=== PATIENT | male | born 1960 | race Caucasian/White ===

== ENCOUNTER 2017-11-30 11:00 | Emergency (ER) | payer MEDICARE, OTHER ==
[2017-11-30 11:05] VITALS: TEMP 97.8
--- NOTE | 2017-11-30 11:40 | ED ---
General Adult HPI - General Chief complaint: Psychiatric Symptoms Stated complaint: EPS eval Time Seen by Provider: 11/30/17 11:18 Source: patient, RN notes reviewed Mode of arrival: ambulatory Limitations: no limitations - History of Present Illness Initial comments: Patient 56-year-old male presented to the emergency room today with a chief complaint of feeling more down. He does not that he's been crying a lot lately. He states just does not feel right. He states that he's recently going through divorce and had to move out of his house. 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 Patient states she's been taking his medications. States he came here for further evaluation as he just does not feel like this anymore. He states there is no thoughts of hurting himself or others. He denies any other complaints. Patient denies any recent fever, chills, shortness of breath, chest pain, back pain, abdominal pain , nausea or vomiting, headaches or visual changes, or any other complaints. - Related Data Home Medications Medication Instructions Recorded Confirmed [place] Carbonate 300 mg PO QID 09/19/15 11/30/17 OLANZapine [ZyPREXA] 10 mg PO HS 09/19/15 11/30/17 clonazePAM [KlonoPIN] 0.5 mg PO TID 09/19/15 11/30/17 Allergies Allergy/AdvReac Type Severity Reaction Status Date / Time No Known Allergies Allergy Verified 11/30/17 14:12 Review of Systems ROS Statement: Those systems with pertinent positive or pertinent negative responses have been documented in the HPI. ROS Other: All systems not noted in ROS Statement are negative. Past Medical History Additional Past Medical History / Comment(s): gout History of Any Multi-Drug Resistant Organisms: None Reported Past Surgical History: No Surgical Hx Reported Past Psychological History: Anxiety Smoking Status: Current every day smoker Past Alcohol Use History: None Reported Past Drug Use History: None Reported General Exam - General Exam Comments Initial Comments: General: The patient is awake and alert, in no distress, and does not appear acutely ill. Eye: Extra-ocular movements are intact. No nystagmus. There is normal conjunctiva bilaterally. No signs of icterus. Ears, nose, mouth and throat: There are moist mucous membranes and no oral lesions. Neck: The neck is supple, there is no tenderness or JVD. Cardiovascular: There is a regular rate and rhythm. No murmur, rub or gallop is appreciated. Respiratory: Lungs are clear to auscultation, respirations are non-labored, breath sounds are equal. No wheezes, stridor, rales, or rhonchi. Musculoskeletal: Normal ROM, no tenderness. Sensation intact. Neurological: A&O x 3. CN II-XII intact, There are no obvious motor or sensory deficits. Coordination appears grossly intact. Speech is normal. Skin: Skin is warm and dry and no rashes or lesions are noted. Psychiatric: Cooperative, appropriate mood & affect, normal judgment. Limitations: no limitations Course Vital Signs 11/30/17 11:03 Temperature 97.8 F Pulse Rate 100 Respiratory 20 Rate Blood Pressure 141/92 O2 Sat by Pulse 99 Oximetry Medical Decision Making - Medical Decision Making patient has been seen here in the emergency room by mental health. They recommended the patient may be discharged to follow up outpatient. He has no suicidal or homicidal thoughts or plans. there isbeen outpatient follow-up. is advised return to emergency room for any symptoms increase worsen or concerns. - Lab Data Lab Results 11/30/17 11/30/17 Range/Units 12:45 14:19 Urine Opiates Screen Not Detected (NotDetected) Ur Oxycodone Screen Not Detected (NotDetected) Urine Methadone Screen Not Detected (NotDetected) Ur Propoxyphene Screen Not Detected (NotDetected) Ur Barbiturates Screen Not Detected (NotDetected) U Tricyclic Antidepress Not Detected (NotDetected) Ur Phencyclidine Scrn Not Detected (NotDetected) Ur Amphetamines Screen Not Detected (NotDetected) U Methamphetamines Scrn Not Detected (NotDetected) U Benzodiazepines Scrn Not Detected (NotDetected) Dellrose <0.2 mmol/L Urine Cocaine Screen Not Detected (NotDetected) U Marijuana (THC) Screen Not Detected (NotDetected) Disposition Clinical Impression: Depression Disposition: HOME SELF-CARE Condition: Good Instructions: Depression (ED) Additional Instructions: Please follow-up with community mental as discussed here in emergency room. Please return here to emergency room if any symptoms increase or worsen or for any other concerns. Is patient prescribed a controlled substance at d/c from ED?: No Referrals: Davide Perkins, [Primary Care Provider] - 1-2 days Time of Disposition: 15:05
[2017-11-30 13:22] LABS: Amphetamine Screen,Urine Not Detected (NotDetected); Barbiturate Screen,Urine Not Detected (NotDetected); Benzodiazepines Screen,Urine Not Detected (NotDetected); Cocaine Screen,Urine Not Detected (NotDetected); Methadone Screen, Urine Not Detected (NotDetected); Opiate Screen,Urine Not Detected (NotDetected); Oxycodone Screen, Urine Not Detected (NotDetected); Phencyclidine Screen,Urine Not Detected (NotDetected); Tricyclic Antidepressant,Urine Not Detected (NotDetected); Urn Cannabinoid Scrn Not Detected (NotDetected)
[2017-11-30 15:17] VITALS: BP 138/78; PULSE 98; RESP 16
== END 2017-11-30 15:18 | disposition home or self-care (01) ==
LOC: EC 11:00
DX: F32.9 Major depressive disorder, single episode, unspecified (principal); F41.9 Anxiety disorder, unspecified; F17.200 Nicotine dependence, unspecified, uncomplicated
CPT/HCPCS: 36415; 80178; 80306; 82075; 99283

== ENCOUNTER 2020-09-04 19:24 | Emergency (ER) | payer MEDICARE, OTHER ==
[2020-09-04 19:33] VITALS: TEMP 98.2
[2020-09-04] MEDS ORDERED: ORPHENADRINE 30 MG/ML 2 ML VIAL IM STA (20:02)
[2020-09-04] MEDS ORDERED: KETOROLAC 15 MG/ML 1 ML VIAL IM STA (20:03)
--- NOTE | 2020-09-04 20:03 | ED ---
Back Pain HPI - General Chief Complaint: Back Pain/Injury Stated Complaint: [facility]- Low back injury Time Seen by Provider: 09/04/20 19:36 Source: patient Limitations: no limitations - History of Present Illness Initial Comments: Tate is a 59yo M who presents to the ER today via private vehicle for evaluation of low back pain. The patient works at a local grocery store, he reports that he was trying to get to cart unstuck when he jerked and twisted his back. Patient states that he has some pain right now, not severe but is worried that the pain will worsen over the next 24-48 hours. Patient denies any numbness or tingling in the legs. He's had no bowel or bowel incontinence. Denies additional concerns. - Related Data Home Medications Medication Instructions Recorded Confirmed [place] Carbonate 300 mg PO QID 09/19/15 11/30/17 OLANZapine [ZyPREXA] 10 mg PO HS 09/19/15 11/30/17 clonazePAM [KlonoPIN] 0.5 mg PO TID 09/19/15 11/30/17 Previous Rx's Medication Instructions Recorded Baclofen 10 mg PO TID #30 tab 09/04/20 Ibuprofen [Motrin] 600 mg PO Q8HR PRN #30 tab 09/04/20 Allergies Allergy/AdvReac Type Severity Reaction Status Date / Time No Known Allergies Allergy Verified 09/04/20 19:29 Review of Systems ROS Statement: Those systems with pertinent positive or pertinent negative responses have been documented in the HPI. ROS Other: All systems not noted in ROS Statement are negative. Past Medical History Past Medical History: No Reported History Additional Past Medical History / Comment(s): gout History of Any Multi-Drug Resistant Organisms: None Reported Past Surgical History: No Surgical Hx Reported Past Psychological History: Anxiety Smoking Status: Current every day smoker Past Alcohol Use History: None Reported Past Drug Use History: None Reported General Exam - General Exam Comments Initial Comments: Physical Exam GENERAL: Patient is well-developed and well-nourished. Patient is nontoxic and well-hydrated and is in no distress. HENT: Normocephalic, Atraumatic. EYES: PERRL, EOMI PULMONARY: Unlabored respirations. CARDIOVASCULAR: RRR Warm and well perfused extremities ABDOMEN: Non-distended SKIN: No rashes or bruising : Deferred NEUROLOGIC: Alert and oriented Normal speech Normal gait MUSCULOSKELETAL: Moving all extremities with no apparent injury No midline spinal tenderness PSYCHIATRIC: No SI/HI Limitations: no limitations Course Vital Signs 09/04/20 19:30 Temperature 98.2 F Pulse Rate 87 Respiratory 20 Rate Blood Pressure 114/76 O2 Sat by Pulse 94 L Oximetry Medical Decision Making - Medical Decision Making The patient was seen and evaluated, history was obtained from the patient, patient had low back pain that he describes as feeling that he has a muscle spasm after twisting while pulling on a grocery cart. No signs of bony injury. No focal neurologic deficits. Patient will be treated as a muscle spasm discharged home. Disposition Clinical Impression: Strain of lumbar region Disposition: HOME SELF-CARE Condition: Stable Instructions (If sedation given, give patient instructions): Acute Low Back Pain (ED) Prescriptions: Baclofen 10 mg PO TID #30 tab Ibuprofen [Motrin] 600 mg PO Q8HR PRN #30 tab PRN Reason: Pain Is patient prescribed a controlled substance at d/c from ED?: No Referrals: Davide Perkins DO [Primary Care Provider] - 1-2 days
[2020-09-04 21:11] VITALS: BP 134/90; PULSE 86; RESP 18
== END 2020-09-04 21:11 | disposition home or self-care (01) ==
LOC: EC 19:24
DX: S39.012A Strain of muscle, fascia and tendon of lower back, initial encounter (principal); F17.200 Nicotine dependence, unspecified, uncomplicated; X50.0XXA Overexertion from strenuous movement or load, initial encounter; Y92.512 Supermarket, store or market as the place of occurrence of the external cause; Y93.89 Activity, other specified; Y99.0 Civilian activity done for income or pay
CPT/HCPCS: 99283; 96372 ×2; J2360; J1885

== ENCOUNTER 2023-03-26 15:57 | Inpatient (IN) | payer MEDICARE, OTHER ==
[2023-03-26] MEDS ORDERED: MIDAZOLAM 1 MG/ML 5 ML VIAL IV STA (16:10)
[2023-03-26] MEDS ORDERED: ALBUTEROL NEBULIZED 2.5 MG/3 ML INHALATION STA (16:33)
[2023-03-26] MEDS ORDERED: IPRATROPIUM 0.5 MG/2.5 ML NEBU INHALATION STA (16:33)
[2023-03-26] MEDS ORDERED: methylPREDNISolone SOD SUCCI 125 MG/2 ML VIAL IV STA (16:33)
[2023-03-26] MEDS ORDERED: ONDANSETRON 4 MG/2 ML VIAL IVP STA (16:45)
--- NOTE | 2023-03-26 16:50 | ED ---
General Adult HPI - General Chief complaint: Shortness of Breath Stated complaint: BUFFY Time Seen by Provider: 03/26/23 16:00 Source: patient, EMS, RN notes reviewed, old records reviewed Mode of arrival: EMS Limitations: no limitations - History of Present Illness Initial comments: This is a 62-year-old male who has a past medical history significant for COPD and continues to smoke. Patient called because having difficulty breathing and chest tightness. Patient states when his COPD worsens he has increased chest tightness. Patient denies any palpitation. Patient denies any fever chills or cough per patient denies abdominal pain patient denies nausea vomiting or diarrhea. Patient denies any fever but does state he is coughing quite a bit. Patient denies any swelling in the legs or calf tenderness. Patient denies headache patient denies numbness weakness - Related Data Home Medications Medication Instructions Recorded Confirmed OLANZapine [ZyPREXA] 10 mg PO HS 09/19/15 03/26/23 Albuterol Sulfate [Albuterol 1 - 2 puff PO RT-Q4H PRN 03/26/23 03/26/23 Sulfate Hfa] Atorvastatin [Lipitor] 10 mg PO DAILY 03/26/23 03/26/23 FLUoxetine HCL [PROzac] 20 mg PO DAILY 03/26/23 03/26/23 OLANZapine [ZyPREXA] 5 mg PO DAILY 03/26/23 03/26/23 Omeprazole [PriLOSEC] 20 mg PO BID 03/26/23 03/26/23 Tiotropium Br/Olodaterol HCl 2 puff INHALATION RT-DAILY 03/26/23 03/26/23 [Stiolto Respimat Inhal [place]] hydroCHLOROthiazide 12.5 mg PO DAILY 03/26/23 03/26/23 lisinopriL [Zestril] 5 mg PO DAILY 03/26/23 03/26/23 Allergies Allergy/AdvReac Type Severity Reaction Status Date / Time No Known Allergies Allergy Verified 03/26/23 17:12 Review of Systems ROS Statement: Those systems with pertinent positive or pertinent negative responses have been documented in the HPI. ROS Other: All systems not noted in ROS Statement are negative. Past Medical History Past Medical History: No Reported History Additional Past Medical History / Comment(s): gout History of Any Multi-Drug Resistant Organisms: None Reported Past Surgical History: No Surgical Hx Reported Past Psychological History: Anxiety Smoking Status: Current every day smoker Past Alcohol Use History: None Reported Past Drug Use History: None Reported General Exam - General Exam Comments Initial Comments: GENERAL: Patient is well-developed and well-nourished. Patient is nontoxic and well- hydrated and is in moderate distress. ENT: Neck is soft and supple. No significant lymphadenopathy is noted. Oropharynx is clear. Moist mucous membranes. Neck has full range of motion without eliciting any pain. EYES: The sclera were anicteric and conjunctiva were pink and moist. Extraocular movements were intact and pupils were equal round and reactive to light. Eyelids were unremarkable. PULMONARY: Diminished breath sounds diffusely with expiratory wheezing CARDIOVASCULAR: Patient is tachycardic in the 110 bpm ABDOMEN: Soft and nontender with normal bowel sounds. SKIN: Skin is clear with no lesions or rashes and otherwise unremarkable. NEUROLOGIC: Patient is alert and oriented x3. Cranial nerves II through XII are grossly intact. Motor and sensory are also intact. Normal speech, volume and content. Symmetrical smile. MUSCULOSKELETAL: Normal extremities with adequate strength and full range of motion. LYMPHATICS: No significant lymphadenopathy is noted PSYCHIATRIC: Normal psychiatric evaluation. Limitations: no limitations Course Vital Signs 03/26/23 03/26/23 03/26/23 16:00 17:00 17:13 Temperature 98.0 F Pulse Rate 113 H 99 Respiratory 22 22 Rate Blood Pressure 168/90 148/87 O2 Sat by Pulse 99 100 99 Oximetry Fraction of Inspired Oxygen (FIO2) 03/26/23 03/26/23 03/26/23 17:35 17:54 18:30 Temperature Pulse Rate 100 105 H Respiratory 18 18 Rate Blood Pressure O2 Sat by Pulse Oximetry Fraction of 100 Inspired Oxygen (FIO2) 03/26/23 03/26/23 18:31 19:45 Temperature Pulse Rate Respiratory Rate Blood Pressure O2 Sat by Pulse Oximetry Fraction of 100 80 Inspired Oxygen (FIO2) Procedures - Intubation Sedative: Versed Paralytic: Succinylcholine Laryngoscope: Harris Size: 4 ET Tube Size: 8 ET Tube Uncuffed: No Tube Secured Location: teeth Tube Placement Confirmation: visualized tube passing through cords, equal breath sounds bilaterally, no breath sounds over epigastrium, confirmation by capnometry Patient Tolerated Procedure: well Intubation Complications: none Medical Decision Making - Medical Decision Making EKG is interpreted by myself. EKG shows sinus tachycardia at 103 bpm MN interval 120 QRS is 96 QT is 336 DT C is 396. I was called into the room because the patient become unresponsive is pulse ox was 99 % blood pressure was within normal range patient is mildly tachycardic at 110 beats a minute EKG was repeated and it was interpreted by myself EKG showed sinus tachycardia at 112 bpm MN interval 114 QRS 97 QT interval 323 QTC is 389. Patient shows no ST segment elevation or depression. Patient's initial ABG showed acidosis with a pCO2 of 26 pO2 of 50 a bicarb of 8 and sats of 79% after much investigation it was determined that the ABG was a venous draw with dilution of normal saline Repeat ABG with a arterial draw showed a pH is 7.1 to pCO2 of 93 pO2 of greater than 400 bicarb of 30 and O2 sat of 99%. Was pt. sent in by a medical professional or institution (, [facility], [employer]GER [employer], urgent care, hospital, or longterm...) When possible be specific @ -No Did you speak to anyone other than the patient for history (EMS, parent, family, police, friend...)? What history was obtained from this source @ -No Did you review nursing and triage notes (agree or disagree)? Why? @ -I reviewed and agree with nursing and triage notes Were old charts reviewed (outside hosp., previous admission, EMS record, old EKG, old radiological studies, urgent care reports/EKG's, longterm records)? Report findings @ -I reviewed prior to her labwork on this patient Differential Diagnosis (chest pain, altered mental status, abdominal pain women, abdominal pain men, vaginal bleeding, weakness, fever, dyspnea, syncope, headache, dizziness, GI bleed, back pain, seizure, CVA, palpatations, mental health, musculoskeletal)? @ -Differential Dyspnea: Coronary syndrome, arrhythmia, tamponade, asthma, COPD, pulmonary embolism, pneumonia, pneumothorax, pulmonary effusion, anaphylaxis, diabetic ketoacidosis, flailed chest, pulmonary contusion, diaphragmatic rupture, anemia, neuromuscular, this is not meant to be an all-inclusive list. EKG interpreted by me (3pts min.). @ -As above X-rays interpreted by me (1pt min.). @ -Chest x-ray shows no acute abnormality CT interpreted by me (1pt min.). @ -CT of the brain shows no acute abnormality. CT of the chest shows no acute abnormalities. U/S interpreted by me (1pt. min.). @ -None done What testing was considered but not performed or refused? (CT, X-rays, U/S, labs)? Why? @ -None What meds were considered but not given or refused? Why? @ -None Did you discuss the management of the patient with other professionals (professionals i.e. Dr., PA, [employer], lab, RT, psych nurse, social media job titles, online user experience strategist, teacher, bank operations officer, gearcase assembler)? Give summary @ -I spoke with Dr. Herring and he accepted the patient in ICU. I spoke with Dr. Talbot he accepts the patient. Was smoking cessation discussed for >3mins.? @ -Yes Was critical care preformed (if so, how long)? @ -35 minutes Were there social determinants of health that impacted care today? How? (Homelessness, low income, unemployed, alcoholism, drug addiction, transportation, low edu. Level, literacy, decrease access to med. care, penitentiary, rehab)? @ -No Was there de-escalation of care discussed even if they declined (Discuss DNR or withdrawal of care, Hospice)? DNR status @ -No What co-morbidities impacted this encounter? (DM, HTN, Smoking, COPD, CAD, Cancer, CVA, ARF, Chemo, Hep., AIDS, mental health diagnosis, sleep apnea, morbid obesity)? @ -None Was patient admitted / discharged? Hospital course, mention meds given and route, prescriptions, significant lab abnormalities, going to OR and other pertinent info. @ -Patient was on a nonrebreather when the patient arrived he was on it for a period time for it was removed. ABG that was initially done was diluted with saline and was probably venous draw. Repeat showed the patient was hypercapnic but in the process the patient became unresponsive and was intubated. Patient got multiple breathing treatments and steroids as well. Patient also got Rocephin. Patient was started on some propofol because the patient was fighting the vent a little bit. Patient will be admitted to Dr. Talbot I consulted pulmonology Undiagnosed new problem with uncertain prognosis? @ -No Drug Therapy requiring intensive monitoring for toxicity (Heparin, Nitro, Insulin, Cardizem)? @ -No Were any procedures done? @ -No Diagnosis/symptom? @ -Hypercapnic Acute, or Chronic, or Acute on Chronic? @ -Acute Uncomplicated (without systemic symptoms) or Complicated (systemic symptoms)? @ -Complicated Side effects of treatment? @ -No Exacerbation, Progression, or Severe Exacerbation? @ -No Poses a threat to life or bodily function? How? (Chest pain, [place], [place], pneumonia, PE, COPD, DKA, ARF, appy, cholecystitis, CVA, Diverticulitis, Homicidal, Suicidal, threat to staff... and all critical care pts) @ -Yes this can lead hypoxia and end organ dysfunction - Lab Data Result diagrams: 03/26/23 16:40 03/26/23 16:40 Lab Results 03/26/23 03/26/23 03/26/23 Range/Units 16:40 16:40 16:40 WBC 6.9 (3.8-10.6) k/uL RBC 4.55 (4.30-5.90) m/uL Hgb 15.2 (13.0-17.5) gm/dL Hct 45.7 (39.0-53.0) % MCV 100.4 H (80.0-100.0) fL MCH 33.5 (25.0-35.0) pg MCHC 33.4 (31.0-37.0) g/dL RDW 12.6 (11.5-15.5) % Plt Count 217 (150-450) k/uL MPV 7.7 Neutrophils % 86 % Lymphocytes % 5 % Monocytes % 8 % Eosinophils % 0 % Basophils % 1 % Neutrophils # 5.9 (1.3-7.7) k/uL Lymphocytes # 0.3 L (1.0-4.8) k/uL Monocytes # 0.5 (0-1.0) k/uL Eosinophils # 0.0 (0-0.7) k/uL Basophils # 0.0 (0-0.2) k/uL PT 11.0 (10.0-12.5) sec INR 1.0 (<1.2) APTT 25.3 (22.0-30.0) sec D-Dimer (<0.60) mg/L FEU Sample Site ABG pH (7.35-7.45) ABG pCO2 (35-45) mmHg ABG pO2 (83-108) mmHg ABG HCO3 (21-25) mmol/L ABG Total CO2 (19-24) mmol/L ABG O2 Saturation (94-97) % ABG Base Excess mmol/L Efren Test Carbon Monoxide, Quant (<10.0) % FiO2 % Sodium 132 L (137-145) mmol/L Potassium 4.9 (3.5-5.1) mmol/L Chloride 94 L (98-107) mmol/L Carbon Dioxide 33 H (22-30) mmol/L Anion Gap 5 mmol/L BUN 16 (9-20) mg/dL Creatinine 0.62 L (0.66-1.25) mg/dL Est GFR (CKD-EPI)AfAm >90 (>60 ml/min/1.73 sqM) Est GFR (CKD-EPI)NonAf >90 (>60 ml/min/1.73 sqM) Glucose 182 H (74-99) mg/dL POC Glucose (mg/dL) (70-110) mg/dL POC Glu Front Office Administrator ID Plasma Lactic Acid True (0.7-2.0) mmol/L Calcium 8.8 (8.4-10.2) mg/dL Magnesium 2.0 (1.6-2.3) mg/dL Total Bilirubin 0.5 (0.2-1.3) mg/dL AST 29 (17-59) U/L ALT 17 (4-49) U/L Alkaline Phosphatase 125 (38-126) U/L Troponin I (0.000-0.034) ng/mL Total Protein 7.9 (6.3-8.2) g/dL Albumin 4.7 (3.5-5.0) g/dL Influenza Type A (PCR) (Not Detectd) Influenza Type B (PCR) (Not Detectd) RSV (PCR) (Not Detectd) SARS-CoV-2 (PCR) (Not Detectd) 03/26/23 03/26/23 03/26/23 Range/Units 16:40 16:40 16:40 WBC (3.8-10.6) k/uL RBC (4.30-5.90) m/uL Hgb (13.0-17.5) gm/dL Hct (39.0-53.0) % MCV (80.0-100.0) fL MCH (25.0-35.0) pg MCHC (31.0-37.0) g/dL RDW (11.5-15.5) % Plt Count (150-450) k/uL MPV Neutrophils % % Lymphocytes % % Monocytes % % Eosinophils % % Basophils % % Neutrophils # (1.3-7.7) k/uL Lymphocytes # (1.0-4.8) k/uL Monocytes # (0-1.0) k/uL Eosinophils # (0-0.7) k/uL Basophils # (0-0.2) k/uL PT (10.0-12.5) sec INR (<1.2) APTT (22.0-30.0) sec D-Dimer (<0.60) mg/L FEU Sample Site ABG pH (7.35-7.45) ABG pCO2 (35-45) mmHg ABG pO2 (83-108) mmHg ABG HCO3 (21-25) mmol/L ABG Total CO2 (19-24) mmol/L ABG O2 Saturation (94-97) % ABG Base Excess mmol/L Efren Test Carbon Monoxide, Quant (<10.0) % FiO2 % Sodium (137-145) mmol/L Potassium (3.5-5.1) mmol/L Chloride (98-107) mmol/L Carbon Dioxide (22-30) mmol/L Anion Gap mmol/L BUN (9-20) mg/dL Creatinine (0.66-1.25) mg/dL Est GFR (CKD-EPI)AfAm (>60 ml/min/1.73 sqM) Est GFR (CKD-EPI)NonAf (>60 ml/min/1.73 sqM) Glucose (74-99) mg/dL POC Glucose (mg/dL) (70-110) mg/dL POC Glu Front Office Administrator ID Plasma Lactic Acid True 1.6 (0.7-2.0) mmol/L Calcium (8.4-10.2) mg/dL Magnesium (1.6-2.3) mg/dL Total Bilirubin (0.2-1.3) mg/dL AST (17-59) U/L ALT (4-49) U/L Alkaline Phosphatase (38-126) U/L Troponin I <0.012 (0.000-0.034) ng/mL Total Protein (6.3-8.2) g/dL Albumin (3.5-5.0) g/dL Influenza Type A (PCR) Not Detected (Not Detectd) Influenza Type B (PCR) Not Detected (Not Detectd) RSV (PCR) Not Detected (Not Detectd) SARS-CoV-2 (PCR) Not Detected (Not Detectd) 03/26/23 03/26/23 03/26/23 Range/Units 16:40 18:15 18:45 WBC (3.8-10.6) k/uL RBC (4.30-5.90) m/uL Hgb (13.0-17.5) gm/dL Hct (39.0-53.0) % MCV (80.0-100.0) fL MCH (25.0-35.0) pg MCHC (31.0-37.0) g/dL RDW (11.5-15.5) % Plt Count (150-450) k/uL MPV Neutrophils % % Lymphocytes % % Monocytes % % Eosinophils % % Basophils % % Neutrophils # (1.3-7.7) k/uL Lymphocytes # (1.0-4.8) k/uL Monocytes # (0-1.0) k/uL Eosinophils # (0-0.7) k/uL Basophils # (0-0.2) k/uL PT (10.0-12.5) sec INR (<1.2) APTT (22.0-30.0) sec D-Dimer 0.36 (<0.60) mg/L FEU Sample Site r [facility] ABG pH 7.07 L* (7.35-7.45) ABG pCO2 27 L (35-45) mmHg ABG pO2 51 L* (83-108) mmHg ABG HCO3 8 L* (21-25) mmol/L ABG Total CO2 9 L (19-24) mmol/L ABG O2 Saturation 79.2 L (94-97) % ABG Base Excess -22.4 mmol/L Efren Test na Carbon Monoxide, Quant (<10.0) % FiO2 100 % Sodium (137-145) mmol/L Potassium (3.5-5.1) mmol/L Chloride (98-107) mmol/L Carbon Dioxide (22-30) mmol/L Anion Gap mmol/L BUN (9-20) mg/dL Creatinine (0.66-1.25) mg/dL Est GFR (CKD-EPI)AfAm (>60 ml/min/1.73 sqM) Est GFR (CKD-EPI)NonAf (>60 ml/min/1.73 sqM) Glucose (74-99) mg/dL POC Glucose (mg/dL) 192 H (70-110) mg/dL POC Glu Front Office Administrator ID Belval, Ban Plasma Lactic Acid True (0.7-2.0) mmol/L Calcium (8.4-10.2) mg/dL Magnesium (1.6-2.3) mg/dL Total Bilirubin (0.2-1.3) mg/dL AST (17-59) U/L ALT (4-49) U/L Alkaline Phosphatase (38-126) U/L Troponin I (0.000-0.034) ng/mL Total Protein (6.3-8.2) g/dL Albumin (3.5-5.0) g/dL Influenza Type A (PCR) (Not Detectd) Influenza Type B (PCR) (Not Detectd) RSV (PCR) (Not Detectd) SARS-CoV-2 (PCR) (Not Detectd) 03/26/23 03/26/23 Range/Units 19:36 19:39 WBC (3.8-10.6) k/uL RBC (4.30-5.90) m/uL Hgb (13.0-17.5) gm/dL Hct (39.0-53.0) % MCV (80.0-100.0) fL MCH (25.0-35.0) pg MCHC (31.0-37.0) g/dL RDW (11.5-15.5) % Plt Count (150-450) k/uL MPV Neutrophils % % Lymphocytes % % Monocytes % % Eosinophils % % Basophils % % Neutrophils # (1.3-7.7) k/uL Lymphocytes # (1.0-4.8) k/uL Monocytes # (0-1.0) k/uL Eosinophils # (0-0.7) k/uL Basophils # (0-0.2) k/uL PT (10.0-12.5) sec INR (<1.2) APTT (22.0-30.0) sec D-Dimer (<0.60) mg/L FEU Sample Site [facility] ABG pH 7.12 L* (7.35-7.45) ABG pCO2 93 H* (35-45) mmHg ABG pO2 >400 H (83-108) mmHg ABG HCO3 31 H (21-25) mmol/L ABG Total CO2 33 H (19-24) mmol/L ABG O2 Saturation 99.7 H (94-97) % ABG Base Excess 1.2 mmol/L Efren Test Yes Carbon Monoxide, Quant 3.0 (<10.0) % FiO2 100 % Sodium (137-145) mmol/L Potassium (3.5-5.1) mmol/L Chloride (98-107) mmol/L Carbon Dioxide (22-30) mmol/L Anion Gap mmol/L BUN (9-20) mg/dL Creatinine (0.66-1.25) mg/dL Est GFR (CKD-EPI)AfAm (>60 ml/min/1.73 sqM) Est GFR (CKD-EPI)NonAf (>60 ml/min/1.73 sqM) Glucose (74-99) mg/dL POC Glucose (mg/dL) (70-110) mg/dL POC Glu Front Office Administrator ID Plasma Lactic Acid True (0.7-2.0) mmol/L Calcium (8.4-10.2) mg/dL Magnesium (1.6-2.3) mg/dL Total Bilirubin (0.2-1.3) mg/dL AST (17-59) U/L ALT (4-49) U/L Alkaline Phosphatase (38-126) U/L Troponin I (0.000-0.034) ng/mL Total Protein (6.3-8.2) g/dL Albumin (3.5-5.0) g/dL Influenza Type A (PCR) (Not Detectd) Influenza Type B (PCR) (Not Detectd) RSV (PCR) (Not Detectd) SARS-CoV-2 (PCR) (Not Detectd) Critical Care Time Critical Care Time: Yes Total Critical Care Time: 35 Disposition Clinical Impression: Hypercapnic acidosis Disposition: ADMITTED IP TO THIS HOSP Referrals: Davide Perkins DO [Primary Care Provider] - 1-2 days Time of Disposition: 20:25
[2023-03-26 16:55] LABS: Basophils % (A) 1 %; Eosinophils % (A) 0 %; HCT 45.7 % (39.0-53.0); HGB 15.2 gm/dL (13.0-17.5); Lymphocytes # (A) 0.3 k/uL (1.0-4.8); Lymphocytes % (A) 5 %; MCH 33.5 pg (25.0-35.0); MCHC 33.4 g/dL (31.0-37.0); MCV 100.4 fL (80.0-100.0); Mean Platelet Volume 7.7; Monocytes # (A) 0.5 k/uL (0-1.0); Monocytes % (A) 8 %; Neutrophils # (A) 5.9 k/uL (1.3-7.7); Neutrophils % (A) 86 %; Platelet Count 217 k/uL (150-450); RBC 4.55 m/uL (4.30-5.90); RDW 12.6 % (11.5-15.5); WBC 6.9 k/uL (3.8-10.6)
[2023-03-26 17:04] LABS: ALT 17 U/L (4-49); African American GFR (CKD) >90 (>60 ml/min/1.73 sqM); Albumin 4.7 g/dL (3.5-5.0); Alkaline Phosphatase 125 U/L (38-126); Anion Gap 5 mmol/L; Calcium 8.8 mg/dL (8.4-10.2); Carbon Dioxide 33 mmol/L (22-30); Chloride 94 mmol/L (98-107); Non-African American GFR(CKD) >90 (>60 ml/min/1.73 sqM); Potassium 4.9 mmol/L (3.5-5.1); Sodium 132 mmol/L (137-145); Total Protein 7.9 g/dL (6.3-8.2)
[2023-03-26 17:06] LABS: AST 29 U/L (17-59); Blood Urea Nitrogen 16 mg/dL (9-20); Glucose 182 mg/dL (74-99); Total Bilirubin 0.5 mg/dL (0.2-1.3)
[2023-03-26 17:07] LABS: Partial Thromboplastin Time 25.3 sec (22.0-30.0)
--- NOTE | 2023-03-26 17:22 | XR ---
EXAMINATION TYPE: XR chest 2V DATE OF EXAM: 03/26/2023 COMPARISON: None HISTORY: 62 year-old male shortness of breath, difficulty in breathing TECHNIQUE: AP and lateral views FINDINGS: Heart normal size. Aorta and pulmonary vasculature are within normal limits. Hyperinflation. No conso lidation or pleural effusion. IMPRESSION: COPD. No acute process seen.
[2023-03-26 18:16] LABS: Glucose,Whole Blood 192 mg/dL (70-110)
[2023-03-26] MEDS ORDERED: LORazepam 2 MG/ML INJ IV STA ×2 (18:20→20:00)
[2023-03-26] MEDS ORDERED: SUCCINYLCHOLINE CHLORIDE 200 MG/10 ML VIAL IV STA (18:48)
[2023-03-26 18:51] LABS: ABG Base Excess -22.4 mmol/L; ABG Oxygen Saturation 79.2 % (94-97); ABG PCO2 27 mmHg (35-45); ABG TCO2 9 mmol/L (19-24)
[2023-03-26 18:52] LABS: ABG HCO3 8 mmol/L (21-25); ABG PH 7.07 (7.35-7.45); ABG PO2 51 mmHg (83-108)
--- NOTE | 2023-03-26 18:57 | XR ---
EXAMINATION TYPE: XR chest 1V portable DATE OF EXAM: 03/26/2023 COMPARISON: 03/26/2023 HISTORY: Tube placement TECHNIQUE: Single frontal view of the chest is obtained. FINDINGS: ET tube is approximate 4 cm above the michael. There is an NG tube within the stomach. There is hyperinflation lungs and flattening the diaphragms consistent with COPD. The heart and pulmo nary vascular normal. There is no abnormal airspace or interstitial opacity. There is no pleural effu cassi or pneumothorax. IMPRESSION: 1. Marked COPD 2. No acute cardiopulmonary disease. 3. ET tube approximately 4 cm above the michael. 4. NG tube within the stomach.
[2023-03-26 19:37] LABS: ABG Base Excess 1.2 mmol/L; ABG HCO3 31 mmol/L (21-25); ABG Oxygen Saturation 99.7 % (94-97); ABG PO2 >400 mmHg (83-108); ABG TCO2 33 mmol/L (19-24); Allen Test Performed? Yes
[2023-03-26 19:40] LABS: ABG PCO2 93 mmHg (35-45); ABG PH 7.12 (7.35-7.45)
--- NOTE | 2023-03-26 19:51 | CT ---
EXAMINATION TYPE: CT brain wo con DATE OF EXAM: 03/26/2023 COMPARISON: None HISTORY: ams CT DLP: 1329.4 mGycm Automated exposure control for dose reduction was used. FINDINGS: The ventricles, basal cisterns and sulci over the convexities within normal limits and there is no ma ss effect or shift of midline structures. No abnormal density is seen throughout the brain parenchyma. There is no acute intra or extra-axial hemorrhage. Posterior fossa including the brainstem, fourth ventricle and cerebellar pontine angles appear grossl y normal. Visualized paranasal sinuses and mastoid air cells are well aerated. There is a tracheostomy tube. IMPRESSION: No acute bleed or mass effect.
[2023-03-26] MEDS: LORazepam 2 MG/ML INJ IV STA ×2 (19:55→20:05)
--- NOTE | 2023-03-26 19:57 | CT ---
EXAMINATION TYPE: CT chest angio for PE DATE OF EXAM: 03/26/2023 COMPARISON: None HISTORY: dyspnea CT DLP: 256.2 mGycm Automated exposure control for dose reduction was used. CONTRAST: CT Chest for pulmonary embolism performed with with IV Contrast, patient injected with 80ml mL of Iso kenneth 370. FINDINGS: There is hyperinflation lungs and flattening the diaphragms consistent with COPD. The lungs are clear of consolidative/airspace density or abnormal interstitial density. There is no pleural effusion or pneumothorax. The great vessels the chest are normal and there is no mediastinal, hilar or axillary adenopathy. There are no filling defects within the pulmonary arteries or branches to suggest pulmonary embolism. There is an ET tube in NG tube above the michael and an NG tube within the stomach. The osseous structures are intact. IMPRESSION: 1. No evidence of pulmonary embolism. 2. No acute cardiopulmonary disease. 3. COPD 4. ET tube above the michael and NG tube within the stomach.
[2023-03-26] MEDS ORDERED: SODIUM CHLORIDE 0.9% 1,000 ML IV ONE ×2 (20:11→22:39)
[2023-03-26] MEDS ORDERED: NALOXONE 0.4 MG/ML 1 ML VIAL IVP PRN (20:25)
[2023-03-26 21:40] LABS: Glucose,Whole Blood 123 mg/dL (70-110)
[2023-03-26 23:00] LABS: ABG Base Excess 1.5 mmol/L; ABG HCO3 31 mmol/L (21-25); ABG Oxygen Saturation 99.5 % (94-97); ABG PO2 358 mmHg (83-108); ABG TCO2 33 mmol/L (19-24); Allen Test Performed? Yes
[2023-03-26 23:49] LABS: ABG PH 7.14 (7.35-7.45)
[2023-03-26 23:50] LABS: ABG PCO2 90 mmHg (35-45)
[2023-03-26] MEDS ORDERED: SODIUM CHLORIDE 0.9% 500 ML 500 ML IV ONE (23:53)
[2023-03-27] MEDS: IPRATROPIUM-ALBUTEROL 3 ML NEB INHALATION SCH ×6 (00:37→20:08)
[2023-03-27 00:54] LABS: Glucose,Whole Blood 122 mg/dL (70-110)
[2023-03-27] MEDS: methylPREDNISolone SOD SUCCI 125 MG/2 ML VIAL IV SCH ×4 (01:11→17:53)
--- NOTE | 2023-03-27 01:17 | P.CNPUL ---
History of Present Illness Consult date: 03/27/23 Requesting physician: Ramo Myers Reason for consult: COPD Chief complaint: Shortness of breath and respiratory failure History of present illness: I am seeing this patient in consultation today 03/27/2023 in the intensive care unit after he presented with a suspected severe COPD exacerbation requiring intubation in the emergency room. Patient is a 62-year-old white male with past medical history significant for COPD and chronic ongoing tobacco dependence. Patient is currently sedated and intubated on mechanical ventilator, most of this HPI supplemented from ER documentation. We were not able to get a hold of any family at this time, and there are no prior charts to review. Based on a review of his home medications, he may have history COPD, hypertension, and hyperlipidemia. On arrival to the emergency room, the patient was reportedly in some respiratory distress, and was initially placed on a nonrebreather. He was given a couple doses of Ativan 2 mg IVP. Patient then became unresponsive. Postintubation he ABG was consistent with severe hypercapnic respiratory failure. PO2 greater than 400, pCO2 of 93, and pH of 7.12. Postintubation chest x-ray has endotracheal tube approximately 4 cm above the michael. Orogastric tube courses below the diaphragm. No focal infiltrates or evidence of pneumonia. There is marked hyperinflation with flattening of the diaphragm, consistent with COPD. A follow-up chest CTA done while in the emergency room showed no evidence of pulmonary embolism. There is no acute cardiopulmonary process. Patient is currently in the intensive care unit, intubated to the mechanical ventilator. Propofol is infusing at 45 mcg/kg/m. He is synchronous with mechanical ventilator. Current ventilator settings are assist control, respiratory rate of 12, tidal volume 400, FiO2 of 80%, PEEP of 5. A repeat ABG as a PaO2 of 358, pCO2 of 90, pH of 7.14. I increased the patient's respiratory rate 20 and reduce the FiO2 to 50%. The peak airway pressure is 34 and static airway pressure is 24, patient has some evidence of airway resistance. Lung sounds are tight and continues wheezing. No significant airway secretions. Patient has been started on DuoNeb's every 4 hours. I would add budesonide and formoterol. Patient is also hypotensive, he is already received a total of 2 L normal saline bolus. He is only 52 kg. Patient will be started on low-dose norepinephrine for refractory hypotension if needed. CBC on arrival unremarkable. BMP on arrival, sodium 132, potassium 4.9, chloride 94, serum bicarbonate 33, BUN 16, creatinine 0.62, glucose 123. Lactic acid level II.5. Troponin is less than 0.012. Negative for influenza, RSV, COVID-19. He is afebrile. Patient's status is still volatile, and there are no plans to extubate tonight. Patient will be monitored in the intensive care unit. Review of Systems ROS unobtainable: due to endotracheal tube Past Medical History Past Medical History: No Reported History Additional Past Medical History / Comment(s): gout History of Any Multi-Drug Resistant Organisms: None Reported Past Surgical History: No Surgical Hx Reported Past Psychological History: Anxiety Smoking Status: Current every day smoker Past Alcohol Use History: None Reported Past Drug Use History: None Reported Medications and Allergies Home Medications Medication Instructions Recorded Confirmed Type OLANZapine [ZyPREXA] 10 mg PO HS 09/19/15 03/26/23 History Albuterol Sulfate [Albuterol 1 - 2 puff PO RT-Q4H PRN 03/26/23 03/26/23 History Sulfate Hfa] Atorvastatin [Lipitor] 10 mg PO DAILY 03/26/23 03/26/23 History OLANZapine [ZyPREXA] 5 mg PO DAILY 03/26/23 03/26/23 History Omeprazole [PriLOSEC] 20 mg PO BID 03/26/23 03/26/23 History RX: FLUoxetine HCL [PROzac] 20 mg PO DAILY 03/26/23 03/26/23 History RX: hydroCHLOROthiazide 12.5 mg PO DAILY 03/26/23 03/26/23 History Tiotropium Br/Olodaterol HCl 2 puff INHALATION RT-DAILY 03/26/23 03/26/23 History [Stiolto Respimat Inhal [place]] lisinopriL [Zestril] 5 mg PO DAILY 03/26/23 03/26/23 History Allergies Allergy/AdvReac Type Severity Reaction Status Date / Time No Known Allergies Allergy Verified 03/26/23 17:12 Physical Exam Vitals: Vital Signs Temp Pulse Resp BP Pulse Ox FiO2 03/27/23 00:10 50 03/26/23 23:30 102 H 7 L 82/56 86 L 50 03/26/23 23:22 50 03/26/23 23:15 90 20 84/59 99 03/26/23 23:10 50 03/26/23 23:00 92 12 100 03/26/23 22:45 85 12 86/61 100 03/26/23 22:30 89 12 86/64 99 03/26/23 22:18 18 03/26/23 21:45 98.5 F 12 97/63 100 80 03/26/23 21:30 100 12 96/63 100 03/26/23 21:15 94 12 87/55 100 03/26/23 21:00 108 H 12 133/69 100 03/26/23 20:40 99 10 L 98/61 100 03/26/23 20:30 107 H 11 L 92/56 100 03/26/23 20:20 101 H 8 L 113/68 100 03/26/23 20:00 101 H 12 104/73 100 03/26/23 19:50 112 H 12 95/67 100 03/26/23 19:45 80 03/26/23 19:40 108 H 14 120/73 100 03/26/23 19:10 117 H 10 L 137/78 100 03/26/23 19:00 128 H 13 160/90 100 03/26/23 18:30 100 03/26/23 17:54 105 H 18 03/26/23 17:35 100 18 03/26/23 17:13 99 03/26/23 17:00 99 22 148/87 100 03/26/23 16:00 98.0 F 113 H 22 168/90 99 Intake and Output 03/26/23 03/26/23 03/27/23 14:59 22:59 06:59 Intake Total 60.339 Output Total 300 Balance -239.661 Intake: Intake, IV Titration 60.339 Amount propofoL 1,000 mg In 8.84 Empty Bag 1 bag @ 15 MCG/ KG/MIN 4.68 mls/hr IV . [id number] GYPSY Rx#: [id number] propofoL 1,000 mg In 51.499 Empty Bag 1 bag @ 30 MCG/ KG/MIN 8.328 mls/hr IV . Q12H1M GYPSY Rx#:[id number] Output: Urine 300 Other: Voiding Method Indwelling Catheter Weight 52 kg GENERAL EXAM: Sedated, 62-year-old white male, synchronous mechanical ventilator. He is frail. HEAD: Normocephalic and atraumatic EYES: Normal reaction of pupils, equal size. NOSE: Clear with pink turbinates. THROAT: No erythema or exudates. NECK: No masses, no JVD. CHEST: No chest wall deformity. LUNGS: Equal air expansion with diminished sounds throughout. Expiratory wheezes heard throughout. No crackles, rhonchi. Intubated to the mechanical ventilator. CVS: S1 and S2 normal with no audible murmur, regular rhythm. No extra heart sounds ABDOMEN: No hepatosplenomegaly, active bowel sounds, no guarding or rigidity. SPINE: No scoliosis or deformity SKIN: No rashes CENTRAL NERVOUS SYSTEM: He is sedated, and does not follow commands. Withdrawals to pain in all four extremities. EXTREMITIES: There is no peripheral edema, clubbing, or cyanosis. Peripheral pulses are intact. Results - Laboratory Findings CBC and BMP: 03/26/23 16:40 03/26/23 16:40 ABG ABG pH 7.14 (7.35-7.45) L* 03/26/23 22:55 ABG pCO2 90 mmHg (35-45) H* 03/26/23 22:55 ABG pO2 358 mmHg (83-108) H 03/26/23 22:55 ABG O2 Saturation 99.5 % (94-97) H 03/26/23 22:55 PT/INR, D-dimer PT 11.0 sec (10.0-12.5) 03/26/23 16:40 INR 1.0 (<1.2) 03/26/23 16:40 D-Dimer 0.36 mg/L FEU (<0.60) 03/26/23 16:40 Abnormal lab findings: Abnormal Labs 03/26/23 03/26/23 03/26/23 16:40 16:40 18:15 MCV 100.4 H Lymphocytes # 0.3 L ABG pH ABG pCO2 ABG pO2 ABG HCO3 ABG Total CO2 ABG O2 Saturation Sodium 132 L Chloride 94 L Carbon Dioxide 33 H Creatinine 0.62 L Glucose 182 H POC Glucose (mg/dL) 192 H Plasma Lactic Acid True 03/26/23 03/26/23 03/26/23 18:45 19:36 19:39 MCV Lymphocytes # ABG pH 7.07 L* 7.12 L* ABG pCO2 27 L 93 H* ABG pO2 51 L* >400 H ABG HCO3 8 L* 31 H ABG Total CO2 9 L 33 H ABG O2 Saturation 79.2 L 99.7 H Sodium Chloride Carbon Dioxide Creatinine Glucose POC Glucose (mg/dL) Plasma Lactic Acid True 2.5 H* 03/26/23 03/26/23 03/26/23 21:39 22:55 22:58 MCV Lymphocytes # ABG pH 7.14 L* ABG pCO2 90 H* ABG pO2 358 H ABG HCO3 31 H ABG Total CO2 33 H ABG O2 Saturation 99.5 H Sodium Chloride Carbon Dioxide Creatinine Glucose POC Glucose (mg/dL) 123 H Plasma Lactic Acid True 2.1 H* - Diagnostic Findings Chest x-ray: image reviewed CT scan - chest: image reviewed Assessment and Plan Assessment: Acute hypoxemic and hypercapnic respiratory failure, currently intubated on mechanical ventilator, secondary to severe COPD exacerbation. Chest CTA did not show any evidence of pulmonary embolism. No acute cardiopulmonary process such as focal infiltrates or evidence of pneumonia. There is hyperinflation with flattened diaphragms consistent with COPD. Negative for influenza, RSV, COVID- 19. Hypotension, currently being fluid resuscitated, not requiring vasopressors at this time. History of hyperlipidemia History of hypertension Ongoing tobacco dependence Plan: Patient's medications, labs and imaging reviewed. Continue mechanical ventilator with current settings. I did increase the patient's respiratory rate to 20 and reduce the FiO2 to 50%. Continue to wean FIO2 as tolerated. Add ventilator bundle. Propofol for sedation, with daily interruptions of sedation to assess readiness for weaning. Patient's condition is still volatile, and there are no plans to extubate tonight. Patient's been started on a combination of DuoNeb's are on the clock, budesonide inhalation, formoterol inhalation, and IV Solu-Medrol. Blood Pressure is borderline hypotensive, he has received a total of 2 L normal saline bolus. We will start low-dose norepinephrine infusion for blood pressure support if necessary. Antibiotics at this point are essentially empiric, we will check procalcitonin level and blood cultures are pending. Heparin for DVT prophylaxis and Protonix for GI prophylaxis. Consult dietary for enteral nutrition, should the patient require prolonged mechanical ventilation. Patient will be monitored in the intensive care unit. I have personally seen and examined the patient, performed the documentation and the assessment and plan as written. Number of minutes spent on the visit:20 Time with Patient: Greater than 30
--- NOTE | 2023-03-27 01:32 | HP ---
HISTORY AND PHYSICAL HISTORY OF PRESENT ILLNESS: Tate Johnston admitted to the ICU. He had a CTA for elevated D-dimer in the ER shows COPD, airspace density, interstitial densities. No evidence of PE, COPD, possible pneumonia, came to the emergency room with shortness of breath, came in with respiratory distress, intubated. He is coughing quite a bit. Denies any swelling in his legs. Possible COPD versus pneumonia. MEDICATIONS: All reviewed. ALLERGIES: Negative. REVIEW OF SYSTEMS: A 14-point review of systems otherwise negative except hypertension, COPD, coronary artery disease. PHYSICAL EXAMINATION: GENERAL: He is well developed, well nourished, well hydrated, mild distress. HEENT: Anicteric sclerae. Dry mucous membranes. LUNGS: Scattered rhonchi and wheeze, moderate. NEUROLOGIC: Cranial nerves intact. LYMPHATICS: There is no adenopathy. PSYCH: Normal eval. ABDOMEN: Soft, nontender. VITAL SIGNS: Temperature 98, pulse 113 to 198, blood pressure 148 to 168/87 to 90. He was intubated due to respiratory distress. EKG, sinus tachycardia. CO2 was 93. ASSESSMENT: Acute respiratory failure secondary to hypercapnic respiratory failure, respiratory metabolic acidosis, broad-spectrum antibiotics, updrafts, intubation. Septic workup. Prognosis guarded. ICU admit. MMODL / IJN: [id number] /
[2023-03-27] MEDS: SODIUM CHLORIDE 0.9% 1,000 ML IV SCH ×2 (03:34→15:43)
[2023-03-27 03:51] LABS: Basophils % (A) 0 %; Eosinophils % (A) 0 %; HCT 40.4 % (39.0-53.0); HGB 13.5 gm/dL (13.0-17.5); Lymphocytes # (A) 0.3 k/uL (1.0-4.8); Lymphocytes % (A) 6 %; MCH 34.1 pg (25.0-35.0); MCHC 33.5 g/dL (31.0-37.0); MCV 101.8 fL (80.0-100.0); Macrocytosis Slight; Monocytes # (A) 0.2 k/uL (0-1.0); Monocytes % (A) 5 %; Neutrophils # (A) 4.5 k/uL (1.3-7.7); Neutrophils % (A) 88 %; Platelet Count 165 k/uL (150-450); RBC 3.96 m/uL (4.30-5.90); RDW 12.8 % (11.5-15.5); WBC 5.1 k/uL (3.8-10.6)
[2023-03-27 04:01] LABS: African American GFR (CKD) >90 (>60 ml/min/1.73 sqM); Alcohol <10 mg/dL; Anion Gap 2 mmol/L; Blood Urea Nitrogen 15 mg/dL (9-20); Calcium 8.3 mg/dL (8.4-10.2); Carbon Dioxide 28 mmol/L (22-30); Chloride 104 mmol/L (98-107); Glucose 141 mg/dL (74-99); Non-African American GFR(CKD) >90 (>60 ml/min/1.73 sqM); Sodium 134 mmol/L (137-145)
[2023-03-27 04:27] LABS: ABG Base Excess 0.4 mmol/L; ABG HCO3 27 mmol/L (21-25); ABG Oxygen Saturation 99.2 % (94-97); ABG PCO2 58 mmHg (35-45); ABG PH 7.28 (7.35-7.45); ABG PO2 179 mmHg (83-108); ABG TCO2 29 mmol/L (19-24); Allen Test Performed? Yes
[2023-03-27] MEDS: NOREPINEPHRINE 4 MG in SODIUM CHLORIDE 0.9% 250 ML IV SCH ×2 (05:06→09:18)
[2023-03-27 06:32] LABS: Glucose,Whole Blood 143 mg/dL (70-110)
[2023-03-27] MEDS ORDERED: IPRATROPIUM-ALBUTEROL 3 ML NEB INHALATION SCH (08:00)
--- NOTE | 2023-03-27 08:54 | P.CNPUL ---
History of Present Illness Consult date: 03/27/23 Reason for consult: dyspnea History of present illness: Patient is a 62-year-old white male with past medical history significant for COPD and chronic ongoing tobacco dependence. The patient came into the emergency department with significant shortness of breath. Apparently, he was actively bronchospastic and he had diminished breath sounds. In the emergency, the patient was given breathing treatments [id number] and subsequently was p laced in the 100% nonrebreather facemask. Upon follow-up, the patient was found to be completely unresponsive and he was unable to protect his airway and his breathing was very shallow. At that point, he was intubated and placed on a mechanical ventilator. The initial blood gas was done postintubation was lab error and subsequently follow-up blood gases was done that showed significant respiratory acidosis and oxygen nasal already improved. Patient is currently sedated and intubated on mechanical ventilator, most of this HPI supplemented from ER documentation. We were not able to get a hold of any family at this time, and there are no prior charts to review. Based on a review of his home medications, he may have history COPD, hypertension, and hyperlipidemia. Postintubation he ABG was consistent with severe hypercapnic respiratory failure. PO2 greater than 400, pCO2 of 93, and pH of 7.12. Postintubation chest x-ray has endotracheal tube approximately 4 cm above the michael. Orog astric tube courses below the diaphragm. No focal infiltrates or evidence of pneumonia. There is marked hyperinflation with flattening of the diaphragm, consistent with COPD. A follow-up chest CTA done while in the emergency room showed no evidence of pulmonary embolism. There is no acute cardiopulmonary process. Patient is currently in the intensive care unit, intubated to the mechanical ventilator. Propofol is infusing at 45 mcg/kg/m. He is synchronous with mechanical ventilator. Current ventilator settings are assist control, respiratory rate of 12, tidal volume 400, FiO2 of 80%, PEEP of 5. A repeat ABG as a PaO2 of 358, pCO2 of 90, pH of 7.14. I increased the patient's respiratory rate 20 and reduce the FiO2 to 50%. The peak airway pressure is 34 and static airway pressure is 24, patient has some evidence of airway resistance. Lung sounds are tight and continues wheezing. No significant airway secretions. Patient has been started on DuoNeb's every 4 hours. I would add budesonide and formoterol. Patient is also hypotensive, he is already received a total of 2 L normal saline bolus. He is only 52 kg. Patient will be started on low-dose norepinephrine for refractory hypotension if needed. CBC on arrival unremarkable. BMP on arrival, sodium 132, potassium 4.9, chloride 94, serum bicarbonate 33, BUN 16, creatinine 0.62, glucose 123. Lactic acid level II.5. Troponin is less than 0.012. Negative for influenza, RSV, COVID-19. He is afebrile. Patient's status is still volatile, and there are no plans to extubate tonight. They have the chest was also completed in emergency. This was reviewed. No evidence of any pulmonary embolism. There is extensive emphysema bilaterally. No airspace disease. Note that the patient's NG output is bloody. Currently has approximately 300 mL and the canister. In terms of his hemoglobin monitoring, the patient's hemoglobin dropped from 15.2 down to 13.5. IV fluids are in the form of normal saline at rate of 75 mL's an hour. The patient is sedated with propofol running at 50 mcg/kg/m. Most recent blood gas showed improvement and acid-base status. PH is down still at 7.28 also improved compared to yesterday. PCO2 is down to 58 and pO2 is at 179 and this was an FiO2 of 50% and subsequently the FiO2 was dropped onto 40%. No pressors. Review of Systems ROS unobtainable: due to mental status Past Medical History Past Medical History: No Reported History, COPD, Hypertension Additional Past Medical History / Comment(s): gout History of Any Multi-Drug Resistant Organisms: None Reported Past Surgical History: No Surgical Hx Reported Past Psychological History: Anxiety Smoking Status: Current every day smoker Past Alcohol Use History: None Reported Past Drug Use History: None Reported Medications and Allergies Home Medications Medication Instructions Recorded Confirmed Type OLANZapine [ZyPREXA] 10 mg PO HS 09/19/15 03/26/23 History Albuterol Sulfate [Albuterol 1 - 2 puff PO RT-Q4H PRN 03/26/23 03/26/23 History Sulfate Hfa] Atorvastatin [Lipitor] 10 mg PO DAILY 03/26/23 03/26/23 History FLUoxetine HCL [PROzac] 20 mg PO DAILY 03/26/23 03/26/23 History OLANZapine [ZyPREXA] 5 mg PO DAILY 03/26/23 03/26/23 History Omeprazole [PriLOSEC] 20 mg PO BID 03/26/23 03/26/23 History Tiotropium Br/Olodaterol HCl 2 puff INHALATION RT-DAILY 03/26/23 03/26/23 History [Stiolto Respimat Inhal [place]] hydroCHLOROthiazide 12.5 mg PO DAILY 03/26/23 03/26/23 History lisinopriL [Zestril] 5 mg PO DAILY 03/26/23 03/26/23 History Allergies Allergy/AdvReac Type Severity Reaction Status Date / Time No Known Allergies Allergy Verified 03/26/23 17:12 Physical Exam Vitals: Vital Signs Temp Pulse Resp BP Pulse Ox FiO2 03/27/23 07:52 40 03/27/23 07:15 100 12 100 03/27/23 07:00 100 20 100 40 03/27/23 06:45 99 20 100 03/27/23 06:30 96 20 100 03/27/23 06:15 98 20 100 03/27/23 06:00 99 20 100 40 03/27/23 05:45 112 H 20 99 03/27/23 05:30 99 20 100 03/27/23 05:15 98.2 F 101 H 20 100 03/27/23 05:00 103 H 20 98/74 100 40 03/27/23 04:45 103 H 20 98/74 100 40 03/27/23 04:44 104 H 20 98/74 100 03/27/23 04:15 104 H 03/27/23 04:01 100 03/27/23 04:00 40 03/27/23 03:35 50 03/27/23 03:30 86 20 100 03/27/23 03:15 88 20 100 50 03/27/23 03:00 87 20 100 03/27/23 02:45 92 20 100 03/27/23 02:30 91 20 100 03/27/23 02:15 92 20 100 03/27/23 02:00 97 20 100 50 03/27/23 01:45 92 20 100 03/27/23 01:30 91 20 100 03/27/23 01:15 92 20 100 03/27/23 01:00 96 20 86/59 03/27/23 00:55 101 H 03/27/23 00:45 87 20 90/60 98 03/27/23 00:40 100 03/27/23 00:30 98 F 84 20 90/60 100 50 03/27/23 00:15 90 13 90/60 92 L 03/27/23 00:10 50 03/27/23 00:00 80 20 78/54 99 50 03/26/23 23:45 88 20 78/54 100 03/26/23 23:35 93 20 82/56 100 03/26/23 23:30 102 H 7 L 82/56 86 L 50 03/26/23 23:22 50 03/26/23 23:15 90 20 84/59 99 03/26/23 23:10 50 03/26/23 23:00 92 12 100 03/26/23 22:45 85 12 86/61 100 03/26/23 22:30 89 12 86/64 99 03/26/23 22:18 80 03/26/23 21:45 98.5 F 12 97/63 100 80 03/26/23 21:30 100 12 96/63 100 03/26/23 21:15 94 12 87/55 100 03/26/23 21:00 108 H 12 133/69 100 03/26/23 20:40 99 10 L 98/61 100 03/26/23 20:30 107 H 11 L 92/56 100 03/26/23 20:20 101 H 8 L 113/68 100 03/26/23 20:00 101 H 12 104/73 100 03/26/23 19:50 112 H 12 95/67 100 03/26/23 19:45 80 03/26/23 19:40 108 H 14 120/73 100 03/26/23 19:10 117 H 10 L 137/78 100 03/26/23 19:00 128 H 13 160/90 100 03/26/23 18:30 100 03/26/23 17:54 105 H 18 03/26/23 17:35 100 18 03/26/23 17:13 99 03/26/23 17:00 99 22 148/87 100 03/26/23 16:00 98.0 F 113 H 22 168/90 99 Intake and Output 03/26/23 03/27/23 03/27/23 22:59 06:59 14:59 Intake Total 60.339 1969.353 75 Output Total 300 325 35 Balance -424.915 8313.353 40 Intake: IV 1900 75 Sodium Chloride 0.9% 1, 400 75 000 ml @ 75 mls/hr IV . [id number] [facility] Rx#:[id number] Sodium Chloride 0.9% 1, 1000 000 ml @ 999 mls/hr IV . Q1H1M [facility] Rx#:[id number] Sodium Chloride 0.9% 500 500 ml 500 ml @ 999 mls/hr IV .Q31M [facility] Rx#:[id number] Intake, IV Titration 60.339 69.353 Amount propofoL 1,000 mg In 8.84 Empty Bag 1 bag @ 15 MCG/ KG/MIN 4.68 mls/hr IV . [id number] [facility] Rx#:[id number] propofoL 1,000 mg In 51.499 69.353 Empty Bag 1 bag @ 30 MCG/ KG/MIN 8.328 mls/hr IV . Q12H1M [facility] Rx#:[id number] Output: Urine 300 325 35 Other: Voiding Method Indwelling Catheter Indwelling Catheter Weight 52 kg 52.2 kg ABP, PAP, CO, CI - Last 8 Hours Arterial Blood Pressure 103/53 Arterial Blood Pressure 104/56 Arterial Blood Pressure 127/64 Arterial Blood Pressure 84/55 Arterial Blood Pressure 109/59 Arterial Blood Pressure 103/54 Arterial Blood Pressure 136/68 Arterial Blood Pressure 102/56 Arterial Blood Pressure 92/51 Arterial Blood Pressure 103/54 Arterial Blood Pressure 98/52 Arterial Blood Pressure 110/58 Arterial Blood Pressure 112/60 Arterial Blood Pressure 106/56 Arterial Blood Pressure 101/55 Arterial Blood Pressure 94/53 Arterial Blood Pressure 106/58 Arterial Blood Pressure 106/57 Arterial Blood Pressure 140/67 Arterial Blood Pressure 97/56 Arterial Blood Pressure 92/54 Arterial Blood Pressure 94/52 Arterial Blood Pressure 97/54 Arterial Blood Pressure 85/51 GENERAL EXAM: Sedated, 62-year-old white male, synchronous mechanical ventilator. He is frail. Orogastric and orotracheal tube are both in place. The patient has a bloody upper from his NG tube. HEAD: Normocephalic and atraumatic EYES: Normal reaction of pupils, equal size. NOSE: Clear with pink turbinates. THROAT: No erythema or exudates. NECK: No masses, no JVD. CHEST: No chest wall deformity. LUNGS: Equal air expansion with diminished sounds throughout. Expiratory wheezes heard throughout. No crackles, rhonchi. CVS: S1 and S2 normal with no audible murmur, regular rhythm. No extra heart sounds ABDOMEN: No hepatosplenomegaly, active bowel sounds, no guarding or rigidity. SPINE: No scoliosis or deformity SKIN: No rashes CENTRAL NERVOUS SYSTEM: He is sedated, and does not follow commands. Withdrawals to pain in all four extremities. EXTREMITIES: There is no peripheral edema, clubbing, or cyanosis. Peripheral pulses are intact. Results - Laboratory Findings CBC and BMP: 03/27/23 03:00 03/27/23 03:00 ABG ABG pH 7.28 (7.35-7.45) L 03/27/23 04:25 ABG pCO2 58 mmHg (35-45) H 03/27/23 04:25 ABG pO2 179 mmHg (83-108) H 03/27/23 04:25 ABG O2 Saturation 99.2 % (94-97) H 03/27/23 04:25 PT/INR, D-dimer PT 11.0 sec (10.0-12.5) 03/26/23 16:40 INR 1.0 (<1.2) 03/26/23 16:40 D-Dimer 0.36 mg/L FEU (<0.60) 03/26/23 16:40 Abnormal lab findings: Abnormal Labs 03/26/23 03/26/23 03/26/23 16:40 16:40 18:15 RBC MCV 100.4 H Lymphocytes # 0.3 L ABG pH ABG pCO2 ABG pO2 ABG HCO3 ABG Total CO2 ABG O2 Saturation Sodium 132 L Chloride 94 L Carbon Dioxide 33 H Creatinine 0.62 L Glucose 182 H POC Glucose (mg/dL) 192 H Plasma Lactic Acid True Calcium 03/26/23 03/26/23 03/26/23 18:45 19:36 19:39 RBC MCV Lymphocytes # ABG pH 7.07 L* 7.12 L* ABG pCO2 27 L 93 H* ABG pO2 51 L* >400 H ABG HCO3 8 L* 31 H ABG Total CO2 9 L 33 H ABG O2 Saturation 79.2 L 99.7 H Sodium Chloride Carbon Dioxide Creatinine Glucose POC Glucose (mg/dL) Plasma Lactic Acid True 2.5 H* Calcium 03/26/23 03/26/23 03/26/23 21:39 22:55 22:58 RBC MCV Lymphocytes # ABG pH 7.14 L* ABG pCO2 90 H* ABG pO2 358 H ABG HCO3 31 H ABG Total CO2 33 H ABG O2 Saturation 99.5 H Sodium Chloride Carbon Dioxide Creatinine Glucose POC Glucose (mg/dL) 123 H Plasma Lactic Acid True 2.1 H* Calcium 03/27/23 03/27/23 03/27/23 00:52 03:00 03:00 RBC 3.96 L MCV 101.8 H Lymphocytes # 0.3 L ABG pH ABG pCO2 ABG pO2 ABG HCO3 ABG Total CO2 ABG O2 Saturation Sodium 134 L Chloride Carbon Dioxide Creatinine 0.56 L Glucose 141 H POC Glucose (mg/dL) 122 H Plasma Lactic Acid True Calcium 8.3 L 03/27/23 03/27/23 04:25 06:31 RBC MCV Lymphocytes # ABG pH 7.28 L ABG pCO2 58 H ABG pO2 179 H ABG HCO3 27 H ABG Total CO2 29 H ABG O2 Saturation 99.2 H Sodium Chloride Carbon Dioxide Creatinine Glucose POC Glucose (mg/dL) 143 H Plasma Lactic Acid True Calcium - Diagnostic Findings Chest x-ray: image reviewed CT scan - chest: image reviewed Assessment and Plan Plan: Acute hypoxic/hypercapnic respiratory failure due to COPD exacerbation. The patient was in significant respiratory acidosis at time of admission and he was in respiratory failure. Intubated and placed on a mechanical ventilator. This morning, peak airway pressure continues to be elevated. There is some improvement in his acid-base status based on a follow-up blood gases. Chest x- ray is negative for pneumonia. CT angiogram is negative for any acute abnormalities. The viral panel was negative Severe COPD maintain on Stiolto on outpatient basis Chronic smoker Upper GI bleed as the patient's NG tube is putting out bloody operative this point in time. The patient on IV Protonix Hypotension, not requiring any pressors at this point in time. The patient is on normal saline at rate of 75 mL an hour Hypertension Hyperlipidemia Chronic anxiety and possibly depression. Patient is maintain on combination of Zyprexa and Prozac on outpatient basis Plan Continue ventilator support Monitor the blood gases Continue the bronchodilators and the patient is currently on DuoNeb updrafts [id number] and IV Solu-Medrol 60 mg every 6 hours. Antibiotic coverage is emperic ,The patient does not have any clear signs of pneumonia Keep the patient on propofol Keep the patient IV Protonix No anticoagulants at this point in time Consult GI regarding his upper GI bleed Cognition profile is within normal and the patient is not taking any form of anticoagulants or antiplatelet agents at this point in time. Check occult stool for blood Keep the patient nothing by mouth Establish a triple-lumen catheter Increase IV fluids 125cc hour Monitor hemoglobin Condition is critical we'll continue to follow Time with Patient: Greater than 30
[2023-03-27] MEDS ORDERED: HEPARIN SODIUM,PORCINE 5,000 UNIT/ML 1 ML VIAL SQ SCH (09:00)
[2023-03-27] MEDS: FORMOTEROL FUMARATE 20 MCG/2 ML NEBU INHALATION SCH ×2 (09:06→20:09)
[2023-03-27] MEDS: BUDESONIDE 1 MG/2 ML NEBU INHALATION SCH ×2 (09:07→20:08)
[2023-03-27] MEDS: CHLORHEXIDINE GLUCONATE 15 ML CUP MUCOUS MEM SCH ×2 (09:07→21:30)
[2023-03-27] MEDS: AZITHROMYCIN 500 MG in SODIUM CHLORIDE 0.9% 250 ML IVPB SCH (09:07)
[2023-03-27] MEDS: PANTOPRAZOLE 40 MG/10 ML VIAL IVP SCH (09:08)
[2023-03-27] MEDS: LORazepam 2 MG/ML INJ IV PRN ×3 (09:17→23:31)
--- NOTE | 2023-03-27 09:19 | XR ---
EXAMINATION TYPE: XR chest 1V portable DATE OF EXAM: 03/27/2023 Comparison: 03/26/2023 Clinical History: 62-year-old male Tube placement Findings: ET tube satisfactory. NG tube courses below the diaphragm. Heart normal size. Aorta and pulmonary vas culature within normal limits. No consolidation or pleural effusion. Impression: COPD. No acute process seen.
[2023-03-27] MEDS ORDERED: CISATRACURIUM 2 MG/ML 5 ML VIAL IV ONE ×2 (09:21→09:45)
--- NOTE | 2023-03-27 09:33 | P.PCN ---
Date of Procedure: 03/27/23 Preoperative Diagnosis: Acute hypoxic/hypercapnic respiratory failure Postoperative Diagnosis: Same Procedure(s) Performed: Central line and arterial line insertion Anesthesia: local Surgeon: Gonzales Herring Estimated Blood Loss (ml): 0 Pathology: other Condition: critical Disposition: ICU Operative Findings: Indication: Hemodynamic monitoring/Intravenous access. A time-out was completed verifying correct patient, procedure, site, positioning, and implant(s) or special equipment if applicable. The patient was placed in a dependent position appropriate for central line placement based on the vein to be cannulated. The patients neck was prepped and draped in sterile fashion. 1% Lidocaine was used to anesthetize the surrounding skin area. A triple lumen 9F Cordis catheter was introduced into the left internal jugular vein using Seldinger technique. The catheter was threaded smoothly over the guide wire and appropriate blood return was obtained. Each lumen of the catheter was evacuated of air and flushed with sterile saline. The catheter was then sutured in place to the skin and a sterile dressing applied. Perfusion to the extremity distal to the point of catheter insertion was checked and found to be adequate. The patient tolerated the procedure well and there were no complications. Indication: Hemodynamic monitoring. A time-out was completed verifying correct patient, procedure, site, positioning, and implant(s) or special equipment if applicable. Allens test was performed to ensure adequate perfusion. The patients after arm was prepped and draped in sterile fashion. 1% Lidocaine was used to anesthetize the area. An 18G Arrow arterial line was introduced into the left radial artery. The catheter was threaded over the guide wire and the needle was removed with appropriate pulsatile blood return. Blood loss was minimal. The catheter was then sutured in place to the skin and a sterile dressing applied. Perfusion to the extremity distal to the point of catheter insertion was checked and found to be adequate. The patient tolerated the procedure well and there were no complications.
--- NOTE | 2023-03-27 09:59 | XR ---
EXAMINATION TYPE: XR chest 1V portable DATE OF EXAM: 03/27/2023 Comparison: 03/27/2023, earlier today Clinical History: 62-year-old male verify central line placement Findings: Left CVC tip at the mid SVC level. Heart normal size. ET and NG tubes are satisfactory. Hyperinflatio n. No consolidation, pneumothorax, or pleural effusion. Impression: Left CVC tip at the mid SVC level. COPD. No acute process seen.
[2023-03-27 11:08] LABS: Urine Alcohol Negative (Negative)
[2023-03-27 11:09] LABS: Urine Barbiturate Negative (Negative); Urine Cocaine Negative (Negative); Urine Methadone Negative (Negative); Urine Opiates Negative (Negative); Urine Phencyclidine Negative (Negative)
[2023-03-27 11:50] LABS: Glucose,Whole Blood 134 mg/dL (70-110)
[2023-03-27 14:10] LABS: Basophils % (A) 0 %; Eosinophils % (A) 0 %; HCT 40.9 % (39.0-53.0); HGB 13.7 gm/dL (13.0-17.5); Lymphocytes # (A) 0.3 k/uL (1.0-4.8); Lymphocytes % (A) 4 %; MCH 34.1 pg (25.0-35.0); MCHC 33.5 g/dL (31.0-37.0); MCV 101.7 fL (80.0-100.0); Mean Platelet Volume 8.1; Monocytes # (A) 0.4 k/uL (0-1.0); Monocytes % (A) 5 %; Neutrophils # (A) 7.3 k/uL (1.3-7.7); Neutrophils % (A) 90 %; Platelet Count 178 k/uL (150-450); RBC 4.02 m/uL (4.30-5.90); RDW 12.8 % (11.5-15.5); WBC 8.1 k/uL (3.8-10.6)
--- NOTE | 2023-03-27 14:32 | P.CONS ---
History of Present Illness - Reason for Consult Consult date: 03/27/23 Upper GI bleed Requesting physician: Gonzales Herring - Chief Complaint Shortness of breath, hypoxemia - History of Present Illness This a 62-year-old white male who reported to the emergency department yesterday for shortness of breath. History is obtained from chart as patient is currently in the ICU sedated, intubated and on mechanical ventilation. Patient has repor kenny history of COPD and came in for shortness of breath and cough. Apparently patient became hypoxic and unresponsive in the emergency department and was intubated. He subsequently has been admitted to the ICU. He had an NG tube placed which nursing is reporting is atraumatic. They state that he has had dark maroon output since it was placed approximately 400 mL's in canister. They deny any bloody bowel movements or dark bowel movements. Patient's abdomen is soft. According to the emergency department notes. He presented without any abdominal pain, nausea or vomiting. Previous admissions reviewed and there is no documentation of any previous EGD or colonoscopy. Review of Systems ROS unobtainable: due to endotracheal tube Past Medical History Past Medical History: No Reported History, COPD, Hypertension Additional Past Medical History / Comment(s): gout History of Any Multi-Drug Resistant Organisms: None Reported Past Surgical History: No Surgical Hx Reported Past Psychological History: Anxiety Smoking Status: Current every day smoker Past Alcohol Use History: None Reported Past Drug Use History: None Reported Medications and Allergies Home Medications Medication Instructions Recorded Confirmed Type OLANZapine [ZyPREXA] 10 mg PO HS 09/19/15 03/26/23 History Albuterol Sulfate [Albuterol 1 - 2 puff PO RT-Q4H PRN 03/26/23 03/26/23 History Sulfate Hfa] Atorvastatin [Lipitor] 10 mg PO DAILY 03/26/23 03/26/23 History FLUoxetine HCL [PROzac] 20 mg PO DAILY 03/26/23 03/26/23 History OLANZapine [ZyPREXA] 5 mg PO DAILY 03/26/23 03/26/23 History Omeprazole [PriLOSEC] 20 mg PO BID 03/26/23 03/26/23 History Tiotropium Br/Olodaterol HCl 2 puff INHALATION RT-DAILY 03/26/23 03/26/23 History [Stiolto Respimat Inhal [place]] hydroCHLOROthiazide 12.5 mg PO DAILY 03/26/23 03/26/23 History lisinopriL [Zestril] 5 mg PO DAILY 03/26/23 03/26/23 History Allergies Allergy/AdvReac Type Severity Reaction Status Date / Time No Known Allergies Allergy Verified 03/26/23 17:12 Physical Exam Vitals: Vital Signs Temp Pulse Pulse Resp BP Pulse Ox FiO2 03/27/23 11:55 40 03/27/23 11:15 96 20 100 03/27/23 11:00 98 20 100 03/27/23 10:45 94 20 100 03/27/23 10:30 96 20 100 03/27/23 10:15 99 20 100 03/27/23 10:00 102 H 16 100 03/27/23 09:45 115 H 20 100 03/27/23 09:30 114 H 4 L 100 03/27/23 09:29 95 03/27/23 09:19 96 03/27/23 09:15 96 20 100 03/27/23 09:07 96 03/27/23 09:00 103 H 20 99 03/27/23 08:45 99 3 L 99 03/27/23 08:30 96 4 L 99 03/27/23 08:15 96 4 L 100 03/27/23 08:00 98.1 F 121 H 100 22 98/74 98 40 03/27/23 07:52 40 03/27/23 07:45 98 4 L 98/74 99 03/27/23 07:30 102 H 3 L 98/74 100 03/27/23 07:15 100 12 100 03/27/23 07:00 100 20 100 40 03/27/23 06:45 99 20 100 03/27/23 06:30 96 20 100 03/27/23 06:15 98 20 100 03/27/23 06:00 99 20 100 40 03/27/23 05:45 112 H 20 99 03/27/23 05:30 99 20 100 03/27/23 05:15 98.2 F 101 H 20 100 03/27/23 05:00 103 H 20 98/74 100 40 03/27/23 04:45 103 H 20 98/74 100 40 03/27/23 04:44 104 H 20 98/74 100 03/27/23 04:15 104 H 03/27/23 04:01 100 03/27/23 04:00 40 03/27/23 03:35 50 03/27/23 03:30 86 20 100 03/27/23 03:15 88 20 100 50 03/27/23 03:00 87 20 100 03/27/23 02:45 92 20 100 03/27/23 02:30 91 20 100 03/27/23 02:15 92 20 100 03/27/23 02:00 97 20 100 50 03/27/23 01:45 92 20 100 03/27/23 01:30 91 20 100 03/27/23 01:15 92 20 100 03/27/23 01:00 96 20 86/59 03/27/23 00:55 101 H 03/27/23 00:45 87 20 90/60 98 03/27/23 00:40 100 03/27/23 00:30 98 F 84 20 90/60 100 50 03/27/23 00:15 90 13 90/60 92 L 03/27/23 00:10 50 03/27/23 00:00 80 20 78/54 99 50 03/26/23 23:45 88 20 78/54 100 03/26/23 23:35 93 20 82/56 100 03/26/23 23:30 102 H 7 L 82/56 86 L 50 03/26/23 23:22 50 03/26/23 23:15 90 20 84/59 99 03/26/23 23:10 50 03/26/23 23:00 92 12 100 03/26/23 22:45 85 12 86/61 100 03/26/23 22:30 89 12 86/64 99 03/26/23 22:18 80 03/26/23 21:45 98.5 F 12 97/63 100 80 03/26/23 21:30 100 12 96/63 100 03/26/23 21:15 94 12 87/55 100 03/26/23 21:00 108 H 12 133/69 100 03/26/23 20:40 99 10 L 98/61 100 03/26/23 20:30 107 H 11 L 92/56 100 03/26/23 20:20 101 H 8 L 113/68 100 03/26/23 20:00 101 H 12 104/73 100 03/26/23 19:50 112 H 12 95/67 100 03/26/23 19:45 80 03/26/23 19:40 108 H 14 120/73 100 03/26/23 19:10 117 H 10 L 137/78 100 03/26/23 19:00 128 H 13 160/90 100 03/26/23 18:30 100 03/26/23 17:54 105 H 18 03/26/23 17:35 100 18 03/26/23 17:13 99 03/26/23 17:00 99 22 148/87 100 03/26/23 16:00 98.0 F 113 H 22 168/90 99 Intake and Output 03/26/23 03/27/23 03/27/23 22:59 06:59 14:59 Intake Total 60.339 1969.353 920.341 Output Total 300 325 210 Balance -722.030 6540.353 710.341 Intake: IV 1900 575 Sodium Chloride 0.9% 1, 400 575 000 ml @ 125 mls/hr IV . Q8H [facility] Rx#:[id number] Sodium Chloride 0.9% 1, 1000 000 ml @ 999 mls/hr IV . Q1H1M ONE Rx#:[id number] Sodium Chloride 0.9% 500 500 ml 500 ml @ 999 mls/hr IV .Q31M ONE Rx#:[id number] Intake, IV Titration 60.339 69.353 345.341 Amount Azithromycin 500 mg In 250 Sodium Chloride 0.9% 250 ml @ 250 mls/hr IVPB DAILY [facility] Rx#:[id number] cefTRIAXone 1 gm In 50 Sodium Chloride 0.9% 50 ml @ 100 mls/hr IVPB Q24HR [facility] Rx#:[id number] propofoL 1,000 mg In 8.84 Empty Bag 1 bag @ 15 MCG/ KG/MIN 4.68 mls/hr IV . [id number] [facility] Rx#:[id number] propofoL 1,000 mg In 51.499 69.353 45.341 Empty Bag 1 bag @ 30 MCG/ KG/MIN 8.328 mls/hr IV . Q12H1M [facility] Rx#:[id number] Output: Urine 300 325 210 Other: Voiding Method Indwelling Catheter Indwelling Catheter Indwelling Catheter Weight 52 kg 52.2 kg 52.2 kg ABP, PAP, CO, CI - Last 8 Hours Arterial Blood Pressure 102/48 Arterial Blood Pressure 111/50 Arterial Blood Pressure 109/50 Arterial Blood Pressure 105/49 Arterial Blood Pressure 115/53 Arterial Blood Pressure 130/59 Arterial Blood Pressure 131/55 Arterial Blood Pressure 143/67 Arterial Blood Pressure 103/53 Arterial Blood Pressure 164/72 Arterial Blood Pressure 94/49 Arterial Blood Pressure 86/44 Arterial Blood Pressure 96/46 Arterial Blood Pressure 167/86 Arterial Blood Pressure 94/52 Arterial Blood Pressure 104/55 Arterial Blood Pressure 103/53 Arterial Blood Pressure 104/56 Arterial Blood Pressure 127/64 Arterial Blood Pressure 84/55 Arterial Blood Pressure 109/59 Arterial Blood Pressure 103/54 Arterial Blood Pressure 136/68 Arterial Blood Pressure 102/56 Arterial Blood Pressure 92/51 Arterial Blood Pressure 103/54 Arterial Blood Pressure 98/52 Arterial Blood Pressure 110/58 General appearance: The patient is sedated and intubated. HET: Head is normocephalic and atraumatic. Neck: Supple without lymphadenopathy. Trachea midline. Heart: Regular. Lungs: Equal expansion, on mechanical ventilation. Abdomen: Soft, nondistended. Skin: No rashes. No jaundice. Extremities: Normal skin color and turgor. No pedal edema. Neurological: No focal deficits. Alert and oriented x3. Results CBC & Chem 7: 03/27/23 14:02 03/27/23 03:00 Labs: Abnormal Lab Results - Last 24 Hours (Table) 03/26/23 03/26/23 03/26/23 Range/Units 16:40 16:40 18:15 RBC (4.30-5.90) m/uL MCV 100.4 H (80.0-100.0) fL Lymphocytes # 0.3 L (1.0-4.8) k/uL ABG pH (7.35-7.45) ABG pCO2 (35-45) mmHg ABG pO2 (83-108) mmHg ABG HCO3 (21-25) mmol/L ABG Total CO2 (19-24) mmol/L ABG O2 Saturation (94-97) % Sodium 132 L (137-145) mmol/L Chloride 94 L (98-107) mmol/L Carbon Dioxide 33 H (22-30) mmol/L Creatinine 0.62 L (0.66-1.25) mg/dL Glucose 182 H (74-99) mg/dL POC Glucose (mg/dL) 192 H (70-110) mg/dL Plasma Lactic Acid True (0.7-2.0) mmol/L Calcium (8.4-10.2) mg/dL U Benzodiazepines Scrn (Negative) 03/26/23 03/26/23 03/26/23 Range/Units 18:45 19:36 19:39 RBC (4.30-5.90) m/uL MCV (80.0-100.0) fL Lymphocytes # (1.0-4.8) k/uL ABG pH 7.07 L* 7.12 L* (7.35-7.45) ABG pCO2 27 L 93 H* (35-45) mmHg ABG pO2 51 L* >400 H (83-108) mmHg ABG HCO3 8 L* 31 H (21-25) mmol/L ABG Total CO2 9 L 33 H (19-24) mmol/L ABG O2 Saturation 79.2 L 99.7 H (94-97) % Sodium (137-145) mmol/L Chloride (98-107) mmol/L Carbon Dioxide (22-30) mmol/L Creatinine (0.66-1.25) mg/dL Glucose (74-99) mg/dL POC Glucose (mg/dL) (70-110) mg/dL Plasma Lactic Acid True 2.5 H* (0.7-2.0) mmol/L Calcium (8.4-10.2) mg/dL U Benzodiazepines Scrn (Negative) 03/26/23 03/26/23 03/26/23 Range/Units 21:39 22:55 22:58 RBC (4.30-5.90) m/uL MCV (80.0-100.0) fL Lymphocytes # (1.0-4.8) k/uL ABG pH 7.14 L* (7.35-7.45) ABG pCO2 90 H* (35-45) mmHg ABG pO2 358 H (83-108) mmHg ABG HCO3 31 H (21-25) mmol/L ABG Total CO2 33 H (19-24) mmol/L ABG O2 Saturation 99.5 H (94-97) % Sodium (137-145) mmol/L Chloride (98-107) mmol/L Carbon Dioxide (22-30) mmol/L Creatinine (0.66-1.25) mg/dL Glucose (74-99) mg/dL POC Glucose (mg/dL) 123 H (70-110) mg/dL Plasma Lactic Acid True 2.1 H* (0.7-2.0) mmol/L Calcium (8.4-10.2) mg/dL U Benzodiazepines Scrn (Negative) 03/27/23 03/27/23 03/27/23 Range/Units 00:52 03:00 03:00 RBC 3.96 L (4.30-5.90) m/uL MCV 101.8 H (80.0-100.0) fL Lymphocytes # 0.3 L (1.0-4.8) k/uL ABG pH (7.35-7.45) ABG pCO2 (35-45) mmHg ABG pO2 (83-108) mmHg ABG HCO3 (21-25) mmol/L ABG Total CO2 (19-24) mmol/L ABG O2 Saturation (94-97) % Sodium 134 L (137-145) mmol/L Chloride (98-107) mmol/L Carbon Dioxide (22-30) mmol/L Creatinine 0.56 L (0.66-1.25) mg/dL Glucose 141 H (74-99) mg/dL POC Glucose (mg/dL) 122 H (70-110) mg/dL Plasma Lactic Acid True (0.7-2.0) mmol/L Calcium 8.3 L (8.4-10.2) mg/dL U Benzodiazepines Scrn (Negative) 03/27/23 03/27/23 03/27/23 Range/Units 04:25 06:00 06:31 RBC (4.30-5.90) m/uL MCV (80.0-100.0) fL Lymphocytes # (1.0-4.8) k/uL ABG pH 7.28 L (7.35-7.45) ABG pCO2 58 H (35-45) mmHg ABG pO2 179 H (83-108) mmHg ABG HCO3 27 H (21-25) mmol/L ABG Total CO2 29 H (19-24) mmol/L ABG O2 Saturation 99.2 H (94-97) % Sodium (137-145) mmol/L Chloride (98-107) mmol/L Carbon Dioxide (22-30) mmol/L Creatinine (0.66-1.25) mg/dL Glucose (74-99) mg/dL POC Glucose (mg/dL) 143 H (70-110) mg/dL Plasma Lactic Acid True (0.7-2.0) mmol/L Calcium (8.4-10.2) mg/dL U Benzodiazepines Scrn Positive A (Negative) 03/27/23 Range/Units 11:49 RBC (4.30-5.90) m/uL MCV (80.0-100.0) fL Lymphocytes # (1.0-4.8) k/uL ABG pH (7.35-7.45) ABG pCO2 (35-45) mmHg ABG pO2 (83-108) mmHg ABG HCO3 (21-25) mmol/L ABG Total CO2 (19-24) mmol/L ABG O2 Saturation (94-97) % Sodium (137-145) mmol/L Chloride (98-107) mmol/L Carbon Dioxide (22-30) mmol/L Creatinine (0.66-1.25) mg/dL Glucose (74-99) mg/dL POC Glucose (mg/dL) 134 H (70-110) mg/dL Plasma Lactic Acid True (0.7-2.0) mmol/L Calcium (8.4-10.2) mg/dL U Benzodiazepines Scrn (Negative) Comments: Chest CTA. No evidence of pulmonary embolism. No acute cardiopulmonary disease. COPD. ET tube above the michael. And NG tube within the stomach Chest x-ray: report reviewed (Left CVC tip at the mid SVC level. COPD. No acute process seen.) Assessment and Plan (1) GI bleed Narrative/Plan: 62-year-old male who came in for shortness of breath was admitted for acute hypoxic respiratory failure secondary to COPD exacerbation. He was intubated and NG tube was placed. He subsequently was also having maroon output from the NG tube in the amount of 400 mL's. Patient with a known history or known previous bleed. Unknown if patient had any previous EGDs or colonoscopy. Does not appear that he was on anticoagulation. However, again patient HPI obtained from chart and there are no family or friends that have been reached. Certainly need to consider possible upper GI bleed including possible etiology of peptic ulcer disease, AVM, gastritis, esophagitis or other possible etiologies. We'll plan on upper endoscopy tomorrow. Continue to 6. CBC, transfuse for hemoglobin less than 7. Hold any anticoagulation and continue Protonix. Current Visit: Yes Status: Acute Code(s): K92.2 - GASTROINTESTINAL HEMORRHAGE, UNSPECIFIED SNOMED Code(s): 62293271 (2) COPD exacerbation Current Visit: Yes Status: Acute Code(s): J44.1 - CHRONIC OBSTRUCTIVE PULMONARY DISEASE W (ACUTE) EXACERBATION SNOMED Code(s): 408701174 (3) Acute hypoxic respiratory failure Current Visit: Yes Status: Acute Code(s): J96.01 - ACUTE RESPIRATORY FAILURE WITH HYPOXIA SNOMED Code(s): 98707532 Plan: 1. Continue symptomatic and supportive care. 2. Daily CBC, transfuse for hemoglobin less than 7. 3. Please get type and screen 4. Hold any anticoagulation 5. Continue Protonix 40 mg daily 6. Avoid NSAID 7. Keep nothing by mouth, will plan EGD tomorrow Thank you for this consultation, we will continue to follow. Dr. Olayinka Smart I agree with the dictator's note, documented as a scribe by Mira Newton.
[2023-03-27 17:08] LABS: Albumin 3.3 g/dL (3.5-5.0); Phosphorus 3.7 mg/dL (2.5-4.5)
[2023-03-27 18:08] LABS: Glucose,Whole Blood 121 mg/dL (70-110)
[2023-03-27] MEDS ORDERED: MVI, ADULT NO.4 WITH VIT K 10 ML, TRACE (CONC-1ML/DOSE) 1 ML in AMINO ACID 5%-D20W+LYTE... IV ONE ×3 (19:00)
--- NOTE | 2023-03-27 22:56 | P.CONS ---
History of Present Illness - Reason for Consult Consult date: 03/27/23 - History of Present Illness Patient is a 62-year-old male with a past medical history significant for hypertension anxiety current everyday smoker patient was brought into the hospital for difficulty breathing and chest tightness patient symptom has been getting worse for the last few days patient also have a cough moderate intensity with occasional sputum no hemoptysis no pleuritic chest pain no nausea vomiting no abdominal pain no diarrhea patient on presentation to the hospital was afebrile and no fever have recorded subsequently patient was tachycardic but not hypotensive was hypoxic and in respiratory distress patient did have getting intubated in the ER patient did have a white count of 6.8 on admission creatinine has been normal lactic acid was elevated liver enzymes are normal urine drug screen was positive for benzo influenza RSV COVID testing was negative patient did have a chest x-ray COPD no acute process seen patient also have a CT angiogram of the chest no evidence of PE no acute cardiopulmonary disease COPD patient has been admitted to ICU he was started on Rocephin and Zithromax infectious disease was consulted for possible sepsis most information has been obtained from the daughter reviewed the chart and the patient is currently intubated on the vent and cannot provide any history Past Medical History Past Medical History: No Reported History, COPD, Hypertension Additional Past Medical History / Comment(s): gout History of Any Multi-Drug Resistant Organisms: None Reported Past Surgical History: No Surgical Hx Reported Past Psychological History: Anxiety Smoking Status: Current every day smoker Past Alcohol Use History: None Reported Past Drug Use History: None Reported Medications and Allergies Home Medications Medication Instructions Recorded Confirmed Type OLANZapine [ZyPREXA] 10 mg PO HS 09/19/15 03/26/23 History Albuterol Sulfate [Albuterol 1 - 2 puff PO RT-Q4H PRN 03/26/23 03/26/23 History Sulfate Hfa] Atorvastatin [Lipitor] 10 mg PO DAILY 03/26/23 03/26/23 History FLUoxetine HCL [PROzac] 20 mg PO DAILY 03/26/23 03/26/23 History OLANZapine [ZyPREXA] 5 mg PO DAILY 03/26/23 03/26/23 History Omeprazole [PriLOSEC] 20 mg PO BID 03/26/23 03/26/23 History Tiotropium Br/Olodaterol HCl 2 puff INHALATION RT-DAILY 03/26/23 03/26/23 History [Stiolto Respimat Inhal [place]] hydroCHLOROthiazide 12.5 mg PO DAILY 03/26/23 03/26/23 History lisinopriL [Zestril] 5 mg PO DAILY 03/26/23 03/26/23 History Allergies Allergy/AdvReac Type Severity Reaction Status Date / Time No Known Allergies Allergy Verified 03/26/23 17:12 Physical Exam Vitals: Vital Signs Temp Pulse Pulse Resp BP Pulse Ox FiO2 03/27/23 09:45 115 H 20 100 03/27/23 09:30 114 H 4 L 100 03/27/23 09:29 95 03/27/23 09:19 96 03/27/23 09:15 96 20 100 03/27/23 09:07 96 03/27/23 09:00 103 H 20 99 03/27/23 08:45 99 3 L 99 03/27/23 08:30 96 4 L 99 03/27/23 08:15 96 4 L 100 03/27/23 08:00 98.1 F 121 H 100 22 98/74 98 40 03/27/23 07:52 40 03/27/23 07:45 98 4 L 98/74 99 03/27/23 07:30 102 H 3 L 98/74 100 03/27/23 07:15 100 12 100 03/27/23 07:00 100 20 100 40 03/27/23 06:45 99 20 100 03/27/23 06:30 96 20 100 03/27/23 06:15 98 20 100 03/27/23 06:00 99 20 100 40 03/27/23 05:45 112 H 20 99 03/27/23 05:30 99 20 100 03/27/23 05:15 98.2 F 101 H 20 100 03/27/23 05:00 103 H 20 98/74 100 40 03/27/23 04:45 103 H 20 98/74 100 40 03/27/23 04:44 104 H 20 98/74 100 03/27/23 04:15 104 H 03/27/23 04:01 100 03/27/23 04:00 40 03/27/23 03:35 50 03/27/23 03:30 86 20 100 03/27/23 03:15 88 20 100 50 03/27/23 03:00 87 20 100 03/27/23 02:45 92 20 100 03/27/23 02:30 91 20 100 03/27/23 02:15 92 20 100 03/27/23 02:00 97 20 100 50 03/27/23 01:45 92 20 100 03/27/23 01:30 91 20 100 03/27/23 01:15 92 20 100 03/27/23 01:00 96 20 86/59 03/27/23 00:55 101 H 03/27/23 00:45 87 20 90/60 98 03/27/23 00:40 100 03/27/23 00:30 98 F 84 20 90/60 100 50 03/27/23 00:15 90 13 90/60 92 L 03/27/23 00:10 50 03/27/23 00:00 80 20 78/54 99 50 03/26/23 23:45 88 20 78/54 100 03/26/23 23:35 93 20 82/56 100 03/26/23 23:30 102 H 7 L 82/56 86 L 50 03/26/23 23:22 50 03/26/23 23:15 90 20 84/59 99 03/26/23 23:10 50 03/26/23 23:00 92 12 100 03/26/23 22:45 85 12 86/61 100 03/26/23 22:30 89 12 86/64 99 03/26/23 22:18 80 03/26/23 21:45 98.5 F 12 97/63 100 80 03/26/23 21:30 100 12 96/63 100 03/26/23 21:15 94 12 87/55 100 03/26/23 21:00 108 H 12 133/69 100 03/26/23 20:40 99 10 L 98/61 100 03/26/23 20:30 107 H 11 L 92/56 100 03/26/23 20:20 101 H 8 L 113/68 100 03/26/23 20:00 101 H 12 104/73 100 03/26/23 19:50 112 H 12 95/67 100 03/26/23 19:45 80 03/26/23 19:40 108 H 14 120/73 100 03/26/23 19:10 117 H 10 L 137/78 100 03/26/23 19:00 128 H 13 160/90 100 03/26/23 18:30 100 03/26/23 17:54 105 H 18 03/26/23 17:35 100 18 03/26/23 17:13 99 03/26/23 17:00 99 22 148/87 100 03/26/23 16:00 98.0 F 113 H 22 168/90 99 Intake and Output 03/26/23 03/27/23 03/27/23 22:59 06:59 14:59 Intake Total 60.339 1969.353 750 Output Total 300 325 150 Balance -633.007 2758.353 600 Intake: IV 1900 450 Sodium Chloride 0.9% 1, 400 450 000 ml @ 125 mls/hr IV . Q8H [facility] Rx#:[id number] Sodium Chloride 0.9% 1, 1000 000 ml @ 999 mls/hr IV . Q1H1M ONE Rx#:[id number] Sodium Chloride 0.9% 500 500 ml 500 ml @ 999 mls/hr IV .Q31M ONE Rx#:[id number] Intake, IV Titration 60.339 69.353 300 Amount Azithromycin 500 mg In 250 Sodium Chloride 0.9% 250 ml @ 250 mls/hr IVPB DAILY [facility] Rx#:[id number] cefTRIAXone 1 gm In 50 Sodium Chloride 0.9% 50 ml @ 100 mls/hr IVPB Q24HR [facility] Rx#:[id number] propofoL 1,000 mg In 8.84 Empty Bag 1 bag @ 15 MCG/ KG/MIN 4.68 mls/hr IV . [id number] GYPSY Rx#:[id number] propofoL 1,000 mg In 51.499 69.353 Empty Bag 1 bag @ 30 MCG/ KG/MIN 8.328 mls/hr IV . Q12H1M [facility] Rx#:[id number] Output: Urine 300 325 150 Other: Voiding Method Indwelling Catheter Indwelling Catheter Indwelling Catheter Weight 52 kg 52.2 kg ABP, PAP, CO, CI - Last 8 Hours Arterial Blood Pressure 131/55 Arterial Blood Pressure 143/67 Arterial Blood Pressure 103/53 Arterial Blood Pressure 164/72 Arterial Blood Pressure 94/49 Arterial Blood Pressure 86/44 Arterial Blood Pressure 96/46 Arterial Blood Pressure 167/86 Arterial Blood Pressure 94/52 Arterial Blood Pressure 104/55 Arterial Blood Pressure 103/53 Arterial Blood Pressure 104/56 Arterial Blood Pressure 127/64 Arterial Blood Pressure 84/55 Arterial Blood Pressure 109/59 Arterial Blood Pressure 103/54 Arterial Blood Pressure 136/68 Arterial Blood Pressure 102/56 Arterial Blood Pressure 92/51 Arterial Blood Pressure 103/54 Arterial Blood Pressure 98/52 Arterial Blood Pressure 110/58 Arterial Blood Pressure 112/60 Arterial Blood Pressure 106/56 Arterial Blood Pressure 101/55 Arterial Blood Pressure 94/53 Arterial Blood Pressure 106/58 Results CBC & Chem 7: 03/27/23 14:02 03/27/23 03:00 Labs: Abnormal Lab Results - Last 24 Hours (Table) 03/26/23 03/26/23 03/26/23 Range/Units 16:40 16:40 18:15 RBC (4.30-5.90) m/uL MCV 100.4 H (80.0-100.0) fL Lymphocytes # 0.3 L (1.0-4.8) k/uL ABG pH (7.35-7.45) ABG pCO2 (35-45) mmHg ABG pO2 (83-108) mmHg ABG HCO3 (21-25) mmol/L ABG Total CO2 (19-24) mmol/L ABG O2 Saturation (94-97) % Sodium 132 L (137-145) mmol/L Chloride 94 L (98-107) mmol/L Carbon Dioxide 33 H (22-30) mmol/L Creatinine 0.62 L (0.66-1.25) mg/dL Glucose 182 H (74-99) mg/dL POC Glucose (mg/dL) 192 H (70-110) mg/dL Plasma Lactic Acid True (0.7-2.0) mmol/L Calcium (8.4-10.2) mg/dL 03/26/23 03/26/23 03/26/23 Range/Units 18:45 19:36 19:39 RBC (4.30-5.90) m/uL MCV (80.0-100.0) fL Lymphocytes # (1.0-4.8) k/uL ABG pH 7.07 L* 7.12 L* (7.35-7.45) ABG pCO2 27 L 93 H* (35-45) mmHg ABG pO2 51 L* >400 H (83-108) mmHg ABG HCO3 8 L* 31 H (21-25) mmol/L ABG Total CO2 9 L 33 H (19-24) mmol/L ABG O2 Saturation 79.2 L 99.7 H (94-97) % Sodium (137-145) mmol/L Chloride (98-107) mmol/L Carbon Dioxide (22-30) mmol/L Creatinine (0.66-1.25) mg/dL Glucose (74-99) mg/dL POC Glucose (mg/dL) (70-110) mg/dL Plasma Lactic Acid True 2.5 H* (0.7-2.0) mmol/L Calcium (8.4-10.2) mg/dL 03/26/23 03/26/23 03/26/23 Range/Units 21:39 22:55 22:58 RBC (4.30-5.90) m/uL MCV (80.0-100.0) fL Lymphocytes # (1.0-4.8) k/uL ABG pH 7.14 L* (7.35-7.45) ABG pCO2 90 H* (35-45) mmHg ABG pO2 358 H (83-108) mmHg ABG HCO3 31 H (21-25) mmol/L ABG Total CO2 33 H (19-24) mmol/L ABG O2 Saturation 99.5 H (94-97) % Sodium (137-145) mmol/L Chloride (98-107) mmol/L Carbon Dioxide (22-30) mmol/L Creatinine (0.66-1.25) mg/dL Glucose (74-99) mg/dL POC Glucose (mg/dL) 123 H (70-110) mg/dL Plasma Lactic Acid True 2.1 H* (0.7-2.0) mmol/L Calcium (8.4-10.2) mg/dL 03/27/23 03/27/23 03/27/23 Range/Units 00:52 03:00 03:00 RBC 3.96 L (4.30-5.90) m/uL MCV 101.8 H (80.0-100.0) fL Lymphocytes # 0.3 L (1.0-4.8) k/uL ABG pH (7.35-7.45) ABG pCO2 (35-45) mmHg ABG pO2 (83-108) mmHg ABG HCO3 (21-25) mmol/L ABG Total CO2 (19-24) mmol/L ABG O2 Saturation (94-97) % Sodium 134 L (137-145) mmol/L Chloride (98-107) mmol/L Carbon Dioxide (22-30) mmol/L Creatinine 0.56 L (0.66-1.25) mg/dL Glucose 141 H (74-99) mg/dL POC Glucose (mg/dL) 122 H (70-110) mg/dL Plasma Lactic Acid True (0.7-2.0) mmol/L Calcium 8.3 L (8.4-10.2) mg/dL 03/27/23 03/27/23 Range/Units 04:25 06:31 RBC (4.30-5.90) m/uL MCV (80.0-100.0) fL Lymphocytes # (1.0-4.8) k/uL ABG pH 7.28 L (7.35-7.45) ABG pCO2 58 H (35-45) mmHg ABG pO2 179 H (83-108) mmHg ABG HCO3 27 H (21-25) mmol/L ABG Total CO2 29 H (19-24) mmol/L ABG O2 Saturation 99.2 H (94-97) % Sodium (137-145) mmol/L Chloride (98-107) mmol/L Carbon Dioxide (22-30) mmol/L Creatinine (0.66-1.25) mg/dL Glucose (74-99) mg/dL POC Glucose (mg/dL) 143 H (70-110) mg/dL Plasma Lactic Acid True (0.7-2.0) mmol/L Calcium (8.4-10.2) mg/dL Assessment and Plan Plan: 1patient presented to hospital with increasing shortness of breath more likely related to underlying COPD exacerbation with tracheobronchitis patient not running any fever white count has been normal both the CT of the chest as well as chest x-ray did not show any acute pulmonary process clinically not behaving as pneumonia 2-cultures has been obtained and results will be followed 3-check a procalcitonin if normal antibiotics can be safely discontinued 4-continue the steroids and bronchodilator pulmonary We will follow on clinical condition and cultures to further adjust medication if needed Thank you for this consultation we will follow the patient along with you Dictation was produced using [employer] software. please excuse any grammatical, word or spelling errors. Time with Patient: Greater than 30
[2023-03-27 23:45] LABS: Glucose,Whole Blood 177 mg/dL (70-110)
[2023-03-28] MEDS: SODIUM CHLORIDE 0.9% 1,000 ML IV SCH ×4 (00:05→20:38)
[2023-03-28] MEDS: IPRATROPIUM-ALBUTEROL 3 ML NEB INHALATION SCH ×7 (00:21→23:14)
[2023-03-28] MEDS: LORazepam 2 MG/ML INJ IV PRN ×2 (01:22→08:28)
[2023-03-28 04:04] LABS: HCT 37.5 % (39.0-53.0); HGB 12.5 gm/dL (13.0-17.5); MCHC 33.2 g/dL (31.0-37.0); MCV 102.5 fL (80.0-100.0); Macrocytosis Slight; Mean Platelet Volume 8.4; Platelet Count 164 k/uL (150-450); RBC 3.66 m/uL (4.30-5.90); WBC 11.9 k/uL (3.8-10.6)
[2023-03-28 04:14] LABS: Ionized Calcium 4.9 mg/dL (4.5-5.3)
[2023-03-28 04:21] LABS: ALT 13 U/L (4-49); AST 22 U/L (17-59); African American GFR (CKD) >90 (>60 ml/min/1.73 sqM); Albumin 3.1 g/dL (3.5-5.0); Alkaline Phosphatase 83 U/L (38-126); Anion Gap 2 mmol/L; Blood Urea Nitrogen 17 mg/dL (9-20); Calcium 8.1 mg/dL (8.4-10.2); Carbon Dioxide 27 mmol/L (22-30); Chloride 107 mmol/L (98-107); Glucose 211 mg/dL (74-99); Magnesium 2.3 mg/dL (1.6-2.3); Non-African American GFR(CKD) >90 (>60 ml/min/1.73 sqM); Phosphorus 2.8 mg/dL (2.5-4.5); Potassium 4.2 mmol/L (3.5-5.1); Sodium 136 mmol/L (137-145); Total Bilirubin 0.3 mg/dL (0.2-1.3); Total Protein 5.5 g/dL (6.3-8.2)
[2023-03-28] MEDS: NOREPINEPHRINE 4 MG in SODIUM CHLORIDE 0.9% 250 ML IV SCH (06:37)
[2023-03-28] MEDS: methylPREDNISolone SOD SUCCI 125 MG/2 ML VIAL IV SCH ×5 (06:41→23:06)
[2023-03-28 06:56] LABS: ABG Base Excess 2.4 mmol/L; ABG HCO3 28 mmol/L (21-25); ABG PCO2 54 mmHg (35-45); ABG PH 7.33 (7.35-7.45); ABG PO2 133 mmHg (83-108); ABG TCO2 30 mmol/L (19-24); Allen Test Performed? Yes
[2023-03-28] MEDS ORDERED: LIDOCAINE 1% INJ 10MG/ML (20 ML MDV) ONE (07:34)
[2023-03-28] MEDS ORDERED: PROPOFOL 10 MG/ML 20 ML VIAL IV ONE (07:34)
[2023-03-28] MEDS ORDERED: IV FLUID CONTINUATION 1,000 ML IV ONE (07:36)
--- NOTE | 2023-03-28 07:46 | P.PCN ---
Date of Procedure: 03/28/23 Procedure(s) Performed: BRIEF HISTORY: Patient is a 62-year-old, pleasant, white male admitted the hospital with acute exacerbation of COPD/acute respiratory failure for which she was intubated and admitted to the intensive care unit. He had an NG tube placed yesterday following intubation and there was approximately 4 mL of maroon- colored gastric aspirate noted. Since then he had another 300 mL of coffee ground aspirate in the NG tube. Hemoglobin is stable at 12 g/dL. He scheduled for an upper endoscopy at the bedside. PROCEDURE PERFORMED: Esophagogastroduodenoscopy with Endo Clip placement PREOPERATIVE DIAGNOSIS: Acute upper GI bleed. IV sedation per anesthesia. PROCEDURE: After informed consent was obtained, the patient was brought into the endoscopy unit. IV sedation was administered by Anesthesia under continuous monitoring. Initially the Olympus GIF-140 video endoscope was inserted into the mouth. Esophagus intubated without any difficulty. It was gradually advanced into the stomach and duodenum and carefully examined. The bulb and the second part of the duodenum appeared normal. The scope at this time was withdrawn to the stomach, adequately insufflated with air, and upon careful examination, mucosa of the antrum, erosive gastritis. No active bleeding identified. In the mid body the stomach along the lesser curvature there was a 5 mm ulceration with a small visible vessel but no active bleeding and Endo Clip was placed. Rest of the body, cardia and the fundus appeared normal. The scope was then withdrawn into the esophagus. The GE junction was located at 39 cm from the incisors. The esophagus appeared normal. There were no erosions or ulcerations seen and the patient tolerated the procedure well. IMPRESSION: 1. 5 mm gastric ulcer in the mid body of the stomach along the lesser curvature with a visible vessel but no active bleeding status post Endo Clip placement. 2. Antral erosive gastritis. RECOMMENDATIONS: The findings of this examination were discussed with the patient . He will be continued on Protonix 40 mg every 12 hours. Monitor CBC daily. NG tube can be used for feedings...
[2023-03-28] MEDS: FORMOTEROL FUMARATE 20 MCG/2 ML NEBU INHALATION SCH ×2 (08:07→20:20)
[2023-03-28] MEDS: BUDESONIDE 1 MG/2 ML NEBU INHALATION SCH ×2 (08:07→20:20)
[2023-03-28] MEDS ORDERED: FUROSEMIDE 10 MG/ML 4 ML VIAL IV STA (09:00)
--- NOTE | 2023-03-28 09:00 | P.PN ---
Subjective Progress Note Date: 03/28/23 Patient is a 62-year-old white male with past medical history significant for COPD and chronic ongoing tobacco dependence. The patient came into the emergency department with significant shortness of breath. Apparently, he was actively bronchospastic and he had diminished breath sounds. In the emergency, the patient was given breathing treatments [id number] and subsequently was placed in the 100% nonrebreather facemask. Upon follow-up, the patient was found to be completely unresponsive and he was unable to protect his airway and his breathing was very shallow. At that point, he was intubated and placed on a mechanical ventilator. The initial blood gas was done postintubation was lab er ror and subsequently follow-up blood gases was done that showed significant respiratory acidosis and oxygen nasal already improved. Patient is currently sedated and intubated on mechanical ventilator, most of this HPI supplemented from ER documentation. We were not able to get a hold of any family at this time, and there are no prior charts to review. Based on a review of his home medications, he may have history COPD, hypertension, and hyperlipidemia. Postintubation he ABG was consistent with severe hypercapnic respiratory failure. PO2 greater than 400, pCO2 of 93, and pH of 7.12. Postintubation chest x-ray has endotracheal tube approximately 4 cm above the michael. Orogastric tube courses below the diaphragm. No focal infiltrates or evidence of pneumonia. There is marked hyperinflation with flattening of the diaphragm, consistent with COPD. A follow-up chest CTA done while in the emergency room showed no evidence of pulmonary embolism. There is no acute cardiopulmonary process. Patient is currently in the intensive care unit, intubated to the mechanical ventilator. Propofol is infusing at 45 mcg/kg/m. He is synchronous with mechanical ventilator. Current ventilator settings are assist control, respiratory rate of 12, tidal volume 400, FiO2 of 80%, PEEP of 5. A repeat ABG as a PaO2 of 358, pCO2 of 90, pH of 7.14. I increased the patient's respiratory rate 20 and reduce the FiO2 to 50%. The peak airway pressure is 34 and static airway pressure is 24, patient has some evidence of airway resistance. Lung sounds are tight and continues wheezing. No significant airway secretions. Patient has been started on DuoNeb's every 4 hours. I would add budesonide and formoterol. Patient is also hypotensive, he is already received a total of 2 L normal saline bolus. He is only 52 kg. Patient will be started on low-dose norepinephrine for refractory hypotension if needed. CBC on arrival unremarkable. BMP on arrival, sodium 132, potassium 4.9, chloride 94, serum bicarbonate 33, BUN 16, creatinine 0.62, glucose 123. Lactic acid level II.5. Troponin is less than 0.012. Negative for influenza, RSV, COVID-19. He is afebrile. Patient's status is still volatile, and there are no plans to extubate tonight. They have the chest was also completed in emergency. This was reviewed. No evidence of any pulmonary embolism. There is extensive emphysema bilaterally. No airspace disease. Note that the patient's NG output is bloody. Currently has approximately 300 mL and the canister. In terms of his hemoglobin monitoring, the patient's hemoglobin dropped from 15.2 down to 13.5. IV fluids are in the form of normal saline at rate of 75 mL's an hour. The patient is sedated with propofol running at 50 mcg/kg/m. Most recent blood gas showed improvement and acid-base status. PH is down still at 7.28 also improved compared to yesterday. PCO2 is down to 58 and pO2 is at 179 and this was an FiO2 of 50% and subsequently the FiO2 was dropped onto 40%. No pressors. Today's evaluation of 03/28/2023, the patient remains intubated on a mechanical ventilator. He remains sedated on propofol which is running at 70 g plus kilogram per minutes. Despite his adequate sedation, the patient remains actively bronchospastic and wheezy. In fact, he is having elevated peak airway pressure this morning. His current ventilator settings with evidence is control mode rate of 12, tidal volume of 400, FiO2 of 40% with a PEEP of 5. His blood gases show a pH of 7.32 with a pCO2 of 54 and pO2 of 133. Chest x-ray shows marked hyperinflation. No airspace disease. No consolidation. On a separate note, the patient was having episodes of GI bleed. NG tube was in place throughout the night. Output from the treatment diminished and the hemoglobin had dropped slightly down to 12.5 this morning. EGD was done earlier today and the patient was found to have a 5 mm ulcer in the body of the stomach and an Endo Clip was applied. The patient will some antral erosive gastritis. Clearance was obtained from the sales representative trainee to feed the patient. As suc h, we will going to start enteral feeding. We'll going to stop TPN for now. Hemodynamically stable. He is maintaining his own blood pressure without any pressors. The patient remains on IV fluids with normal saline at 125 mL an hour. He remains on bronchodilators. He remains on steroids. He remains on a broad-spectrum antibiotic coverage with Rocephin and Zithromax. White cell count 11.9, he was 12.5 and a platelet is 164. Sodium is at 136, BUN is at 17 with a creatinine of 0.6. LFTs are within normal limits. No other significant events overnight. Objective - Vital Signs Vital signs: Vital Signs Temp 97.8 F 03/28/23 04:00 Pulse 102 H 03/28/23 08:19 Resp 20 03/28/23 07:30 BP 126/78 03/28/23 07:30 Pulse Ox 99 03/28/23 07:30 FiO2 40 03/28/23 07:44 Intake & Output 03/27/23 03/28/23 03/28/23 18:59 06:59 18:59 Intake Total 2077.904 1767.009 223.539 Output Total 845 890 90 Balance 1232.904 877.009 133.539 Weight 52.2 kg 58.4 kg Intake: IV 1575 1375 175 Sodium Chloride 0.9% 1, 1575 1375 125 000 ml @ 125 mls/hr IV . Q8H [facility] Rx#:[id number] Intake, IV Titration 502.904 392.009 48.539 Amount Azithromycin 500 mg In 250 Sodium Chloride 0.9% 250 ml @ 250 mls/hr IVPB DAILY [facility] Rx#:[id number] Mvi, Adult No.4 with Vit 30 K 10 ml Trace (Conc-1Ml/ Dose) 1 ml In Amino Acid 5%-D20w+Lytes*E* 1,000 ml @ 50 mls/hr IV .[id number] [facility] Rx#:[id number] Norepinephrine 4 mg In 41.044 212.956 48.539 Sodium Chloride 0.9% 250 ml @ 0.03 MCG/KG/MIN 5. 944 mls/hr IV .Q24H [facility] Rx#:[id number] cefTRIAXone 1 gm In 50 Sodium Chloride 0.9% 50 ml @ 100 mls/hr IVPB Q24HR [facility] Rx#:[id number] propofoL 1,000 mg In 131.860 179.053 Empty Bag 1 bag @ 30 MCG/ KG/MIN 8.328 mls/hr IV . Q12H1M [facility] Rx#:[id number] Output: Gastric Drainage 200 450 50 Urine 645 440 40 Other: Voiding Method Indwelling Catheter Indwelling Catheter ABP, PAP, CO, CI - Last Documented Arterial Blood Pressure 135/58 - Exam GENERAL EXAM: Sedated, 62-year-old white male, synchronous mechanical ventilator. He is frail. Orogastric and orotracheal tube are both in place. The patient has a bloody upper from his NG tube. HEAD: Normocephalic and atraumatic EYES: Normal reaction of pupils, equal size. NOSE: Clear with pink turbinates. THROAT: No erythema or exudates. NECK: No masses, no JVD. Patient has a triple-lumen catheter in his left IJ. CHEST: No chest wall deformity. LUNGS: Equal air expansion with diminished sounds throughout. Expiratory wheezes heard throughout. No crackles, rhonchi. CVS: S1 and S2 normal with no audible murmur, regular rhythm. No extra heart sounds ABDOMEN: No hepatosplenomegaly, active bowel sounds, no guarding or rigidity. SPINE: No scoliosis or deformity SKIN: No rashes CENTRAL NERVOUS SYSTEM: He is sedated, and does not follow commands. Withdrawals to pain in all four extremities. EXTREMITIES: There is no peripheral edema, clubbing, or cyanosis. Peripheral pulses are intact. - Labs CBC & Chem 7: 03/28/23 03:50 03/28/23 03:50 Labs: Abnormal Lab Results - Last 24 Hours (Table) 03/27/23 03/27/23 03/27/23 Range/Units 06:00 11:49 13:55 WBC (3.8-10.6) k/uL RBC (4.30-5.90) m/uL Hgb (13.0-17.5) gm/dL Hct (39.0-53.0) % MCV (80.0-100.0) fL Lymphocytes # (1.0-4.8) k/uL ABG pH (7.35-7.45) ABG pCO2 (35-45) mmHg ABG pO2 (83-108) mmHg ABG HCO3 (21-25) mmol/L ABG Total CO2 (19-24) mmol/L ABG O2 Saturation (94-97) % Sodium (137-145) mmol/L Creatinine (0.66-1.25) mg/dL Glucose (74-99) mg/dL POC Glucose (mg/dL) 134 H (70-110) mg/dL Calcium (8.4-10.2) mg/dL Total Protein (6.3-8.2) g/dL Albumin 3.3 L (3.5-5.0) g/dL U Benzodiazepines Scrn Positive A (Negative) 03/27/23 03/27/23 03/27/23 Range/Units 14:02 18:07 23:43 WBC (3.8-10.6) k/uL RBC 4.02 L (4.30-5.90) m/uL Hgb (13.0-17.5) gm/dL Hct (39.0-53.0) % MCV 101.7 H (80.0-100.0) fL Lymphocytes # 0.3 L (1.0-4.8) k/uL ABG pH (7.35-7.45) ABG pCO2 (35-45) mmHg ABG pO2 (83-108) mmHg ABG HCO3 (21-25) mmol/L ABG Total CO2 (19-24) mmol/L ABG O2 Saturation (94-97) % Sodium (137-145) mmol/L Creatinine (0.66-1.25) mg/dL Glucose (74-99) mg/dL POC Glucose (mg/dL) 121 H 177 H (70-110) mg/dL Calcium (8.4-10.2) mg/dL Total Protein (6.3-8.2) g/dL Albumin (3.5-5.0) g/dL U Benzodiazepines Scrn (Negative) 03/28/23 03/28/23 03/28/23 Range/Units 03:50 03:50 06:54 WBC 11.9 H (3.8-10.6) k/uL RBC 3.66 L (4.30-5.90) m/uL Hgb 12.5 L (13.0-17.5) gm/dL Hct 37.5 L (39.0-53.0) % MCV 102.5 H (80.0-100.0) fL Lymphocytes # (1.0-4.8) k/uL ABG pH 7.33 L (7.35-7.45) ABG pCO2 54 H (35-45) mmHg ABG pO2 133 H (83-108) mmHg ABG HCO3 28 H (21-25) mmol/L ABG Total CO2 30 H (19-24) mmol/L ABG O2 Saturation 99.0 H (94-97) % Sodium 136 L (137-145) mmol/L Creatinine 0.62 L (0.66-1.25) mg/dL Glucose 211 H (74-99) mg/dL POC Glucose (mg/dL) (70-110) mg/dL Calcium 8.1 L (8.4-10.2) mg/dL Total Protein 5.5 L (6.3-8.2) g/dL Albumin 3.1 L (3.5-5.0) g/dL U Benzodiazepines Scrn (Negative) Microbiology - Last 24 Hours (Table) 03/26/23 16:47 Blood Culture - Preliminary Blood 03/26/23 16:40 Blood Culture - Preliminary Blood 03/26/23 18:45 Gram Stain - Preliminary Sputum Assessment and Plan Plan: Acute hypoxic/hypercapnic respiratory failure due to COPD exacerbation. The patient was in significant respiratory acidosis at time of admission and he was in respiratory failure. Intubated and placed on a mechanical ventilator. This morning, peak airway pressure continues to be elevated. There is some improvement in his acid-base status based on a follow-up blood gases. Chest x- ray is negative for pneumonia. CT angiogram is negative for any acute abnormalities. The viral panel was negative and the patient remains intubated on a mechanical ventilator. Continues to be actively bronchospastic and wheezy. No significant changes in his chest x-ray findings. Severe COPD maintain on Stiolto on outpatient basis Chronic smoker Upper GI bleed related to erosive antral gastritis 5 mm ulcer was also identified and the body of the stomach and Endo Clip was applied. Hypotension, not requiring any pressors at this point in time. The patient is on normal saline at rate of 75 mL an hour Hypertension Hyperlipidemia Chronic anxiety and possibly depression. Patient is maintain on combination of Zyprexa and Prozac on outpatient basis Plan Continue ventilator support, reduce the tidal volume to 375. Most recent peak airway pressure is still in the mid 40s. Static pressures 28. Monitor the blood gases, blood gas from this morning was noted Continue the bronchodilators and the patient is currently on DuoNeb updrafts [id number] and IV Solu-Medrol 60 mg every 6 hours. Antibiotic coverage is emperic ,The patient does not have any clear signs of pneumonia Keep the patient on propofol Keep the patient IV Protonix No anticoagulants at this point in time Endoscopy was done and the patient will be started on a enteral feeding for nutritional support. TPN will be discontinued Establish a triple-lumen catheter Increase IV fluids 75cc hour Monitor hemoglobin Condition is critical we'll continue to follow Critical care evaluation was done in more than 30 minutes. Further recommendations are to follow.
--- NOTE | 2023-03-28 09:18 | XR ---
EXAMINATION TYPE: XR chest 1V portable DATE OF EXAM: 03/28/2023 Comparison: 03/28/2023 Clinical History: 62-year-old male Inadequate ventilation, post EGD Findings: ET tube satisfactory. Left CVC tip at the lower SVC. Heart normal size. Prominent skinfold projecting in the left upper lobe. No appreciable pneumothorax. Hyperinflation. No consolidation or pleural eff usion. Prominent air distention of the stomach. Impression: COPD. Prominent air distention of the stomach. No acute process seen. Skinfold projecting over the le ft upper lobe.
--- NOTE | 2023-03-28 09:23 | XR ---
EXAMINATION TYPE: XR chest 1V portable DATE OF EXAM: 03/28/2023 Comparison: 03/27/2023 Clinical History: 62-year-old male Tube placement Findings: Heart normal size. Aorta and pulmonary vasculature within normal limits. Hyperinflation. ET and NG tu bes are satisfactory. Left CVC tip at the lower SVC. No consolidation or pleural effusion. Impression: COPD. No acute process seen.
[2023-03-28] MEDS: PANTOPRAZOLE 40 MG/10 ML VIAL IVP SCH (09:48)
[2023-03-28] MEDS: CHLORHEXIDINE GLUCONATE 15 ML CUP MUCOUS MEM SCH ×2 (09:48→20:36)
[2023-03-28] MEDS: AZITHROMYCIN 500 MG in SODIUM CHLORIDE 0.9% 250 ML IVPB SCH (09:49)
--- NOTE | 2023-03-28 10:14 | XR ---
EXAMINATION TYPE: XR chest 1V confirm line [facility] DATE OF EXAM: 03/28/2023 CLINICAL HISTORY: OG placement. TECHNIQUE: Single AP portable semiupright view of the chest is obtained. COMPARISON: Chest x-ray from earlier today FINDINGS: Image focuses on upper abdomen and does not include the upper lungs. A new orogastric tube projects below the diaphragm. Cardiac silhouette size stable and within normal limits. Chronic emphysematous change is redemonstrated. IMPRESSION: As above. Successful interval placement of orogastric tube.
[2023-03-28 12:40] LABS: Glucose,Whole Blood 167 mg/dL (70-110)
--- NOTE | 2023-03-28 13:49 | CDI ---
Documentation Clarification Form Date: From: Sugey Matute Phone: [phone] Admit Date: 03/26/2023 08:25:00 PM Patient Name: Tate Johnston Visit Number: [id number] Discharge Date: ATTENTION: The Clinical Documentation Specialists (CDI) and [facility] Coding Staff appreciate your assistance in clarifying documentation. Please respond to the clarification below the line at the bottom and electronically sign. The CDI & [facility] Coding staff will review the response and follow-up if needed. Please note: Queries are made part of the Legal Health Record. If you have any questions, please contact the author of this message via ITS. Dr. Hiral Smart Your patient has Hemoglobin of 12.5 on 03/28. Based on this information and the findings below, is there an additional diagnosis that is clinically appropriate for this patient? Patient history/risk factors: "62-year-old male who has a past medical history significant for COPD and continues to smoke. Patient called because having difficulty breathing and chest tightness. Patient states when his COPD worsens he has increased chest tightness." - Per ED Note on 03/26 Clinical Indicators: "having maroon output from the NG tube in the amount of 400 mL's" - Per Consult Note on 03/28 HGB: 03/26 - 15.2 03/27 - 13.5, 13.7 03/28 - 12.5 Treatment: "on IV Protonix" - Per Progress note on 03/27 "EGD" "Endo Clip placement" - Per Procedure note on 03/28 Is there an additional diagnosis that is clinically appropriate for this patient? [ ] Acute Blood Loss Anemia [ ] No additional diagnosis/Not clinically significant [ ] Unable to determine [ ] Other, please specify MTDD
--- NOTE | 2023-03-28 14:49 | P.PN ---
Subjective Progress Note Date: 03/28/23 Principal diagnosis: Reason for follow-up is possible pneumonia Patient is a 62-year-old male with a past medical history significant for hypertension anxiety current everyday smoker patient was brought into the hospital for difficulty breathing and chest tightness patient got intubated admitted to ICU. Patient did have a low-grade fever of 100 F last night, the patient is afebrile this morning patient is currently off the pressor support FiO2 is down to 40% no significant purulent secretions through the ET vomiting diarrhea or any other changes reported by the nursing staff. Patient white count is 11.9, creatinine 0.62, cultures currently pending Objective - Vital Signs Vital signs: Vital Signs Temp 97.2 F L 03/28/23 08:00 Pulse 121 H 03/28/23 12:45 Resp 14 03/28/23 12:45 BP 118/75 03/28/23 12:15 Pulse Ox 100 03/28/23 12:45 FiO2 40 03/28/23 12:00 Intake & Output 03/27/23 03/28/23 03/28/23 18:59 06:59 18:59 Intake Total 2077.904 1767.009 279.805 Output Total 181 501 8349 Balance 1232.904 877.009 -1295.195 Weight 52.2 kg 58.4 kg 55.9 kg Intake: IV 1575 1375 175 Sodium Chloride 0.9% 1, 1575 1375 125 000 ml @ 125 mls/hr IV . Q8H [facility] Rx#:[id number] Intake, IV Titration 502.904 392.009 104.805 Amount Azithromycin 500 mg In 250 Sodium Chloride 0.9% 250 ml @ 250 mls/hr IVPB DAILY [facility] Rx#:[id number] Mvi, Adult No.4 with Vit 30 K 10 ml Trace (Conc-1Ml/ Dose) 1 ml In Amino Acid 5%-D20w+Lytes*E* 1,000 ml @ 50 mls/hr IV .[id number] [facility] Rx#:[id number] Norepinephrine 4 mg In 41.044 212.956 104.805 Sodium Chloride 0.9% 250 ml @ 0.03 MCG/KG/MIN 5. 944 mls/hr IV .Q24H [facility] Rx#:[id number] cefTRIAXone 1 gm In 50 Sodium Chloride 0.9% 50 ml @ 100 mls/hr IVPB Q24HR [facility] Rx#:[id number] propofoL 1,000 mg In 131.860 179.053 Empty Bag 1 bag @ 30 MCG/ KG/MIN 8.328 mls/hr IV . Q12H1M [facility] Rx#:[id number] Output: Gastric Drainage 200 450 50 Urine 715 562 5254 Other: Voiding Method Indwelling Catheter Indwelling Catheter Indwelling Catheter ABP, PAP, CO, CI - Last Documented Arterial Blood Pressure 116/49 - Exam GENERAL DESCRIPTION: Middle-age male intubated on the vent RESPIRATORY SYSTEM: Unlabored breathing , decreased breath sounds at bases HEART: S1 S2 regular rate and rhythm , ABDOMEN: Soft , no tenderness EXTREMITIES: No edema feet - Labs CBC & Chem 7: 03/28/23 03:50 03/28/23 03:50 Labs: Abnormal Lab Results - Last 24 Hours (Table) 03/27/23 03/27/23 03/27/23 Range/Units 13:55 14:02 18:07 WBC (3.8-10.6) k/uL RBC 4.02 L (4.30-5.90) m/uL Hgb (13.0-17.5) gm/dL Hct (39.0-53.0) % MCV 101.7 H (80.0-100.0) fL Lymphocytes # 0.3 L (1.0-4.8) k/uL ABG pH (7.35-7.45) ABG pCO2 (35-45) mmHg ABG pO2 (83-108) mmHg ABG HCO3 (21-25) mmol/L ABG Total CO2 (19-24) mmol/L ABG O2 Saturation (94-97) % Sodium (137-145) mmol/L Creatinine (0.66-1.25) mg/dL Glucose (74-99) mg/dL POC Glucose (mg/dL) 121 H (70-110) mg/dL Calcium (8.4-10.2) mg/dL Total Protein (6.3-8.2) g/dL Albumin 3.3 L (3.5-5.0) g/dL 03/27/23 03/28/23 03/28/23 Range/Units 23:43 03:50 03:50 WBC 11.9 H (3.8-10.6) k/uL RBC 3.66 L (4.30-5.90) m/uL Hgb 12.5 L (13.0-17.5) gm/dL Hct 37.5 L (39.0-53.0) % MCV 102.5 H (80.0-100.0) fL Lymphocytes # (1.0-4.8) k/uL ABG pH (7.35-7.45) ABG pCO2 (35-45) mmHg ABG pO2 (83-108) mmHg ABG HCO3 (21-25) mmol/L ABG Total CO2 (19-24) mmol/L ABG O2 Saturation (94-97) % Sodium 136 L (137-145) mmol/L Creatinine 0.62 L (0.66-1.25) mg/dL Glucose 211 H (74-99) mg/dL POC Glucose (mg/dL) 177 H (70-110) mg/dL Calcium 8.1 L (8.4-10.2) mg/dL Total Protein 5.5 L (6.3-8.2) g/dL Albumin 3.1 L (3.5-5.0) g/dL 03/28/23 03/28/23 Range/Units 06:54 12:38 WBC (3.8-10.6) k/uL RBC (4.30-5.90) m/uL Hgb (13.0-17.5) gm/dL Hct (39.0-53.0) % MCV (80.0-100.0) fL Lymphocytes # (1.0-4.8) k/uL ABG pH 7.33 L (7.35-7.45) ABG pCO2 54 H (35-45) mmHg ABG pO2 133 H (83-108) mmHg ABG HCO3 28 H (21-25) mmol/L ABG Total CO2 30 H (19-24) mmol/L ABG O2 Saturation 99.0 H (94-97) % Sodium (137-145) mmol/L Creatinine (0.66-1.25) mg/dL Glucose (74-99) mg/dL POC Glucose (mg/dL) 167 H (70-110) mg/dL Calcium (8.4-10.2) mg/dL Total Protein (6.3-8.2) g/dL Albumin (3.5-5.0) g/dL Microbiology - Last 24 Hours (Table) 03/26/23 16:47 Blood Culture - Preliminary Blood 03/26/23 16:40 Blood Culture - Preliminary Blood 03/26/23 18:45 Gram Stain - Preliminary Sputum Assessment and Plan (1) Fever Current Visit: Yes Status: Acute Code(s): R50.9 - FEVER, UNSPECIFIED SNOMED Code(s): 631163164 (2) Leukocytosis Current Visit: Yes Status: Acute Code(s): D72.829 - ELEVATED WHITE BLOOD RIK L COUNT, UNSPECIFIED SNOMED Code(s): 037787948 Plan: 1patient presented to hospital with increasing shortness of breath more likely related to underlying COPD exacerbation with tracheobronchitis patient not running any fever white count has been normal both the CT of the chest as well as chest x-ray did not show any acute pulmonary process, patient did have a low- grade fever and mild elevated white count that is slightly concerning 2-cultures has been obtained and currently pending 3-patient to-continue with empiric Rocephin while waiting for the culture to finalize Dictation was produced using [employer] dictation software. please excuse any grammatical, word or spelling errors. Time with Patient: Less than 30
[2023-03-28] MEDS ORDERED: MVI, ADULT NO.4 WITH VIT K 10 ML, TRACE (CONC-1ML/DOSE) 1 ML in AMINO ACID 5%-D20W+LYTE... IV SCH ×3 (19:00)
[2023-03-28] MEDS ORDERED: DEXTROSE 50% SYRINGE 50 ML IVP PRN ×2 (22:51)
[2023-03-28] MEDS: INSULIN ASPART (NovoLOG) 100 UNIT/ML VIAL SQ SCH (23:09)
[2023-03-28 23:10] LABS: Glucose,Whole Blood 142 mg/dL (70-110)
--- NOTE | 2023-03-29 02:11 | PN ---
PROGRESS NOTE SUBJECTIVE: The patient remains in respiratory failure on the vent, in ICU, COPD, chronic nicotine addiction. At this time, severe hypercapnic respiratory failure. was drawn earlier today. Patient was found to have a 5 mm ulcer in body of the stomach. for possible erosive gastritis. He has had the patient with tube feedings, enteral feedings, will start TPN, fluids at 125 mL an hour. Broad-spectrum antibiotics, Rocephin and azithromycin. OBJECTIVE: VITAL SIGNS: Reviewed. ABG reviewed. Blood pressure 135/58. CARDIOVASCULAR: S1, S2. LUNGS: Scattered rhonchi and wheeze. HEMATOLOGY: Negative for Homans. PSYCH: Fair mood and affect. NEUROLOGIC: Alert and oriented x0. HEENT: Normocephalic, atraumatic. Blood cultures pending. ABG, pCO2 is 54. ASSESSMENT: Upper GI bleed secondary to antral gastritis, hypertension, vasopressors, dyslipidemia, chronic anxiety, depression. Will be given Zyprexa and Prozac as outpatient. Acute hypoxic hypercapnic respiratory failure with COPD exacerbation, significant respiratory acidosis, at which time the patient was intubated. CT angiograms negative for PE. panel was negative. Continue with treatment for possible aspiration pneumonia, COPD exacerbation, and GI bleed, etc. Prognosis guarded. WESTONL / DENAN: [id number] /
[2023-03-29] MEDS: IPRATROPIUM-ALBUTEROL 3 ML NEB INHALATION SCH ×5 (03:47→20:13)
[2023-03-29 04:32] LABS: HGB 11.8 gm/dL (13.0-17.5); Hypochromasia Slight; MCH 33.6 pg (25.0-35.0); MCHC 31.9 g/dL (31.0-37.0); MCV 105.2 fL (80.0-100.0); Macrocytosis Slight; Mean Platelet Volume 8.1; Platelet Count 153 k/uL (150-450); RBC 3.52 m/uL (4.30-5.90); RDW 13.3 % (11.5-15.5); WBC 14.3 k/uL (3.8-10.6)
[2023-03-29 04:41] LABS: ALT 15 U/L (4-49); AST 25 U/L (17-59); African American GFR (CKD) >90 (>60 ml/min/1.73 sqM); Albumin 3.1 g/dL (3.5-5.0); Alkaline Phosphatase 74 U/L (38-126); Anion Gap 0 mmol/L; Blood Urea Nitrogen 20 mg/dL (9-20); Calcium 8.1 mg/dL (8.4-10.2); Carbon Dioxide 33 mmol/L (22-30); Chloride 109 mmol/L (98-107); Glucose 150 mg/dL (74-99); Magnesium 2.5 mg/dL (1.6-2.3); Non-African American GFR(CKD) >90 (>60 ml/min/1.73 sqM); Phosphorus 3.6 mg/dL (2.5-4.5); Potassium 4.6 mmol/L (3.5-5.1); Sodium 142 mmol/L (137-145); Total Bilirubin 0.3 mg/dL (0.2-1.3); Total Protein 5.5 g/dL (6.3-8.2)
[2023-03-29] MEDS: INSULIN ASPART (NovoLOG) 100 UNIT/ML VIAL SQ SCH ×4 (06:20→23:08)
[2023-03-29 06:21] LABS: Glucose,Whole Blood 137 mg/dL (70-110)
[2023-03-29] MEDS: methylPREDNISolone SOD SUCCI 125 MG/2 ML VIAL IV SCH ×4 (06:22→23:17)
[2023-03-29 06:38] LABS: Allen Test Performed? Yes
[2023-03-29 06:42] LABS: ABG Base Excess 6.5 mmol/L; ABG HCO3 35 mmol/L (21-25); ABG PCO2 74 mmHg (35-45); ABG PH 7.29 (7.35-7.45); ABG PO2 118 mmHg (83-108); ABG TCO2 38 mmol/L (19-24)
--- NOTE | 2023-03-29 07:51 | XR ---
EXAMINATION TYPE: XR chest 1V portable DATE OF EXAM: 03/29/2023 Comparison: 03/28/2023 Clinical History: 62-year-old male Tube placement Findings: ET tube tip at the inferior margin of the clavicular heads. NG tube courses below the diaphragm. Left CVC tip is obscured, likely at the mid to lower SVC level. Hyperinflation. No consolidation or pleur al effusion. Impression: COPD. No acute process seen.
[2023-03-29] MEDS: BUDESONIDE 1 MG/2 ML NEBU INHALATION SCH ×2 (08:58→20:14)
[2023-03-29] MEDS: FORMOTEROL FUMARATE 20 MCG/2 ML NEBU INHALATION SCH ×2 (08:58→20:14)
[2023-03-29] MEDS: AZITHROMYCIN 500 MG in SODIUM CHLORIDE 0.9% 250 ML IVPB SCH (09:27)
[2023-03-29] MEDS: CHLORHEXIDINE GLUCONATE 15 ML CUP MUCOUS MEM SCH ×2 (09:29→21:55)
[2023-03-29] MEDS: SODIUM CHLORIDE 0.9% 1,000 ML IV SCH ×3 (09:38→23:18)
[2023-03-29] MEDS: PANTOPRAZOLE 40 MG/10 ML VIAL IVP SCH (09:41)
--- NOTE | 2023-03-29 10:19 | P.PN ---
Subjective Progress Note Date: 03/29/23 Principal diagnosis: Reason for follow-up is possible pneumonia Patient is a 62-year-old male with a past medical history significant for hypertension anxiety current everyday smoker patient was brought into the hospital for difficulty breathing and chest tightness patient got intubated admitted to ICU. On today's evaluation there is 03/29/2023, the patient is afebrile this morning, patient is currently off the pressor support, the patient FiO2 is stable at 40% no significant purulent secretions through the ET vomiting diarrhea or any other changes reported by the nursing staff. Patient white count is 14.3, creatinine 0.63, sputum culture growing haemophilus blood cultures currently pending Objective - Vital Signs Vital signs: Vital Signs Temp 98.8 F 03/29/23 04:00 Pulse 114 H 03/29/23 09:21 Resp 7 L 03/29/23 07:00 BP 118/64 03/29/23 07:00 Pulse Ox 99 03/29/23 07:00 FiO2 40 03/29/23 09:00 Intake & Output 03/28/23 03/29/23 03/29/23 18:59 06:59 18:59 Intake Total 230.634 7671.456 105 Output Total 2475 805 75 Balance -3.508 445.456 30 Weight 55.9 kg 57.3 kg 57.3 kg Intake: IV 175 Sodium Chloride 0.9% 1, 125 000 ml @ 125 mls/hr IV . Q8H GYPSY Rx#:[id number] Intake, IV Titration 276.492 980.456 75 Amount Norepinephrine 4 mg In 139.543 Sodium Chloride 0.9% 250 ml @ 0.03 MCG/KG/MIN 5. 944 mls/hr IV .Q24H GYPSY Rx#:[id number] Sodium Chloride 0.9% 1, 825 75 000 ml @ 75 mls/hr IV . [id number] GYPSY Rx#:[id number] propofoL 1,000 mg In 136.949 155.456 Empty Bag 1 bag @ 30 MCG/ KG/MIN 8.328 mls/hr IV . Q12H1M GYPSY Rx#:[id number] Tube Feeding 210 30 Other 60 Output: Gastric Drainage 50 Urine 2425 805 75 Other: Voiding Method Indwelling Catheter Indwelling Catheter ABP, PAP, CO, CI - Last Documented Arterial Blood Pressure 103/48 - Exam GENERAL DESCRIPTION: Middle-age male intubated on the vent RESPIRATORY SYSTEM: Unlabored breathing , decreased breath sounds at bases HEART: S1 S2 regular rate and rhythm , ABDOMEN: Soft , no tenderness EXTREMITIES: No edema feet - Labs CBC & Chem 7: 03/29/23 04:10 03/29/23 04:10 Labs: Abnormal Lab Results - Last 24 Hours (Table) 03/28/23 03/28/23 03/29/23 Range/Units 12:38 23:08 04:10 WBC (3.8-10.6) k/uL RBC (4.30-5.90) m/uL Hgb (13.0-17.5) gm/dL Hct (39.0-53.0) % MCV (80.0-100.0) fL ABG pH (7.35-7.45) ABG pCO2 (35-45) mmHg ABG pO2 (83-108) mmHg ABG HCO3 (21-25) mmol/L ABG Total CO2 (19-24) mmol/L ABG O2 Saturation (94-97) % Chloride 109 H (98-107) mmol/L Carbon Dioxide 33 H (22-30) mmol/L Creatinine 0.63 L (0.66-1.25) mg/dL Glucose 150 H (74-99) mg/dL POC Glucose (mg/dL) 167 H 142 H (70-110) mg/dL Calcium 8.1 L (8.4-10.2) mg/dL Magnesium 2.5 H (1.6-2.3) mg/dL Total Protein 5.5 L (6.3-8.2) g/dL Albumin 3.1 L (3.5-5.0) g/dL 03/29/23 03/29/23 03/29/23 Range/Units 04:10 06:20 06:30 WBC 14.3 H (3.8-10.6) k/uL RBC 3.52 L (4.30-5.90) m/uL Hgb 11.8 L (13.0-17.5) gm/dL Hct 37.0 L (39.0-53.0) % MCV 105.2 H (80.0-100.0) fL ABG pH 7.29 L (7.35-7.45) ABG pCO2 74 H* (35-45) mmHg ABG pO2 118 H (83-108) mmHg ABG HCO3 35 H (21-25) mmol/L ABG Total CO2 38 H (19-24) mmol/L ABG O2 Saturation 99.0 H (94-97) % Chloride (98-107) mmol/L Carbon Dioxide (22-30) mmol/L Creatinine (0.66-1.25) mg/dL Glucose (74-99) mg/dL POC Glucose (mg/dL) 137 H (70-110) mg/dL Calcium (8.4-10.2) mg/dL Magnesium (1.6-2.3) mg/dL Total Protein (6.3-8.2) g/dL Albumin (3.5-5.0) g/dL Microbiology - Last 24 Hours (Table) 03/26/23 18:45 Gram Stain - Final Sputum Sputum Culture - Final Haemophilus influenzae 03/26/23 16:47 Blood Culture - Preliminary Blood 03/26/23 16:40 Blood Culture - Preliminary Blood Assessment and Plan (1) Fever Current Visit: Yes Status: Acute Code(s): R50.9 - FEVER, UNSPECIFIED SNOMED Code(s): 269061366 (2) Leukocytosis Current Visit: Yes Status: Acute Code(s): D72.829 - ELEVATED WHITE BLOOD CELL COUNT, UNSPECIFIED SNOMED Code(s): 150403922 Plan: 1patient presented to hospital with increasing shortness of breath more likely related to underlying COPD exacerbation with tracheobronchitis patient not running any fever white count has been normal both the CT of the chest as well as chest x-ray did not show any acute pulmonary process, however the patient did have a low-grade fever and the sputum culture now growing haemophilus concerning for possible early community-acquired pneumonia versus purulent tracheobronchitis 2--patient will continue with empiric Rocephin and monitor clinical course closely Dictation was produced using [employer] dictation software. please excuse any grammatical, word or spelling errors. Time with Patient: Less than 30
[2023-03-29 12:10] LABS: Glucose,Whole Blood 142 mg/dL (70-110)
--- NOTE | 2023-03-29 13:28 | P.PN ---
Subjective Progress Note Date: 03/29/23 Patient is a 62-year-old white male with past medical history significant for COPD and chronic ongoing tobacco dependence. The patient came into the emergency department with significant shortness of breath. Apparently, he was actively bronchospastic and he had diminished breath sounds. In the emergency, the patient was given breathing treatments [id number] and subsequently was placed in the 100% nonrebreather facemask. Upon follow-up, the patient was found to be completely unresponsive and he was unable to protect his airway and his breathing was very shallow. At that point, he was intubated and placed on a mechanical ventilator. The initial blood gas was done postintubation was lab er ror and subsequently follow-up blood gases was done that showed significant respiratory acidosis and oxygen nasal already improved. Patient is currently sedated and intubated on mechanical ventilator, most of this HPI supplemented from ER documentation. We were not able to get a hold of any family at this time, and there are no prior charts to review. Based on a review of his home medications, he may have history COPD, hypertension, and hyperlipidemia. Postintubation he ABG was consistent with severe hypercapnic respiratory failure. PO2 greater than 400, pCO2 of 93, and pH of 7.12. Postintubation chest x-ray has endotracheal tube approximately 4 cm above the michael. Orogastric tube courses below the diaphragm. No focal infiltrates or evidence of pneumonia. There is marked hyperinflation with flattening of the diaphragm, consistent with COPD. A follow-up chest CTA done while in the emergency room showed no evidence of pulmonary embolism. There is no acute cardiopulmonary process. Patient is currently in the intensive care unit, intubated to the mechanical ventilator. Propofol is infusing at 45 mcg/kg/m. He is synchronous with mechanical ventilator. Current ventilator settings are assist control, respiratory rate of 12, tidal volume 400, FiO2 of 80%, PEEP of 5. A repeat ABG as a PaO2 of 358, pCO2 of 90, pH of 7.14. I increased the patient's respiratory rate 20 and reduce the FiO2 to 50%. The peak airway pressure is 34 and static airway pressure is 24, patient has some evidence of airway resistance. Lung sounds are tight and continues wheezing. No significant airway secretions. Patient has been started on DuoNeb's every 4 hours. I would add budesonide and formoterol. Patient is also hypotensive, he is already received a total of 2 L normal saline bolus. He is only 52 kg. Patient will be started on low-dose norepinephrine for refractory hypotension if needed. CBC on arrival unremarkable. BMP on arrival, sodium 132, potassium 4.9, chloride 94, serum bicarbonate 33, BUN 16, creatinine 0.62, glucose 123. Lactic acid level II.5. Troponin is less than 0.012. Negative for influenza, RSV, COVID-19. He is afebrile. Patient's status is still volatile, and there are no plans to extubate tonight. They have the chest was also completed in emergency. This was reviewed. No evidence of any pulmonary embolism. There is extensive emphysema bilaterally. No airspace disease. Note that the patient's NG output is bloody. Currently has approximately 300 mL and the canister. In terms of his hemoglobin monitoring, the patient's hemoglobin dropped from 15.2 down to 13.5. IV fluids are in the form of normal saline at rate of 75 mL's an hour. The patient is sedated with propofol running at 50 mcg/kg/m. Most recent blood gas showed improvement and acid-base status. PH is down still at 7.28 also improved compared to yesterday. PCO2 is down to 58 and pO2 is at 179 and this was an FiO2 of 50% and subsequently the FiO2 was dropped onto 40%. No pressors. Today's evaluation of 03/28/2023, the patient remains intubated on a mechanical ventilator. He remains sedated on propofol which is running at 70 g plus kilogram per minutes. Despite his adequate sedation, the patient remains actively bronchospastic and wheezy. In fact, he is having elevated peak airway pressure this morning. His current ventilator settings with evidence is control mode rate of 12, tidal volume of 400, FiO2 of 40% with a PEEP of 5. His blood gases show a pH of 7.32 with a pCO2 of 54 and pO2 of 133. Chest x-ray shows marked hyperinflation. No airspace disease. No consolidation. On a separate note, the patient was having episodes of GI bleed. NG tube was in place throughout the night. Output from the treatment diminished and the hemoglobin had dropped slightly down to 12.5 this morning. EGD was done earlier today and the patient was found to have a 5 mm ulcer in the body of the stomach and an Endo Clip was applied. The patient will some antral erosive gastritis. Clearance was obtained from the quality compliance coordinator to feed the patient. As suc h, we will going to start enteral feeding. We'll going to stop TPN for now. Hemodynamically stable. He is maintaining his own blood pressure without any pressors. The patient remains on IV fluids with normal saline at 125 mL an hour. He remains on bronchodilators. He remains on steroids. He remains on a broad-spectrum antibiotic coverage with Rocephin and Zithromax. White cell count 11.9, he was 12.5 and a platelet is 164. Sodium is at 136, BUN is at 17 with a creatinine of 0.6. LFTs are within normal limits. No other significant events overnight. On 03/29/2023, patient is being seen for a follow-up. Remains sedated on propofol. His calm and comfortable. Propofol is running at 50 microvascular kilogram per minute. The patient remains on the same ventilator settings with a tidal volume of 375, rate of 12, FiO2 of 40% with a PEEP of 5. Peak air pressures at 42. Remains actively bronchospastic and wheezy. Not a candidate for any bleeding at this point in time as the patient COPD still quite active. Chest x-ray shows hyperinflation. Orotracheal tube is in good location. No evidence of any airspace disease of consolidation. Remains on broke a dilated. Remains on steroids. Remains on enteral feeding for nutritional support and the patient is taking vital high-protein at the rate of 30 mL an hour. Hemodynamically stable. No other significant events overnight. Blood gas from today shows a pH of 7.29 with episodes of 48 and pO2 118 and this was an FiO2 of 40%. The white cell cause of 14.3, hemoglobin of 11.8 and a platelet count of 153. BUN is at 20 with a creatinine of 0.6 and a sodium level is at 142 and a potassium level of 4.6. LFTs are normal. The sputum sample was positive for Haemophilus influenza. Objective - Vital Signs Vital signs: Vital Signs Temp 98.8 F 03/29/23 04:00 Pulse 111 H 03/29/23 09:08 Resp 7 L 03/29/23 07:00 BP 118/64 03/29/23 07:00 Pulse Ox 99 03/29/23 07:00 FiO2 40 03/29/23 09:00 Intake & Output 03/28/23 03/29/23 03/29/23 18:59 06:59 18:59 Intake Total 179.668 1161.456 105 Output Total 2475 805 75 Balance -2022.508 445.456 30 Weight 55.9 kg 57.3 kg Intake: IV 175 Sodium Chloride 0.9% 1, 125 000 ml @ 125 mls/hr IV . Q8H GYPSY Rx#:[id number] Intake, IV Titration 276.492 980.456 75 Amount Norepinephrine 4 mg In 139.543 Sodium Chloride 0.9% 250 ml @ 0.03 MCG/KG/MIN 5. 944 mls/hr IV .Q24H GYPSY Rx#:[id number] Sodium Chloride 0.9% 1, 825 75 000 ml @ 75 mls/hr IV . [id number] GYPSY Rx#:[id number] propofoL 1,000 mg In 136.949 155.456 Empty Bag 1 bag @ 30 MCG/ KG/MIN 8.328 mls/hr IV . Q12H1M GYPSY Rx#:[id number] Tube Feeding 210 30 Other 60 Output: Gastric Drainage 50 Urine 2425 805 75 Other: Voiding Method Indwelling Catheter Indwelling Catheter ABP, PAP, CO, CI - Last Documented Arterial Blood Pressure 103/48 - Exam GENERAL EXAM: Sedated, 62-year-old white male, synchronous mechanical ventilator. He is frail. Orogastric and orotracheal tube are both in place. The patient has a bloody upper from his NG tube. HEAD: Normocephalic and atraumatic EYES: Normal reaction of pupils, equal size. NOSE: Clear with pink turbinates. THROAT: No erythema or exudates. NECK: No masses, no JVD. Patient has a triple-lumen catheter in his left IJ. CHEST: No chest wall deformity. LUNGS: Equal air expansion with diminished sounds throughout. Expiratory wheezes heard throughout. No crackles, rhonchi. CVS: S1 and S2 normal with no audible murmur, regular rhythm. No extra heart sounds ABDOMEN: No hepatosplenomegaly, active bowel sounds, no guarding or rigidity. SPINE: No scoliosis or deformity SKIN: No rashes CENTRAL NERVOUS SYSTEM: He is sedated, and does not follow commands. Withdrawals to pain in all four extremities. EXTREMITIES: There is no peripheral edema, clubbing, or cyanosis. Peripheral pulses are intact. - Labs CBC & Chem 7: 03/29/23 04:10 03/29/23 04:10 Labs: Abnormal Lab Results - Last 24 Hours (Table) 03/28/23 03/28/23 03/29/23 Range/Units 12:38 23:08 04:10 WBC (3.8-10.6) k/uL RBC (4.30-5.90) m/uL Hgb (13.0-17.5) gm/dL Hct (39.0-53.0) % MCV (80.0-100.0) fL ABG pH (7.35-7.45) ABG pCO2 (35-45) mmHg ABG pO2 (83-108) mmHg ABG HCO3 (21-25) mmol/L ABG Total CO2 (19-24) mmol/L ABG O2 Saturation (94-97) % Chloride 109 H (98-107) mmol/L Carbon Dioxide 33 H (22-30) mmol/L Creatinine 0.63 L (0.66-1.25) mg/dL Glucose 150 H (74-99) mg/dL POC Glucose (mg/dL) 167 H 142 H (70-110) mg/dL Calcium 8.1 L (8.4-10.2) mg/dL Magnesium 2.5 H (1.6-2.3) mg/dL Total Protein 5.5 L (6.3-8.2) g/dL Albumin 3.1 L (3.5-5.0) g/dL 03/29/23 03/29/23 03/29/23 Range/Units 04:10 06:20 06:30 WBC 14.3 H (3.8-10.6) k/uL RBC 3.52 L (4.30-5.90) m/uL Hgb 11.8 L (13.0-17.5) gm/dL Hct 37.0 L (39.0-53.0) % MCV 105.2 H (80.0-100.0) fL ABG pH 7.29 L (7.35-7.45) ABG pCO2 74 H* (35-45) mmHg ABG pO2 118 H (83-108) mmHg ABG HCO3 35 H (21-25) mmol/L ABG Total CO2 38 H (19-24) mmol/L ABG O2 Saturation 99.0 H (94-97) % Chloride (98-107) mmol/L Carbon Dioxide (22-30) mmol/L Creatinine (0.66-1.25) mg/dL Glucose (74-99) mg/dL POC Glucose (mg/dL) 137 H (70-110) mg/dL Calcium (8.4-10.2) mg/dL Magnesium (1.6-2.3) mg/dL Total Protein (6.3-8.2) g/dL Albumin (3.5-5.0) g/dL Microbiology - Last 24 Hours (Table) 03/26/23 16:47 Blood Culture - Preliminary Blood 03/26/23 16:40 Blood Culture - Preliminary Blood Assessment and Plan Plan: Acute hypoxic/hypercapnic respiratory failure due to COPD exacerbation. The patient was in significant respiratory acidosis at time of admission and he was in respiratory failure. Intubated and placed on a mechanical ventilator. This morning, peak airway pressure continues to be elevated. There is some improvement in his acid-base status based on a follow-up blood gases. Chest x- ray is negative for pneumonia. CT angiogram is negative for any acute abnormalities. The viral panel was negative and the patient remains intubated on a mechanical ventilator. Continues to be actively bronchospastic and wheezy. No significant changes in his chest x-ray findings. Peak air pressure continues to be elevated and the patient's blood gases still showing a component of respiratory acidosis the patient is not ready for any weaning. Furthermore, the patient was found to have Haemophilus influenza in the sputum. Chest x-ray shows no evidence of any pneumonia. Severe COPD maintain on Stiolto on outpatient basis Chronic smoker Upper GI bleed related to erosive antral gastritis 5 mm ulcer was also identified and the body of the stomach and Endo Clip was applied. The patient is currently receiving enteral feeding for nutritional support. No evidence of any GI bleed and hemoglobin is stable. Hypotension, recovered Hypertension Hyperlipidemia Chronic anxiety and possibly depression. Patient is maintain on combination of Zyprexa and Prozac on outpatient basis Plan Continue ventilator support, no ventilator changes for today, not ready for weaning at this point in time. COPD exacerbation remains quite active Monitor the blood gases, blood gas from this morning was noted Patient is Haemophilus influenza in his sputum and the patient remains on IV Rocephin Continue the bronchodilators and the patient is currently on DuoNeb updrafts [id number] and IV Solu-Medrol 60 mg every 6 hours. No indication for pneumonia based on the chest x-ray findings Keep the patient on propofol Keep the patient IV Protonix No anticoagulants at this point in time Endoscopy was done and the patient will be started on a enteral feeding for nutritional support. The patient is currently on vital high-protein. Increase IV fluids 75cc hour Monitor hemoglobin Condition is critical we'll continue to follow Critical care evaluation was done in more than 30 minutes. Further recommendations are to follow. Time with Patient: Greater than 30
--- NOTE | 2023-03-29 15:55 | CDI ---
Documentation Clarification Form Date: 03/28/2023 01:49:00 PM From: Sugey Matute Phone: [phone] Admit Date: 03/26/2023 08:25:00 PM Patient Name: Tate Johnston Visit Number: [id number] Discharge Date: ATTENTION: The Clinical Documentation Specialists (CDI) and [facility] Coding Staff appreciate your assistance in clarifying documentation. Please respond to the clarification below the line at the bottom and electronically sign. The CDI & [facility] Coding staff will review the response and follow-up if needed. Please note: Queries are made part of the Legal Health Record. If you have any questions, please contact the author of this message via ITS. Dr. Hiral Smart Your patient has Hemoglobin of 12.5 on 03/28. Based on this information and the findings below, is there an additional diagnosis that is clinically appropriate for this patient? Patient history/risk factors: "62-year-old male who has a past medical history significant for COPD and continues to smoke. Patient called because having difficulty breathing and chest tightness. Patient states when his COPD worsens he has increased chest tightness." - Per ED Note on 03/26 Clinical Indicators: "having maroon output from the NG tube in the amount of 400 mL's" - Per Consult Note on 03/28 HGB: 03/26 - 15.2 03/27 - 13.5, 13.7 03/28 - 12.5 Treatment: "on IV Protonix" - Per Progress note on 03/27 "EGD" "Endo Clip placement" - Per Procedure note on 03/28 Is there an additional diagnosis that is clinically appropriate for this patient? [ ] Acute Blood Loss Anemia [ ] No additional diagnosis/Not clinically significant [ ] Unable to determine [ ] Other, please specify No other diagnosis other than acute blood loss anemia. Dr.K Bing ALCANTARA
[2023-03-29 17:18] LABS: Glucose,Whole Blood 151 mg/dL (70-110)
--- NOTE | 2023-03-29 20:29 | PN ---
PROGRESS NOTE SUBJECTIVE: Remains sedated on Propofol, comfortable, running, remains on same ventilator settings as yesterday. He remains actively , wheezy, negative candidate for weaning at this time. Hyperinflation on chest x-ray. Nutritional support. Blood gas reviewed, forging dies final finisher notes reviewed. OBJECTIVE: CARDIOVASCULAR: S1, S2. LUNGS: Scattered wheeze and rhonchi. VITAL SIGNS: Temperature 98.8, pulse 111, respiratory , blood pressure 118/70s. PSYCH: Fair mood and affect. NEUROLOGIC: Cranial nerves intact. LABORATORY DATA: Hemoglobin 11.3, white count 14.3, BUN is 20, creatinine 0.63. ASSESSMENT: Acute hypoxemic respiratory failure secondary to COPD exacerbation, nicotine addiction, upper GI bleed, hypotension, hypertension, dyslipidemia, chronic anxiety, and depression. Continue vent support. Treat with antibiotics for possible pneumonia. Monitor blood gases, H influenzae on Rocephin, bronchodilators, DuoNebs. Prognosis guarded. Remains in ICU. MMODL / IJN: [id number] /
[2023-03-29 23:04] LABS: Glucose,Whole Blood 143 mg/dL (70-110)
[2023-03-30] MEDS: IPRATROPIUM-ALBUTEROL 3 ML NEB INHALATION SCH ×6 (00:02→20:23)
[2023-03-30] MEDS: NOREPINEPHRINE 4 MG in SODIUM CHLORIDE 0.9% 250 ML IV SCH (01:19)
[2023-03-30 04:29] LABS: Basophils % (A) 0 %; Eosinophils % (A) 0 %; HCT 36.2 % (39.0-53.0); HGB 11.4 gm/dL (13.0-17.5); Hypochromasia Moderate; Lymphocytes # (A) 0.3 k/uL (1.0-4.8); Lymphocytes % (A) 3 %; MCH 33.7 pg (25.0-35.0); MCHC 31.6 g/dL (31.0-37.0); MCV 106.6 fL (80.0-100.0); Macrocytosis Moderate; Mean Platelet Volume 9.4; Monocytes # (A) 0.5 k/uL (0-1.0); Monocytes % (A) 5 %; Neutrophils # (A) 9.9 k/uL (1.3-7.7); Neutrophils % (A) 91 %; Platelet Count 127 k/uL (150-450); RBC 3.39 m/uL (4.30-5.90); RDW 13.5 % (11.5-15.5); WBC 10.9 k/uL (3.8-10.6)
[2023-03-30 04:41] LABS: ALT 20 U/L (4-49); AST 23 U/L (17-59); African American GFR (CKD) >90 (>60 ml/min/1.73 sqM); Albumin 2.9 g/dL (3.5-5.0); Alkaline Phosphatase 68 U/L (38-126); Anion Gap -1 mmol/L; Blood Urea Nitrogen 29 mg/dL (9-20); Calcium 8.1 mg/dL (8.4-10.2); Carbon Dioxide 39 mmol/L (22-30); Chloride 112 mmol/L (98-107); Glucose 163 mg/dL (74-99); Non-African American GFR(CKD) >90 (>60 ml/min/1.73 sqM); Phosphorus 3.3 mg/dL (2.5-4.5); Potassium 4.2 mmol/L (3.5-5.1); Sodium 150 mmol/L (137-145); Total Bilirubin 0.2 mg/dL (0.2-1.3); Total Protein 5.4 g/dL (6.3-8.2)
[2023-03-30 05:39] LABS: ABG Base Excess 12.4 mmol/L; ABG HCO3 39 mmol/L (21-25); ABG Oxygen Saturation 97.8 % (94-97); ABG PH 7.28 (7.35-7.45); ABG PO2 107 mmHg (83-108); ABG TCO2 42 mmol/L (19-24); Allen Test Performed? Yes
[2023-03-30 05:42] LABS: ABG PCO2 83 mmHg (35-45)
[2023-03-30 06:09] LABS: Glucose,Whole Blood 157 mg/dL (70-110)
[2023-03-30] MEDS: methylPREDNISolone SOD SUCCI 125 MG/2 ML VIAL IV SCH ×3 (06:37→17:43)
[2023-03-30] MEDS: INSULIN ASPART (NovoLOG) 100 UNIT/ML VIAL SQ SCH ×3 (06:38→17:43)
[2023-03-30] MEDS: FORMOTEROL FUMARATE 20 MCG/2 ML NEBU INHALATION SCH ×2 (08:03→20:22)
[2023-03-30] MEDS: BUDESONIDE 1 MG/2 ML NEBU INHALATION SCH ×2 (08:04→20:23)
[2023-03-30] MEDS: PANTOPRAZOLE 40 MG/10 ML VIAL IVP SCH (08:13)
[2023-03-30] MEDS: CHLORHEXIDINE GLUCONATE 15 ML CUP MUCOUS MEM SCH ×2 (08:13→22:03)
--- NOTE | 2023-03-30 08:13 | XR ---
EXAMINATION TYPE: XR chest 1V portable DATE OF EXAM: 03/30/2023 COMPARISON: 03/29/2023 HISTORY: Pulmonary status TECHNIQUE: Single frontal view of the chest is obtained. FINDINGS: The no change in ET tube or NG tube. There is hyperinflation and flattening the diaphragms consistent with COPD. There is no abnormal airspace or interstitial opacity. The heart and pulmonary vasculature are normal . IMPRESSION: 1. No change in ET tube and NG tube. 2. COPD. 3. No acute cardiopulmonary disease. 4. No change compared to previous.
[2023-03-30 11:38] LABS: Glucose,Whole Blood 154 mg/dL (70-110)
--- NOTE | 2023-03-30 11:52 | P.PN ---
Subjective Progress Note Date: 03/30/23 Patient is a 62-year-old white male with past medical history significant for COPD and chronic ongoing tobacco dependence. The patient came into the emergency department with significant shortness of breath. Apparently, he was actively bronchospastic and he had diminished breath sounds. In the emergency, the patient was given breathing treatments [id number] and subsequently was placed in the 100% nonrebreather facemask. Upon follow-up, the patient was found to be completely unresponsive and he was unable to protect his airway and his breathing was very shallow. At that point, he was intubated and placed on a mechanical ventilator. The initial blood gas was done postintubation was lab er ror and subsequently follow-up blood gases was done that showed significant respiratory acidosis and oxygen nasal already improved. Patient is currently sedated and intubated on mechanical ventilator, most of this HPI supplemented from ER documentation. We were not able to get a hold of any family at this time, and there are no prior charts to review. Based on a review of his home medications, he may have history COPD, hypertension, and hyperlipidemia. Postintubation he ABG was consistent with severe hypercapnic respiratory failure. PO2 greater than 400, pCO2 of 93, and pH of 7.12. Postintubation chest x-ray has endotracheal tube approximately 4 cm above the michael. Orogastric tube courses below the diaphragm. No focal infiltrates or evidence of pneumonia. There is marked hyperinflation with flattening of the diaphragm, consistent with COPD. A follow-up chest CTA done while in the emergency room showed no evidence of pulmonary embolism. There is no acute cardiopulmonary process. Patient is currently in the intensive care unit, intubated to the mechanical ventilator. Propofol is infusing at 45 mcg/kg/m. He is synchronous with mechanical ventilator. Current ventilator settings are assist control, respiratory rate of 12, tidal volume 400, FiO2 of 80%, PEEP of 5. A repeat ABG as a PaO2 of 358, pCO2 of 90, pH of 7.14. I increased the patient's respiratory rate 20 and reduce the FiO2 to 50%. The peak airway pressure is 34 and static airway pressure is 24, patient has some evidence of airway resistance. Lung sounds are tight and continues wheezing. No significant airway secretions. Patient has been started on DuoNeb's every 4 hours. I would add budesonide and formoterol. Patient is also hypotensive, he is already received a total of 2 L normal saline bolus. He is only 52 kg. Patient will be started on low-dose norepinephrine for refractory hypotension if needed. CBC on arrival unremarkable. BMP on arrival, sodium 132, potassium 4.9, chloride 94, serum bicarbonate 33, BUN 16, creatinine 0.62, glucose 123. Lactic acid level II.5. Troponin is less than 0.012. Negative for influenza, RSV, COVID-19. He is afebrile. Patient's status is still volatile, and there are no plans to extubate tonight. They have the chest was also completed in emergency. This was reviewed. No evidence of any pulmonary embolism. There is extensive emphysema bilaterally. No airspace disease. Note that the patient's NG output is bloody. Currently has approximately 300 mL and the canister. In terms of his hemoglobin monitoring, the patient's hemoglobin dropped from 15.2 down to 13.5. IV fluids are in the form of normal saline at rate of 75 mL's an hour. The patient is sedated with propofol running at 50 mcg/kg/m. Most recent blood gas showed improvement and acid-base status. PH is down still at 7.28 also improved compared to yesterday. PCO2 is down to 58 and pO2 is at 179 and this was an FiO2 of 50% and subsequently the FiO2 was dropped onto 40%. No pressors. Today's evaluation of 03/28/2023, the patient remains intubated on a mechanical ventilator. He remains sedated on propofol which is running at 70 g plus kilogram per minutes. Despite his adequate sedation, the patient remains actively bronchospastic and wheezy. In fact, he is having elevated peak airway pressure this morning. His current ventilator settings with evidence is control mode rate of 12, tidal volume of 400, FiO2 of 40% with a PEEP of 5. His blood gases show a pH of 7.32 with a pCO2 of 54 and pO2 of 133. Chest x-ray shows marked hyperinflation. No airspace disease. No consolidation. On a separate note, the patient was having episodes of GI bleed. NG tube was in place throughout the night. Output from the treatment diminished and the hemoglobin had dropped slightly down to 12.5 this morning. EGD was done earlier today and the patient was found to have a 5 mm ulcer in the body of the stomach and an Endo Clip was applied. The patient will some antral erosive gastritis. Clearance was obtained from the loan specialist to feed the patient. As suc h, we will going to start enteral feeding. We'll going to stop TPN for now. Hemodynamically stable. He is maintaining his own blood pressure without any pressors. The patient remains on IV fluids with normal saline at 125 mL an hour. He remains on bronchodilators. He remains on steroids. He remains on a broad-spectrum antibiotic coverage with Rocephin and Zithromax. White cell count 11.9, he was 12.5 and a platelet is 164. Sodium is at 136, BUN is at 17 with a creatinine of 0.6. LFTs are within normal limits. No other significant events overnight. On 03/29/2023, patient is being seen for a follow-up. Remains sedated on propofol. His calm and comfortable. Propofol is running at 50 microvascular kilogram per minute. The patient remains on the same ventilator settings with a tidal volume of 375, rate of 12, FiO2 of 40% with a PEEP of 5. Peak air pressures at 42. Remains actively bronchospastic and wheezy. Not a candidate for any bleeding at this point in time as the patient COPD still quite active. Chest x-ray shows hyperinflation. Orotracheal tube is in good location. No evidence of any airspace disease of consolidation. Remains on broke a dilated. Remains on steroids. Remains on enteral feeding for nutritional support and the patient is taking vital high-protein at the rate of 30 mL an hour. Hemodynamically stable. No other significant events overnight. Blood gas from today shows a pH of 7.29 with episodes of 48 and pO2 118 and this was an FiO2 of 40%. The white cell cause of 14.3, hemoglobin of 11.8 and a platelet count of 153. BUN is at 20 with a creatinine of 0.6 and a sodium level is at 142 and a potassium level of 4.6. LFTs are normal. The sputum sample was positive for Haemophilus influenza. On 03/30/2023, the patient remains on a mechanical ventilator. Slightly less bronchus spastic compared to yesterday. The peak airway pressure today's ranging between 33 and 35. The patient is on assist control mode at a rate of 12, tidal volume of 375, FiO2 is at 40% with a PEEP of 5. He remains on propofol running at 50 microvascular kilogram per minute. Chest x-ray findings are unchanged. No clear indication for pneumonia. The patient is Haemophilus influenza cultured in the sputum. Blood gas from today shows a pH of 7.28 with episodes of 83 and pO2 of 107 and this was an FiO2 of 40%. The patient continues to receive enteral feeding for nutritional support and he is on vital high-protein at the rate of 46 mL an hour. IV fluids are currently running at 75 mL an hour. The patient's sodium level is at 150, potassium levels at 4.2, chlorides 112 and a bicarb of 39. BUN is 29 with a creatinine of 0.6. The white cell cause of 10.9 with a hemoglobin of 11.4. No other complications or issues for now. Unable to wean this patient yet off the mechanical ventilator as his COPD remains quite active. Hemodynamically stable. He is on no pressors. Tolerating enteral feeding. Objective - Vital Signs Vital signs: Vital Signs Temp 98.8 F 03/30/23 04:00 Pulse 101 H 03/30/23 08:26 Resp 15 03/30/23 08:26 BP 121/62 03/30/23 07:30 Pulse Ox 97 03/30/23 07:30 FiO2 40 03/30/23 08:08 Intake & Output 03/29/23 03/30/23 03/30/23 18:59 06:59 18:59 Intake Total 1001.825 5451.974 121 Output Total 1150 1270 175 Balance 659.094 295.974 -54 Weight 57.3 kg Intake: IV 750 900 75 Sodium Chloride 0.9% 1, 750 900 75 000 ml @ 125 mls/hr IV . Q8H [facility] Rx#:[id number] Intake, IV Titration 545.094 83.974 Amount Azithromycin 500 mg In 250 Sodium Chloride 0.9% 250 ml @ 250 mls/hr IVPB DAILY [facility] Rx#:[id number] Sodium Chloride 0.9% 1, 75 000 ml @ 75 mls/hr IV . [id number] [facility] Rx#:[id number] cefTRIAXone 1 gm In 50 Sodium Chloride 0.9% 50 ml @ 100 mls/hr IVPB Q24HR [facility] Rx#:[id number] propofoL 1,000 mg In 170.094 83.974 Empty Bag 1 bag @ 30 MCG/ KG/MIN 8.328 mls/hr IV . Q12H1M [facility] Rx#:[id number] Tube Feeding 424 552 46 Other 90 30 Output: Urine 1150 1270 175 Other: Voiding Method Indwelling Catheter Indwelling Catheter ABP, PAP, CO, CI - Last Documented Arterial Blood Pressure 117/45 - Exam GENERAL EXAM: Sedated, 62-year-old white male, synchronous mechanical ventilator. He is frail. Orogastric and orotracheal tube are both in place. The patient has a bloody upper from his NG tube. HEAD: Normocephalic and atraumatic EYES: Normal reaction of pupils, equal size. NOSE: Clear with pink turbinates. THROAT: No erythema or exudates. NECK: No masses, no JVD. Patient has a triple-lumen catheter in his left IJ. CHEST: No chest wall deformity. LUNGS: Equal air expansion with diminished sounds throughout. Expiratory wheezes heard throughout. No crackles, rhonchi. CVS: S1 and S2 normal with no audible murmur, regular rhythm. No extra heart sounds ABDOMEN: No hepatosplenomegaly, active bowel sounds, no guarding or rigidity. SPINE: No scoliosis or deformity SKIN: No rashes CENTRAL NERVOUS SYSTEM: He is sedated, and does not follow commands. Withdrawals to pain in all four extremities. EXTREMITIES: There is no peripheral edema, clubbing, or cyanosis. Peripheral pulses are intact. - Labs CBC & Chem 7: 03/30/23 04:15 03/30/23 04:15 Labs: Abnormal Lab Results - Last 24 Hours (Table) 03/29/23 03/29/23 03/29/23 Range/Units 12:08 17:17 23:02 WBC (3.8-10.6) k/uL RBC (4.30-5.90) m/uL Hgb (13.0-17.5) gm/dL Hct (39.0-53.0) % MCV (80.0-100.0) fL Plt Count (150-450) k/uL Neutrophils # (1.3-7.7) k/uL Lymphocytes # (1.0-4.8) k/uL ABG pH (7.35-7.45) ABG pCO2 (35-45) mmHg ABG HCO3 (21-25) mmol/L ABG Total CO2 (19-24) mmol/L ABG O2 Saturation (94-97) % Sodium (137-145) mmol/L Chloride (98-107) mmol/L Carbon Dioxide (22-30) mmol/L BUN (9-20) mg/dL Creatinine (0.66-1.25) mg/dL Glucose (74-99) mg/dL POC Glucose (mg/dL) 142 H 151 H 143 H (70-110) mg/dL Calcium (8.4-10.2) mg/dL Magnesium (1.6-2.3) mg/dL Total Protein (6.3-8.2) g/dL Albumin (3.5-5.0) g/dL 03/30/23 03/30/23 03/30/23 Range/Units 04:15 04:15 05:37 WBC 10.9 H (3.8-10.6) k/uL RBC 3.39 L (4.30-5.90) m/uL Hgb 11.4 L (13.0-17.5) gm/dL Hct 36.2 L (39.0-53.0) % MCV 106.6 H (80.0-100.0) fL Plt Count 127 L (150-450) k/uL Neutrophils # 9.9 H (1.3-7.7) k/uL Lymphocytes # 0.3 L (1.0-4.8) k/uL ABG pH 7.28 L (7.35-7.45) ABG pCO2 83 H* (35-45) mmHg ABG HCO3 39 H (21-25) mmol/L ABG Total CO2 42 H (19-24) mmol/L ABG O2 Saturation 97.8 H (94-97) % Sodium 150 H (137-145) mmol/L Chloride 112 H (98-107) mmol/L Carbon Dioxide 39 H (22-30) mmol/L BUN 29 H (9-20) mg/dL Creatinine 0.62 L (0.66-1.25) mg/dL Glucose 163 H (74-99) mg/dL POC Glucose (mg/dL) (70-110) mg/dL Calcium 8.1 L (8.4-10.2) mg/dL Magnesium 3.0 H (1.6-2.3) mg/dL Total Protein 5.4 L (6.3-8.2) g/dL Albumin 2.9 L (3.5-5.0) g/dL 03/30/23 Range/Units 06:08 WBC (3.8-10.6) k/uL RBC (4.30-5.90) m/uL Hgb (13.0-17.5) gm/dL Hct (39.0-53.0) % MCV (80.0-100.0) fL Plt Count (150-450) k/uL Neutrophils # (1.3-7.7) k/uL Lymphocytes # (1.0-4.8) k/uL ABG pH (7.35-7.45) ABG pCO2 (35-45) mmHg ABG HCO3 (21-25) mmol/L ABG Total CO2 (19-24) mmol/L ABG O2 Saturation (94-97) % Sodium (137-145) mmol/L Chloride (98-107) mmol/L Carbon Dioxide (22-30) mmol/L BUN (9-20) mg/dL Creatinine (0.66-1.25) mg/dL Glucose (74-99) mg/dL POC Glucose (mg/dL) 157 H (70-110) mg/dL Calcium (8.4-10.2) mg/dL Magnesium (1.6-2.3) mg/dL Total Protein (6.3-8.2) g/dL Albumin (3.5-5.0) g/dL Microbiology - Last 24 Hours (Table) 03/26/23 16:47 Blood Culture - Preliminary Blood 03/26/23 16:40 Blood Culture - Preliminary Blood 03/26/23 18:45 Gram Stain - Final Sputum Sputum Culture - Final Haemophilus influenzae Assessment and Plan Plan: Acute hypoxic/hypercapnic respiratory failure due to COPD exacerbation. The patient was in significant respiratory acidosis at time of admission and he was in respiratory failure. Intubated and placed on a mechanical ventilator. This morning, peak airway pressure continues to be elevated. There is some improvement in his acid-base status based on a follow-up blood gases. Chest x- ray is negative for pneumonia. CT angiogram is negative for any acute abnormalities. The viral panel was negative and the patient remains intubated on a mechanical ventilator. Blood gases showing respiratory acidosis. Peak airway pressures of improved compared to yesterday. Chest x-ray findings are stable. Severe COPD maintain on Stiolto on outpatient basis Chronic smoker Upper GI bleed related to erosive antral gastritis 5 mm ulcer was also id entified and the body of the stomach and Endo Clip was applied. The patient is currently receiving enteral feeding for nutritional support. No evidence of any GI bleed and hemoglobin is stable. Hypotension, recovered Hypertension Hyperlipidemia Chronic anxiety and possibly depression. Patient is maintain on combination of Zyprexa and Prozac on outpatient basis Hyperchloremic hypernatremia, normovolemic Plan Continue ventilator support, increase tidal volume to 400 Monitor the blood gases, blood gas from this morning was noted Patient is Haemophilus influenza in his sputum and the patient remains on IV Rocephin Continue the bronchodilators and the patient is currently on DuoNeb updrafts [id number] and IV Solu-Medrol 60 mg every 6 hours. No indication for pneumonia based on the chest x-ray findings Keep the patient on propofol Keep the patient IV Protonix No anticoagulants at this point in time Endoscopy was done and the patient will be started on a enteral feeding for nutritional support. The patient is currently on vital high-protein. Change IV fluids to KVO and add freewater via the NG to 50 mL every 6 hours and monitor sodium level Monitor hemoglobin Condition is critical we'll continue to follow Critical care evaluation was done in more than 30 minutes. Further recommendations are to follow. Time with Patient: Greater than 30
[2023-03-30 17:42] LABS: Glucose,Whole Blood 155 mg/dL (70-110)
--- NOTE | 2023-03-30 19:11 | P.PN ---
Progress Note - Text Progress Note Date: 03/30/23 Hospital course: I'm rounding for Dr. Ziggy Talbot. 03/30/2023: ICU. Intubated. FiO2 40 and a PEEP of 5. IV propofol. 2 feeding at 46 mL an hour. Active Medications Albuterol/Ipratropium (Ipratropium-Albuterol 3 Ml Neb) 3 ml INHALATION RT-Q4H [facility] Last Admin: 03/30/23 15:19 Dose: 3 ml Budesonide (Budesonide 1 Mg/2 Ml Nebu) 1 mg INHALATION RT-BID [facility] Last Admin: 03/30/23 08:04 Dose: 1 mg Chlorhexidine Gluconate (Chlorhexidine Gluconate 15 Ml Cup) 15 ml MUCOUS MEM BID [facility]PSY Last Admin: 03/30/23 08:13 Dose: 15 ml Dextrose/Water (Dextrose 50% Syringe 50 Ml) 25 ml IVP PER PROTOCOL PRN; Protocol PRN Reason: Hypoglycemia Dextrose/Water (Dextrose 50% Syringe 50 Ml) 50 ml IVP PER PROTOCOL PRN; Protocol PRN Reason: Hypoglycemia Formoterol Fumarate (Formoterol Fumarate 20 Mcg/2 Ml Nebu) 20 mcg INHALATION RT-BID G[facility]PSY Last Admin: 03/30/23 08:03 Dose: 20 mcg Propofol 1,000 mg/ IV Solution 100 mls @ 8.328 mls/hr IV .Q12H1M [facility]; Protocol Last Titration: 03/30/23 17:28 Dose: 30 mcg/kg/min, 8.328 mls/hr Ceftriaxone Sodium 1 gm/ (Sodium Chloride) 50 mls @ 100 mls/hr IVPB Q24HR [facility]; Protocol Last Admin: 03/30/23 08:13 Dose: 100 mls/hr Norepinephrine Bitartrate 4 mg (/ Sodium Chloride) 254 mls @ 5.944 mls/hr IV .Q24H [facility]; Protocol Last Admin: 03/30/23 01:19 Dose: Not Given Sodium Chloride (Saline 0.9%) 1,000 mls @ 10 mls/hr IV .Q24H [facility] Last Admin: 03/29/23 23:18 Dose: 75 mls/hr Insulin Aspart (Insulin Aspart (Novolog) 100 Unit/Ml Vial) 0 unit SQ Q6HR [facility]; Protocol Last Admin: 03/30/23 17:43 Dose: 1 unit Lorazepam (Lorazepam 2 Mg/Ml Inj) 1 mg IV Q2H PRN PRN Reason: Anxiety Last Admin: 03/28/23 08:28 Dose: 1 mg Methylprednisolone Sodium Succinate (Methylprednisolone Sod Succi 125 Mg/2 Ml Vial) 60 mg IV Q6HR [facility] Last Admin: 03/30/23 17:43 Dose: 60 mg Naloxone HCl (Naloxone 0.4 Mg/Ml 1 Ml Vial) 0.2 mg IVP Q2M PRN PRN Reason: Opioid Reversal Pantoprazole Sodium (Pantoprazole 40 Mg/10 Ml Vial) 40 mg IVP DAILY [facility] Last Admin: 03/30/23 08:13 Dose: 40 mg On examination: VITAL SIGNS: 99.6, 110, 16, 142/76, 99% on the vent GENERAL APPEARANCE: Laying in bed, sedated, intubated HEENT: Normal external appearance of nose and ear. Oral cavity-ET tube EYES: Pupils equal. Conjunctiva normal. NECK: JVD unable to assess. Mass not palpable. RESPIRATORY: Respiratory effort increased. Lungs decreased breath sounds CARDIOVASCULAR: First and second sounds normal. No edema. ABDOMEN: Soft. Liver and spleen not palpable. No tenderness. No mass palpable. PSYCHIATRY: Sedated Today's labs: Reviewed Assessment and plan: Acute hypoxic/hypercapnic respiratory failure due to COPD exacerbation. The patient was in significant respiratory acidosis at time of admission and he was in respiratory failure. Intubated and placed on a mechanical ventilator. This morning, peak airway pressure continues to be elevated. There is some improvement in his acid-base status based on a follow-up blood gases. Chest x- ray is negative for pneumonia. CT angiogram is negative for any acute abnormalities. The viral panel was negative and the patient remains intubated on a mechanical ventilator. Blood gases showing respiratory acidosis. Peak airway pressures of improved compared to yesterday. Chest x-ray findings are stable.: Slow to respond Severe COPD maintain on Stiolto on outpatient basis: Slow to respond DuoNeb every 4. IV Solu-Medrol 60 mg every 6 Chronic nicotine dependence, smoker Nicotine patch Upper GI bleed related to erosive antral gastritis, 5 mm ulcer was also identified and the body of the stomach and Endo Clip was applied. PPI. Enteral feeding. Hypotension, recovered Essential Hypertension Dizziness lisinopril Hyperlipidemia Lipitor Chronic anxiety and depression Zyprexa and Prozac on outpatient basis Hyperchloremic hypernatremia, normovolemic ; uncontrolled Sodium 150 Freewater added. Full code
[2023-03-30] MEDS: NICOTINE 21MG/24HR PATCH TRANSDERM SCH (19:56)
[2023-03-30] MEDS: LORazepam 2 MG/ML INJ IV PRN (21:02)
[2023-03-31 00:08] LABS: Glucose,Whole Blood 169 mg/dL (70-110)
[2023-03-31] MEDS: IPRATROPIUM-ALBUTEROL 3 ML NEB INHALATION SCH ×7 (00:30→23:35)
[2023-03-31] MEDS: methylPREDNISolone SOD SUCCI 125 MG/2 ML VIAL IV SCH ×5 (00:53→23:23)
[2023-03-31] MEDS: NOREPINEPHRINE 4 MG in SODIUM CHLORIDE 0.9% 250 ML IV SCH (00:53)
[2023-03-31] MEDS: INSULIN ASPART (NovoLOG) 100 UNIT/ML VIAL SQ SCH ×5 (00:54→23:23)
--- NOTE | 2023-03-31 01:57 | P.PN ---
Subjective Progress Note Date: 03/30/23 Principal diagnosis: Reason for follow-up is possible pneumonia Patient is a 62-year-old male with a past medical history significant for hypertension anxiety current everyday smoker patient was brought into the hospital for difficulty breathing and chest tightness patient got intubated admitted to ICU. On today's evaluation there is 03/30/2023, the patient did have a low-grade fever 100.3 last night, the patient is afebrile this morning, the patient remains to be intubated on the vent currently on 50% FiO2, the patient tolerating his tube feeds no diarrhea or any other changes reported by the nursing staff. Patient white count is down to 10.9, creatinine is 0.62, sputum with haemophilus influenza blood culture negative Objective - Vital Signs Vital signs: Vital Signs Temp 99.1 F 03/31/23 00:00 Pulse 121 H 03/31/23 01:00 Resp 14 03/31/23 01:00 BP 154/96 03/31/23 01:00 Pulse Ox 96 03/31/23 01:00 FiO2 40 03/31/23 00:32 Intake & Output 03/30/23 03/30/23 03/31/23 06:59 18:59 06:59 Intake Total 3919.184 0452.725 285.905 Output Total 1270 1450 405 Balance 395.974 5.725 -119.095 Intake: IV 900 245 40 Sodium Chloride 0.9% 1, 120 40 000 ml @ 10 mls/hr IV . Q24H [facility] Rx#:[id number] Sodium Chloride 0.9% 1, 900 75 000 ml @ 125 mls/hr IV . Q8H [facility] Rx#:[id number] cefTRIAXone 1 gm In 50 Sodium Chloride 0.9% 50 ml @ 100 mls/hr IVPB Q24HR [facility] Rx#:[id number] Intake, IV Titration 183.974 82.725 61.905 Amount propofoL 1,000 mg In 183.974 82.725 61.905 Empty Bag 1 bag @ 30 MCG/ KG/MIN 8.328 mls/hr IV . Q12H1M [facility] Rx#:[id number] Tube Feeding 552 598 184 Other 30 530 Output: Urine 1270 1450 405 Other: Voiding Method Indwelling Catheter Indwelling Catheter Indwelling Catheter ABP, PAP, CO, CI - Last Documented Arterial Blood Pressure 144/62 - Exam GENERAL DESCRIPTION: Middle-age male intubated on the vent RESPIRATORY SYSTEM: Unlabored breathing , decreased breath sounds at bases HEART: S1 S2 regular rate and rhythm , ABDOMEN: Soft , no tenderness EXTREMITIES: No edema feet - Labs CBC & Chem 7: 03/30/23 04:15 03/30/23 04:15 Labs: Abnormal Lab Results - Last 24 Hours (Table) 03/30/23 03/30/23 03/30/23 Range/Units 04:15 04:15 05:37 WBC 10.9 H (3.8-10.6) k/uL RBC 3.39 L (4.30-5.90) m/uL Hgb 11.4 L (13.0-17.5) gm/dL Hct 36.2 L (39.0-53.0) % MCV 106.6 H (80.0-100.0) fL Plt Count 127 L (150-450) k/uL Neutrophils # 9.9 H (1.3-7.7) k/uL Lymphocytes # 0.3 L (1.0-4.8) k/uL ABG pH 7.28 L (7.35-7.45) ABG pCO2 83 H* (35-45) mmHg ABG HCO3 39 H (21-25) mmol/L ABG Total CO2 42 H (19-24) mmol/L ABG O2 Saturation 97.8 H (94-97) % Sodium 150 H (137-145) mmol/L Chloride 112 H (98-107) mmol/L Carbon Dioxide 39 H (22-30) mmol/L BUN 29 H (9-20) mg/dL Creatinine 0.62 L (0.66-1.25) mg/dL Glucose 163 H (74-99) mg/dL POC Glucose (mg/dL) (70-110) mg/dL Calcium 8.1 L (8.4-10.2) mg/dL Magnesium 3.0 H (1.6-2.3) mg/dL Total Protein 5.4 L (6.3-8.2) g/dL Albumin 2.9 L (3.5-5.0) g/dL 03/30/23 03/30/23 03/30/23 Range/Units 06:08 11:37 17:40 WBC (3.8-10.6) k/uL RBC (4.30-5.90) m/uL Hgb (13.0-17.5) gm/dL Hct (39.0-53.0) % MCV (80.0-100.0) fL Plt Count (150-450) k/uL Neutrophils # (1.3-7.7) k/uL Lymphocytes # (1.0-4.8) k/uL ABG pH (7.35-7.45) ABG pCO2 (35-45) mmHg ABG HCO3 (21-25) mmol/L ABG Total CO2 (19-24) mmol/L ABG O2 Saturation (94-97) % Sodium (137-145) mmol/L Chloride (98-107) mmol/L Carbon Dioxide (22-30) mmol/L BUN (9-20) mg/dL Creatinine (0.66-1.25) mg/dL Glucose (74-99) mg/dL POC Glucose (mg/dL) 157 H 154 H 155 H (70-110) mg/dL Calcium (8.4-10.2) mg/dL Magnesium (1.6-2.3) mg/dL Total Protein (6.3-8.2) g/dL Albumin (3.5-5.0) g/dL 03/31/23 Range/Units 00:06 WBC (3.8-10.6) k/uL RBC (4.30-5.90) m/uL Hgb (13.0-17.5) gm/dL Hct (39.0-53.0) % MCV (80.0-100.0) fL Plt Count (150-450) k/uL Neutrophils # (1.3-7.7) k/uL Lymphocytes # (1.0-4.8) k/uL ABG pH (7.35-7.45) ABG pCO2 (35-45) mmHg ABG HCO3 (21-25) mmol/L ABG Total CO2 (19-24) mmol/L ABG O2 Saturation (94-97) % Sodium (137-145) mmol/L Chloride (98-107) mmol/L Carbon Dioxide (22-30) mmol/L BUN (9-20) mg/dL Creatinine (0.66-1.25) mg/dL Glucose (74-99) mg/dL POC Glucose (mg/dL) 169 H (70-110) mg/dL Calcium (8.4-10.2) mg/dL Magnesium (1.6-2.3) mg/dL Total Protein (6.3-8.2) g/dL Albumin (3.5-5.0) g/dL Microbiology - Last 24 Hours (Table) 03/26/23 16:47 Blood Culture - Preliminary Blood 03/26/23 16:40 Blood Culture - Preliminary Blood Assessment and Plan (1) Fever Current Visit: Yes Status: Acute Code(s): R50.9 - FEVER, UNSPECIFIED SNOMED Code(s): 922428852 (2) Leukocytosis Current Visit: Yes Status: Acute Code(s): D72.829 - ELEVATED WHITE BLOOD CELL COUNT, UNSPECIFIED SNOMED Code(s): 157737819 Plan: 1patient presented to hospital with increasing shortness of breath more likely related to underlying COPD exacerbation with tracheobronchitis patient not running any fever white count has been normal both the CT of the chest as well as chest x-ray did not show any acute pulmonary process, however the patient did have a low-grade fever and the sputum culture now growing haemophilus concerning for possible early community-acquired pneumonia versus purulent tracheobronchitis 2--patient overall feels better and has improved and the patient white count has normalized, patient continue with empiric Rocephin and continue with supportive care Dictation was produced using [employer] dictation software. please excuse any grammatical, word or spelling errors. Time with Patient: Less than 30
[2023-03-31 05:22] LABS: HCT 38.8 % (39.0-53.0); HGB 12.2 gm/dL (13.0-17.5); Hypochromasia Marked; MCH 33.7 pg (25.0-35.0); MCHC 31.6 g/dL (31.0-37.0); MCV 106.9 fL (80.0-100.0); Macrocytosis Moderate; Mean Platelet Volume 8.7; Platelet Count 132 k/uL (150-450); RBC 3.63 m/uL (4.30-5.90); RDW 13.3 % (11.5-15.5); WBC 9.9 k/uL (3.8-10.6)
[2023-03-31 05:35] LABS: African American GFR (CKD) >90 (>60 ml/min/1.73 sqM); Anion Gap 2 mmol/L; Blood Urea Nitrogen 35 mg/dL (9-20); Calcium 8.5 mg/dL (8.4-10.2); Chloride 111 mmol/L (98-107); Glucose 151 mg/dL (74-99); Non-African American GFR(CKD) >90 (>60 ml/min/1.73 sqM); Potassium 4.4 mmol/L (3.5-5.1); Sodium 153 mmol/L (137-145)
[2023-03-31 05:41] LABS: Carbon Dioxide 40 mmol/L (22-30)
[2023-03-31 05:50] LABS: ABG Base Excess 19.1 mmol/L; ABG Oxygen Saturation 98.3 % (94-97); ABG PH 7.34 (7.35-7.45); ABG PO2 109 mmHg (83-108); ABG TCO2 48 mmol/L (19-24); Allen Test Performed? Yes
[2023-03-31 05:52] LABS: ABG HCO3 45 mmol/L (21-25); ABG PCO2 84 mmHg (35-45)
[2023-03-31 06:07] LABS: Glucose,Whole Blood 182 mg/dL (70-110)
[2023-03-31] MEDS: SODIUM CHLORIDE 0.9% 1,000 ML IV SCH ×2 (06:12→19:09)
--- NOTE | 2023-03-31 07:01 | XR ---
EXAMINATION TYPE: XR chest 1V portable DATE OF EXAM: 03/31/2023 COMPARISON: 03/30/2023 HISTORY: Pulmonary status TECHNIQUE: Single frontal view of the chest is obtained. FINDINGS: There is an ET tube approximately 6.4 cm above the michael. An NG tube is in the stomach. The lungs are clear of abnormal consolidative interstitial opacity. There is no pleural effusion or pneumothorax. The heart size is normal. The pulmonary vasculature is not congested. The osseous structures are intact IMPRESSION: ET tube 6.4 cm above the michael. NG tube within the stomach. No acute cardiopulmonary di sease. No significant interval change.
[2023-03-31] MEDS: BUDESONIDE 1 MG/2 ML NEBU INHALATION SCH ×2 (08:10→20:30)
[2023-03-31] MEDS: FORMOTEROL FUMARATE 20 MCG/2 ML NEBU INHALATION SCH ×2 (08:10→20:30)
[2023-03-31] MEDS: lisinopriL 5 MG TAB PO SCH (08:27)
[2023-03-31] MEDS: PANTOPRAZOLE 40 MG TABLET PO SCH (08:27)
[2023-03-31] MEDS: ATORVASTATIN 10 MG TAB PO SCH (08:27)
[2023-03-31] MEDS: CHLORHEXIDINE GLUCONATE 15 ML CUP MUCOUS MEM SCH ×2 (08:28→20:18)
[2023-03-31] MEDS: NICOTINE 21MG/24HR PATCH TRANSDERM SCH (08:43)
[2023-03-31] MEDS: DEXTROSE 5% IN WATER 1,000 ML IV SCH ×2 (09:25→20:18)
[2023-03-31 11:41] LABS: Glucose,Whole Blood 170 mg/dL (70-110)
--- NOTE | 2023-03-31 12:20 | P.PN ---
Subjective Progress Note Date: 03/31/23 Patient is a 62-year-old white male with past medical history significant for COPD and chronic ongoing tobacco dependence. The patient came into the emergency department with significant shortness of breath. Apparently, he was actively bronchospastic and he had diminished breath sounds. In the emergency, the patient was given breathing treatments [id number] and subsequently was placed in the 100% nonrebreather facemask. Upon follow-up, the patient was found to be completely unresponsive and he was unable to protect his airway and his breathing was very shallow. At that point, he was intubated and placed on a mechanical ventilator. The initial blood gas was done postintubation was lab er ror and subsequently follow-up blood gases was done that showed significant respiratory acidosis and oxygen nasal already improved. Patient is currently sedated and intubated on mechanical ventilator, most of this HPI supplemented from ER documentation. We were not able to get a hold of any family at this time, and there are no prior charts to review. Based on a review of his home medications, he may have history COPD, hypertension, and hyperlipidemia. Postintubation he ABG was consistent with severe hypercapnic respiratory failure. PO2 greater than 400, pCO2 of 93, and pH of 7.12. Postintubation chest x-ray has endotracheal tube approximately 4 cm above the michael. Orogastric tube courses below the diaphragm. No focal infiltrates or evidence of pneumonia. There is marked hyperinflation with flattening of the diaphragm, consistent with COPD. A follow-up chest CTA done while in the emergency room showed no evidence of pulmonary embolism. There is no acute cardiopulmonary process. Patient is currently in the intensive care unit, intubated to the mechanical ventilator. Propofol is infusing at 45 mcg/kg/m. He is synchronous with mechanical ventilator. Current ventilator settings are assist control, respiratory rate of 12, tidal volume 400, FiO2 of 80%, PEEP of 5. A repeat ABG as a PaO2 of 358, pCO2 of 90, pH of 7.14. I increased the patient's respiratory rate 20 and reduce the FiO2 to 50%. The peak airway pressure is 34 and static airway pressure is 24, patient has some evidence of airway resistance. Lung sounds are tight and continues wheezing. No significant airway secretions. Patient has been started on DuoNeb's every 4 hours. I would add budesonide and formoterol. Patient is also hypotensive, he is already received a total of 2 L normal saline bolus. He is only 52 kg. Patient will be started on low-dose norepinephrine for refractory hypotension if needed. CBC on arrival unremarkable. BMP on arrival, sodium 132, potassium 4.9, chloride 94, serum bicarbonate 33, BUN 16, creatinine 0.62, glucose 123. Lactic acid level II.5. Troponin is less than 0.012. Negative for influenza, RSV, COVID-19. He is afebrile. Patient's status is still volatile, and there are no plans to extubate tonight. They have the chest was also completed in emergency. This was reviewed. No evidence of any pulmonary embolism. There is extensive emphysema bilaterally. No airspace disease. Note that the patient's NG output is bloody. Currently has approximately 300 mL and the canister. In terms of his hemoglobin monitoring, the patient's hemoglobin dropped from 15.2 down to 13.5. IV fluids are in the form of normal saline at rate of 75 mL's an hour. The patient is sedated with propofol running at 50 mcg/kg/m. Most recent blood gas showed improvement and acid-base status. PH is down still at 7.28 also improved compared to yesterday. PCO2 is down to 58 and pO2 is at 179 and this was an FiO2 of 50% and subsequently the FiO2 was dropped onto 40%. No pressors. Today's evaluation of 03/28/2023, the patient remains intubated on a mechanical ventilator. He remains sedated on propofol which is running at 70 g plus kilogram per minutes. Despite his adequate sedation, the patient remains actively bronchospastic and wheezy. In fact, he is having elevated peak airway pressure this morning. His current ventilator settings with evidence is control mode rate of 12, tidal volume of 400, FiO2 of 40% with a PEEP of 5. His blood gases show a pH of 7.32 with a pCO2 of 54 and pO2 of 133. Chest x-ray shows marked hyperinflation. No airspace disease. No consolidation. On a separate note, the patient was having episodes of GI bleed. NG tube was in place throughout the night. Output from the treatment diminished and the hemoglobin had dropped slightly down to 12.5 this morning. EGD was done earlier today and the patient was found to have a 5 mm ulcer in the body of the stomach and an Endo Clip was applied. The patient will some antral erosive gastritis. Clearance was obtained from the building performance consultant to feed the patient. As suc h, we will going to start enteral feeding. We'll going to stop TPN for now. Hemodynamically stable. He is maintaining his own blood pressure without any pressors. The patient remains on IV fluids with normal saline at 125 mL an hour. He remains on bronchodilators. He remains on steroids. He remains on a broad-spectrum antibiotic coverage with Rocephin and Zithromax. White cell count 11.9, he was 12.5 and a platelet is 164. Sodium is at 136, BUN is at 17 with a creatinine of 0.6. LFTs are within normal limits. No other significant events overnight. On 03/29/2023, patient is being seen for a follow-up. Remains sedated on propofol. His calm and comfortable. Propofol is running at 50 microvascular kilogram per minute. The patient remains on the same ventilator settings with a tidal volume of 375, rate of 12, FiO2 of 40% with a PEEP of 5. Peak air pressures at 42. Remains actively bronchospastic and wheezy. Not a candidate for any bleeding at this point in time as the patient COPD still quite active. Chest x-ray shows hyperinflation. Orotracheal tube is in good location. No evidence of any airspace disease of consolidation. Remains on broke a dilated. Remains on steroids. Remains on enteral feeding for nutritional support and the patient is taking vital high-protein at the rate of 30 mL an hour. Hemodynamically stable. No other significant events overnight. Blood gas from today shows a pH of 7.29 with episodes of 48 and pO2 118 and this was an FiO2 of 40%. The white cell cause of 14.3, hemoglobin of 11.8 and a platelet count of 153. BUN is at 20 with a creatinine of 0.6 and a sodium level is at 142 and a potassium level of 4.6. LFTs are normal. The sputum sample was positive for Haemophilus influenza. On 03/30/2023, the patient remains on a mechanical ventilator. Slightly less bronchus spastic compared to yesterday. The peak airway pressure today's ranging between 33 and 35. The patient is on assist control mode at a rate of 12, tidal volume of 375, FiO2 is at 40% with a PEEP of 5. He remains on propofol running at 50 microvascular kilogram per minute. Chest x-ray findings are unchanged. No clear indication for pneumonia. The patient is Haemophilus influenza cultured in the sputum. Blood gas from today shows a pH of 7.28 with episodes of 83 and pO2 of 107 and this was an FiO2 of 40%. The patient continues to receive enteral feeding for nutritional support and he is on vital high-protein at the rate of 46 mL an hour. IV fluids are currently running at 75 mL an hour. The patient's sodium level is at 150, potassium levels at 4.2, chlorides 112 and a bicarb of 39. BUN is 29 with a creatinine of 0.6. The white cell cause of 10.9 with a hemoglobin of 11.4. No other complications or issues for now. Unable to wean this patient yet off the mechanical ventilator as his COPD remains quite active. Hemodynamically stable. He is on no pressors. Tolerating enteral feeding. 03/31/2023, the patient is on a mechanical ventilator. Ventilator settings are control 12, tidal volume of 400, FiO2 40% with a PEEP of 5. The patient's blood gas shows some improvement acid-base status. On today's evaluation, the patient has a pH of 7.34 with episodes of 84 and pO2 of 109. This was an FiO2 of 40%. Chest x-ray findings are unchanged. Peak airway pressures around 34. Air entry is improved bilaterally. However, with any attempts to cut down the sedation, the patient becomes asynchronous and he starts peak pressure in. I do not believe that his ready for any further weaning at this point in time. I may even consider the possibility of tracheostomy at the later stage. He is currently on a propofol at the rate of 50 mcg/kg/m. His vital high-protein at the rate of 46 mL an hour. His sodium level is elevated. I started him on free water supplements through the OG tube. He'll be started on D5 water today in attempt to optimize his sodium level hypernatremia. He has a 35 and a creatinine of 0.5. Potassium is 4.4. The previous cause of 9.8 with a hemoglobin of 12.2. Remains hemodynamically stable. Remains afebrile. Remains on IV Rocephin. Objective - Vital Signs Vital signs: Vital Signs Temp 97.8 F 03/31/23 04:00 Pulse 111 H 03/31/23 08:38 Resp 16 03/31/23 08:38 BP 129/71 03/31/23 07:00 Pulse Ox 97 03/31/23 07:00 FiO2 40 03/31/23 08:03 Intake & Output 03/30/23 03/31/23 03/31/23 18:59 06:59 18:59 Intake Total 9391.758 1126.924 12.192 Output Total 1450 1190 Balance 5.725 101.924 12.192 Weight 51.8 kg Intake: IV 245 120 Sodium Chloride 0.9% 1, 120 120 000 ml @ 10 mls/hr IV . Q24H [facility]PS[facility] Rx#:[id number] Sodium Chloride 0.9% 1, 75 000 ml @ 125 mls/hr IV . Q8H [facility]YPS[facility] Rx#:[id number] cefTRIAXone 1 gm In 50 Sodium Chloride 0.9% 50 ml @ 100 mls/hr IVPB Q24HR GYPSY Rx#:[id number] Intake, IV Titration 82.725 119.924 12.192 Amount propofoL 1,000 mg In 82.725 119.924 12.192 Empty Bag 1 bag @ 30 MCG/ KG/MIN 8.328 mls/hr IV . Q12H1M GYSPY Rx#:[id number] Tube Feeding 598 552 Other 530 500 Output: Urine 1450 1190 Other: Voiding Method Indwelling Catheter Indwelling Catheter ABP, PAP, CO, CI - Last Documented Arterial Blood Pressure 154/58 - Exam GENERAL EXAM: Sedated, 62-year-old white male, synchronous mechanical v entilator. He is frail. Orogastric and orotracheal tube are both in place. The patient has a bloody upper from his NG tube. HEAD: Normocephalic and atraumatic EYES: Normal reaction of pupils, equal size. NOSE: Clear with pink turbinates. THROAT: No erythema or exudates. NECK: No masses, no JVD. Patient has a triple-lumen catheter in his left IJ. CHEST: No chest wall deformity. LUNGS: Equal air expansion with diminished sounds throughout. Expiratory wheezes heard throughout. No crackles, rhonchi. CVS: S1 and S2 normal with no audible murmur, regular rhythm. No extra heart sounds ABDOMEN: No hepatosplenomegaly, active bowel sounds, no guarding or rigidity. SPINE: No scoliosis or deformity SKIN: No rashes CENTRAL NERVOUS SYSTEM: He is sedated, and does not follow commands. Withdrawals to pain in all four extremities. EXTREMITIES: There is no peripheral edema, clubbing, or cyanosis. Peripheral pulses are intact. - Labs CBC & Chem 7: 03/31/23 05:10 03/31/23 05:10 Labs: Abnormal Lab Results - Last 24 Hours (Table) 03/30/23 03/30/23 03/31/23 Range/Units 11:37 17:40 00:06 RBC (4.30-5.90) m/uL Hgb (13.0-17.5) gm/dL Hct (39.0-53.0) % MCV (80.0-100.0) fL Plt Count (150-450) k/uL ABG pH (7.35-7.45) ABG pCO2 (35-45) mmHg ABG pO2 (83-108) mmHg ABG HCO3 (21-25) mmol/L ABG Total CO2 (19-24) mmol/L ABG O2 Saturation (94-97) % Sodium (137-145) mmol/L Chloride (98-107) mmol/L Carbon Dioxide (22-30) mmol/L BUN (9-20) mg/dL Creatinine (0.66-1.25) mg/dL Glucose (74-99) mg/dL POC Glucose (mg/dL) 154 H 155 H 169 H (70-110) mg/dL 03/31/23 03/31/23 03/31/23 Range/Units 05:10 05:10 05:47 RBC 3.63 L (4.30-5.90) m/uL Hgb 12.2 L (13.0-17.5) gm/dL Hct 38.8 L (39.0-53.0) % MCV 106.9 H (80.0-100.0) fL Plt Count 132 L (150-450) k/uL ABG pH 7.34 L (7.35-7.45) ABG pCO2 84 H* (35-45) mmHg ABG pO2 109 H (83-108) mmHg ABG HCO3 45 H* (21-25) mmol/L ABG Total CO2 48 H (19-24) mmol/L ABG O2 Saturation 98.3 H (94-97) % Sodium 153 H (137-145) mmol/L Chloride 111 H (98-107) mmol/L Carbon Dioxide 40 H (22-30) mmol/L BUN 35 H (9-20) mg/dL Creatinine 0.55 L (0.66-1.25) mg/dL Glucose 151 H (74-99) mg/dL POC Glucose (mg/dL) (70-110) mg/dL 03/31/23 Range/Units 06:06 RBC (4.30-5.90) m/uL Hgb (13.0-17.5) gm/dL Hct (39.0-53.0) % MCV (80.0-100.0) fL Plt Count (150-450) k/uL ABG pH (7.35-7.45) ABG pCO2 (35-45) mmHg ABG pO2 (83-108) mmHg ABG HCO3 (21-25) mmol/L ABG Total CO2 (19-24) mmol/L ABG O2 Saturation (94-97) % Sodium (137-145) mmol/L Chloride (98-107) mmol/L Carbon Dioxide (22-30) mmol/L BUN (9-20) mg/dL Creatinine (0.66-1.25) mg/dL Glucose (74-99) mg/dL POC Glucose (mg/dL) 182 H (70-110) mg/dL Microbiology - Last 24 Hours (Table) 03/26/23 16:47 Blood Culture - Preliminary Blood 03/26/23 16:40 Blood Culture - Preliminary Blood Assessment and Plan Plan: Acute hypoxic/hypercapnic respiratory failure due to COPD exacerbation. The patient was in significant respiratory acidosis at time of admission and he was in respiratory failure. Intubated and placed on a mechanical ventilator. This morning, peak airway pressure continues to be elevated. There is some improvement in his acid-base status based on a follow-up blood gases. Chest x- ray is negative for pneumonia. CT angiogram is negative for any acute abnormalities. The viral panel was negative and the patient remains intubated on a mechanical ventilator. Blood gases showing respiratory acidosis. Peak airway pressures is stable compared to yesterday. Chest x-ray findings are stable. Some improvement in the blood gas in terms of the respiratory acidosis. Severe COPD maintain on Stiolto on outpatient basis Chronic smoker Upper GI bleed related to erosive antral gastritis 5 mm ulcer was also identified and the body of the stomach and Endo Clip was applied. The patient is currently receiving enteral feeding for nutritional support. No evidence of any GI bleed and hemoglobin is stable. Hypotension, recovered Hypertension Hyperlipidemia Chronic anxiety and possibly depression. Patient is maintain on combination of Zyprexa and Prozac on outpatient basis Hyperchloremic hypernatremia, normovolemic Plan Continue ventilator support, no ventilator changes for today. I do not see that the patient will wean of any. Reasonable to Consider Tracheostomy Tube Insertion to Facilitate His Weaning Sometime Next Week. Monitor the blood gases, blood gas from this morning was noted Patient is Haemophilus influenza in his sputum and the patient remains on IV Rocephin Continue the bronchodilators and the patient is currently on DuoNeb updrafts [id number] and IV Solu-Medrol 60 mg every 6 hours. No indication for pneumonia based on the chest x-ray findings Keep the patient on propofol Keep the patient IV Protonix No anticoagulants at this point in time Endoscopy was done and the patient will be started on a enteral feeding for nutritional support. The patient is currently on vital high-protein. The patient is at the rate of 46 mL an hour and the patient is tolerating I'm going to start The patient in on D5 water at the rate of 75 mL an hour Change IV fluids to KVO and add freewater via the NG 250 mL every 6 hours and monitor sodium level Monitor hemoglobin Condition is critical we'll continue to follow Critical care evaluation was done in more than 30 minutes. Further recommendations are to follow. Time with Patient: Greater than 30
[2023-03-31 17:28] LABS: Glucose,Whole Blood 153 mg/dL (70-110)
[2023-03-31] MEDS: ARTIFICIAL TEARS-HYPROMELLOSE DROPS 15 ML BTL BOTH EYES SCH ×2 (17:58→20:18)
--- NOTE | 2023-03-31 21:58 | P.PN ---
Subjective Progress Note Date: 03/31/23 Principal diagnosis: Reason for follow-up is possible pneumonia This is a telehealth visit Patient is a 62-year-old male with a past medical history significant for hypertension anxiety current everyday smoker patient was brought into the hospital for difficulty breathing and chest tightness patient got intubated admitted to ICU. On today's evaluation there is 03/31/2023 the patient running a low-grade fever of 99 F patient is also mildly tachycardic but not hypotensive FiO2 is currently at 40% no significant purulent secretions through the ET diarrhea or recent changes reported. Patient white count normalized to 9.9, creatinine 0.55 sputum with haemophilus Objective - Vital Signs Vital signs: Vital Signs Temp 99.5 F 03/31/23 20:00 Pulse 115 H 03/31/23 21:00 Resp 12 03/31/23 21:00 BP 129/72 03/31/23 21:00 Pulse Ox 96 03/31/23 21:00 FiO2 40 03/31/23 21:00 Intake & Output 03/31/23 03/31/23 04/01/23 06:59 18:59 06:59 Intake Total 7692.116 7696.409 363 Output Total 1190 1293 220 Balance 101.924 558.409 143 Weight 51.8 kg Intake: IV 120 760 225 Dextrose 5% in Water 1, 750 225 000 ml @ 75 mls/hr IV . [id number] [facility] Rx#:[id number] Sodium Chloride 0.9% 1, 120 10 000 ml @ 10 mls/hr IV . Q24H [facility] Rx#:[id number] Intake, IV Titration 119.924 85.409 Amount propofoL 1,000 mg In 119.924 85.409 Empty Bag 1 bag @ 30 MCG/ KG/MIN 8.328 mls/hr IV . Q12H1M [facility] Rx#:[id number] Tube Feeding 552 506 138 Other 500 500 Output: Urine 1190 1293 220 Other: Voiding Method Indwelling Catheter Indwelling Catheter Indwelling Catheter ABP, PAP, CO, CI - Last Documented Arterial Blood Pressure 147/57 - Exam GENERAL DESCRIPTION: Middle-age male intubated on the vent RESPIRATORY SYSTEM: Unlabored breathing , decreased breath sounds at bases HEART: S1 S2 regular rate and rhythm , ABDOMEN: Soft , no tenderness EXTREMITIES: No edema feet Exam completed with help of JEWELLERY DESIGNER - Labs CBC & Chem 7: 03/31/23 05:10 03/31/23 05:10 Labs: Abnormal Lab Results - Last 24 Hours (Table) 03/31/23 03/31/23 03/31/23 Range/Units 00:06 05:10 05:10 RBC 3.63 L (4.30-5.90) m/uL Hgb 12.2 L (13.0-17.5) gm/dL Hct 38.8 L (39.0-53.0) % MCV 106.9 H (80.0-100.0) fL Plt Count 132 L (150-450) k/uL ABG pH (7.35-7.45) ABG pCO2 (35-45) mmHg ABG pO2 (83-108) mmHg ABG HCO3 (21-25) mmol/L ABG Total CO2 (19-24) mmol/L ABG O2 Saturation (94-97) % Sodium 153 H (137-145) mmol/L Chloride 111 H (98-107) mmol/L Carbon Dioxide 40 H (22-30) mmol/L BUN 35 H (9-20) mg/dL Creatinine 0.55 L (0.66-1.25) mg/dL Glucose 151 H (74-99) mg/dL POC Glucose (mg/dL) 169 H (70-110) mg/dL 03/31/23 03/31/23 03/31/23 Range/Units 05:47 06:06 11:40 RBC (4.30-5.90) m/uL Hgb (13.0-17.5) gm/dL Hct (39.0-53.0) % MCV (80.0-100.0) fL Plt Count (150-450) k/uL ABG pH 7.34 L (7.35-7.45) ABG pCO2 84 H* (35-45) mmHg ABG pO2 109 H (83-108) mmHg ABG HCO3 45 H* (21-25) mmol/L ABG Total CO2 48 H (19-24) mmol/L ABG O2 Saturation 98.3 H (94-97) % Sodium (137-145) mmol/L Chloride (98-107) mmol/L Carbon Dioxide (22-30) mmol/L BUN (9-20) mg/dL Creatinine (0.66-1.25) mg/dL Glucose (74-99) mg/dL POC Glucose (mg/dL) 182 H 170 H (70-110) mg/dL 03/31/23 Range/Units 17:26 RBC (4.30-5.90) m/uL Hgb (13.0-17.5) gm/dL Hct (39.0-53.0) % MCV (80.0-100.0) fL Plt Count (150-450) k/uL ABG pH (7.35-7.45) ABG pCO2 (35-45) mmHg ABG pO2 (83-108) mmHg ABG HCO3 (21-25) mmol/L ABG Total CO2 (19-24) mmol/L ABG O2 Saturation (94-97) % Sodium (137-145) mmol/L Chloride (98-107) mmol/L Carbon Dioxide (22-30) mmol/L BUN (9-20) mg/dL Creatinine (0.66-1.25) mg/dL Glucose (74-99) mg/dL POC Glucose (mg/dL) 153 H (70-110) mg/dL Assessment and Plan (1) Fever Current Visit: Yes Status: Acute Code(s): R50.9 - FEVER, UNSPECIFIED SNOMED Code(s): 566485142 (2) Leukocytosis Current Visit: Yes Status: Acute Code(s): D72.829 - ELEVATED WHITE BLOOD CELL COUNT, UNSPECIFIED SNOMED Code(s): 619044490 Plan: 1patient presented to hospital with increasing shortness of breath more likely related to underlying COPD exacerbation with tracheobronchitis patient not running any fever white count has been normal both the CT of the chest as well as chest x-ray did not show any acute pulmonary process, however the patient did have a low-grade fever and the sputum culture now growing haemophilus concerning for possible early community-acquired pneumonia versus purulent tracheobronchitis 2--patient is afebrile and the patient white count has normalized, currently being treated with Rocephin and monitor clinical course closely Dictation was produced using [email or web address] dictation software. please excuse any grammatical, word or spelling errors. Time with Patient: Less than 30
--- NOTE | 2023-03-31 22:18 | P.PN ---
Progress Note - Text Progress Note Date: 03/31/23 Hospital course: I'm rounding for Dr. Ziggy Talbot. 03/30/2023: ICU. Intubated. FiO2 40 and a PEEP of 5. IV propofol. 2 feeding at 46 mL an hour. 03/31/2023: ICU. Intubated. Ventilator. FiO2 40 and a PEEP of 5. IV propofol. Sinus tachycardia. Endotracheal tube. Active Medications Albuterol/Ipratropium (Ipratropium-Albuterol 3 Ml Neb) 3 ml INHALATION RT-Q4H [facility] Last Admin: 03/31/23 20:30 Dose: 3 ml Artificial Tears (Artificial Tears-Hypromellose Drops 15 Ml Btl) 1 drops BOTH EYES TID [facility] Last Admin: 03/31/23 20:18 Dose: 1 drops Atorvastatin Calcium (Atorvastatin 10 Mg Tab) 10 mg PO DAILY [facility] Last Admin: 03/31/23 08:27 Dose: 10 mg Budesonide (Budesonide 1 Mg/2 Ml Nebu) 1 mg INHALATION RT-BID [facility] Last Admin: 03/31/23 20:30 Dose: 1 mg Chlorhexidine Gluconate (Chlorhexidine Gluconate 15 Ml Cup) 15 ml MUCOUS MEM BID [facility] Last Admin: 03/31/23 20:18 Dose: 15 ml Dextrose/Water (Dextrose 50% Syringe 50 Ml) 25 ml IVP PER PROTOCOL PRN; Protocol PRN Reason: Hypoglycemia Dextrose/Water (Dextrose 50% Syringe 50 Ml) 50 ml IVP PER PROTOCOL PRN; Protocol PRN Reason: Hypoglycemia Formoterol Fumarate (Formoterol Fumarate 20 Mcg/2 Ml Nebu) 20 mcg INHALATION RT-BID [facility] Last Admin: 03/31/23 20:30 Dose: 20 mcg Propofol 1,000 mg/ IV Solution 100 mls @ 8.328 mls/hr IV .Q12H1M [facility]; Protocol Last Admin: 03/31/23 13:30 Dose: 50 mcg/kg/min, 13.88 mls/hr Ceftriaxone Sodium 1 gm/ (Sodium Chloride) 50 mls @ 100 mls/hr IVPB Q24HR [facility]; Protocol Last Admin: 03/31/23 08:27 Dose: 100 mls/hr Norepinephrine Bitartrate 4 mg (/ Sodium Chloride) 254 mls @ 5.944 mls/hr IV .Q24H [facility]; Protocol Last Admin: 03/31/23 00:53 Dose: Not Given Dextrose/Water (Dextrose 5%-Water Iv Soln) 1,000 mls @ 75 mls/hr IV .[id number] [facility] Stop: 04/01/23 09:30 Last Admin: 03/31/23 20:18 Dose: 75 mls/hr Insulin Aspart (Insulin Aspart (Novolog) 100 Unit/Ml Vial) 0 unit SQ Q6HR [facility]; Protocol Last Admin: 03/31/23 17:57 Dose: 1 unit Lisinopril (Lisinopril 5 Mg Tab) 5 mg PO DAILY [facility] Last Admin: 03/31/23 08:27 Dose: 5 mg Lorazepam (Lorazepam 2 Mg/Ml Inj) 1 mg IV Q2H PRN PRN Reason: Anxiety Last Admin: 03/30/23 21:02 Dose: 1 mg Methylprednisolone Sodium Succinate (Methylprednisolone Sod Succi 125 Mg/2 Ml Vial) 60 mg IV Q6HR [facility] Last Admin: 03/31/23 17:57 Dose: 60 mg Naloxone HCl (Naloxone 0.4 Mg/Ml 1 Ml Vial) 0.2 mg IVP Q2M PRN PRN Reason: Opioid Reversal Nicotine (Nicotine 21mg/24hr Patch) 1 patch TRANSDERM DAILY [facility] Last Admin: 03/31/23 08:43 Dose: 1 patch Pantoprazole Sodium (Pantoprazole 40 Mg Tablet) 40 mg PO DAILY [facility] Last Admin: 03/31/23 08:27 Dose: 40 mg On examination: VITAL SIGNS: 99.5, 107, 16, 1:30/72, 96% on the ventilator GENERAL APPEARANCE: Laying in bed, sedated, intubated HEENT: Normal external appearance of nose and ear. Oral cavity-ET tube EYES: Pupils equal. Conjunctiva normal. NECK: JVD unable to assess. Mass not palpable. RESPIRATORY: Respiratory effort increased. Lungs decreased breath sounds CARDIOVASCULAR: First and second sounds normal. No edema. ABDOMEN: Soft. Liver and spleen not palpable. No tenderness. No mass palpable. PSYCHIATRY: Sedated Today's labs: Reviewed Assessment and plan: Acute hypoxic/hypercapnic respiratory failure due to COPD exacerbation. The patient was in significant respiratory acidosis at time of admission and he was in respiratory failure. Intubated and placed on a mechanical ventilator. This morning, peak airway pressure continues to be elevated. There is some improvement in his acid-base status based on a follow-up blood gases. Chest x- ray is negative for pneumonia. CT angiogram is negative for any acute abnorma lities. The viral panel was negative and the patient remains intubated on a mechanical ventilator. Blood gases showing respiratory acidosis. Peak airway pressures of improved compared to yesterday. Chest x-ray findings are stable.: Slow to respond Severe COPD maintain on Stiolto on outpatient basis: Slow to respond DuoNeb every 4. IV Solu-Medrol 60 mg every 6 Chronic nicotine dependence, smoker Nicotine patch Upper GI bleed related to erosive antral gastritis, 5 mm ulcer was also identified and the body of the stomach and Endo Clip was applied. PPI. Enteral feeding. Hypotension, recovered Essential Hypertension Dizziness lisinopril Hyperlipidemia Lipitor Chronic anxiety and depression Zyprexa and Prozac on outpatient basis Hyperchloremic hypernatremia, normovolemic ; worsening Sodium 153 [place] continue. Full code
[2023-03-31 23:17] LABS: Glucose,Whole Blood 184 mg/dL (70-110)
[2023-03-31 23:57] LABS: Glucose,Whole Blood 175 mg/dL (70-110)
[2023-04-01] MEDS: NOREPINEPHRINE 4 MG in SODIUM CHLORIDE 0.9% 250 ML IV SCH (03:41)
[2023-04-01] MEDS: IPRATROPIUM-ALBUTEROL 3 ML NEB INHALATION SCH ×6 (04:08→23:59)
[2023-04-01 05:27] LABS: Glucose,Whole Blood 210 mg/dL (70-110)
[2023-04-01 05:33] LABS: HCT 37.7 % (39.0-53.0); HGB 11.5 gm/dL (13.0-17.5); Hypochromasia Marked; MCH 32.9 pg (25.0-35.0); MCHC 30.6 g/dL (31.0-37.0); MCV 107.8 fL (80.0-100.0); Macrocytosis Moderate; Platelet Count 122 k/uL (150-450); RBC 3.49 m/uL (4.30-5.90); RDW 13.2 % (11.5-15.5); WBC 7.9 k/uL (3.8-10.6)
[2023-04-01] MEDS: INSULIN ASPART (NovoLOG) 100 UNIT/ML VIAL SQ SCH ×3 (05:34→17:37)
[2023-04-01 05:41] LABS: ABG Base Excess 22.7 mmol/L; ABG Oxygen Saturation 98.5 % (94-97); ABG PH 7.38 (7.35-7.45); ABG PO2 109 mmHg (83-108); ABG TCO2 50 mmol/L (19-24); Allen Test Performed? Yes
[2023-04-01 05:43] LABS: ABG HCO3 48 mmol/L (21-25); ABG PCO2 81 mmHg (35-45)
[2023-04-01 05:55] LABS: African American GFR (CKD) >90 (>60 ml/min/1.73 sqM); Blood Urea Nitrogen 37 mg/dL (9-20); Calcium 8.3 mg/dL (8.4-10.2); Chloride 103 mmol/L (98-107); Glucose 189 mg/dL (74-99); Non-African American GFR(CKD) >90 (>60 ml/min/1.73 sqM); Potassium 4.3 mmol/L (3.5-5.1); Sodium 148 mmol/L (137-145)
[2023-04-01 06:02] LABS: Anion Gap 1 mmol/L
[2023-04-01 06:07] LABS: Carbon Dioxide 44 mmol/L (22-30)
[2023-04-01] MEDS: methylPREDNISolone SOD SUCCI 125 MG/2 ML VIAL IV SCH ×3 (06:18→17:37)
[2023-04-01] MEDS: FORMOTEROL FUMARATE 20 MCG/2 ML NEBU INHALATION SCH ×2 (08:13→20:31)
[2023-04-01] MEDS: BUDESONIDE 1 MG/2 ML NEBU INHALATION SCH ×2 (08:13→20:31)
[2023-04-01] MEDS: ARTIFICIAL TEARS-HYPROMELLOSE DROPS 15 ML BTL BOTH EYES SCH ×3 (08:44→21:02)
[2023-04-01] MEDS: NICOTINE 21MG/24HR PATCH TRANSDERM SCH (08:50)
[2023-04-01] MEDS: ATORVASTATIN 10 MG TAB PO SCH (08:50)
[2023-04-01] MEDS: lisinopriL 5 MG TAB PO SCH (08:50)
[2023-04-01] MEDS: PANTOPRAZOLE 40 MG TABLET PO SCH (08:50)
[2023-04-01] MEDS: CHLORHEXIDINE GLUCONATE 15 ML CUP MUCOUS MEM SCH ×2 (08:50→20:44)
[2023-04-01] MEDS ORDERED: propofoL 100 ML IV ONE (09:12)
[2023-04-01] MEDS ORDERED: DEXTROSE 5% IN WATER 1,000 ML IV ONE (10:01)
--- NOTE | 2023-04-01 10:18 | XR ---
EXAMINATION TYPE: XR chest 1V portable DATE OF EXAM: 04/01/2023 Comparison: 03/31/2023 Clinical History: 62-year-old male mechanical ventilation Findings: Heart normal size. Aorta and pulmonary vasculature are within normal limits. Hyperinflation. ET tube satisfactory. NG tube courses below the diaphragm. No consolidation or pleural effusion. Left CVC tip at the lower SVC. Impression: COPD. No acute process seen.
[2023-04-01 11:29] LABS: Glucose,Whole Blood 162 mg/dL (70-110)
--- NOTE | 2023-04-01 13:57 | P.PN ---
Subjective Progress Note Date: 04/01/23 Principal diagnosis: Acute hypoxic and hypercapnic respiratory failure secondary to acute exacerbation of COPD Patient is a 62-year-old white male with past medical history significant for COPD and chronic ongoing tobacco dependence. The patient came into the emergency department with significant shortness of breath. Apparently, he was actively bronchospastic and he had diminished breath sounds. In the emergency, the patient was given breathing treatments [id number] and subsequently was placed in the 100% nonrebreather facemask. Upon follow-up, the patient was fou nd to be completely unresponsive and he was unable to protect his airway and his breathing was very shallow. At that point, he was intubated and placed on a mechanical ventilator. The initial blood gas was done postintubation was lab error and subsequently follow-up blood gases was done that showed significant respiratory acidosis and oxygen nasal already improved. Patient is currently sedated and intubated on mechanical ventilator, most of this HPI supplemented from ER documentation. We were not able to get a hold of any family at this time, and there are no prior charts to review. Based on a review of his home medications, he may have history COPD, hypertension, and hyperlipidemia. Pos tintubation he ABG was consistent with severe hypercapnic respiratory failure. PO2 greater than 400, pCO2 of 93, and pH of 7.12. Postintubation chest x-ray has endotracheal tube approximately 4 cm above the michael. Orogastric tube courses below the diaphragm. No focal infiltrates or evidence of pneumonia. There is marked hyperinflation with flattening of the diaphragm, consistent with COPD. A follow-up chest CTA done while in the emergency room showed no evidence of pulmonary embolism. There is no acute cardiopulmonary process. Patient is currently in the intensive care unit, intubated to the mechanical ventilator. Propofol is infusing at 45 mcg/kg/m. He is synchronous with mechanical ventilator. Current ventilator settings are assist control, respiratory rate of 12, tidal volume 400, FiO2 of 80%, PEEP of 5. A repeat ABG as a PaO2 of 358, pCO2 of 90, pH of 7.14. I increased the patient's respiratory rate 20 and reduce the FiO2 to 50%. The peak airway pressure is 34 and static airway pressure is 24, patient has some evidence of airway resistance. Lung sounds are tight and continues wheezing. No significant airway secretions. Patient has been started on DuoNeb's every 4 hours. I would add budesonide and formoterol. Patient is also hypotensive, he is already received a total of 2 L normal saline bolus. He is only 52 kg. Patient will be started on low-dose norepinephrine for refractory hypotension if needed. CBC on arrival unremarkable. BMP on arrival, sodium 132, potassium 4.9, chloride 94, serum bicarbonate 33, BUN 16, creatinine 0.62, glucose 123. Lactic acid level II.5. Troponin is less than 0.012. Negative for influenza, RSV, COVID-19. He is afebrile. Patient's status is still volatile, and there are no plans to extubate tonight. They have the chest was also completed in emergency. This was reviewed. No evidence of any pulmonary embolism. There is extensive emphysema bilaterally. No airspace disease. Note that the patient's NG output is bloody. Currently has approximately 300 mL and the canister. In terms of his hemoglobin monitoring, the patient's hemoglobin dropped from 15.2 down to 13.5. IV fluids are in the form of normal saline at rate of 75 mL's an hour. The patient is sedated with propofol running at 50 mcg/kg/m. Most recent blood gas showed improvement and acid-base status. PH is down still at 7.28 also improved compared to yesterday. PCO2 is down to 58 and pO2 is at 179 and this was an FiO2 of 50% and subseque ntly the FiO2 was dropped onto 40%. No pressors. Today's evaluation of 03/28/2023, the patient remains intubated on a mechanical ventilator. He remains sedated on propofol which is running at 70 g plus kilogram per minutes. Despite his adequate sedation, the patient remains actively bronchospastic and wheezy. In fact, he is having elevated peak airway pressure this morning. His current ventilator settings with evidence is control mode rate of 12, tidal volume of 400, FiO2 of 40% with a PEEP of 5. His blood gases show a pH of 7.32 with a pCO2 of 54 and pO2 of 133. Chest x-ray shows ma rked hyperinflation. No airspace disease. No consolidation. On a separate note, the patient was having episodes of GI bleed. NG tube was in place throughout the night. Output from the treatment diminished and the hemoglobin had dropped slightly down to 12.5 this morning. EGD was done earlier today and the patient was found to have a 5 mm ulcer in the body of the stomach and an Endo Clip was applied. The patient will some antral erosive gastritis. Clearance was obtained from the oncology coordinator to feed the patient. As such, we will going to start enteral feeding. We'll going to stop TPN for now. Hemodynamically stable. He is maintaining his own blood pressure without any pressors. The patient remains on IV fluids with normal saline at 125 mL an hour. He remains on bronchodilators. He remains on steroids. He remains on a broad-spectrum antibiotic coverage with Rocephin and Zithromax. White cell count 11.9, he was 12.5 and a platelet is 164. Sodium is at 136, BUN is at 17 with a creatinine of 0.6. LFTs are within normal limits. No other significant events overnight. On 03/29/2023, patient is being seen for a follow-up. Remains sedated on propofol. His calm and comfortable. Propofol is running at 50 microvascular kilogram per minute. The patient remains on the same ventilator settings with a tidal volume of 375, rate of 12, FiO2 of 40% with a PEEP of 5. Peak air pressures at 42. Remains actively bronchospastic and wheezy. Not a candidate for any bleeding at this point in time as the patient COPD still quite active. Chest x-ray shows hyperinflation. Orotracheal tube is in good location. No evidence of any airspace disease of consolidation. Remains on broke a dilated. Remains on steroids. Remains on enteral feeding for nutritional support and the patient is taking vital high-protein at the rate of 30 mL an hour. Hemodynamically stable. No other significant events overnight. Blood gas from today shows a pH of 7.29 with episodes of 48 and pO2 118 and this was an FiO2 of 40%. The white cell cause of 14.3, hemoglobin of 11.8 and a platelet count of 153. BUN is at 20 with a creatinine of 0.6 and a sodium level is at 142 and a potassium level of 4.6. LFTs are normal. The sputum sample was positive for Haemophilus influenza. On 03/30/2023, the patient remains on a mechanical ventilator. Slightly less bronchus spastic compared to yesterday. The peak airway pressure today's ranging between 33 and 35. The patient is on assist control mode at a rate of 12, tidal volume of 375, FiO2 is at 40% with a PEEP of 5. He remains on propofol running at 50 microvascular kilogram per minute. Chest x-ray findings are unchanged. No clear indication for pneumonia. The patient is Haemophilus influenza cultured in the sputum. Blood gas from today shows a pH of 7.28 with episodes of 83 and pO2 of 107 and this was an FiO2 of 40%. The patient continues to receive enteral feeding for nutritional support and he is on vital high-protein at the rate of 46 mL an hour. IV fluids are currently running at 75 mL an hour. The patient's sodium level is at 150, potassium levels at 4.2, chlorides 112 and a bicarb of 39. BUN is 29 with a creatinine of 0.6. The white cell cause of 10.9 with a hemoglobin of 11.4. No other complications or issues for now. Unable to wean this patient yet off the mechanical ventilator as his COPD remains quite active. Hemodynamically stable. He is on no pressors. Tolerating enteral feeding. 03/31/2023, the patient is on a mechanical ventilator. Ventilator settings are control 12, tidal volume of 400, FiO2 40% with a PEEP of 5. The patient's blood gas shows some improvement acid-base status. On today's evaluation, the patient has a pH of 7.34 with episodes of 84 and pO2 of 109. This was an FiO2 of 40%. Chest x-ray findings are unchanged. Peak airway pressures around 34. Air entry is improved bilaterally. However, with any attempts to cut down the sedation, the patient becomes asynchronous and he starts peak pressure in. I do not believe that his ready for any further weaning at this point in time. I may even consider the possibility of tracheostomy at the later stage. He is currently on a propofol at the rate of 50 mcg/kg/m. His vital high-protein at the rate of 46 mL an hour. His sodium level is elevated. I started him on free water supplements through the OG tube. He'll be started on D5 water today in attempt to optimize his sodium level hypernatremia. He has a 35 and a creatinine of 0.5. Potassium is 4.4. The previous cause of 9.8 with a hemoglobin of 12.2. Remains hemodynamically stable. Remains afebrile. Remains on IV Rocephin. Patient was reevaluated today on 04/01/23, remains in the ICU, intubated and mechanically ventilated. He is on assist control rate of 12 tidal volume 400 FiO2 40% and PEEP of 5 and FiO2 was cut down to 35%, ABG 109/81/7.38. Patient is requiring sedation presently on propofol at 50 mcg/kg/m, is also on D5W at 75 mL per hour receiving vitamin Hb at 46 mL per hour, also receiving free water flushes because of his hypernatremia, patient remains on ceftriaxone, Solu- Medrol, NicoDerm, patient had EGD on 03/28 and he was found to have upper GI bleeding, looking at the notes from Dr. Herring, he felt that the patient has such a severe COPD, he will be very difficult to wean, and may have to consider tracheostomy and PEG tube placement on this patient. Nonetheless I will give the patient trials of weaning on a daily basis, and if the patient fails over the next 5 days, may recommend trach and PEG on this patient. His peak airway pressure today is 34, plateau pressure is 22. WBC count is 7.9 hemoglobin is 11.5 sodium is 148 bicarb is 44 ABG as noted earlier. Chest x-ray is showing severe COPD picture/hyperinflation/emphysema picture Objective - Vital Signs Vital signs: Vital Signs Temp 98.0 F 04/01/23 08:00 Pulse 110 H 04/01/23 13:00 Resp 17 04/01/23 13:00 BP 122/70 04/01/23 13:00 Pulse Ox 95 04/01/23 13:00 FiO2 35 04/01/23 13:00 Intake & Output 03/31/23 04/01/23 04/01/23 18:59 06:59 18:59 Intake Total 2135.272 4276.243 677.369 Output Total 1293 1085 370 Balance 486.678 1419.243 307.369 Weight 57.4 kg 57.4 kg Intake: IV 760 933 78 A line 33 3 Dextrose 5% in Water 1, 750 900 75 000 ml @ 75 mls/hr IV . [id number] [facility] Rx#:[id number] Sodium Chloride 0.9% 1, 10 000 ml @ 10 mls/hr IV . Q24H [facility] Rx#:[id number] Intake, IV Titration 85.409 168.243 75.369 Amount propofoL 1,000 mg In 85.409 168.243 75.369 Empty Bag 1 bag @ 30 MCG/ KG/MIN 8.328 mls/hr IV . Q12H1M [facility] Rx#:[id number] Tube Feeding 506 552 274 Other 500 500 250 Output: Urine 1293 1085 370 Other: Voiding Method Indwelling Catheter Indwelling Catheter Indwelling Catheter ABP, PAP, CO, CI - Last Documented Arterial Blood Pressure 121/50 - Exam Physical Exam: Revealed a 62-year-old white male in no distress intubated mechanically ventilated sedated on propofol. Patient looks frail and chronically ill. Head: Atraumatic, normocephalic. HEENT:[Neck is supple.] [No neck masses.] [No thyromegaly.] [No JVD.] Endotracheal tube and orogastric tubes are intact. Chest: [Neck symmetrical chest expansion, diminished breath sound bilaterally no rhonchi no wheezes.] Cardiac Exam: [Normal S1 and S2, no S3 gallop, no murmur.] Abdomen: [Soft, nontender, no megaly, no rebound, no guarding, normal bowel sounds.] Extremities: [No clubbing, no edema, no cyanosis.] Good distal pulses bilater ally. Neurological Exam: [Sedated, on propofol, could not. Psychiatric: Sedated, on propofol, could not assess. - Labs CBC & Chem 7: 04/01/23 05:15 04/01/23 05:15 Labs: Abnormal Lab Results - Last 24 Hours (Table) 03/31/23 03/31/23 03/31/23 Range/Units 17:26 23:16 23:56 RBC (4.30-5.90) m/uL Hgb (13.0-17.5) gm/dL Hct (39.0-53.0) % MCV (80.0-100.0) fL MCHC (31.0-37.0) g/dL Plt Count (150-450) k/uL ABG pCO2 (35-45) mmHg ABG pO2 (83-108) mmHg ABG HCO3 (21-25) mmol/L ABG Total CO2 (19-24) mmol/L ABG O2 Saturation (94-97) % Sodium (137-145) mmol/L Carbon Dioxide (22-30) mmol/L BUN (9-20) mg/dL Creatinine (0.66-1.25) mg/dL Glucose (74-99) mg/dL POC Glucose (mg/dL) 153 H 184 H 175 H (70-110) mg/dL Calcium (8.4-10.2) mg/dL 04/01/23 04/01/23 04/01/23 Range/Units 05:15 05:15 05:26 RBC 3.49 L (4.30-5.90) m/uL Hgb 11.5 L (13.0-17.5) gm/dL Hct 37.7 L (39.0-53.0) % MCV 107.8 H (80.0-100.0) fL MCHC 30.6 L (31.0-37.0) g/dL Plt Count 122 L (150-450) k/uL ABG pCO2 (35-45) mmHg ABG pO2 (83-108) mmHg ABG HCO3 (21-25) mmol/L ABG Total CO2 (19-24) mmol/L ABG O2 Saturation (94-97) % Sodium 148 H (137-145) mmol/L Carbon Dioxide 44 H* (22-30) mmol/L BUN 37 H (9-20) mg/dL Creatinine 0.53 L (0.66-1.25) mg/dL Glucose 189 H (74-99) mg/dL POC Glucose (mg/dL) 210 H (70-110) mg/dL Calcium 8.3 L (8.4-10.2) mg/dL 04/01/23 04/01/23 Range/Units 05:35 11:27 RBC (4.30-5.90) m/uL Hgb (13.0-17.5) gm/dL Hct (39.0-53.0) % MCV (80.0-100.0) fL MCHC (31.0-37.0) g/dL Plt Count (150-450) k/uL ABG pCO2 81 H* (35-45) mmHg ABG pO2 109 H (83-108) mmHg ABG HCO3 48 H* (21-25) mmol/L ABG Total CO2 50 H (19-24) mmol/L ABG O2 Saturation 98.5 H (94-97) % Sodium (137-145) mmol/L Carbon Dioxide (22-30) mmol/L BUN (9-20) mg/dL Creatinine (0.66-1.25) mg/dL Glucose (74-99) mg/dL POC Glucose (mg/dL) 162 H (70-110) mg/dL Calcium (8.4-10.2) mg/dL Microbiology - Last 24 Hours (Table) 03/26/23 16:47 Blood Culture - Final Blood 03/26/23 16:40 Blood Culture - Final Blood Assessment and Plan Assessment: Impression: Acute hypoxic/hypercapnic respiratory failure secondary to acute exacerbation of COPD, no evidence of pneumonia Severe COPD Chronic smoker/tobacco dependence syndrome Acute upper GI bleeding secondary to erosive antral gastritis based on EGD patient had Endo Clip applied. Presently on Protonix 40 mg twice a day Benign essential hypertension Dyslipidemia Chronic anxiety disorder maintained on Zyprexa on outpatient basis is also on Prozac for depression Dyslipidemia Hyperchloremic hypernatremia Recommendation: Continue ventilatory support We will attempt daily trials of weaning with pressure support and CPAP if possible although the patient may eventually require tracheostomy and PEG tube placement Continue Rocephin for Haemophilus influenza noted in the sputum/tr acheobronchitis secondary to Haemophilus influenzae Continue GI and DVT prophylaxis Daily sedation interruption and assessment of mental status as well as weaning status Continue to hold anticoagulation therapy because of the GI bleeding Continue Protonix 40 mg twice a day Increased D5W at D5W flushes to address hyponatremia Continue to monitor hemoglobin Continue enteral feeding/nutritional support Patient remains critically ill Critical care time is over 30 minutes Time with Patient: Greater than 30
--- NOTE | 2023-04-01 14:48 | PN ---
PROGRESS NOTE SUBJECTIVE: He remains in ICU 262, bed 1. He had a chest x-ray which shows COPD, no acute problem. ET tube satisfactory. Seen Dr. Sifuentes for infection. He remains on the ventilator. Remains intubated. PEEP of 5, FiO2 40, IV propofol, sinus tachycardia. He is on DuoNeb q.i.d., atorvastatin 10, budesonide b.i.d., chlorhexidine, propofol, ceftriaxone, norepinephrine for vasopressor support, insulin protocol, lisinopril 5 mg daily, Solu-Medrol IV, nicotine patch, and pantoprazole. OBJECTIVE: VITAL SIGNS: Temperature is 99.5, pulse 107 to 90, respiratory rate 16 to 18, blood pressure is 130/72, O2 96 on the ventilator. GENERAL: Intubated. HEENT: Normocephalic, atraumatic. Pupils equal, round, and reactive. NECK: Supple. CARDIOVASCULAR: Decreased breath sounds, heart S1, S2. PSYCH: Poor mood and affect. Sedated. ABDOMEN: Soft, nontender. Acute hypoxemic respiratory hypercapnic failure secondary to COPD exacerbation. Continue on DuoNeb 16 and nicotine patch. Upper GI bleed. Endoclip was applied on admitted for GI bleeding. Enteral feeding was placed. Hypotension, treated with lisinopril; dyslipidemia, on Lipitor; chronic anxiety and depression, on Zyprexa and Prozac; hyperchloremic, hypernatremic have normal volemic worsening, sodium 153, free water. Continue Lasix. Full code. Remains on vent, wean off as tolerated. Continue broad-spectrum antibiotics. Please see further orders. MMODL / IJN: [id number] /
[2023-04-01 17:23] LABS: Glucose,Whole Blood 174 mg/dL (70-110)
[2023-04-01] MEDS: PANTOPRAZOLE 40 MG/10 ML VIAL IVP SCH (20:44)
[2023-04-01] MEDS: DEXTROSE 5% IN WATER 1,000 ML IV SCH (20:49)
--- NOTE | 2023-04-01 23:20 | P.PN ---
Subjective Progress Note Date: 04/01/23 Principal diagnosis: Reason for follow-up is possible pneumonia This is a telehealth visit Patient is a 62-year-old male with a past medical history significant for hypertension anxiety current everyday smoker patient was brought into the hospital for difficulty breathing and chest tightness patient got intubated admitted to ICU. On today's evaluation there is 04/01/2023 the patient is afebrile, patient is hemodynamically stable FiO2 is down to 35% no significant purulent secretions through the ET diarrhea or recent changes reported. Patient white count is 7.9, creatinine 0.53 sputum with haemophilus Objective - Vital Signs Vital signs: Vital Signs Temp 99.1 F 04/01/23 05:00 Pulse 111 H 04/01/23 08:31 Resp 13 04/01/23 08:31 BP 101/56 04/01/23 07:00 Pulse Ox 96 04/01/23 07:00 FiO2 35 04/01/23 10:54 Intake & Output 03/31/23 04/01/23 04/01/23 18:59 06:59 18:59 Intake Total 3441.315 9773.243 195.575 Output Total 1293 1085 45 Balance 792.751 9097.243 150.575 Weight 57.4 kg Intake: IV 760 933 78 A line 33 3 Dextrose 5% in Water 1, 750 900 75 000 ml @ 75 mls/hr IV . [id number] GYPSY Rx#:[id number] Sodium Chloride 0.9% 1, 10 000 ml @ 10 mls/hr IV . Q24H GYPSY Rx#:[id number] Intake, IV Titration 85.409 168.243 71.575 Amount propofoL 1,000 mg In 85.409 168.243 71.575 Empty Bag 1 bag @ 30 MCG/ KG/MIN 8.328 mls/hr IV . Q12H1M GYPSY Rx#:[id number] Tube Feeding 506 552 46 Other 500 500 Output: Urine 1293 1085 45 Other: Voiding Method Indwelling Catheter Indwelling Catheter Indwelling Catheter ABP, PAP, CO, CI - Last Documented Arterial Blood Pressure 103/41 - Exam GENERAL DESCRIPTION: Middle-age male intubated on the vent RESPIRATORY SYSTEM: Unlabored breathing , decreased breath sounds at bases HEART: S1 S2 regular rate and rhythm , ABDOMEN: Soft , no tenderness EXTREMITIES: No edema feet Exam completed with help of P[employer] - Labs CBC & Chem 7: 04/01/23 05:15 04/01/23 05:15 Labs: Abnormal Lab Results - Last 24 Hours (Table) 03/31/23 03/31/23 03/31/23 Range/Units 11:40 17:26 23:16 RBC (4.30-5.90) m/uL Hgb (13.0-17.5) gm/dL Hct (39.0-53.0) % MCV (80.0-100.0) fL MCHC (31.0-37.0) g/dL Plt Count (150-450) k/uL ABG pCO2 (35-45) mmHg ABG pO2 (83-108) mmHg ABG HCO3 (21-25) mmol/L ABG Total CO2 (19-24) mmol/L ABG O2 Saturation (94-97) % Sodium (137-145) mmol/L Carbon Dioxide (22-30) mmol/L BUN (9-20) mg/dL Creatinine (0.66-1.25) mg/dL Glucose (74-99) mg/dL POC Glucose (mg/dL) 170 H 153 H 184 H (70-110) mg/dL Calcium (8.4-10.2) mg/dL 03/31/23 04/01/23 04/01/23 Range/Units 23:56 05:15 05:15 RBC 3.49 L (4.30-5.90) m/uL Hgb 11.5 L (13.0-17.5) gm/dL Hct 37.7 L (39.0-53.0) % MCV 107.8 H (80.0-100.0) fL MCHC 30.6 L (31.0-37.0) g/dL Plt Count 122 L (150-450) k/uL ABG pCO2 (35-45) mmHg ABG pO2 (83-108) mmHg ABG HCO3 (21-25) mmol/L ABG Total CO2 (19-24) mmol/L ABG O2 Saturation (94-97) % Sodium 148 H (137-145) mmol/L Carbon Dioxide 44 H* (22-30) mmol/L BUN 37 H (9-20) mg/dL Creatinine 0.53 L (0.66-1.25) mg/dL Glucose 189 H (74-99) mg/dL POC Glucose (mg/dL) 175 H (70-110) mg/dL Calcium 8.3 L (8.4-10.2) mg/dL 04/01/23 04/01/23 Range/Units 05:26 05:35 RBC (4.30-5.90) m/uL Hgb (13.0-17.5) gm/dL Hct (39.0-53.0) % MCV (80.0-100.0) fL MCHC (31.0-37.0) g/dL Plt Count (150-450) k/uL ABG pCO2 81 H* (35-45) mmHg ABG pO2 109 H (83-108) mmHg ABG HCO3 48 H* (21-25) mmol/L ABG Total CO2 50 H (19-24) mmol/L ABG O2 Saturation 98.5 H (94-97) % Sodium (137-145) mmol/L Carbon Dioxide (22-30) mmol/L BUN (9-20) mg/dL Creatinine (0.66-1.25) mg/dL Glucose (74-99) mg/dL POC Glucose (mg/dL) 210 H (70-110) mg/dL Calcium (8.4-10.2) mg/dL Microbiology - Last 24 Hours (Table) 03/26/23 16:47 Blood Culture - Final Blood 03/26/23 16:40 Blood Culture - Final Blood Assessment and Plan (1) Fever Current Visit: Yes Status: Acute Code(s): R50.9 - FEVER, UNSPECIFIED SNOMED Code(s): 290437823 (2) Leukocytosis Current Visit: Yes Status: Acute Code(s): D72.829 - ELEVATED WHITE BLOOD CELL COUNT, UNSPECIFIED SNOMED Code(s): 812613260 Plan: 1patient presented to hospital with increasing shortness of breath more likely related to underlying COPD exacerbation with tracheobronchitis patient not running any fever white count has been normal both the CT of the chest as well as chest x-ray did not show any acute pulmonary process, however the patient did have a low-grade fever and the sputum culture now growing haemophilus concerning for possible early community-acquired pneumonia versus purulent tracheobronchitis 2--patient is afebrile and the patient white count has normalized, 3-patient to continue with Rocephin and monitor clinical course closely Dictation was produced using [employer] dictation software. please excuse any gr ammatical, word or spelling errors. Time with Patient: Less than 30
[2023-04-01 23:47] LABS: Glucose,Whole Blood 184 mg/dL (70-110)
[2023-04-02] MEDS: NOREPINEPHRINE 4 MG in SODIUM CHLORIDE 0.9% 250 ML IV SCH ×2 (00:32→22:26)
[2023-04-02] MEDS: INSULIN ASPART (NovoLOG) 100 UNIT/ML VIAL SQ SCH ×4 (00:37→16:53)
[2023-04-02] MEDS: methylPREDNISolone SOD SUCCI 125 MG/2 ML VIAL IV SCH ×4 (00:37→17:02)
[2023-04-02] MEDS: IPRATROPIUM-ALBUTEROL 3 ML NEB INHALATION SCH ×6 (03:56→23:59)
[2023-04-02] MEDS: DEXTROSE 5% IN WATER 1,000 ML IV SCH ×2 (04:55→16:03)
[2023-04-02 05:08] LABS: Glucose,Whole Blood 172 mg/dL (70-110)
[2023-04-02 05:16] LABS: Basophils % (A) 0 %; Eosinophils % (A) 0 %; HCT 40.3 % (39.0-53.0); HGB 12.8 gm/dL (13.0-17.5); Hypochromasia Moderate; Lymphocytes # (A) 0.3 k/uL (1.0-4.8); Lymphocytes % (A) 3 %; MCH 33.7 pg (25.0-35.0); MCHC 31.8 g/dL (31.0-37.0); MCV 106.1 fL (80.0-100.0); Macrocytosis Moderate; Mean Platelet Volume 9.8; Monocytes # (A) 0.5 k/uL (0-1.0); Monocytes % (A) 4 %; Neutrophils # (A) 10.9 k/uL (1.3-7.7); Neutrophils % (A) 93 %; Platelet Count 141 k/uL (150-450); RDW 12.7 % (11.5-15.5); WBC 11.7 k/uL (3.8-10.6)
[2023-04-02 05:22] LABS: Chloride 95 mmol/L (98-107); Potassium 4.6 mmol/L (3.5-5.1); Sodium 140 mmol/L (137-145)
[2023-04-02 05:24] LABS: African American GFR (CKD) >90 (>60 ml/min/1.73 sqM); Blood Urea Nitrogen 33 mg/dL (9-20); Calcium 8.5 mg/dL (8.4-10.2); Glucose 178 mg/dL (74-99); Non-African American GFR(CKD) >90 (>60 ml/min/1.73 sqM)
[2023-04-02 05:30] LABS: Anion Gap 4 mmol/L
[2023-04-02 05:32] LABS: Carbon Dioxide 41 mmol/L (22-30)
[2023-04-02 06:31] LABS: ABG Base Excess 21.5 mmol/L; ABG Oxygen Saturation 97.1 % (94-97); ABG PH 7.39 (7.35-7.45); ABG PO2 91 mmHg (83-108); ABG TCO2 49 mmol/L (19-24); Allen Test Performed? Yes
[2023-04-02 06:34] LABS: ABG HCO3 46 mmol/L (21-25); ABG PCO2 77 mmHg (35-45)
--- NOTE | 2023-04-02 07:39 | XR ---
EXAMINATION TYPE: XR chest 1V portable DATE OF EXAM: 04/02/2023 5:35 AM CLINICAL INDICATION:Male, 62 years old with history of mechanical ventilation; [facility] COMPARISON: Chest radiographs from 04/01/2023 TECHNIQUE: XR chest 1V portable Frontal view of the chest. FINDINGS: Lungs/Pleura: Prominent interstitial lung markings are seen scattered throughout the lungs with roberto carlos ening of the diaphragm and increased lucency of the lung apices. No evidence of focal consolidation, pneumothorax or pleural effusion. Pulmonary vascularity: Unremarkable. Heart/mediastinum: Cardiomediastinal silhouette is unremarkable. Musculoskeletal: No acute osseous pathology. Other findings: None Lines/Tubes: Endotracheal tube with distal tip 2.2 cm above the michael. Nasogastric tube with its distal tip and side-port projecting under the diaphragm. Left internal jugular central venous catheter with distal tip at the cavoatrial junction. IMPRESSION: 1. Support line and tubes in appropriate position. 2. COPD changes.
[2023-04-02] MEDS: BUDESONIDE 1 MG/2 ML NEBU INHALATION SCH ×2 (07:51→19:53)
[2023-04-02] MEDS: FORMOTEROL FUMARATE 20 MCG/2 ML NEBU INHALATION SCH ×2 (08:13→19:53)
[2023-04-02] MEDS: CHLORHEXIDINE GLUCONATE 15 ML CUP MUCOUS MEM SCH ×2 (08:18→21:33)
[2023-04-02] MEDS: PANTOPRAZOLE 40 MG/10 ML VIAL IVP SCH ×2 (08:18→21:33)
[2023-04-02] MEDS: NICOTINE 21MG/24HR PATCH TRANSDERM SCH (08:18)
[2023-04-02] MEDS: LORazepam 2 MG/ML INJ IV PRN (08:18)
[2023-04-02] MEDS: SENNOSIDES 8.6 MG TAB PO SCH (08:19)
[2023-04-02] MEDS: ATORVASTATIN 10 MG TAB PO SCH (08:19)
[2023-04-02] MEDS: lisinopriL 5 MG TAB PO SCH (08:19)
[2023-04-02] MEDS ORDERED: ENOXAPARIN 40 MG/0.4 ML SYRINGE SQ SCH (09:00)
[2023-04-02 11:19] LABS: Glucose,Whole Blood 156 mg/dL (70-110)
[2023-04-02] MEDS: ARTIFICIAL TEARS-HYPROMELLOSE DROPS 15 ML BTL BOTH EYES SCH ×3 (11:26→21:33)
--- NOTE | 2023-04-02 12:22 | P.PN ---
Subjective Progress Note Date: 04/02/23 Principal diagnosis: Acute hypoxic and hypercapnic respiratory failure secondary to acute exacerbation of COPD Patient is a 62-year-old white male with past medical history significant for COPD and chronic ongoing tobacco dependence. The patient came into the emergency department with significant shortness of breath. Apparently, he was actively bronchospastic and he had diminished breath sounds. In the emergency, the patient was given breathing treatments [id number] and subsequently was placed in the 100% nonrebreather facemask. Upon follow-up, the patient was fou nd to be completely unresponsive and he was unable to protect his airway and his breathing was very shallow. At that point, he was intubated and placed on a mechanical ventilator. The initial blood gas was done postintubation was lab error and subsequently follow-up blood gases was done that showed significant respiratory acidosis and oxygen nasal already improved. Patient is currently sedated and intubated on mechanical ventilator, most of this HPI supplemented from ER documentation. We were not able to get a hold of any family at this time, and there are no prior charts to review. Based on a review of his home medications, he may have history COPD, hypertension, and hyperlipidemia. Pos tintubation he ABG was consistent with severe hypercapnic respiratory failure. PO2 greater than 400, pCO2 of 93, and pH of 7.12. Postintubation chest x-ray has endotracheal tube approximately 4 cm above the michael. Orogastric tube courses below the diaphragm. No focal infiltrates or evidence of pneumonia. There is marked hyperinflation with flattening of the diaphragm, consistent with COPD. A follow-up chest CTA done while in the emergency room showed no evidence of pulmonary embolism. There is no acute cardiopulmonary process. Patient is currently in the intensive care unit, intubated to the mechanical ventilator. Propofol is infusing at 45 mcg/kg/m. He is synchronous with mechanical ventilator. Current ventilator settings are assist control, respiratory rate of 12, tidal volume 400, FiO2 of 80%, PEEP of 5. A repeat ABG as a PaO2 of 358, pCO2 of 90, pH of 7.14. I increased the patient's respiratory rate 20 and reduce the FiO2 to 50%. The peak airway pressure is 34 and static airway pressure is 24, patient has some evidence of airway resistance. Lung sounds are tight and continues wheezing. No significant airway secretions. Patient has been started on DuoNeb's every 4 hours. I would add budesonide and formoterol. Patient is also hypotensive, he is already received a total of 2 L normal saline bolus. He is only 52 kg. Patient will be started on low-dose norepinephrine for refractory hypotension if needed. CBC on arrival unremarkable. BMP on arrival, sodium 132, potassium 4.9, chloride 94, serum bicarbonate 33, BUN 16, creatinine 0.62, glucose 123. Lactic acid level II.5. Troponin is less than 0.012. Negative for influenza, RSV, COVID-19. He is afebrile. Patient's status is still volatile, and there are no plans to extubate tonight. They have the chest was also completed in emergency. This was reviewed. No evidence of any pulmonary embolism. There is extensive emphysema bilaterally. No airspace disease. Note that the patient's NG output is bloody. Currently has approximately 300 mL and the canister. In terms of his hemoglobin monitoring, the patient's hemoglobin dropped from 15.2 down to 13.5. IV fluids are in the form of normal saline at rate of 75 mL's an hour. The patient is sedated with propofol running at 50 mcg/kg/m. Most recent blood gas showed improvement and acid-base status. PH is down still at 7.28 also improved compared to yesterday. PCO2 is down to 58 and pO2 is at 179 and this was an FiO2 of 50% and subseque ntly the FiO2 was dropped onto 40%. No pressors. Today's evaluation of 03/28/2023, the patient remains intubated on a mechanical ventilator. He remains sedated on propofol which is running at 70 g plus kilogram per minutes. Despite his adequate sedation, the patient remains actively bronchospastic and wheezy. In fact, he is having elevated peak airway pressure this morning. His current ventilator settings with evidence is control mode rate of 12, tidal volume of 400, FiO2 of 40% with a PEEP of 5. His blood gases show a pH of 7.32 with a pCO2 of 54 and pO2 of 133. Chest x-ray shows ma rked hyperinflation. No airspace disease. No consolidation. On a separate note, the patient was having episodes of GI bleed. NG tube was in place throughout the night. Output from the treatment diminished and the hemoglobin had dropped slightly down to 12.5 this morning. EGD was done earlier today and the patient was found to have a 5 mm ulcer in the body of the stomach and an Endo Clip was applied. The patient will some antral erosive gastritis. Clearance was obtained from the well[place] technician to feed the patient. As such, we will going to start enteral feeding. We'll going to stop TPN for now. Hemodynamically stable. He is maintaining his own blood pressure without any pressors. The patient remains on IV fluids with normal saline at 125 mL an hour. He remains on bronchodilators. He remains on steroids. He remains on a broad-spectrum antibiotic coverage with Rocephin and Zithromax. White cell count 11.9, he was 12.5 and a platelet is 164. Sodium is at 136, BUN is at 17 with a creatinine of 0.6. LFTs are within normal limits. No other significant events overnight. On 03/29/2023, patient is being seen for a follow-up. Remains sedated on propofol. His calm and comfortable. Propofol is running at 50 microvascular kilogram per minute. The patient remains on the same ventilator settings with a tidal volume of 375, rate of 12, FiO2 of 40% with a PEEP of 5. Peak air pressures at 42. Remains actively bronchospastic and wheezy. Not a candidate for any bleeding at this point in time as the patient COPD still quite active. Chest x-ray shows hyperinflation. Orotracheal tube is in good location. No evidence of any airspace disease of consolidation. Remains on broke a dilated. Remains on steroids. Remains on enteral feeding for nutritional support and the patient is taking vital high-protein at the rate of 30 mL an hour. Hemodynamically stable. No other significant events overnight. Blood gas from today shows a pH of 7.29 with episodes of 48 and pO2 118 and this was an FiO2 of 40%. The white cell cause of 14.3, hemoglobin of 11.8 and a platelet count of 153. BUN is at 20 with a creatinine of 0.6 and a sodium level is at 142 and a potassium level of 4.6. LFTs are normal. The sputum sample was positive for Haemophilus influenza. On 03/30/2023, the patient remains on a mechanical ventilator. Slightly less bronchus spastic compared to yesterday. The peak airway pressure today's ranging between 33 and 35. The patient is on assist control mode at a rate of 12, tidal volume of 375, FiO2 is at 40% with a PEEP of 5. He remains on propofol running at 50 microvascular kilogram per minute. Chest x-ray findings are unchanged. No clear indication for pneumonia. The patient is Haemophilus influenza cultured in the sputum. Blood gas from today shows a pH of 7.28 with episodes of 83 and pO2 of 107 and this was an FiO2 of 40%. The patient continues to receive enteral feeding for nutritional support and he is on vital high-protein at the rate of 46 mL an hour. IV fluids are currently running at 75 mL an hour. The patient's sodium level is at 150, potassium levels at 4.2, chlorides 112 and a bicarb of 39. BUN is 29 with a creatinine of 0.6. The white cell cause of 10.9 with a hemoglobin of 11.4. No other complications or issues for now. Unable to wean this patient yet off the mechanical ventilator as his COPD remains quite active. Hemodynamically stable. He is on no pressors. Tolerating enteral feeding. 03/31/2023, the patient is on a mechanical ventilator. Ventilator settings are control 12, tidal volume of 400, FiO2 40% with a PEEP of 5. The patient's blood gas shows some improvement acid-base status. On today's evaluation, the patient has a pH of 7.34 with episodes of 84 and pO2 of 109. This was an FiO2 of 40%. Chest x-ray findings are unchanged. Peak airway pressures around 34. Air entry is improved bilaterally. However, with any attempts to cut down the sedation, the patient becomes asynchronous and he starts peak pressure in. I do not believe that his ready for any further weaning at this point in time. I may even consider the possibility of tracheostomy at the later stage. He is currently on a propofol at the rate of 50 mcg/kg/m. His vital high-protein at the rate of 46 mL an hour. His sodium level is elevated. I started him on free water supplements through the OG tube. He'll be started on D5 water today in attempt to optimize his sodium level hypernatremia. He has a 35 and a creatinine of 0.5. Potassium is 4.4. The previous cause of 9.8 with a hemoglobin of 12.2. Remains hemodynamically stable. Remains afebrile. Remains on IV Rocephin. Patient was reevaluated today on 04/01/23, remains in the ICU, intubated and mechanically ventilated. He is on assist control rate of 12 tidal volume 400 FiO2 40% and PEEP of 5 and FiO2 was cut down to 35%, ABG 109/81/7.38. Patient is requiring sedation presently on propofol at 50 mcg/kg/m, is also on D5W at 75 mL per hour receiving vitamin Hb at 46 mL per hour, also receiving free water flushes because of his hypernatremia, patient remains on ceftriaxone, Solu- Medrol, NicoDerm, patient had EGD on 03/28 and he was found to have upper GI bleeding, looking at the notes from Dr. Herring, he felt that the patient has such a severe COPD, he will be very difficult to wean, and may have to consider tracheostomy and PEG tube placement on this patient. Nonetheless I will give the patient trials of weaning on a daily basis, and if the patient fails over the next 5 days, may recommend trach and PEG on this patient. His peak airway pressure today is 34, plateau pressure is 22. WBC count is 7.9 hemoglobin is 11.5 sodium is 148 bicarb is 44 ABG as noted earlier. Chest x-ray is showing severe COPD picture/hyperinflation/emphysema picture Reevaluated today on 04/02/2023, remains in the ICU intubated and mechanically ventilated, patient is presently on assist-control rate of 12 tidal volume of 100 FiO2 35% PEEP of 5, ABG showed a pO2 of 90 pCO2 77 pH of 7.39. Patient remains on propofol at 30 mcg/kg/min, he is also on vital HP at 40 M 6 mL/h, receiving Rocephin, we are holding on anticoagulation therapy because of his recent GI bleed, yesterday the patient was given a very short voiding trial, and he failed immediately, not quite ready for any weaning. As a matter fact considering his presentation and considering his overall pulmonary status, I believe the patient is going to be extremely difficult to wean and extubate, hence I am recommending surgical consultation for tracheostomy and PEG tube placement. Chest x-ray is mostly showing COPD changes, no clear-cut evidence of infiltrate. Nonetheless patient remains empirically on Rocephin. WBC count today is 11.7 hemoglobin is 12.8. Basic metabolic profile is normal bicarb is 41 BUN is 33 creatinine 0.41 Objective - Vital Signs Vital signs: Vital Signs Temp 98.9 F 04/02/23 08:00 Pulse 115 H 04/02/23 11:44 Resp 15 04/02/23 11:00 BP 121/71 04/02/23 11:00 Pulse Ox 97 04/02/23 11:00 FiO2 35 04/02/23 11:36 Intake & Output 04/01/23 04/02/23 04/02/23 18:59 06:59 18:59 Intake Total 6372.261 4457.171 330.444 Output Total 955 1050 470 Balance 83.233 1175.171 -139.556 Weight 57.4 kg 58.7 kg 58.7 kg Intake: IV 78 1133 103 A line 3 33 3 Dextrose 5% in Water 1, 1100 100 000 ml @ 100 mls/hr IV . Q10H [facility]YPS[facility] Rx#:[id number] Dextrose 5% in Water 1, 75 000 ml @ 75 mls/hr IV . [id number] GYPSY Rx#:[id number] Intake, IV Titration 114.233 86.171 43.444 Amount propofoL 1,000 mg In 114.233 86.171 43.444 Empty Bag 1 bag @ 30 MCG/ KG/MIN 8.328 mls/hr IV . Q12H1M GYPSY Rx#:[id number] Tube Feeding 596 506 184 Other 250 500 Output: Urine 955 1050 470 Other: Voiding Method Indwelling Catheter Indwelling Catheter Indwelling Catheter # Bowel Movements 1 ABP, PAP, CO, CI - Last Documented Arterial Blood Pressure 115/54 - Exam Physical Exam: Revealed a 62-year-old white male in no distress intubated mechanically ventilated sedated on propofol. Patient looks frail and chronically ill. Head: Atraumatic, normocephalic. HEENT:[Neck is supple.] [No neck masses.] [No thyromegaly.] [No JVD.] Endotrac heal tube and orogastric tubes are intact. Chest: [Neck symmetrical chest expansion, diminished breath sound bilaterally no rhonchi no wheezes.] Cardiac Exam: [Normal S1 and S2, no S3 gallop, no murmur.] Abdomen: [Soft, nontender, no megaly, no rebound, no guarding, normal bowel sounds.] Extremities: [No clubbing, no edema, no cyanosis.] Good distal pulses bilaterally. Neurological Exam: [Sedated, on propofol, could not. Psychiatric: Sedated, on propofol, could not assess. - Labs CBC & Chem 7: 04/02/23 05:06 04/02/23 05:06 Labs: Abnormal Lab Results - Last 24 Hours (Table) 04/01/23 04/01/23 04/02/23 Range/Units 17:22 23:46 05:06 WBC 11.7 H (3.8-10.6) k/uL RBC 3.80 L (4.30-5.90) m/uL Hgb 12.8 L (13.0-17.5) gm/dL MCV 106.1 H (80.0-100.0) fL Plt Count 141 L (150-450) k/uL Neutrophils # 10.9 H (1.3-7.7) k/uL Lymphocytes # 0.3 L (1.0-4.8) k/uL ABG pCO2 (35-45) mmHg ABG HCO3 (21-25) mmol/L ABG Total CO2 (19-24) mmol/L ABG O2 Saturation (94-97) % Chloride (98-107) mmol/L Carbon Dioxide (22-30) mmol/L BUN (9-20) mg/dL Creatinine (0.66-1.25) mg/dL Glucose (74-99) mg/dL POC Glucose (mg/dL) 174 H 184 H (70-110) mg/dL 04/02/23 04/02/23 04/02/23 Range/Units 05:06 05:07 06:27 WBC (3.8-10.6) k/uL RBC (4.30-5.90) m/uL Hgb (13.0-17.5) gm/dL MCV (80.0-100.0) fL Plt Count (150-450) k/uL Neutrophils # (1.3-7.7) k/uL Lymphocytes # (1.0-4.8) k/uL ABG pCO2 77 H* (35-45) mmHg ABG HCO3 46 H* (21-25) mmol/L ABG Total CO2 49 H (19-24) mmol/L ABG O2 Saturation 97.1 H (94-97) % Chloride 95 L (98-107) mmol/L Carbon Dioxide 41 H* (22-30) mmol/L BUN 33 H (9-20) mg/dL Creatinine 0.41 L (0.66-1.25) mg/dL Glucose 178 H (74-99) mg/dL POC Glucose (mg/dL) 172 H (70-110) mg/dL 04/02/23 Range/Units 11:16 WBC (3.8-10.6) k/uL RBC (4.30-5.90) m/uL Hgb (13.0-17.5) gm/dL MCV (80.0-100.0) fL Plt Count (150-450) k/uL Neutrophils # (1.3-7.7) k/uL Lymphocytes # (1.0-4.8) k/uL ABG pCO2 (35-45) mmHg ABG HCO3 (21-25) mmol/L ABG Total CO2 (19-24) mmol/L ABG O2 Saturation (94-97) % Chloride (98-107) mmol/L Carbon Dioxide (22-30) mmol/L BUN (9-20) mg/dL Creatinine (0.66-1.25) mg/dL Glucose (74-99) mg/dL POC Glucose (mg/dL) 156 H (70-110) mg/dL Assessment and Plan Assessment: Impression: Acute hypoxic/hypercapnic respiratory failure secondary to acute exacerbation of COPD, no evidence of pneumonia Severe COPD Chronic smoker/tobacco dependence syndrome Acute upper GI bleeding secondary to erosive antral gastritis based on EGD patient had Endo Clip applied. Presently on Protonix 40 mg twice a day, still holding Lovenox. Benign essential hypertension Dyslipidemia Chronic anxiety disorder maintained on Zyprexa on outpatient basis is also on P rozac for depression Dyslipidemia Hyperchloremic hypernatremia, resolved, sodium today is 140. Recommendation: Continue ventilatory support, continue daily trial of weaning although this is quite difficult, and the patient will not wean easily Will continue to try weaning trials, although clinically it seems the patient will likely wean easily, and I think it is best to address tracheostomy and PEG tube placement this patient and surgery will be consulted Continue Rocephin for Haemophilus influenza noted in the sputum/tracheobronchitis secondary to Haemophilus influenzae Continue GI prophylaxis Daily sedation interruption and assessment of mental status as well as weaning status Continue to hold anticoagulation therapy because of the GI bleeding Continue Protonix 40 mg twice a day Discontinue water flushes Continue to monitor hemoglobin Continue enteral feeding/nutritional support, patient is receiving vital HP at 46 mL/h Patient remains critically ill Consult surgery for tracheostomy and PEG tube placement. Critical care time is over 30 minutes Time with Patient: Greater than 30
--- NOTE | 2023-04-02 12:41 | P.GSCN ---
History of Present Illness Consult date: 04/02/23 History of present illness: CHIEF COMPLAINT: Shortness of breath HISTORY OF PRESENT ILLNESS: This is a 62-year-old male who presented with shortness of breath with evidence of respiratory failure, COPD exacerbation and tracheobronchitis requiring to be intubated and on mechanical ventilation. They have been attempting weaning trials without success. Patient also had GI bleed with erosive antral gastritis and gastric ulcer of the stomach with visible vessel requiring Endo Clip. Surgical service has been consulted for tracheostomy and PEG tube placement. At this time family is declining PEG tube and tracheostomy. PAST MEDICAL HISTORY: COPD PAST SURGICAL HISTORY: none MEDICATIONS: See below ALLERGIES: See below SOCIAL HISTORY: No illicit drug use. REVIEW OF SYSTEMS: CONSTITUTIONAL: Denies fever or chills. HEENT: Denies blurred vision, vision changes, or eye pain. Denies hemoptysis CARDIOVASCULAR: Denies chest pain or pressure. RESPIRATORY: No shortness of breath. GASTROINTESTINAL: See HPI for pertinent findings HEMATOLOGIC: Denies bleeding disorders. GENITOURINARY: Denies any blood in urine or increased urinary frequency. SKIN: Denies pruitis. Denies rash. PHYSICAL EXAM: VITAL SIGNS: Reviewed GENERAL: Patient intubated and sedated ABDOMEN: Soft. Nondistended. LABORATORY DATA: WBC 11.7 Hgb 12.8 platelets 141 Sodium 140 potassium 4.6 creatinine 0.41 albumin 2.9 IMAGING: CXR reports COPD. no acute process seen. ASSESSMENT: 1. Respiratory failure requiring mechanical ventilation 2. Severe protein calorie malnutrition PLAN: -No plans for PEG tube or tracheostomy. At this time family is declining tracheostomy and PEG tube placement -Continue supportive care Physician Decorator Consultant note has been reviewed by physician. Signing provider agrees with the documented findings, assessment, and plan of care. Past Medical History Past Medical History: No Reported History, COPD, Hypertension Additional Past Medical History / Comment(s): gout History of Any Multi-Drug Resistant Organisms: None Reported Past Surgical History: No Surgical Hx Reported Past Anesthesia/Blood Transfusion Reactions: Unable to Obtain Past Psychological History: Anxiety Smoking Status: Current every day smoker Past Alcohol Use History: None Reported Past Drug Use History: None Reported Medications and Allergies Home Medications Medication Instructions Recorded Confirmed Type OLANZapine [ZyPREXA] 10 mg PO HS 09/19/15 03/26/23 History Albuterol Sulfate [Albuterol 1 - 2 puff PO RT-Q4H PRN 03/26/23 03/26/23 History Sulfate Hfa] Atorvastatin [Lipitor] 10 mg PO DAILY 03/26/23 03/26/23 History FLUoxetine HCL [PROzac] 20 mg PO DAILY 03/26/23 03/26/23 History OLANZapine [ZyPREXA] 5 mg PO DAILY 03/26/23 03/26/23 History Omeprazole [PriLOSEC] 20 mg PO BID 03/26/23 03/26/23 History Tiotropium Br/Olodaterol HCl 2 puff INHALATION RT-DAILY 03/26/23 03/26/23 History [Stiolto Respimat Inhal [place]] hydroCHLOROthiazide 12.5 mg PO DAILY 03/26/23 03/26/23 History lisinopriL [Zestril] 5 mg PO DAILY 03/26/23 03/26/23 History Allergies Allergy/AdvReac Type Severity Reaction Status Date / Time No Known Allergies Allergy Verified 03/26/23 17:12 Surgical - Exam Vital Signs Temp Pulse Resp BP Pulse Ox 98.0 F 113 H 22 168/90 99 03/26/23 16:00 03/26/23 16:00 03/26/23 16:00 03/26/23 16:00 03/26/23 16:00 Results - Labs 04/02/23 05:06 04/02/23 05:06 Abnormal Lab Results - Last 24 Hours (Table) 04/01/23 04/01/23 04/01/23 Range/Units 11:27 17:22 23:46 WBC (3.8-10.6) k/uL RBC (4.30-5.90) m/uL Hgb (13.0-17.5) gm/dL MCV (80.0-100.0) fL Plt Count (150-450) k/uL Neutrophils # (1.3-7.7) k/uL Lymphocytes # (1.0-4.8) k/uL ABG pCO2 (35-45) mmHg ABG HCO3 (21-25) mmol/L ABG Total CO2 (19-24) mmol/L ABG O2 Saturation (94-97) % Chloride (98-107) mmol/L Carbon Dioxide (22-30) mmol/L BUN (9-20) mg/dL Creatinine (0.66-1.25) mg/dL Glucose (74-99) mg/dL POC Glucose (mg/dL) 162 H 174 H 184 H (70-110) mg/dL 04/02/23 04/02/23 04/02/23 Range/Units 05:06 05:06 05:07 WBC 11.7 H (3.8-10.6) k/uL RBC 3.80 L (4.30-5.90) m/uL Hgb 12.8 L (13.0-17.5) gm/dL MCV 106.1 H (80.0-100.0) fL Plt Count 141 L (150-450) k/uL Neutrophils # 10.9 H (1.3-7.7) k/uL Lymphocytes # 0.3 L (1.0-4.8) k/uL ABG pCO2 (35-45) mmHg ABG HCO3 (21-25) mmol/L ABG Total CO2 (19-24) mmol/L ABG O2 Saturation (94-97) % Chloride 95 L (98-107) mmol/L Carbon Dioxide 41 H* (22-30) mmol/L BUN 33 H (9-20) mg/dL Creatinine 0.41 L (0.66-1.25) mg/dL Glucose 178 H (74-99) mg/dL POC Glucose (mg/dL) 172 H (70-110) mg/dL 04/02/23 04/02/23 Range/Units 06:27 11:16 WBC (3.8-10.6) k/uL RBC (4.30-5.90) m/uL Hgb (13.0-17.5) gm/dL MCV (80.0-100.0) fL Plt Count (150-450) k/uL Neutrophils # (1.3-7.7) k/uL Lymphocytes # (1.0-4.8) k/uL ABG pCO2 77 H* (35-45) mmHg ABG HCO3 46 H* (21-25) mmol/L ABG Total CO2 49 H (19-24) mmol/L ABG O2 Saturation 97.1 H (94-97) % Chloride (98-107) mmol/L Carbon Dioxide (22-30) mmol/L BUN (9-20) mg/dL Creatinine (0.66-1.25) mg/dL Glucose (74-99) mg/dL POC Glucose (mg/dL) 156 H (70-110) mg/dL Diabetes panel 04/02/23 Range/Units 05:06 Sodium 140 (137-145) mmol/L Potassium 4.6 (3.5-5.1) mmol/L Chloride 95 L (98-107) mmol/L Carbon Dioxide 41 H* (22-30) mmol/L BUN 33 H (9-20) mg/dL Creatinine 0.41 L (0.66-1.25) mg/dL Glucose 178 H (74-99) mg/dL Calcium 8.5 (8.4-10.2) mg/dL Calcium panel 04/02/23 Range/Units 05:06 Calcium 8.5 (8.4-10.2) mg/dL Pituitary panel 04/02/23 Range/Units 05:06 Sodium 140 (137-145) mmol/L Potassium 4.6 (3.5-5.1) mmol/L Chloride 95 L (98-107) mmol/L Carbon Dioxide 41 H* (22-30) mmol/L BUN 33 H (9-20) mg/dL Creatinine 0.41 L (0.66-1.25) mg/dL Glucose 178 H (74-99) mg/dL Calcium 8.5 (8.4-10.2) mg/dL Adrenal panel 04/02/23 Range/Units 05:06 Sodium 140 (137-145) mmol/L Potassium 4.6 (3.5-5.1) mmol/L Chloride 95 L (98-107) mmol/L Carbon Dioxide 41 H* (22-30) mmol/L BUN 33 H (9-20) mg/dL Creatinine 0.41 L (0.66-1.25) mg/dL Glucose 178 H (74-99) mg/dL Calcium 8.5 (8.4-10.2) mg/dL
[2023-04-02 16:40] LABS: Glucose,Whole Blood 146 mg/dL (70-110)
[2023-04-03 00:13] LABS: Glucose,Whole Blood 164 mg/dL (70-110)
[2023-04-03] MEDS: DEXTROSE 5% IN WATER 1,000 ML IV SCH ×3 (00:16→22:05)
[2023-04-03] MEDS: methylPREDNISolone SOD SUCCI 125 MG/2 ML VIAL IV SCH ×4 (00:17→17:22)
[2023-04-03] MEDS: INSULIN ASPART (NovoLOG) 100 UNIT/ML VIAL SQ SCH ×4 (00:17→17:23)
[2023-04-03] MEDS: IPRATROPIUM-ALBUTEROL 3 ML NEB INHALATION SCH ×5 (03:56→21:47)
[2023-04-03 05:33] LABS: Glucose,Whole Blood 168 mg/dL (70-110)
[2023-04-03 05:51] LABS: Basophils % (A) 0 %; Eosinophils % (A) 0 %; HCT 41.3 % (39.0-53.0); HGB 13.2 gm/dL (13.0-17.5); Hypochromasia Slight; Lymphocytes # (A) 0.3 k/uL (1.0-4.8); Lymphocytes % (A) 2 %; MCH 33.5 pg (25.0-35.0); MCV 104.8 fL (80.0-100.0); Macrocytosis Slight; Monocytes # (A) 0.6 k/uL (0-1.0); Monocytes % (A) 4 %; Neutrophils # (A) 13.6 k/uL (1.3-7.7); Neutrophils % (A) 93 %; Platelet Count 143 k/uL (150-450); RBC 3.95 m/uL (4.30-5.90); RDW 12.5 % (11.5-15.5); WBC 14.7 k/uL (3.8-10.6)
[2023-04-03 05:58] LABS: African American GFR (CKD) >90 (>60 ml/min/1.73 sqM); Blood Urea Nitrogen 29 mg/dL (9-20); Calcium 8.5 mg/dL (8.4-10.2); Chloride 94 mmol/L (98-107); Glucose 184 mg/dL (74-99); Non-African American GFR(CKD) >90 (>60 ml/min/1.73 sqM); Potassium 4.7 mmol/L (3.5-5.1); Sodium 137 mmol/L (137-145)
[2023-04-03] MEDS ORDERED: DILTIAZEM DRIP BOLUS FROM BAG 1 MG SOLN IV ONE (05:59)
[2023-04-03 06:04] LABS: Anion Gap 1 mmol/L
[2023-04-03 06:05] LABS: Carbon Dioxide 42 mmol/L (22-30)
[2023-04-03] MEDS: DILTIAZEM 125 MG in SODIUM CHLORIDE 0.9% 100 ML IV SCH ×2 (06:08→14:45)
[2023-04-03 06:46] LABS: ABG Base Excess 20.1 mmol/L; ABG Oxygen Saturation 96.7 % (94-97); ABG PO2 89 mmHg (83-108); ABG TCO2 47 mmol/L (19-24)
[2023-04-03 06:50] LABS: ABG HCO3 45 mmol/L (21-25); ABG PCO2 72 mmHg (35-45); Allen Test Performed? NO
[2023-04-03] MEDS ORDERED: DEXTROSE 5% IN WATER 100 ML with AMIODARONE 150 MG IV ONE (06:50)
[2023-04-03] MEDS ORDERED: AMIODARONE 360 MG in DEXTROSE 5% IN WATER 200 ML IV ONE ×2 (07:00)
--- NOTE | 2023-04-03 07:50 | P.CRDCN ---
History of Present Illness Consult date: 04/03/23 History of present illness: History of Present Illness: The patient is a 62-year-old male with known history of severe chronic obstructive lung disease chronic tobacco use who presented on March 26 with symptoms of severe progressive dyspnea, requiring mechanical ventilation. Attempt to wean him have been unsuccessful. Cardiology consultation was requested because of an episode of paroxysmal atrial fibrillation that occurred last night. Patient remains intubated, back in sinus mechanism. He was started on IV Cardizem. He has baseline sinus tachycardia. He is on no vasopressor. His urinary output has been stable. According to the nursing staff patient had a prior history of GI bleeding and underwent endoscopy and had an acute bleeding requiring Endo Clip placement for gastric ulcer of the mid body of the stomach. The procedure was done on March 28. He has been evaluated for possible need to undergo PEG and trach placement although according to the nursing staff the family is not sure if they want to proceed with that. He has a history of hy pertension and hyperlipidemia. No other past history is available to me. Medications: IV Cardizem drip, lisinopril 5 mg daily, methylprednisolone, Pulmicort, ceftriaxone Review of Systems: Could not be obtained, the patient is intubated and sedated Physical Examination: 62-year-old male, intubated,Blood pressure 130/60, Heart rate 115 Head: Normocephalic. Eyes: Sclerae nonicteric. Neck: Good carotid upstroke, no bruit, no jugular venous distention. Lungs: Clear to auscultation anteriorly with no wheezes Heart: Regular d rhythm,, tachycardic S1-S2, no S3, no rub. No murmur. Abdomen: Soft positive bowel sounds no organomegaly. Extremities: No edema, intact distal pulses. Labs: Hemoglobin 13.2, WBC 14.7, pH 7.4, pCO2 72, pO2 89. Potassium 4.7. BUN 29 and creatinine 0.46. Chest x-ray is consistent with COPD EKG: Atrial fibrillation with nonspecific ST-T wave changes and rapid ventricle response Impression: 1. Respiratory failure with severe COPD and hypercapnia hypoxemic respiratory failure with failure to wean 2. Paroxysmal atrial fibrillation 3. Recent GI bleeding 4. History of hypertension as an outpatient 5. Hyperlipidemia 6. History of anxiety Plan: 1. Obtain an echocardiogram with Doppler 2. Continue IV Cardizem for now 3. No anticoagulation because of the recent bleeding 4. Follow potassium and magnesium and check TSH 5. Depending on his progress further recommendations will be made, thank you for this consult we will follow with you. Past Medical History Past Medical History: No Reported History, COPD, Hypertension Additional Past Medical History / Comment(s): gout History of Any Multi-Drug Resistant Organisms: None Reported Past Surgical History: No Surgical Hx Reported Past Anesthesia/Blood Transfusion Reactions: Unable to Obtain Past Psychological History: Anxiety Smoking Status: Current every day smoker Past Alcohol Use History: None Reported Past Drug Use History: None Reported Medications and Allergies Home Medications Medication Instructions Recorded Confirmed Type OLANZapine [ZyPREXA] 10 mg PO HS 09/19/15 03/26/23 History Albuterol Sulfate [Albuterol 1 - 2 puff PO RT-Q4H PRN 03/26/23 03/26/23 History Sulfate Hfa] Atorvastatin [Lipitor] 10 mg PO DAILY 03/26/23 03/26/23 History FLUoxetine HCL [PROzac] 20 mg PO DAILY 03/26/23 03/26/23 History OLANZapine [ZyPREXA] 5 mg PO DAILY 03/26/23 03/26/23 History Omeprazole [PriLOSEC] 20 mg PO BID 03/26/23 03/26/23 History Tiotropium Br/Olodaterol HCl 2 puff INHALATION RT-DAILY 03/26/23 03/26/23 History [Stiolto Respimat Inhal [place]] hydroCHLOROthiazide 12.5 mg PO DAILY 03/26/23 03/26/23 History lisinopriL [Zestril] 5 mg PO DAILY 03/26/23 03/26/23 History Allergies Allergy/AdvReac Type Severity Reaction Status Date / Time No Known Allergies Allergy Verified 03/26/23 17:12 Physical Exam Vitals: Vital Signs Temp Pulse Resp BP Pulse Ox FiO2 04/03/23 07:00 115 H 17 141/80 98 04/03/23 06:00 189 H 24 111/91 94 L 04/03/23 05:00 113 H 22 131/80 96 04/03/23 04:13 112 H 04/03/23 04:00 98.8 F 112 H 20 118/70 96 35 04/03/23 03:56 112 H 04/03/23 03:53 35 01/24/24 03:00 107 H 16 92/54 96 04/03/23 02:00 96 18 123/74 97 04/03/23 01:00 110 H 16 134/77 96 04/03/23 00:11 110 H 04/03/23 00:00 98.0 F 107 H 20 145/83 96 35 04/02/23 23:59 106 H 04/02/23 23:47 108 H 22 145/83 95 35 04/02/23 23:00 115 H 21 146/80 96 04/02/23 22:00 115 H 19 121/68 96 04/02/23 21:00 112 H 18 159/90 95 04/02/23 20:18 120 H 04/02/23 20:08 118 H 04/02/23 20:06 115 H 04/02/23 20:00 98.9 F 117 H 20 139/84 95 35 04/02/23 19:54 118 H 04/02/23 19:49 35 04/02/23 19:00 112 H 20 140/80 96 04/02/23 18:00 112 H 23 142/82 96 04/02/23 17:00 115 H 18 131/79 95 04/02/23 16:05 35 04/02/23 16:04 110 H 04/02/23 16:00 109 H 19 138/78 96 04/02/23 15:40 35 04/02/23 15:16 35 04/02/23 15:00 111 H 19 140/79 96 04/02/23 14:00 98.6 F 113 H 25 H 104/61 96 04/02/23 13:00 110 H 19 140/74 96 04/02/23 12:00 98.4 F 120 H 18 99/63 96 35 04/02/23 11:44 115 H 04/02/23 11:36 112 H 35 04/02/23 11:00 101 H 15 121/71 97 04/02/23 10:00 101 H 17 86/55 98 04/02/23 09:00 110 H 17 95/54 96 04/02/23 08:16 123 H 04/02/23 08:05 122 H 04/02/23 08:00 98.9 F 118 H 20 117/69 93 L 35 04/02/23 07:55 35 04/02/23 07:54 119 H Intake and Output 04/02/23 04/03/23 04/03/23 22:59 06:59 14:59 Intake Total 4190.185 3963.432 156 Output Total 1075 1260 300 Balance -65.439 345.432 -144 Intake: IV 309 824 103 A line 9 24 3 Dextrose 5% in Water 1, 300 800 100 000 ml @ 100 mls/hr IV . Q10H GYPSY Rx#:[id number] Intake, IV Titration 34.561 108.432 Amount Diltiazem 125 mg In 2.250 Sodium Chloride 0.9% 100 ml @ Per Protocol IV .Q0M GYPSY Rx#:[id number] propofoL 1,000 mg In 34.561 106.182 Empty Bag 1 bag @ 30 MCG/ KG/MIN 8.328 mls/hr IV . Q12H1M GYPSY Rx#:[id number] Tube Feeding 416 423 53 Other 250 250 Output: Urine 1075 1260 300 Other: Voiding Method Indwelling Catheter Indwelling Catheter # Bowel Movements 1 Weight 59.6 kg ABP, PAP, CO, CI - Last 8 Hours Arterial Blood Pressure 138/62 Arterial Blood Pressure 147/75 Arterial Blood Pressure 152/69 Arterial Blood Pressure 143/67 Arterial Blood Pressure 134/61 Arterial Blood Pressure 138/67 Arterial Blood Pressure 119/58 Arterial Blood Pressure 118/56 Results 04/03/23 05:33 04/03/23 05:33 CBC 04/03/23 Range/Units 05:33 WBC 14.7 H (3.8-10.6) k/uL RBC 3.95 L (4.30-5.90) m/uL Hgb 13.2 (13.0-17.5) gm/dL Hct 41.3 (39.0-53.0) % Plt Count 143 L (150-450) k/uL Comprehensive Metabolic Panel 04/03/23 Range/Units 05:33 Sodium 137 (137-145) mmol/L Potassium 4.7 (3.5-5.1) mmol/L Chloride 94 L (98-107) mmol/L Carbon Dioxide 42 H* (22-30) mmol/L BUN 29 H (9-20) mg/dL Creatinine 0.46 L (0.66-1.25) mg/dL Glucose 184 H (74-99) mg/dL Calcium 8.5 (8.4-10.2) mg/dL Current Medications Generic Name Dose Route Start Last Admin Trade Name Freq PRN Reason Stop Dose Admin Albuterol/Ipratropium 3 ml 03/27/23 00:00 04/03/23 03:56 Ipratropium-Albuterol 3 Ml Neb INHALATION 3 ml RT-Q4H GYPSY Administration Artificial Tears 1 drops 03/31/23 16:00 04/02/23 21:33 Artificial Tears-Hypromellose Drops 15 Ml Btl BOTH EYES 1 drops TID GYPSY Administration Atorvastatin Calcium 10 mg 03/31/23 09:00 04/02/23 08:19 Atorvastatin 10 Mg Tab PO 10 mg DAILY GYPSY Administration Budesonide 1 mg 03/27/23 08:00 04/02/23 19:53 Budesonide 1 Mg/2 Ml Nebu INHALATION 1 mg RT-BID GYPSY Administration Chlorhexidine Gluconate 15 ml 03/27/23 09:00 04/02/23 21:33 Chlorhexidine Gluconate 15 Ml Cup MUCOUS MEM 15 ml BID GYPSY Administration Dextrose/Water 25 ml 03/28/23 22:51 Dextrose 50% Syringe 50 Ml IVP PER PROTOCOL PRN Hypoglycemia Protocol Dextrose/Water 50 ml 03/28/23 22:51 Dextrose 50% Syringe 50 Ml IVP PER PROTOCOL PRN Hypoglycemia Protocol Formoterol Fumarate 20 mcg 03/27/23 08:00 04/02/23 19:53 Formoterol Fumarate 20 Mcg/2 Ml Nebu INHALATION 20 mcg RT-BID GYPSY Administration Propofol 1,000 mg/ IV Solution 100 mls @ 8.328 mls/hr 03/26/23 19:00 04/03/23 06:52 IV 35 mcg/kg/min .Q12H1M GYPSY 9.716 mls/hr Titration Protocol 30 MCG/KG/MIN Ceftriaxone Sodium 1 gm/ 50 mls @ 100 mls/hr 03/27/23 09:00 04/02/23 08:21 Sodium Chloride IVPB 100 mls/hr Q24HR GYPSY Administration Protocol Norepinephrine Bitartrate 4 mg 254 mls @ 5.944 mls/hr 03/27/23 00:00 04/02/23 22:26 / Sodium Chloride IV Not Given .Q24H GYPSY Protocol 0.03 MCG/KG/MIN Dextrose/Water 1,000 mls @ 100 mls/hr 04/01/23 21:00 04/03/23 00:16 Dextrose 5%-Water Iv Soln IV 100 mls/hr .Q10H GYPSY Administration Diltiazem HCl 125 mg/ Sodium 125 mls @ 0 mls/hr 04/03/23 06:00 04/03/23 06:25 Chloride IV 15 mls/hr .Q0M GYPSY 15 mls/hr Titration Protocol Per Protocol Amiodarone HCl 360 mg/ 200 mls @ 33.333 mls/hr 04/03/23 07:00 Dextrose/Water IV 04/03/23 12:59 .Q6H ONE Protocol 1 MG/MIN Amiodarone HCl 450 mg/ 250 mls @ 16.667 mls/hr 04/03/23 13:00 Dextrose/Water IV 04/04/23 06:59 .Q15H GYPSY Protocol 0.5 MG/MIN Insulin Aspart 0 unit 03/29/23 00:00 04/03/23 05:56 Insulin Aspart (Novolog) 100 Unit/Ml Vial SQ 1 unit Q6HR GYPSY Administration Protocol Lisinopril 5 mg 03/31/23 09:00 04/02/23 08:19 Lisinopril 5 Mg Tab PO 5 mg DAILY GYPSY Administration Lorazepam 1 mg 03/27/23 08:56 04/02/23 08:18 Lorazepam 2 Mg/Ml Inj IV 1 mg Q2H PRN Administration Anxiety Methylprednisolone Sodium Succinate 60 mg 03/27/23 00:00 04/03/23 05:55 Methylprednisolone Sod Succi 125 Mg/2 Ml Vial IV 60 mg Q6HR GYPSY Administration Naloxone HCl 0.2 mg 03/26/23 20:25 Naloxone 0.4 Mg/Ml 1 Ml Vial IVP Q2M PRN Opioid Reversal Nicotine 1 patch 03/30/23 19:15 04/02/23 08:18 Nicotine 21mg/24hr Patch TRANSDERM 1 patch DAILY GYPSY Administration Pantoprazole Sodium 40 mg 04/01/23 21:00 04/02/23 21:33 Pantoprazole 40 Mg/10 Ml Vial IVP 40 mg BID GYPSY Administration Senna 8.6 mg 04/02/23 09:00 04/02/23 08:19 Sennosides 8.6 Mg Tab PO 8.6 mg DAILY GYPSY Administration Intake and Output 04/02/23 04/03/23 04/03/23 22:59 06:59 14:59 Intake Total 2214.532 8263.432 156 Output Total 1075 1260 300 Balance -65.439 345.432 -144 Intake: IV 309 824 103 A line 9 24 3 Dextrose 5% in Water 1, 300 800 100 000 ml @ 100 mls/hr IV . Q10H GYPSY Rx#:[id number] Intake, IV Titration 34.561 108.432 Amount Diltiazem 125 mg In 2.250 Sodium Chloride 0.9% 100 ml @ Per Protocol IV .Q0M GYPSY Rx#:[id number] propofoL 1,000 mg In 34.561 106.182 Empty Bag 1 bag @ 30 MCG/ KG/MIN 8.328 mls/hr IV . Q12H1M GYPSY Rx#:[id number] Tube Feeding 416 423 53 Other 250 250 Output: Urine 1075 1260 300 Other: Voiding Method Indwelling Catheter Indwelling Catheter # Bowel Movements 1 Weight 59.6 kg 04/03/23 05:33 04/03/23 05:33
[2023-04-03] MEDS: PANTOPRAZOLE 40 MG/10 ML VIAL IVP SCH ×2 (08:27→21:13)
[2023-04-03] MEDS: CHLORHEXIDINE GLUCONATE 15 ML CUP MUCOUS MEM SCH ×2 (08:27→21:13)
[2023-04-03] MEDS: NICOTINE 21MG/24HR PATCH TRANSDERM SCH (08:28)
[2023-04-03] MEDS: SENNOSIDES 8.6 MG TAB PO SCH (08:32)
[2023-04-03] MEDS: ATORVASTATIN 10 MG TAB PO SCH (08:32)
[2023-04-03] MEDS: ARTIFICIAL TEARS-HYPROMELLOSE DROPS 15 ML BTL BOTH EYES SCH ×3 (08:33→21:14)
[2023-04-03] MEDS: lisinopriL 5 MG TAB PO SCH (08:33)
[2023-04-03] MEDS: BUDESONIDE 1 MG/2 ML NEBU INHALATION SCH ×2 (08:56→21:47)
[2023-04-03] MEDS: FORMOTEROL FUMARATE 20 MCG/2 ML NEBU INHALATION SCH ×2 (08:56→21:47)
--- NOTE | 2023-04-03 09:18 | XR ---
EXAMINATION TYPE: XR chest 1V portable DATE OF EXAM: 04/03/2023 Comparison: 04/02/2023 Clinical History: 62-year-old male mechanical ventilation Findings: ET tube satisfactory. NG tube courses below the diaphragm. Left CVC tip at the mid to lower SVC. Hear t normal size. Hyperinflation. No consolidation or pleural effusion seen. Impression: COPD. No acute process seen.
[2023-04-03 11:27] LABS: Glucose,Whole Blood 156 mg/dL (70-110)
--- NOTE | 2023-04-03 11:36 | P.PN ---
Subjective Progress Note Date: 04/03/23 CHIEF COMPLAINT: Respiratory failure, COPD exacerbation HISTORY OF PRESENT ILLNESS: Patient remains in the ICU intubated and on mechanical ventilation. Patient is having difficulty weaning from vent. He is undergoing a sedation holiday today. PHYSICAL EXAM: VITAL SIGNS: Reviewed. GENERAL: no acute distress. ABDOMEN: Soft. Nondistended. Nontender. ASSESSMENT: 1. Respiratory failure requiring mechanical ventilation 2. Severe protein calorie malnutrition PLAN: -Surgical service will remain on standby for possible tracheostomy and PEG tube placement -Awaiting family's decision regarding possible tracheostomy and PEG tube placement Physician Hydrodynamics Professor note has been reviewed by physician. Signing provider agrees with the documented findings, assessment, and plan of care. Objective - Vital Signs Vital signs: Vital Signs Temp 98.8 F 04/03/23 04:00 Pulse 106 H 04/03/23 09:16 Resp 17 04/03/23 07:00 BP 141/80 04/03/23 07:00 Pulse Ox 98 04/03/23 07:00 FiO2 30 04/03/23 09:00 Intake & Output 04/02/23 04/03/23 04/03/23 18:59 06:59 18:59 Intake Total 193.884 9528.432 156 Output Total 1245 1860 300 Balance -259.379 512.432 -144 Weight 58.7 kg 59.6 kg Intake: IV 103 1133 103 A line 3 33 3 Dextrose 5% in Water 1, 100 1100 100 000 ml @ 100 mls/hr IV . Q10H GYPSY Rx#:[id number] Intake, IV Titration 84.621 108.432 Amount Diltiazem 125 mg In 2.250 Sodium Chloride 0.9% 100 ml @ Per Protocol IV .Q0M GYPSY Rx#:[id number] propofoL 1,000 mg In 84.621 106.182 Empty Bag 1 bag @ 30 MCG/ KG/MIN 8.328 mls/hr IV . Q12H1M GYPSY Rx#:[id number] Tube Feeding 548 631 53 Other 250 500 Output: Urine 1245 1860 300 Other: Voiding Method Indwelling Catheter Indwelling Catheter # Bowel Movements 1 1 ABP, PAP, CO, CI - Last Documented Arterial Blood Pressure 138/62 - Labs CBC & Chem 7: 04/03/23 05:33 04/03/23 05:33 Labs: Abnormal Lab Results - Last 24 Hours (Table) 04/02/23 04/02/23 04/03/23 Range/Units 11:16 16:37 00:11 WBC (3.8-10.6) k/uL RBC (4.30-5.90) m/uL MCV (80.0-100.0) fL Plt Count (150-450) k/uL Neutrophils # (1.3-7.7) k/uL Lymphocytes # (1.0-4.8) k/uL ABG pCO2 (35-45) mmHg ABG HCO3 (21-25) mmol/L ABG Total CO2 (19-24) mmol/L Chloride (98-107) mmol/L Carbon Dioxide (22-30) mmol/L BUN (9-20) mg/dL Creatinine (0.66-1.25) mg/dL Glucose (74-99) mg/dL POC Glucose (mg/dL) 156 H 146 H 164 H (70-110) mg/dL 04/03/23 04/03/23 04/03/23 Range/Units 05:32 05:33 05:33 WBC 14.7 H (3.8-10.6) k/uL RBC 3.95 L (4.30-5.90) m/uL MCV 104.8 H (80.0-100.0) fL Plt Count 143 L (150-450) k/uL Neutrophils # 13.6 H (1.3-7.7) k/uL Lymphocytes # 0.3 L (1.0-4.8) k/uL ABG pCO2 (35-45) mmHg ABG HCO3 (21-25) mmol/L ABG Total CO2 (19-24) mmol/L Chloride 94 L (98-107) mmol/L Carbon Dioxide 42 H* (22-30) mmol/L BUN 29 H (9-20) mg/dL Creatinine 0.46 L (0.66-1.25) mg/dL Glucose 184 H (74-99) mg/dL POC Glucose (mg/dL) 168 H (70-110) mg/dL 04/03/23 Range/Units 06:44 WBC (3.8-10.6) k/uL RBC (4.30-5.90) m/uL MCV (80.0-100.0) fL Plt Count (150-450) k/uL Neutrophils # (1.3-7.7) k/uL Lymphocytes # (1.0-4.8) k/uL ABG pCO2 72 H* (35-45) mmHg ABG HCO3 45 H* (21-25) mmol/L ABG Total CO2 47 H (19-24) mmol/L Chloride (98-107) mmol/L Carbon Dioxide (22-30) mmol/L BUN (9-20) mg/dL Creatinine (0.66-1.25) mg/dL Glucose (74-99) mg/dL POC Glucose (mg/dL) (70-110) mg/dL
--- NOTE | 2023-04-03 11:45 | P.PN ---
Subjective Progress Note Date: 04/03/23 Principal diagnosis: Acute hypoxic and hypercapnic respiratory failure secondary to acute exacerbation of COPD Patient is a 62-year-old white male with past medical history significant for COPD and chronic ongoing tobacco dependence. The patient came into the emergency department with significant shortness of breath. Apparently, he was actively bronchospastic and he had diminished breath sounds. In the emergency, the patient was given breathing treatments [id number] and subsequently was placed in the 100% nonrebreather facemask. Upon follow-up, the patient was fou nd to be completely unresponsive and he was unable to protect his airway and his breathing was very shallow. At that point, he was intubated and placed on a mechanical ventilator. The initial blood gas was done postintubation was lab error and subsequently follow-up blood gases was done that showed significant respiratory acidosis and oxygen nasal already improved. Patient is currently sedated and intubated on mechanical ventilator, most of this HPI supplemented from ER documentation. We were not able to get a hold of any family at this time, and there are no prior charts to review. Based on a review of his home medications, he may have history COPD, hypertension, and hyperlipidemia. Pos tintubation he ABG was consistent with severe hypercapnic respiratory failure. PO2 greater than 400, pCO2 of 93, and pH of 7.12. Postintubation chest x-ray has endotracheal tube approximately 4 cm above the imchael. Orogastric tube courses below the diaphragm. No focal infiltrates or evidence of pneumonia. There is marked hyperinflation with flattening of the diaphragm, consistent with COPD. A follow-up chest CTA done while in the emergency room showed no evidence of pulmonary embolism. There is no acute cardiopulmonary process. Patient is currently in the intensive care unit, intubated to the mechanical ventilator. Propofol is infusing at 45 mcg/kg/m. He is synchronous with mechanical ventilator. Current ventilator settings are assist control, respiratory rate of 12, tidal volume 400, FiO2 of 80%, PEEP of 5. A repeat ABG as a PaO2 of 358, pCO2 of 90, pH of 7.14. I increased the patient's respiratory rate 20 and reduce the FiO2 to 50%. The peak airway pressure is 34 and static airway pressure is 24, patient has some evidence of airway resistance. Lung sounds are tight and continues wheezing. No significant airway secretions. Patient has been started on DuoNeb's every 4 hours. I would add budesonide and formoterol. Patient is also hypotensive, he is already received a total of 2 L normal saline bolus. He is only 52 kg. Patient will be started on low-dose norepinephrine for refractory hypotension if needed. CBC on arrival unremarkable. BMP on arrival, sodium 132, potassium 4.9, chloride 94, serum bicarbonate 33, BUN 16, creatinine 0.62, glucose 123. Lactic acid level II.5. Troponin is less than 0.012. Negative for influenza, RSV, COVID-19. He is afebrile. Patient's status is still volatile, and there are no plans to extubate tonight. They have the chest was also completed in emergency. This was reviewed. No evidence of any pulmonary embolism. There is extensive emphysema bilaterally. No airspace disease. Note that the patient's NG output is bloody. Currently has approximately 300 mL and the canister. In terms of his hemoglobin monitoring, the patient's hemoglobin dropped from 15.2 down to 13.5. IV fluids are in the form of normal saline at rate of 75 mL's an hour. The patient is sedated with propofol running at 50 mcg/kg/m. Most recent blood gas showed improvement and acid-base status. PH is down still at 7.28 also improved compared to yesterday. PCO2 is down to 58 and pO2 is at 179 and this was an FiO2 of 50% and subseque ntly the FiO2 was dropped onto 40%. No pressors. Today's evaluation of 03/28/2023, the patient remains intubated on a mechanical ventilator. He remains sedated on propofol which is running at 70 g plus kilogram per minutes. Despite his adequate sedation, the patient remains actively bronchospastic and wheezy. In fact, he is having elevated peak airway pressure this morning. His current ventilator settings with evidence is control mode rate of 12, tidal volume of 400, FiO2 of 40% with a PEEP of 5. His blood gases show a pH of 7.32 with a pCO2 of 54 and pO2 of 133. Chest x-ray shows ma rked hyperinflation. No airspace disease. No consolidation. On a separate note, the patient was having episodes of GI bleed. NG tube was in place throughout the night. Output from the treatment diminished and the hemoglobin had dropped slightly down to 12.5 this morning. EGD was done earlier today and the patient was found to have a 5 mm ulcer in the body of the stomach and an Endo Clip was applied. The patient will some antral erosive gastritis. Clearance was obtained from the network project manager to feed the patient. As such, we will going to start enteral feeding. We'll going to stop TPN for now. Hemodynamically stable. He is maintaining his own blood pressure without any pressors. The patient remains on IV fluids with normal saline at 125 mL an hour. He remains on bronchodilators. He remains on steroids. He remains on a broad-spectrum antibiotic coverage with Rocephin and Zithromax. White cell count 11.9, he was 12.5 and a platelet is 164. Sodium is at 136, BUN is at 17 with a creatinine of 0.6. LFTs are within normal limits. No other significant events overnight. On 03/29/2023, patient is being seen for a follow-up. Remains sedated on propofol. His calm and comfortable. Propofol is running at 50 microvascular kilogram per minute. The patient remains on the same ventilator settings with a tidal volume of 375, rate of 12, FiO2 of 40% with a PEEP of 5. Peak air pressures at 42. Remains actively bronchospastic and wheezy. Not a candidate for any bleeding at this point in time as the patient COPD still quite active. Chest x-ray shows hyperinflation. Orotracheal tube is in good location. No evidence of any airspace disease of consolidation. Remains on broke a dilated. Remains on steroids. Remains on enteral feeding for nutritional support and the patient is taking vital high-protein at the rate of 30 mL an hour. Hemodynamically stable. No other significant events overnight. Blood gas from today shows a pH of 7.29 with episodes of 48 and pO2 118 and this was an FiO2 of 40%. The white cell cause of 14.3, hemoglobin of 11.8 and a platelet count of 153. BUN is at 20 with a creatinine of 0.6 and a sodium level is at 142 and a potassium level of 4.6. LFTs are normal. The sputum sample was positive for Haemophilus influenza. On 03/30/2023, the patient remains on a mechanical ventilator. Slightly less bronchus spastic compared to yesterday. The peak airway pressure today's ranging between 33 and 35. The patient is on assist control mode at a rate of 12, tidal volume of 375, FiO2 is at 40% with a PEEP of 5. He remains on propofol running at 50 microvascular kilogram per minute. Chest x-ray findings are unchanged. No clear indication for pneumonia. The patient is Haemophilus influenza cultured in the sputum. Blood gas from today shows a pH of 7.28 with episodes of 83 and pO2 of 107 and this was an FiO2 of 40%. The patient continues to receive enteral feeding for nutritional support and he is on vital high-protein at the rate of 46 mL an hour. IV fluids are currently running at 75 mL an hour. The patient's sodium level is at 150, potassium levels at 4.2, chlorides 112 and a bicarb of 39. BUN is 29 with a creatinine of 0.6. The white cell cause of 10.9 with a hemoglobin of 11.4. No other complications or issues for now. Unable to wean this patient yet off the mechanical ventilator as his COPD remains quite active. Hemodynamically stable. He is on no pressors. Tolerating enteral feeding. 03/31/2023, the patient is on a mechanical ventilator. Ventilator settings are control 12, tidal volume of 400, FiO2 40% with a PEEP of 5. The patient's blood gas shows some improvement acid-base status. On today's evaluation, the patient has a pH of 7.34 with episodes of 84 and pO2 of 109. This was an FiO2 of 40%. Chest x-ray findings are unchanged. Peak airway pressures around 34. Air entry is improved bilaterally. However, with any attempts to cut down the sedation, the patient becomes asynchronous and he starts peak pressure in. I do not believe that his ready for any further weaning at this point in time. I may even consider the possibility of tracheostomy at the later stage. He is currently on a propofol at the rate of 50 mcg/kg/m. His vital high-protein at the rate of 46 mL an hour. His sodium level is elevated. I started him on free water supplements through the OG tube. He'll be started on D5 water today in attempt to optimize his sodium level hypernatremia. He has a 35 and a creatinine of 0.5. Potassium is 4.4. The previous cause of 9.8 with a hemoglobin of 12.2. Remains hemodynamically stable. Remains afebrile. Remains on IV Rocephin. Patient was reevaluated today on 04/01/23, remains in the ICU, intubated and mechanically ventilated. He is on assist control rate of 12 tidal volume 400 FiO2 40% and PEEP of 5 and FiO2 was cut down to 35%, ABG 109/81/7.38. Patient is requiring sedation presently on propofol at 50 mcg/kg/m, is also on D5W at 75 mL per hour receiving vitamin Hb at 46 mL per hour, also receiving free water flushes because of his hypernatremia, patient remains on ceftriaxone, Solu- Medrol, NicoDerm, patient had EGD on 03/28 and he was found to have upper GI bleeding, looking at the notes from Dr. Herring, he felt that the patient has such a severe COPD, he will be very difficult to wean, and may have to consider tracheostomy and PEG tube placement on this patient. Nonetheless I will give the patient trials of weaning on a daily basis, and if the patient fails over the next 5 days, may recommend trach and PEG on this patient. His peak airway pressure today is 34, plateau pressure is 22. WBC count is 7.9 hemoglobin is 11.5 sodium is 148 bicarb is 44 ABG as noted earlier. Chest x-ray is showing severe COPD picture/hyperinflation/emphysema picture Reevaluated today on 04/02/2023, remains in the ICU intubated and mechanically ventilated, patient is presently on assist-control rate of 12 tidal volume of 100 FiO2 35% PEEP of 5, ABG showed a pO2 of 90 pCO2 77 pH of 7.39. Patient remains on propofol at 30 mcg/kg/min, he is also on vital HP at 40 M 6 mL/h, receiving Rocephin, we are holding on anticoagulation therapy because of his recent GI bleed, yesterday the patient was given a very short voiding trial, and he failed immediately, not quite ready for any weaning. As a matter fact considering his presentation and considering his overall pulmonary status, I believe the patient is going to be extremely difficult to wean and extubate, hence I am recommending surgical consultation for tracheostomy and PEG tube placement. Chest x-ray is mostly showing COPD changes, no clear-cut evidence of infiltrate. Nonetheless patient remains empirically on Rocephin. WBC count today is 11.7 hemoglobin is 12.8. Basic metabolic profile is normal bicarb is 41 BUN is 33 creatinine 0.41 Reevaluated today on 04/03/2023, patient remains in, intubated and mechanically ventilated. This morning, patient went into new onset atrial fibrillation with RVR, placed on Cardizem drip as per cardiology, did not recommend anticoag ulation because of his recent GI bleed, patient remains in bated and mechanically ventilated, he is on assist-control rate of 12 tidal volume 400 FiO2 35% and PEEP of 5G showed a pO2 of 89 pCO2 72 pH of 7.40, his sputum was positive for H. influenzae. Patient remains on D5W at 100 cc/h propofol at 35 mcg/kg/min, he is on vital HP at 52 cc/h. Patient finished full course of ceftriaxone treatment. Today will be the last day. For his atrial fibrillation and RVR, patient is being addressed by cardiology. When I saw him this morning, he already converted to sinus rhythm. Chest x-ray continues to show evidence of COPD but no evidence of infiltrate. WBC count is 14.7 hemoglobin 13.2 basic me tabolic profile is normal, renal profile is normal patient remains on propofol, difficult to assess mental status, however I will have the nurses hold his propofol today, and try to address mental status. Apparently off propofol the patient gets extremely agitated, tachypneic, tachycardic, none synchronous with the ventilator, hence could not get to the point where we could address weaning or addressed even evaluation of mental status on this patient Objective - Vital Signs Vital signs: Vital Signs Temp 98.8 F 04/03/23 04:00 Pulse 106 H 04/03/23 09:16 Resp 17 04/03/23 07:00 BP 141/80 04/03/23 07:00 Pulse Ox 98 04/03/23 07:00 FiO2 30 04/03/23 09:00 Intake & Output 04/02/23 04/03/23 04/03/23 18:59 06:59 18:59 Intake Total 880.698 4707.432 156 Output Total 1245 1860 300 Balance -259.379 512.432 -144 Weight 58.7 kg 59.6 kg Intake: IV 103 1133 103 A line 3 33 3 Dextrose 5% in Water 1, 100 1100 100 000 ml @ 100 mls/hr IV . Q10H [facility] Rx#:[id number] Intake, IV Titration 84.621 108.432 Amount Diltiazem 125 mg In 2.250 Sodium Chloride 0.9% 100 ml @ Per Protocol IV .Q0M [facility] Rx#:[id number] propofoL 1,000 mg In 84.621 106.182 Empty Bag 1 bag @ 30 MCG/ KG/MIN 8.328 mls/hr IV . Q12H1M [facility] Rx#:[id number] Tube Feeding 548 631 53 Other 250 500 Output: Urine 1245 1860 300 Other: Voiding Method Indwelling Catheter Indwelling Catheter # Bowel Movements 1 1 ABP, PAP, CO, CI - Last Documented Arterial Blood Pressure 138/62 - Exam Physical Exam: Revealed a 62-year-old white male in no distress intubated mechanically ventilated sedated on propofol. Head: Atraumatic, normocephalic. HEENT:[Neck is supple.] [No neck masses.] [No thyromegaly.] [No JVD.] Endotracheal tube and orogastric tubes are intact. Chest: [Neck symmetrical chest expansion, diminished breath sound bilaterally no rhonchi no wheezes.] Cardiac Exam: [Normal S1 and S2, no S3 gallop, no murmur.] Abdomen: [Soft, nontender, no megaly, no rebound, no guarding, normal bowel sounds.] Extremities: [No clubbing, no edema, no cyanosis.] Good distal pulses bilat erally. Neurological Exam: [Sedated, on propofol, could not. Assess, however the patient seems to be extremely restless and agitated asynchronous with the ventilator when he goes off propofol Psychiatric: Sedated, on propofol, could not assess. Skin: No rashes - Labs CBC & Chem 7: 04/03/23 05:33 04/03/23 05:33 Labs: Abnormal Lab Results - Last 24 Hours (Table) 04/02/23 04/03/23 04/03/23 Range/Units 16:37 00:11 05:32 WBC (3.8-10.6) k/uL RBC (4.30-5.90) m/uL MCV (80.0-100.0) fL Plt Count (150-450) k/uL Neutrophils # (1.3-7.7) k/uL Lymphocytes # (1.0-4.8) k/uL ABG pCO2 (35-45) mmHg ABG HCO3 (21-25) mmol/L ABG Total CO2 (19-24) mmol/L Chloride (98-107) mmol/L Carbon Dioxide (22-30) mmol/L BUN (9-20) mg/dL Creatinine (0.66-1.25) mg/dL Glucose (74-99) mg/dL POC Glucose (mg/dL) 146 H 164 H 168 H (70-110) mg/dL 04/03/23 04/03/23 04/03/23 Range/Units 05:33 05:33 06:44 WBC 14.7 H (3.8-10.6) k/uL RBC 3.95 L (4.30-5.90) m/uL MCV 104.8 H (80.0-100.0) fL Plt Count 143 L (150-450) k/uL Neutrophils # 13.6 H (1.3-7.7) k/uL Lymphocytes # 0.3 L (1.0-4.8) k/uL ABG pCO2 72 H* (35-45) mmHg ABG HCO3 45 H* (21-25) mmol/L ABG Total CO2 47 H (19-24) mmol/L Chloride 94 L (98-107) mmol/L Carbon Dioxide 42 H* (22-30) mmol/L BUN 29 H (9-20) mg/dL Creatinine 0.46 L (0.66-1.25) mg/dL Glucose 184 H (74-99) mg/dL POC Glucose (mg/dL) (70-110) mg/dL 04/03/23 Range/Units 11:26 WBC (3.8-10.6) k/uL RBC (4.30-5.90) m/uL MCV (80.0-100.0) fL Plt Count (150-450) k/uL Neutrophils # (1.3-7.7) k/uL Lymphocytes # (1.0-4.8) k/uL ABG pCO2 (35-45) mmHg ABG HCO3 (21-25) mmol/L ABG Total CO2 (19-24) mmol/L Chloride (98-107) mmol/L Carbon Dioxide (22-30) mmol/L BUN (9-20) mg/dL Creatinine (0.66-1.25) mg/dL Glucose (74-99) mg/dL POC Glucose (mg/dL) 156 H (70-110) mg/dL Assessment and Plan Assessment: Impression: Acute hypoxic/hypercapnic respiratory failure secondary to acute exacerbation of COPD, no evidence of pneumonia Severe COPD Chronic smoker/tobacco dependence syndrome Acute upper GI bleeding secondary to erosive antral gastritis based on EGD patient had Endo Clip applied. Presently on Protonix 40 mg twice a day, still holding Lovenox. Benign essential hypertension Dyslipidemia Chronic anxiety disorder maintained on Zyprexa on outpatient basis is also on Prozac for depression Dyslipidemia Hyperchloremic hypernatremia, resolved New onset atrial fibrillation with RVR, on Cardizem. Recommendation: Continue ventilatory support, with daily sedation interruption and assessment of mental status and assessment if the patient could wean however this is very unlikely to happen Will continue to try weaning trials Surgery was consulted for possible PEG tube and tracheostomy tube, family to decide regarding this recommendation Discontinue Rocephin, patient had full treatment Continue GI prophylaxis Continue Cardizem No anticoagulation therapy at this point because of his previous GI bleed Continue Protonix 40 mg twice a day Continue enteral feeding/nutritional support, patient is receiving vital HP Patient remains critically ill Surgery is on board once the family agrees to tracheostomy and PEG tube placement Critical care time is over 30 minutes Time with Patient: Greater than 30
[2023-04-03] MEDS: AMIODARONE 450 MG in DEXTROSE 5% IN WATER 250 ML IV SCH ×2 (13:18)
[2023-04-03 17:15] LABS: Glucose,Whole Blood 168 mg/dL (70-110)
--- NOTE | 2023-04-03 22:33 | P.PN ---
Subjective Progress Note Date: 04/02/23 Principal diagnosis: Reason for follow-up is possible pneumonia This is a telehealth visit Patient is a 62-year-old male with a past medical history significant for hypertension anxiety current everyday smoker patient was brought into the hospital for difficulty breathing and chest tightness patient got intubated admitted to ICU. On today's evaluation there is 04/02/2023 the patient continues to be afebrile, patient remains to be intubated on the vent, FiO2 is down to 30% no significant purulent secretions through the ET diarrhea or any other changes reported by [facility] staff patient to get agitated when sedation is cut back and is being considered for trach and PEG. Patient white count of 11.7 creatinine is 0.41 Objective - Vital Signs Vital signs: Vital Signs Temp 98.9 F 04/02/23 04:00 Pulse 123 H 04/02/23 08:16 Resp 17 04/02/23 07:00 BP 145/82 04/02/23 07:00 Pulse Ox 96 04/02/23 07:00 FiO2 35 04/02/23 07:55 Intake & Output 04/01/23 04/02/23 04/02/23 18:59 06:59 18:59 Intake Total 6174.119 6792.171 149 Output Total 955 1050 95 Balance 83.233 1175.171 54 Weight 57.4 kg 58.7 kg Intake: IV 78 1133 103 A line 3 33 3 Dextrose 5% in Water 1, 1100 100 000 ml @ 100 mls/hr IV . Q10H [facility] Rx#:[id number] Dextrose 5% in Water 1, 75 000 ml @ 75 mls/hr IV . [id number] [facility] Rx#:[id number] Intake, IV Titration 114.233 86.171 Amount propofoL 1,000 mg In 114.233 86.171 Empty Bag 1 bag @ 30 MCG/ KG/MIN 8.328 mls/hr IV . Q12H1M [facility] Rx#:[id number] Tube Feeding 596 506 46 Other 250 500 Output: Urine 955 1050 95 Other: Voiding Method Indwelling Catheter Indwelling Catheter # Bowel Movements 1 ABP, PAP, CO, CI - Last Documented Arterial Blood Pressure 126/58 - Exam GENERAL DESCRIPTION: Middle-age male intubated on the vent RESPIRATORY SYSTEM: Unlabored breathing , decreased breath sounds at bases HEART: S1 S2 regular rate and rhythm , ABDOMEN: Soft , no tenderness EXTREMITIES: No edema feet Exam completed with help of VENEER JOINER - Labs CBC & Chem 7: 04/03/23 05:33 04/03/23 05:33 Labs: Abnormal Lab Results - Last 24 Hours (Table) 04/01/23 04/01/23 04/01/23 Range/Units 11:27 17:22 23:46 WBC (3.8-10.6) k/uL RBC (4.30-5.90) m/uL Hgb (13.0-17.5) gm/dL MCV (80.0-100.0) fL Plt Count (150-450) k/uL Neutrophils # (1.3-7.7) k/uL Lymphocytes # (1.0-4.8) k/uL ABG pCO2 (35-45) mmHg ABG HCO3 (21-25) mmol/L ABG Total CO2 (19-24) mmol/L ABG O2 Saturation (94-97) % Chloride (98-107) mmol/L Carbon Dioxide (22-30) mmol/L BUN (9-20) mg/dL Creatinine (0.66-1.25) mg/dL Glucose (74-99) mg/dL POC Glucose (mg/dL) 162 H 174 H 184 H (70-110) mg/dL 04/02/23 04/02/23 04/02/23 Range/Units 05:06 05:06 05:07 WBC 11.7 H (3.8-10.6) k/uL RBC 3.80 L (4.30-5.90) m/uL Hgb 12.8 L (13.0-17.5) gm/dL MCV 106.1 H (80.0-100.0) fL Plt Count 141 L (150-450) k/uL Neutrophils # 10.9 H (1.3-7.7) k/uL Lymphocytes # 0.3 L (1.0-4.8) k/uL ABG pCO2 (35-45) mmHg ABG HCO3 (21-25) mmol/L ABG Total CO2 (19-24) mmol/L ABG O2 Saturation (94-97) % Chloride 95 L (98-107) mmol/L Carbon Dioxide 41 H* (22-30) mmol/L BUN 33 H (9-20) mg/dL Creatinine 0.41 L (0.66-1.25) mg/dL Glucose 178 H (74-99) mg/dL POC Glucose (mg/dL) 172 H (70-110) mg/dL 04/02/23 Range/Units 06:27 WBC (3.8-10.6) k/uL RBC (4.30-5.90) m/uL Hgb (13.0-17.5) gm/dL MCV (80.0-100.0) fL Plt Count (150-450) k/uL Neutrophils # (1.3-7.7) k/uL Lymphocytes # (1.0-4.8) k/uL ABG pCO2 77 H* (35-45) mmHg ABG HCO3 46 H* (21-25) mmol/L ABG Total CO2 49 H (19-24) mmol/L ABG O2 Saturation 97.1 H (94-97) % Chloride (98-107) mmol/L Carbon Dioxide (22-30) mmol/L BUN (9-20) mg/dL Creatinine (0.66-1.25) mg/dL Glucose (74-99) mg/dL POC Glucose (mg/dL) (70-110) mg/dL Microbiology - Last 24 Hours (Table) 03/26/23 16:47 Blood Culture - Final Blood 03/26/23 16:40 Blood Culture - Final Blood Assessment and Plan (1) Fever Current Visit: Yes Status: Acute Code(s): R50.9 - FEVER, UNSPECIFIED SNOMED Code(s): 611286174 (2) Leukocytosis Current Visit: Yes Status: Acute Code(s): D72.829 - ELEVATED WHITE BLOOD CELL COUNT, UNSPECIFIED SNOMED Code(s): 571896069 Plan: 1patient presented to hospital with increasing shortness of breath more likely related to underlying COPD exacerbation with tracheobronchitis patient not running any fever white count has been normal both the CT of the chest as well as chest x-ray did not show any acute pulmonary process, however the patient did have a low-grade fever and the sputum culture now growing haemophilus concerning for possible early community-acquired pneumonia versus purulent tracheobronchiti s 2--patient is afebrile and the patient white count has normalized , however mildly elevated today and will be monitored closely 3-patient to continue with Rocephin to finish a 7-day course of therapy Dictation was produced using [employer] dictation software. please excuse any grammatical, word or spelling errors. Time with Patient: Less than 30
--- NOTE | 2023-04-03 22:34 | P.PN ---
Subjective Progress Note Date: 04/03/23 Principal diagnosis: Reason for follow-up is possible pneumonia This is a telehealth visit Patient is a 62-year-old male with a past medical history significant for hypertension anxiety current everyday smoker patient was brought into the hospital for difficulty breathing and chest tightness patient got intubated admitted to ICU. On today's evaluation there is 04/03/2023, the patient is afebrile patient on the vent FiO2 of 30% no significant purulent secretions through the ET has been tolerating his tube feeds no significant diarrhea has been reported weaning remains to be an issue because of agitation and possible plan for trach and PEG family has not made a decision yet per the nursing staff Patient white count slightly up to 14.7, creatinine 0.46 Objective - Vital Signs Vital signs: Vital Signs Temp 98.8 F 04/03/23 04:00 Pulse 106 H 04/03/23 09:16 Resp 17 04/03/23 07:00 BP 141/80 04/03/23 07:00 Pulse Ox 98 04/03/23 07:00 FiO2 30 04/03/23 09:00 Intake & Output 04/02/23 04/03/23 04/03/23 18:59 06:59 18:59 Intake Total 264.997 4080.432 156 Output Total 1245 1860 300 Balance -259.379 512.432 -144 Weight 58.7 kg 59.6 kg Intake: IV 103 1133 103 A line 3 33 3 Dextrose 5% in Water 1, 100 1100 100 000 ml @ 100 mls/hr IV . Q10H [facility] Rx#:[id number] Intake, IV Titration 84.621 108.432 Amount Diltiazem 125 mg In 2.250 Sodium Chloride 0.9% 100 ml @ Per Protocol IV .Q0M GYPSY Rx#:[id number] propofoL 1,000 mg In 84.621 106.182 Empty Bag 1 bag @ 30 MCG/ KG/MIN 8.328 mls/hr IV . Q12H1M GYPSY Rx#:[id number] Tube Feeding 548 631 53 Other 250 500 Output: Urine 1245 1860 300 Other: Voiding Method Indwelling Catheter Indwelling Catheter # Bowel Movements 1 1 ABP, PAP, CO, CI - Last Documented Arterial Blood Pressure 138/62 - Exam GENERAL DESCRIPTION: Middle-age male intubated on the vent RESPIRATORY SYSTEM: Unlabored breathing , decreased breath sounds at bases HEART: S1 S2 regular rate and rhythm , ABDOMEN: Soft , no tenderness EXTREMITIES: No edema feet Exam completed with help of [employer] - Labs CBC & Chem 7: 04/03/23 05:33 04/03/23 05:33 Labs: Abnormal Lab Results - Last 24 Hours (Table) 04/02/23 04/02/23 04/03/23 Range/Units 11:16 16:37 00:11 WBC (3.8-10.6) k/uL RBC (4.30-5.90) m/uL MCV (80.0-100.0) fL Plt Count (150-450) k/uL Neutrophils # (1.3-7.7) k/uL Lymphocytes # (1.0-4.8) k/uL ABG pCO2 (35-45) mmHg ABG HCO3 (21-25) mmol/L ABG Total CO2 (19-24) mmol/L Chloride (98-107) mmol/L Carbon Dioxide (22-30) mmol/L BUN (9-20) mg/dL Creatinine (0.66-1.25) mg/dL Glucose (74-99) mg/dL POC Glucose (mg/dL) 156 H 146 H 164 H (70-110) mg/dL 04/03/23 04/03/23 04/03/23 Range/Units 05:32 05:33 05:33 WBC 14.7 H (3.8-10.6) k/uL RBC 3.95 L (4.30-5.90) m/uL MCV 104.8 H (80.0-100.0) fL Plt Count 143 L (150-450) k/uL Neutrophils # 13.6 H (1.3-7.7) k/uL Lymphocytes # 0.3 L (1.0-4.8) k/uL ABG pCO2 (35-45) mmHg ABG HCO3 (21-25) mmol/L ABG Total CO2 (19-24) mmol/L Chloride 94 L (98-107) mmol/L Carbon Dioxide 42 H* (22-30) mmol/L BUN 29 H (9-20) mg/dL Creatinine 0.46 L (0.66-1.25) mg/dL Glucose 184 H (74-99) mg/dL POC Glucose (mg/dL) 168 H (70-110) mg/dL 04/03/23 Range/Units 06:44 WBC (3.8-10.6) k/uL RBC (4.30-5.90) m/uL MCV (80.0-100.0) fL Plt Count (150-450) k/uL Neutrophils # (1.3-7.7) k/uL Lymphocytes # (1.0-4.8) k/uL ABG pCO2 72 H* (35-45) mmHg ABG HCO3 45 H* (21-25) mmol/L ABG Total CO2 47 H (19-24) mmol/L Chloride (98-107) mmol/L Carbon Dioxide (22-30) mmol/L BUN (9-20) mg/dL Creatinine (0.66-1.25) mg/dL Glucose (74-99) mg/dL POC Glucose (mg/dL) (70-110) mg/dL Assessment and Plan (1) Fever Current Visit: Yes Status: Acute Code(s): R50.9 - FEVER, UNSPECIFIED SNOMED Code(s): 856330567 (2) Leukocytosis Current Visit: Yes Status: Acute Code(s): D72.829 - ELEVATED WHITE BLOOD CELL COUNT, UNSPECIFIED SNOMED Code(s): 578463495 Plan: 1patient presented to hospital with increasing shortness of breath more likely related to underlying COPD exacerbation with tracheobronchitis patient not running any fever white count has been normal both the CT of the chest as well as chest x-ray did not show any acute pulmonary process, however the patient did have a low-grade fever and the sputum culture now growing haemophilus concerning for possible early community-acquired pneumonia versus purulent tracheob ronchitis 2--patient is afebrile and the patient white count has normalized , however white count is now trending up could be related to steroids and will be monitored closely 3-patient has completed a 7-day course of Rocephin, which has been discontinued and the patient will monitor closely off antibiotic Dictation was produced using [employer] dictation software. please excuse any grammatical, word or spelling errors. Time with Patient: Less than 30
[2023-04-03] MEDS: NOREPINEPHRINE 4 MG in SODIUM CHLORIDE 0.9% 250 ML IV SCH (23:34)
[2023-04-04] MEDS: IPRATROPIUM-ALBUTEROL 3 ML NEB INHALATION SCH ×6 (00:09→20:19)
[2023-04-04 00:30] LABS: Glucose,Whole Blood 176 mg/dL (70-110)
[2023-04-04] MEDS: methylPREDNISolone SOD SUCCI 125 MG/2 ML VIAL IV SCH ×5 (00:38→23:06)
[2023-04-04] MEDS: INSULIN ASPART (NovoLOG) 100 UNIT/ML VIAL SQ SCH ×5 (00:38→23:06)
[2023-04-04] MEDS: AMIODARONE 450 MG in DEXTROSE 5% IN WATER 250 ML IV SCH ×2 (03:29)
[2023-04-04] MEDS: DEXTROSE 5% IN WATER 1,000 ML IV SCH (03:54)
[2023-04-04 04:16] LABS: Allen Test Performed? Yes
[2023-04-04 05:22] LABS: Glucose,Whole Blood 184 mg/dL (70-110)
[2023-04-04 05:45] LABS: Basophils % (A) 0 %; Eosinophils % (A) 0 %; HCT 41.2 % (39.0-53.0); HGB 13.1 gm/dL (13.0-17.5); Hypochromasia Slight; Lymphocytes # (A) 0.2 k/uL (1.0-4.8); Lymphocytes % (A) 1 %; MCH 33.3 pg (25.0-35.0); MCHC 31.7 g/dL (31.0-37.0); MCV 105.1 fL (80.0-100.0); Macrocytosis Slight; Mean Platelet Volume 8.6; Monocytes # (A) 0.6 k/uL (0-1.0); Monocytes % (A) 3 %; Neutrophils # (A) 16.7 k/uL (1.3-7.7); Neutrophils % (A) 95 %; Platelet Count 143 k/uL (150-450); RBC 3.92 m/uL (4.30-5.90); RDW 12.6 % (11.5-15.5); WBC 17.6 k/uL (3.8-10.6)
[2023-04-04 06:27] LABS: African American GFR (CKD) >90 (>60 ml/min/1.73 sqM); Blood Urea Nitrogen 30 mg/dL (9-20); Calcium 8.4 mg/dL (8.4-10.2); Chloride 96 mmol/L (98-107); Glucose 195 mg/dL (74-99); Non-African American GFR(CKD) >90 (>60 ml/min/1.73 sqM); Potassium 4.5 mmol/L (3.5-5.1); Sodium 138 mmol/L (137-145)
[2023-04-04 06:34] LABS: Anion Gap 6 mmol/L; Carbon Dioxide 36 mmol/L (22-30)
--- NOTE | 2023-04-04 07:15 | P.PN ---
Subjective Progress Note Date: 04/04/23 PROGRESS NOTE The patient is a 62-year-old male with known history of severe chronic obstructive lung disease chronic tobacco use who presented on March 26 with symptoms of severe progressive dyspnea, requiring mechanical ventilation. Attempt to wean him have been unsuccessful. Cardiology consultation was requested because of an episode of paroxysmal atrial fibrillation that occurred last night. Patient remains intubated, back in sinus mechanism. He was started on IV Cardizem. He has baseline sinus tachycardia. He is on no vasopressor. His urinary output has been stable. According to the nursing staff patient had a prior history of GI bleeding and underwent endoscopy and had an acute bleeding requiring Endo Clip placement for gastric ulcer of the mid body of the stomach. The procedure was done on March 28. He has been evaluated for possible need to undergo PEG and trach placement although according to the nursing staff the family is not sure if they want to proceed with that. He has a history of hypertension and hyperlipidemia. No other past history is available to me. March 04: The patient remains intubated, in sinus mechanism, hemodynamically stable. Decision regarding PEG tube and trach still pending. There is no hemodynamic compromise. His urinary output is stable. There is no further episodes of atrial fibrillation. He continues to be on IV Cardizem drip. No anticoagulation was started because of recent GI bleeding. Attempt to wean his ventilator in the past were unsuccessful because of agitation and tachypnea. Medications: IV Cardizem, lisinopril 5 mg daily, insulin, start prednisone, PHYSICAL EXAMINATION: Blood pressure 140/70 heart rate 108, intubated and sedated LUNGS: Clear to auscultation anteriorly HEART: Regular rate and rhythm, S1, S2. No S3. No systolic murmur ABDOMEN: Soft, no organomegaly EXTREMETIES: No edema LAB: WBC 17.6, hemoglobin 13.1, potassium 4.5, BUN 30, creatinine 1.5 IMPRESSION: 1. Respiratory failure with severe COPD with hypercapnia and hypoxemia and failure to wean 2. Paroxysmal atrial fibrillation, maintaining sinus mechanism 3. Recent GI bleeding 4. History of hypertension PLAN: 1. Continue IV Cardizem for now 2. Obtain an echocardiogram with Doppler 3. Await decision regarding PEG tube and tracheostomy 4. Prognosis remains guarded Objective - Vital Signs Vital signs: Vital Signs Temp 98.6 F 04/04/23 04:00 Pulse 115 H 04/04/23 06:00 Resp 27 H 01/25/24 06:00 BP 105/62 04/04/23 06:00 Pulse Ox 92 L 04/04/23 06:00 FiO2 30 04/04/23 04:09 Intake & Output 04/03/23 04/04/23 04/04/23 18:59 06:59 18:59 Intake Total 2718.785 2464.302 Output Total 1775 2266 Balance 943.785 198.302 Weight 58.8 kg Intake: IV 1286 1236 A line 36 36 Dextrose 5% in Water 1, 1200 1200 000 ml @ 100 mls/hr IV . Q10H [facility] Rx#:[id number] cefTRIAXone 1 gm In 50 Sodium Chloride 0.9% 50 ml @ 100 mls/hr IVPB Q24HR [facility]PS[facility] Rx#:[id number] Intake, IV Titration 296.785 92.302 Amount Diltiazem 125 mg In 164.00 Sodium Chloride 0.9% 100 ml @ Per Protocol IV .Q0M [facility] Rx#:[id number] propofoL 1,000 mg In 78.925 92.302 Empty Bag 1 bag @ 30 MCG/ KG/MIN 8.328 mls/hr IV . Q12H1M [facility] Rx#:[id number] propofoL 100 ml @ 0 mls/ 53.86 hr IV .STK-MED ONE Rx#: [id number] Tube Feeding 636 636 Other 500 500 Output: Urine 1775 2265 Stool 1 Other: Voiding Method Indwelling Catheter Indwelling Catheter # Bowel Movements 1 1 ABP, PAP, CO, CI - Last Documented Arterial Blood Pressure 108/47 - Labs CBC & Chem 7: 04/04/23 05:19 04/04/23 05:19 Labs: Abnormal Lab Results - Last 24 Hours (Table) 04/03/23 04/03/23 04/04/23 Range/Units 11:26 17:13 00:29 WBC (3.8-10.6) k/uL RBC (4.30-5.90) m/uL MCV (80.0-100.0) fL Plt Count (150-450) k/uL Neutrophils # (1.3-7.7) k/uL Lymphocytes # (1.0-4.8) k/uL Chloride (98-107) mmol/L Carbon Dioxide (22-30) mmol/L BUN (9-20) mg/dL Creatinine (0.66-1.25) mg/dL Glucose (74-99) mg/dL POC Glucose (mg/dL) 156 H 168 H 176 H (70-110) mg/dL 04/04/23 04/04/23 04/04/23 Range/Units 05:19 05:19 05:19 WBC 17.6 H (3.8-10.6) k/uL RBC 3.92 L (4.30-5.90) m/uL MCV 105.1 H (80.0-100.0) fL Plt Count 143 L (150-450) k/uL Neutrophils # 16.7 H (1.3-7.7) k/uL Lymphocytes # 0.2 L (1.0-4.8) k/uL Chloride 96 L (98-107) mmol/L Carbon Dioxide 36 H (22-30) mmol/L BUN 30 H (9-20) mg/dL Creatinine 0.50 L (0.66-1.25) mg/dL Glucose 195 H (74-99) mg/dL POC Glucose (mg/dL) 184 H (70-110) mg/dL
[2023-04-04] MEDS: FORMOTEROL FUMARATE 20 MCG/2 ML NEBU INHALATION SCH ×2 (07:49→20:19)
[2023-04-04] MEDS: BUDESONIDE 1 MG/2 ML NEBU INHALATION SCH ×2 (07:49→20:19)
--- NOTE | 2023-04-04 07:52 | PN ---
PROGRESS NOTE SUBJECTIVE: This is a 62-year-old, acute hypoxic and hypercapnic respiratory failure secondary to COPD. Remains intubated GI bleed, is on Cardizem drip for AFib with RVR, pCO2 72. Finish ceftriaxone, atrial fibrillation, aortic converted from atrial fibrillation to sinus rhythm, COPD exacerbation. He is on propofol, extremely agitated. Try to wean him off. OBJECTIVE: LUNGS: Clear. CARDIOVASCULAR: S1, S2. HEMATOLOGY: Negative for Homans. PSYCH: Fair mood and affect. LABORATORY DATA: BUN is 21, creatinine 0.46. White count 14.7, hemoglobin 13.2, glucose 156. Continue to wean off ventilation as tolerated. Consult for trach and PEG. He is started on Rocephin, pneumonia is improved. Continue Cardizem, ciprofloxacin. Prognosis guarded. MMODL / IJN: [id number] /
--- NOTE | 2023-04-04 08:14 | XR ---
EXAMINATION TYPE: XR chest 1V portable DATE OF EXAM: 04/04/2023 Comparison: 04/03/2023 Clinical History: 62-year-old male mechanical ventilation Findings: ET tube tip satisfactory. Left CVC tip lower SVC. NG tube courses below the diaphragm. Heart normal s ize. Aorta and pulmonary vasculature are within normal limits. Hyperinflation. No consolidation or pl eural effusion. Impression: Stable exam. COPD. No acute process seen.
[2023-04-04] MEDS: CHLORHEXIDINE GLUCONATE 15 ML CUP MUCOUS MEM SCH ×2 (09:18→21:32)
[2023-04-04] MEDS: PANTOPRAZOLE 40 MG/10 ML VIAL IVP SCH ×2 (09:18→21:32)
[2023-04-04] MEDS: NICOTINE 21MG/24HR PATCH TRANSDERM SCH (09:19)
[2023-04-04] MEDS: ARTIFICIAL TEARS-HYPROMELLOSE DROPS 15 ML BTL BOTH EYES SCH ×3 (09:19→21:32)
[2023-04-04] MEDS: SENNOSIDES 8.6 MG TAB PO SCH (09:19)
[2023-04-04] MEDS: ATORVASTATIN 10 MG TAB PO SCH (09:19)
[2023-04-04] MEDS: lisinopriL 5 MG TAB PO SCH (09:19)
[2023-04-04] MEDS: SODIUM CHLORIDE 0.9% 1,000 ML IV SCH ×2 (09:37→22:40)
[2023-04-04 10:38] LABS: ABG PCO2 69 mmHg (35-45); ABG PH 7.39 (7.35-7.45); ABG PO2 72 mmHg (83-108)
[2023-04-04 10:40] LABS: ABG Base Excess 17.6 mmol/L; ABG HCO3 43 mmol/L (21-25); ABG Oxygen Saturation 94.1 % (94-97); ABG TCO2 45 mmol/L (19-24)
[2023-04-04 11:49] LABS: Glucose,Whole Blood 149 mg/dL (70-110)
--- NOTE | 2023-04-04 12:30 | P.CNNES ---
History of Present Illness Consult date: 04/04/23 Requesting physician: Bessy Hope Reason for Consult: AMS, anoxia History of Present Illness: Patient is a 62-year-old male came to the hospital by ambulance on 03/26/2023 for 3 days history of shortness of breath, worsening. He has COPD. Patient not able to provide any history. According to the nurse report, and review of electronic records, it appears patient came with COPD exacerbation. He was short of breath, febrile. Initially he was on nonrebreather mask, but required Ativan. He desaturated, and required intubation in the emergency room. Patient never had any cardiac arrest. Patient had undergone gastric ulcer clipping for GI bleed. Patient is intubated, and has not been responding to sedation holi day, therefore neurology was consulted. Patient also has history of SVT, with atrial fibrillation. According to the nursing report, patient has history of developmental delays. He still lives on his own. He has a guardian who does his finances. I spoke to patient's dad on the phone. He mentions that patient was born 3 months premature. He has some issues with the brain, but it was "straightened out". He attained milestones normally, but when he was in elementary school, it was noted he cannot read or write. This continued throughout his life. Patient has no children. His speech is good, and he "loves to talk to people". He has held job for a while but not too long. 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 He does have psychiatric problems, with depression. However he lives on his own. He also has smoked 1 pack/day for last 20 years, does not drink significantly. Most recent blood test shows WBC 17.6 hemoglobin 13.1, elevated MCV 105, platelets are 143. Patient's ABG shows pH is 7.39, pCO2 69, pO2 is 72 and saturation 94%. Patient is a chronic CO2 retainer, with maximum pCO2 84 on 03/31/2023. Electrolytes are normal, BUN 30, creatinine 0.50. Calcium normal. CT head on arrival on 03/26/2023 showed no acute process. I personally reviewed CT head agree with the findings. Review of Systems ROS unobtainable: due to endotracheal tube, due to mental status Past Medical History Past Medical History: No Reported History, COPD, Hypertension Additional Past Medical History / Comment(s): gout History of Any Multi-Drug Resistant Organisms: None Reported Past Surgical History: No Surgical Hx Reported Past Anesthesia/Blood Transfusion Reactions: Unable to Obtain Past Psychological History: Anxiety Smoking Status: Current every day smoker Past Alcohol Use History: None Reported Past Drug Use History: None Reported Medications and Allergies Home Medications Medication Instructions Recorded Confirmed Type OLANZapine [ZyPREXA] 10 mg PO HS 09/19/15 03/26/23 History Albuterol Sulfate [Albuterol 1 - 2 puff PO RT-Q4H PRN 03/26/23 03/26/23 History Sulfate Hfa] Atorvastatin [Lipitor] 10 mg PO DAILY 03/26/23 03/26/23 History FLUoxetine HCL [PROzac] 20 mg PO DAILY 03/26/23 03/26/23 History OLANZapine [ZyPREXA] 5 mg PO DAILY 03/26/23 03/26/23 History Omeprazole [PriLOSEC] 20 mg PO BID 03/26/23 03/26/23 History Tiotropium Br/Olodaterol HCl 2 puff INHALATION RT-DAILY 03/26/23 03/26/23 History [Stiolto Respimat Inhal [place]] hydroCHLOROthiazide 12.5 mg PO DAILY 03/26/23 03/26/23 History lisinopriL [Zestril] 5 mg PO DAILY 03/26/23 03/26/23 History Allergies Allergy/AdvReac Type Severity Reaction Status Date / Time No Known Allergies Allergy Verified 03/26/23 17:12 Physical Examination - Vital Signs Vital Signs: Vital Signs Temp Pulse Pulse Resp BP Pulse Ox FiO2 04/04/23 10:00 108 H 23 105/61 93 L 04/04/23 09:00 96 19 157/82 94 L 04/04/23 08:18 104 H 04/04/23 08:08 106 H 04/04/23 08:07 105 H 04/04/23 08:00 99.5 F 105 H 27 H 133/75 92 L 30 04/04/23 07:52 30 04/04/23 07:49 105 H 04/04/23 07:00 108 H 23 140/75 93 L 04/04/23 06:00 115 H 27 H 105/62 92 L 04/04/23 05:00 96 21 156/77 94 L 04/04/23 04:30 104 H 04/04/23 04:17 105 H 04/04/23 04:09 30 04/04/23 04:00 98.6 F 102 H 21 109/61 93 L 30 04/04/23 03:00 89 18 111/62 94 L 04/04/23 02:00 88 19 126/67 94 L 04/04/23 01:00 99 22 94 L 04/04/23 00:30 98 21 94 L 04/04/23 00:26 100 04/04/23 00:10 100 04/04/23 00:00 99.0 F 98 22 128/71 96 30 04/03/23 23:00 97 22 149/79 94 L 04/03/23 22:00 102 H 19 144/74 93 L 04/03/23 21:46 30 04/03/23 21:00 101 H 20 147/74 97 04/03/23 20:00 98.6 F 101 H 23 145/79 93 L 30 04/03/23 19:00 101 H 22 142/77 94 L 30 04/03/23 18:00 102 H 21 154/83 94 L 04/03/23 17:00 113 H 23 140/83 94 L 04/03/23 16:00 98.5 F 111 H 114 H 26 H 143/77 95 30 04/03/23 15:27 100 04/03/23 15:15 100 04/03/23 15:14 30 04/03/23 15:00 98.9 F 100 20 160/88 93 L 30 04/03/23 14:00 108 H 24 125/71 92 L 30 04/03/23 13:00 105 H 18 159/78 93 L 30 04/03/23 12:11 110 H 04/03/23 12:00 98.7 F 110 H 107 H 21 127/75 92 L 30 04/03/23 11:59 112 H 04/03/23 11:56 30 Intake and Output 04/03/23 04/04/23 04/04/23 22:59 06:59 14:59 Intake Total 0544.064 5287.302 878.063 Output Total 1616 1300 575 Balance 198.787 290.302 303.063 Intake: IV 824 824 387 A line 24 24 12 Dextrose 5% in Water 1, 800 800 300 000 ml @ 100 mls/hr IV . Q10H GYPSY Rx#:[id number] Sodium Chloride 0.9% 1, 75 000 ml @ 75 mls/hr IV . [id number] GYPSY Rx#:[id number] Intake, IV Titration 66.787 92.302 32.063 Amount Diltiazem 125 mg In 41.25 Sodium Chloride 0.9% 100 ml @ Per Protocol IV .Q0M GYPSY Rx#:[id number] propofoL 1,000 mg In 19.177 92.302 32.063 Empty Bag 1 bag @ 30 MCG/ KG/MIN 8.328 mls/hr IV . Q12H1M GYPSY Rx#:[id number] propofoL 100 ml @ 0 mls/ 6.36 hr IV .STK-MED ONE Rx#: [id number] Tube Feeding 424 424 209 Other 500 250 250 Output: Urine 1615 1300 575 Stool 1 Other: Voiding Method Indwelling Catheter Indwelling Catheter Indwelling Catheter # Bowel Movements 1 Weight 58.8 kg ABP, PAP, CO, CI - Last 8 Hours Arterial Blood Pressure 127/54 Arterial Blood Pressure 101/43 Arterial Blood Pressure 165/64 Arterial Blood Pressure 149/57 Arterial Blood Pressure 108/47 Arterial Blood Pressure 141/58 Patient is a late middle aged male, appears younger than his stated age, who is intubated, sedated on propofol 35 mcg/kg/min. Patient is severely encephalopathic. He slightly opens his eyes spontaneously, but not completely, and not necessarily to calling his name but does not make any eye contact, or tracks. On cranial nerve examination, pupils are equal, round and reacting to light, oculocephalics are present. He appears slightly sweating. Face is symmetric. Lower cranial nerves cannot be assessed. On muscle strength testing, patient not able to cooperate for muscle strength testing because of mentation. Deep tendon reflexes are symmetric trace in the upper limbs, 1 at the knees, plantars are flat. Sensory to touch cannot be assessed. Patient does not respond to painful stimuli. Cerebellar function cannot be assessed. Tone is slightly decreased and bulk of muscles normal. Gait deferred.. On general examination, there is no carotid bruit or murmur, S1-S2 audible. Chest is clear on consultation. Abdomen is soft nontender. No organomegaly, bowel sounds present. Peripheral pulses are present. No peripheral edema. Results - Laboratory Findings CBC and BMP: 04/05/23 04:30 04/05/23 04:30 Abnormal Lab Findings: Abnormal Labs 03/26/23 03/26/23 03/26/23 16:40 16:40 18:15 WBC RBC Hgb Hct MCV 100.4 H MCHC Plt Count Neutrophils # Lymphocytes # 0.3 L ABG pH ABG pCO2 ABG pO2 ABG HCO3 ABG Total CO2 ABG O2 Saturation Sodium 132 L Chloride 94 L Carbon Dioxide 33 H BUN Creatinine 0.62 L Glucose 182 H POC Glucose (mg/dL) 192 H Plasma Lactic Acid True Calcium Magnesium Total Protein Albumin U Benzodiazepines Scrn 03/26/23 03/26/23 03/26/23 18:45 19:36 19:39 WBC RBC Hgb Hct MCV MCHC Plt Count Neutrophils # Lymphocytes # ABG pH 7.07 L* 7.12 L* ABG pCO2 27 L 93 H* ABG pO2 51 L* >400 H ABG HCO3 8 L* 31 H ABG Total CO2 9 L 33 H ABG O2 Saturation 79.2 L 99.7 H Sodium Chloride Carbon Dioxide BUN Creatinine Glucose POC Glucose (mg/dL) Plasma Lactic Acid True 2.5 H* Calcium Magnesium Total Protein Albumin U Benzodiazepines Scrn 03/26/23 03/26/23 03/26/23 21:39 22:55 22:58 WBC RBC Hgb Hct MCV MCHC Plt Count Neutrophils # Lymphocytes # ABG pH 7.14 L* ABG pCO2 90 H* ABG pO2 358 H ABG HCO3 31 H ABG Total CO2 33 H ABG O2 Saturation 99.5 H Sodium Chloride Carbon Dioxide BUN Creatinine Glucose POC Glucose (mg/dL) 123 H Plasma Lactic Acid True 2.1 H* Calcium Magnesium Total Protein Albumin U Benzodiazepines Scrn 03/27/23 03/27/23 03/27/23 00:52 03:00 03:00 WBC RBC 3.96 L Hgb Hct MCV 101.8 H MCHC Plt Count Neutrophils # Lymphocytes # 0.3 L ABG pH ABG pCO2 ABG pO2 ABG HCO3 ABG Total CO2 ABG O2 Saturation Sodium 134 L Chloride Carbon Dioxide BUN Creatinine 0.56 L Glucose 141 H POC Glucose (mg/dL) 122 H Plasma Lactic Acid True Calcium 8.3 L Magnesium Total Protein Albumin U Benzodiazepines Scrn 03/27/23 03/27/23 03/27/23 04:25 06:00 06:31 WBC RBC Hgb Hct MCV MCHC Plt Count Neutrophils # Lymphocytes # ABG pH 7.28 L ABG pCO2 58 H ABG pO2 179 H ABG HCO3 27 H ABG Total CO2 29 H ABG O2 Saturation 99.2 H Sodium Chloride Carbon Dioxide BUN Creatinine Glucose POC Glucose (mg/dL) 143 H Plasma Lactic Acid True Calcium Magnesium Total Protein Albumin U Benzodiazepines Scrn Positive A 03/27/23 03/27/23 03/27/23 11:49 13:55 14:02 WBC RBC 4.02 L Hgb Hct MCV 101.7 H MCHC Plt Count Neutrophils # Lymphocytes # 0.3 L ABG pH ABG pCO2 ABG pO2 ABG HCO3 ABG Total CO2 ABG O2 Saturation Sodium Chloride Carbon Dioxide BUN Creatinine Glucose POC Glucose (mg/dL) 134 H Plasma Lactic Acid True Calcium Magnesium Total Protein Albumin 3.3 L U Benzodiazepines Scrn 03/27/23 03/27/23 03/28/23 18:07 23:43 03:50 WBC 11.9 H RBC 3.66 L Hgb 12.5 L Hct 37.5 L MCV 102.5 H MCHC Plt Count Neutrophils # Lymphocytes # ABG pH ABG pCO2 ABG pO2 ABG HCO3 ABG Total CO2 ABG O2 Saturation Sodium Chloride Carbon Dioxide BUN Creatinine Glucose POC Glucose (mg/dL) 121 H 177 H Plasma Lactic Acid True Calcium Magnesium Total Protein Albumin U Benzodiazepines Scrn 03/28/23 03/28/23 03/28/23 03:50 06:54 12:38 WBC RBC Hgb Hct MCV MCHC Plt Count Neutrophils # Lymphocytes # ABG pH 7.33 L ABG pCO2 54 H ABG pO2 133 H ABG HCO3 28 H ABG Total CO2 30 H ABG O2 Saturation 99.0 H Sodium 136 L Chloride Carbon Dioxide BUN Creatinine 0.62 L Glucose 211 H POC Glucose (mg/dL) 167 H Plasma Lactic Acid True Calcium 8.1 L Magnesium Total Protein 5.5 L Albumin 3.1 L U Benzodiazepines Scrn 03/28/23 03/29/23 03/29/23 23:08 04:10 04:10 WBC 14.3 H RBC 3.52 L Hgb 11.8 L Hct 37.0 L MCV 105.2 H MCHC Plt Count Neutrophils # Lymphocytes # ABG pH ABG pCO2 ABG pO2 ABG HCO3 ABG Total CO2 ABG O2 Saturation Sodium Chloride 109 H Carbon Dioxide 33 H BUN Creatinine 0.63 L Glucose 150 H POC Glucose (mg/dL) 142 H Plasma Lactic Acid True Calcium 8.1 L Magnesium 2.5 H Total Protein 5.5 L Albumin 3.1 L U Benzodiazepines Scrn 03/29/23 03/29/23 03/29/23 06:20 06:30 12:08 WBC RBC Hgb Hct MCV MCHC Plt Count Neutrophils # Lymphocytes # ABG pH 7.29 L ABG pCO2 74 H* ABG pO2 118 H ABG HCO3 35 H ABG Total CO2 38 H ABG O2 Saturation 99.0 H Sodium Chloride Carbon Dioxide BUN Creatinine Glucose POC Glucose (mg/dL) 137 H 142 H Plasma Lactic Acid True Calcium Magnesium Total Protein Albumin U Benzodiazepines Scrn 03/29/23 03/29/23 03/30/23 17:17 23:02 04:15 WBC RBC Hgb Hct MCV MCHC Plt Count Neutrophils # Lymphocytes # ABG pH ABG pCO2 ABG pO2 ABG HCO3 ABG Total CO2 ABG O2 Saturation Sodium 150 H Chloride 112 H Carbon Dioxide 39 H BUN 29 H Creatinine 0.62 L Glucose 163 H POC Glucose (mg/dL) 151 H 143 H Plasma Lactic Acid True Calcium 8.1 L Magnesium 3.0 H Total Protein 5.4 L Albumin 2.9 L U Benzodiazepines Scrn 03/30/23 03/30/23 03/30/23 04:15 05:37 06:08 WBC 10.9 H RBC 3.39 L Hgb 11.4 L Hct 36.2 L MCV 106.6 H MCHC Plt Count 127 L Neutrophils # 9.9 H Lymphocytes # 0.3 L ABG pH 7.28 L ABG pCO2 83 H* ABG pO2 ABG HCO3 39 H ABG Total CO2 42 H ABG O2 Saturation 97.8 H Sodium Chloride Carbon Dioxide BUN Creatinine Glucose POC Glucose (mg/dL) 157 H Plasma Lactic Acid True Calcium Magnesium Total Protein Albumin U Benzodiazepines Scrn 03/30/23 03/30/23 03/31/23 11:37 17:40 00:06 WBC RBC Hgb Hct MCV MCHC Plt Count Neutrophils # Lymphocytes # ABG pH ABG pCO2 ABG pO2 ABG HCO3 ABG Total CO2 ABG O2 Saturation Sodium Chloride Carbon Dioxide BUN Creatinine Glucose POC Glucose (mg/dL) 154 H 155 H 169 H Plasma Lactic Acid True Calcium Magnesium Total Protein Albumin U Benzodiazepines Scrn 03/31/23 03/31/23 03/31/23 05:10 05:10 05:47 WBC RBC 3.63 L Hgb 12.2 L Hct 38.8 L MCV 106.9 H MCHC Plt Count 132 L Neutrophils # Lymphocytes # ABG pH 7.34 L ABG pCO2 84 H* ABG pO2 109 H ABG HCO3 45 H* ABG Total CO2 48 H ABG O2 Saturation 98.3 H Sodium 153 H Chloride 111 H Carbon Dioxide 40 H BUN 35 H Creatinine 0.55 L Glucose 151 H POC Glucose (mg/dL) Plasma Lactic Acid True Calcium Magnesium Total Protein Albumin U Benzodiazepines Scrn 03/31/23 03/31/23 03/31/23 06:06 11:40 17:26 WBC RBC Hgb Hct MCV MCHC Plt Count Neutrophils # Lymphocytes # ABG pH ABG pCO2 ABG pO2 ABG HCO3 ABG Total CO2 ABG O2 Saturation Sodium Chloride Carbon Dioxide BUN Creatinine Glucose POC Glucose (mg/dL) 182 H 170 H 153 H Plasma Lactic Acid True Calcium Magnesium Total Protein Albumin U Benzodiazepines Scrn 03/31/23 03/31/23 04/01/23 23:16 23:56 05:15 WBC RBC 3.49 L Hgb 11.5 L Hct 37.7 L MCV 107.8 H MCHC 30.6 L Plt Count 122 L Neutrophils # Lymphocytes # ABG pH ABG pCO2 ABG pO2 ABG HCO3 ABG Total CO2 ABG O2 Saturation Sodium Chloride Carbon Dioxide BUN Creatinine Glucose POC Glucose (mg/dL) 184 H 175 H Plasma Lactic Acid True Calcium Magnesium Total Protein Albumin U Benzodiazepines Scrn 04/01/23 04/01/23 04/01/23 05:15 05:26 05:35 WBC RBC Hgb Hct MCV MCHC Plt Count Neutrophils # Lymphocytes # ABG pH ABG pCO2 81 H* ABG pO2 109 H ABG HCO3 48 H* ABG Total CO2 50 H ABG O2 Saturation 98.5 H Sodium 148 H Chloride Carbon Dioxide 44 H* BUN 37 H Creatinine 0.53 L Glucose 189 H POC Glucose (mg/dL) 210 H Plasma Lactic Acid True Calcium 8.3 L Magnesium Total Protein Albumin U Benzodiazepines Scrn 04/01/23 04/01/23 04/01/23 11:27 17:22 23:46 WBC RBC Hgb Hct MCV MCHC Plt Count Neutrophils # Lymphocytes # ABG pH ABG pCO2 ABG pO2 ABG HCO3 ABG Total CO2 ABG O2 Saturation Sodium Chloride Carbon Dioxide BUN Creatinine Glucose POC Glucose (mg/dL) 162 H 174 H 184 H Plasma Lactic Acid True Calcium Magnesium Total Protein Albumin U Benzodiazepines Scrn 04/02/23 04/02/23 04/02/23 05:06 05:06 05:07 WBC 11.7 H RBC 3.80 L Hgb 12.8 L Hct MCV 106.1 H MCHC Plt Count 141 L Neutrophils # 10.9 H Lymphocytes # 0.3 L ABG pH ABG pCO2 ABG pO2 ABG HCO3 ABG Total CO2 ABG O2 Saturation Sodium Chloride 95 L Carbon Dioxide 41 H* BUN 33 H Creatinine 0.41 L Glucose 178 H POC Glucose (mg/dL) 172 H Plasma Lactic Acid True Calcium Magnesium Total Protein Albumin U Benzodiazepines Scrn 04/02/23 04/02/23 04/02/23 06:27 11:16 16:37 WBC RBC Hgb Hct MCV MCHC Plt Count Neutrophils # Lymphocytes # ABG pH ABG pCO2 77 H* ABG pO2 ABG HCO3 46 H* ABG Total CO2 49 H ABG O2 Saturation 97.1 H Sodium Chloride Carbon Dioxide BUN Creatinine Glucose POC Glucose (mg/dL) 156 H 146 H Plasma Lactic Acid True Calcium Magnesium Total Protein Albumin U Benzodiazepines Scrn 04/03/23 04/03/23 04/03/23 00:11 05:32 05:33 WBC 14.7 H RBC 3.95 L Hgb Hct MCV 104.8 H MCHC Plt Count 143 L Neutrophils # 13.6 H Lymphocytes # 0.3 L ABG pH ABG pCO2 ABG pO2 ABG HCO3 ABG Total CO2 ABG O2 Saturation Sodium Chloride Carbon Dioxide BUN Creatinine Glucose POC Glucose (mg/dL) 164 H 168 H Plasma Lactic Acid True Calcium Magnesium Total Protein Albumin U Benzodiazepines Scrn 04/03/23 04/03/23 04/03/23 05:33 06:44 11:26 WBC RBC Hgb Hct MCV MCHC Plt Count Neutrophils # Lymphocytes # ABG pH ABG pCO2 72 H* ABG pO2 ABG HCO3 45 H* ABG Total CO2 47 H ABG O2 Saturation Sodium Chloride 94 L Carbon Dioxide 42 H* BUN 29 H Creatinine 0.46 L Glucose 184 H POC Glucose (mg/dL) 156 H Plasma Lactic Acid True Calcium Magnesium Total Protein Albumin U Benzodiazepines Scrn 04/03/23 04/04/23 04/04/23 17:13 00:29 04:13 WBC RBC Hgb Hct MCV MCHC Plt Count Neutrophils # Lymphocytes # ABG pH ABG pCO2 69 H ABG pO2 72 L ABG HCO3 43 H* ABG Total CO2 45 H ABG O2 Saturation Sodium Chloride Carbon Dioxide BUN Creatinine Glucose POC Glucose (mg/dL) 168 H 176 H Plasma Lactic Acid True Calcium Magnesium Total Protein Albumin U Benzodiazepines Scrn 04/04/23 04/04/23 04/04/23 05:19 05:19 05:19 WBC 17.6 H RBC 3.92 L Hgb Hct MCV 105.1 H MCHC Plt Count 143 L Neutrophils # 16.7 H Lymphocytes # 0.2 L ABG pH ABG pCO2 ABG pO2 ABG HCO3 ABG Total CO2 ABG O2 Saturation Sodium Chloride 96 L Carbon Dioxide 36 H BUN 30 H Creatinine 0.50 L Glucose 195 H POC Glucose (mg/dL) 184 H Plasma Lactic Acid True Calcium Magnesium Total Protein Albumin U Benzodiazepines Scrn Assessment and Plan Assessment: * Altered mental status, likely due to toxic metabolic encephalopathy * Respiratory failure, on mechanical ventilation, with failure to wean. * COPD with exacerbation * Chronic CO2 retainer * Paroxysmal atrial fibrillation, SVT * Recent GI bleed, status post gastric clipping * Hypertension * Learning disability, dyslexia * Tobacco use Plan: * Patient's examination is limited because of being on sedation. Patient has failed sedation holiday, although nurse reported that he did respond slightly with nodding today. * Check EEG to evaluate for encephalopathy, rule out any epileptic tendency * Patient has atrial fibrillation, would defer to IM/cardiology/critical care. Currently on Cardizem. * Patient may need repeat CT head if he does not improve in the morning. * Neurology will follow. Thank you for the consult.
--- NOTE | 2023-04-04 12:33 | CA ---
Transthoracic Echo Report Name: Tate Johnston Age: 62 Gender: M : 1960 Exam Date: 04/04/2023 08:49 Exam Location: [facility] Ht (in): 68 Wt (lb): 129 Ordering Physician: Marci Romo MD ([id number]) Attending/Referring Phys: Employee Health Nurse Kerri Marrero [facility] [[email or web address]] Procedure CPT: Indications: afib Cardiac Hx: Technical Quality: Technically difficult study Contrast 1: Total Dose (mL): Contrast 2: Total Dose (mL): MEASUREMENTS (Male / Female) Normal Values 2D ECHO LV Diastolic Diameter PLAX 4.0 cm 4.2 - 5.9 / 3.9 - 5.3 cm LV Systolic Diameter PLAX 2.5 cm IVS Diastolic Thickness 0.9 cm 0.6 - 1.0 / 0.6 - 0.9 cm LVPW Diastolic Thickness 0.9 cm 0.6 - 1.0 / 0.6 - 0.9 cm LV Relative Wall Thickness 0.4 LVOT Diameter 2.0 cm M-MODE Aortic Root Diameter MM 2.7 cm LA Systolic Diameter MM 2.5 cm LA Ao Ratio MM 0.9 AV Cusp Separation MM 1.7 cm DOPPLER AV Peak Velocity 176.7 cm/s AV Peak Gradient 12.5 mmHg AV Mean Velocity 121.1 cm/s AV Mean Gradient 6.6 mmHg AV Velocity Time Integral 26.0 cm LVOT Peak Velocity 148.9 cm/s LVOT Peak Gradient 8.9 mmHg LVOT Velocity Time Integral 17.3 cm LVOT Stroke Volume 52.2 cm??? LVOT Stroke Volume Index 30.8 ml/m??? LVOT Cardiac Index 3034.3 cm???/min???m??? AV Area Cont Eq vti 2.0 cm??? AV Area Cont Eq pk 2.5 cm??? Mitral E Point Velocity 67.0 cm/s Mitral A Point Velocity 58.3 cm/s Mitral E to A Ratio 1.1 MV Deceleration Time 257.3 ms LV E' Lateral Velocity 9.3 cm/s Mitral E to LV E' Lateral Ratio 7.2 LV E' Septal Velocity 7.1 cm/s Mitral E to LV E' Septal Ratio 9.5 TR Peak Velocity 258.7 cm/s TR Peak Gradient 26.8 mmHg Right Atrial Pressure 8.0 mmHg Pulmonary Artery Systolic Pressu 34.8 mmHg Right Ventricular Systolic Press 34.8 mmHg FINDINGS Left Ventricle Left ventricular cavity size normal. Left ventricular wall thickness at upper limits of normal. Normal left ventricular systolic function with no obvious regional wall motion abnormalities. Left ventricular ejection fraction is estimated at 60-65%. Right Ventricle Mild right ventricular dilatation. Mild pulmonary hypertension. Right Atrium Normal right atrial size. Left Atrium Normal left atrial size. Mitral Valve Mitral valve thickened. No mitral regurgitation. Aortic Valve Trileaflet aortic valve. Aortic valve sclerosis. No aortic regurgitation. Tricuspid Valve Structurally normal tricuspid valve. Trace tricuspid regurgitation. Pulmonic Valve Pulmonic valve not well visualized. Pericardium No pericardial effusion. Aorta Normal size aortic root. CONCLUSIONS Normal LV systolic function Previewed by: Dr. Devin Pringle MD (Electronically Signed) Final Date: 04 April 2023 12:33
--- NOTE | 2023-04-04 13:35 | P.PN ---
Subjective Progress Note Date: 04/04/23 CHIEF COMPLAINT: Respiratory failure, COPD exacerbation HISTORY OF PRESENT ILLNESS: Patient remains in the ICU intubated and on mechanical ventilation. Patient is having difficulty weaning from vent. He is undergoing another sedation holiday today. PHYSICAL EXAM: VITAL SIGNS: Reviewed. GENERAL: no acute distress. ABDOMEN: Soft. Nondistended. Nontender. ASSESSMENT: 1. Respiratory failure requiring mechanical ventilation 2. Severe protein calorie malnutrition PLAN: -Awaiting family's decision regarding possible tracheostomy and PEG tube placement -Surgical service will remain on standby Physician Neurosurgery Physician note has been reviewed by physician. Signing provider agrees with the documented findings, assessment, and plan of care. Objective - Vital Signs Vital signs: Vital Signs Temp 99.5 F 04/04/23 08:00 Pulse 108 H 04/04/23 10:00 Resp 23 04/04/23 10:00 BP 105/61 04/04/23 10:00 Pulse Ox 93 L 04/04/23 10:00 FiO2 30 04/04/23 08:00 Intake & Output 04/03/23 04/04/23 04/04/23 18:59 06:59 18:59 Intake Total 2718.785 2464.302 878.063 Output Total 1775 2266 575 Balance 943.785 198.302 303.063 Weight 58.8 kg Intake: IV 1286 1236 387 A line 36 36 12 Dextrose 5% in Water 1, 1200 1200 300 000 ml @ 100 mls/hr IV . Q10H GYPSY Rx#:[id number] Sodium Chloride 0.9% 1, 75 000 ml @ 75 mls/hr IV . [id number] GYPSY Rx#:[id number] cefTRIAXone 1 gm In 50 Sodium Chloride 0.9% 50 ml @ 100 mls/hr IVPB Q24HR GYPSY Rx#:[id number] Intake, IV Titration 296.785 92.302 32.063 Amount Diltiazem 125 mg In 164.00 Sodium Chloride 0.9% 100 ml @ Per Protocol IV .Q0M GYPSY Rx#:[id number] propofoL 1,000 mg In 78.925 92.302 32.063 Empty Bag 1 bag @ 30 MCG/ KG/MIN 8.328 mls/hr IV . Q12H1M GYPSY Rx#:[id number] propofoL 100 ml @ 0 mls/ 53.86 hr IV .STObjectVideo-MED ONE Rx#: [id number] Tube Feeding 636 636 209 Other 500 500 250 Output: Urine 1775 2265 575 Stool 1 Other: Voiding Method Indwelling Catheter Indwelling Catheter Indwelling Catheter # Bowel Movements 1 1 ABP, PAP, CO, CI - Last Documented Arterial Blood Pressure 127/54 - Labs CBC & Chem 7: 04/04/23 05:19 04/04/23 05:19 Labs: Abnormal Lab Results - Last 24 Hours (Table) 04/03/23 04/04/23 04/04/23 Range/Units 17:13 00:29 04:13 WBC (3.8-10.6) k/uL RBC (4.30-5.90) m/uL MCV (80.0-100.0) fL Plt Count (150-450) k/uL Neutrophils # (1.3-7.7) k/uL Lymphocytes # (1.0-4.8) k/uL ABG pCO2 69 H (35-45) mmHg ABG pO2 72 L (83-108) mmHg ABG HCO3 43 H* (21-25) mmol/L ABG Total CO2 45 H (19-24) mmol/L Chloride (98-107) mmol/L Carbon Dioxide (22-30) mmol/L BUN (9-20) mg/dL Creatinine (0.66-1.25) mg/dL Glucose (74-99) mg/dL POC Glucose (mg/dL) 168 H 176 H (70-110) mg/dL 04/04/23 04/04/23 04/04/23 Range/Units 05:19 05:19 05:19 WBC 17.6 H (3.8-10.6) k/uL RBC 3.92 L (4.30-5.90) m/uL MCV 105.1 H (80.0-100.0) fL Plt Count 143 L (150-450) k/uL Neutrophils # 16.7 H (1.3-7.7) k/uL Lymphocytes # 0.2 L (1.0-4.8) k/uL ABG pCO2 (35-45) mmHg ABG pO2 (83-108) mmHg ABG HCO3 (21-25) mmol/L ABG Total CO2 (19-24) mmol/L Chloride 96 L (98-107) mmol/L Carbon Dioxide 36 H (22-30) mmol/L BUN 30 H (9-20) mg/dL Creatinine 0.50 L (0.66-1.25) mg/dL Glucose 195 H (74-99) mg/dL POC Glucose (mg/dL) 184 H (70-110) mg/dL 04/04/23 Range/Units 11:47 WBC (3.8-10.6) k/uL RBC (4.30-5.90) m/uL MCV (80.0-100.0) fL Plt Count (150-450) k/uL Neutrophils # (1.3-7.7) k/uL Lymphocytes # (1.0-4.8) k/uL ABG pCO2 (35-45) mmHg ABG pO2 (83-108) mmHg ABG HCO3 (21-25) mmol/L ABG Total CO2 (19-24) mmol/L Chloride (98-107) mmol/L Carbon Dioxide (22-30) mmol/L BUN (9-20) mg/dL Creatinine (0.66-1.25) mg/dL Glucose (74-99) mg/dL POC Glucose (mg/dL) 149 H (70-110) mg/dL
--- NOTE | 2023-04-04 14:27 | P.PN ---
Subjective Progress Note Date: 04/04/23 Principal diagnosis: Acute hypoxic and hypercapnic respiratory failure secondary to acute exacerbation of COPD Patient is a 62-year-old white male with past medical history significant for COPD and chronic ongoing tobacco dependence. The patient came into the emergency department with significant shortness of breath. Apparently, he was actively bronchospastic and he had diminished breath sounds. In the emergency, the patient was given breathing treatments [id number] and subsequently was placed in the 100% nonrebreather facemask. Upon follow-up, the patient was fou nd to be completely unresponsive and he was unable to protect his airway and his breathing was very shallow. At that point, he was intubated and placed on a mechanical ventilator. The initial blood gas was done postintubation was lab error and subsequently follow-up blood gases was done that showed significant respiratory acidosis and oxygen nasal already improved. Patient is currently sedated and intubated on mechanical ventilator, most of this HPI supplemented from ER documentation. We were not able to get a hold of any family at this time, and there are no prior charts to review. Based on a review of his home medications, he may have history COPD, hypertension, and hyperlipidemia. Pos tintubation he ABG was consistent with severe hypercapnic respiratory failure. PO2 greater than 400, pCO2 of 93, and pH of 7.12. Postintubation chest x-ray has endotracheal tube approximately 4 cm above the michael. Orogastric tube courses below the diaphragm. No focal infiltrates or evidence of pneumonia. There is marked hyperinflation with flattening of the diaphragm, consistent with COPD. A follow-up chest CTA done while in the emergency room showed no evidence of pulmonary embolism. There is no acute cardiopulmonary process. Patient is currently in the intensive care unit, intubated to the mechanical ventilator. Propofol is infusing at 45 mcg/kg/m. He is synchronous with mechanical ventilator. Current ventilator settings are assist control, respiratory rate of 12, tidal volume 400, FiO2 of 80%, PEEP of 5. A repeat ABG as a PaO2 of 358, pCO2 of 90, pH of 7.14. I increased the patient's respiratory rate 20 and reduce the FiO2 to 50%. The peak airway pressure is 34 and static airway pressure is 24, patient has some evidence of airway resistance. Lung sounds are tight and continues wheezing. No significant airway secretions. Patient has been started on DuoNeb's every 4 hours. I would add budesonide and formoterol. Patient is also hypotensive, he is already received a total of 2 L normal saline bolus. He is only 52 kg. Patient will be started on low-dose norepinephrine for refractory hypotension if needed. CBC on arrival unremarkable. BMP on arrival, sodium 132, potassium 4.9, chloride 94, serum bicarbonate 33, BUN 16, creatinine 0.62, glucose 123. Lactic acid level II.5. Troponin is less than 0.012. Negative for influenza, RSV, COVID-19. He is afebrile. Patient's status is still volatile, and there are no plans to extubate tonight. They have the chest was also completed in emergency. This was reviewed. No evidence of any pulmonary embolism. There is extensive emphysema bilaterally. No airspace disease. Note that the patient's NG output is bloody. Currently has approximately 300 mL and the canister. In terms of his hemoglobin monitoring, the patient's hemoglobin dropped from 15.2 down to 13.5. IV fluids are in the form of normal saline at rate of 75 mL's an hour. The patient is sedated with propofol running at 50 mcg/kg/m. Most recent blood gas showed improvement and acid-base status. PH is down still at 7.28 also improved compared to yesterday. PCO2 is down to 58 and pO2 is at 179 and this was an FiO2 of 50% and subseque ntly the FiO2 was dropped onto 40%. No pressors. Today's evaluation of 03/28/2023, the patient remains intubated on a mechanical ventilator. He remains sedated on propofol which is running at 70 g plus kilogram per minutes. Despite his adequate sedation, the patient remains actively bronchospastic and wheezy. In fact, he is having elevated peak airway pressure this morning. His current ventilator settings with evidence is control mode rate of 12, tidal volume of 400, FiO2 of 40% with a PEEP of 5. His blood gases show a pH of 7.32 with a pCO2 of 54 and pO2 of 133. Chest x-ray shows ma rked hyperinflation. No airspace disease. No consolidation. On a separate note, the patient was having episodes of GI bleed. NG tube was in place throughout the night. Output from the treatment diminished and the hemoglobin had dropped slightly down to 12.5 this morning. EGD was done earlier today and the patient was found to have a 5 mm ulcer in the body of the stomach and an Endo Clip was applied. The patient will some antral erosive gastritis. Clearance was obtained from the ultimate ho[employer] trainer to feed the patient. As such, we will going to start enteral feeding. We'll going to stop TPN for now. Hemodynamically stable. He is maintaining his own blood pressure without any pressors. The patient remains on IV fluids with normal saline at 125 mL an hour. He remains on bronchodilators. He remains on steroids. He remains on a broad-spectrum antibiotic coverage with Rocephin and Zithromax. White cell count 11.9, he was 12.5 and a platelet is 164. Sodium is at 136, BUN is at 17 with a creatinine of 0.6. LFTs are within normal limits. No other significant events overnight. On 03/29/2023, patient is being seen for a follow-up. Remains sedated on propofol. His calm and comfortable. Propofol is running at 50 microvascular kilogram per minute. The patient remains on the same ventilator settings with a tidal volume of 375, rate of 12, FiO2 of 40% with a PEEP of 5. Peak air pressures at 42. Remains actively bronchospastic and wheezy. Not a candidate for any bleeding at this point in time as the patient COPD still quite active. Chest x-ray shows hyperinflation. Orotracheal tube is in good location. No evidence of any airspace disease of consolidation. Remains on broke a dilated. Remains on steroids. Remains on enteral feeding for nutritional support and the patient is taking vital high-protein at the rate of 30 mL an hour. Hemodynamically stable. No other significant events overnight. Blood gas from today shows a pH of 7.29 with episodes of 48 and pO2 118 and this was an FiO2 of 40%. The white cell cause of 14.3, hemoglobin of 11.8 and a platelet count of 153. BUN is at 20 with a creatinine of 0.6 and a sodium level is at 142 and a potassium level of 4.6. LFTs are normal. The sputum sample was positive for Haemophilus influenza. On 03/30/2023, the patient remains on a mechanical ventilator. Slightly less bronchus spastic compared to yesterday. The peak airway pressure today's ranging between 33 and 35. The patient is on assist control mode at a rate of 12, tidal volume of 375, FiO2 is at 40% with a PEEP of 5. He remains on propofol running at 50 microvascular kilogram per minute. Chest x-ray findings are unchanged. No clear indication for pneumonia. The patient is Haemophilus influenza cultured in the sputum. Blood gas from today shows a pH of 7.28 with episodes of 83 and pO2 of 107 and this was an FiO2 of 40%. The patient continues to receive enteral feeding for nutritional support and he is on vital high-protein at the rate of 46 mL an hour. IV fluids are currently running at 75 mL an hour. The patient's sodium level is at 150, potassium levels at 4.2, chlorides 112 and a bicarb of 39. BUN is 29 with a creatinine of 0.6. The white cell cause of 10.9 with a hemoglobin of 11.4. No other complications or issues for now. Unable to wean this patient yet off the mechanical ventilator as his COPD remains quite active. Hemodynamically stable. He is on no pressors. Tolerating enteral feeding. 03/31/2023, the patient is on a mechanical ventilator. Ventilator settings are control 12, tidal volume of 400, FiO2 40% with a PEEP of 5. The patient's blood gas shows some improvement acid-base status. On today's evaluation, the patient has a pH of 7.34 with episodes of 84 and pO2 of 109. This was an FiO2 of 40%. Chest x-ray findings are unchanged. Peak airway pressures around 34. Air entry is improved bilaterally. However, with any attempts to cut down the sedation, the patient becomes asynchronous and he starts peak pressure in. I do not believe that his ready for any further weaning at this point in time. I may even consider the possibility of tracheostomy at the later stage. He is currently on a propofol at the rate of 50 mcg/kg/m. His vital high-protein at the rate of 46 mL an hour. His sodium level is elevated. I started him on free water supplements through the OG tube. He'll be started on D5 water today in attempt to optimize his sodium level hypernatremia. He has a 35 and a creatinine of 0.5. Potassium is 4.4. The previous cause of 9.8 with a hemoglobin of 12.2. Remains hemodynamically stable. Remains afebrile. Remains on IV Rocephin. Patient was reevaluated today on 04/01/23, remains in the ICU, intubated and mechanically ventilated. He is on assist control rate of 12 tidal volume 400 FiO2 40% and PEEP of 5 and FiO2 was cut down to 35%, ABG 109/81/7.38. Patient is requiring sedation presently on propofol at 50 mcg/kg/m, is also on D5W at 75 mL per hour receiving vitamin Hb at 46 mL per hour, also receiving free water flushes because of his hypernatremia, patient remains on ceftriaxone, Solu- Medrol, NicoDerm, patient had EGD on 03/28 and he was found to have upper GI bleeding, looking at the notes from Dr. Herring, he felt that the patient has such a severe COPD, he will be very difficult to wean, and may have to consider tracheostomy and PEG tube placement on this patient. Nonetheless I will give the patient trials of weaning on a daily basis, and if the patient fails over the next 5 days, may recommend trach and PEG on this patient. His peak airway pressure today is 34, plateau pressure is 22. WBC count is 7.9 hemoglobin is 11.5 sodium is 148 bicarb is 44 ABG as noted earlier. Chest x-ray is showing severe COPD picture/hyperinflation/emphysema picture Reevaluated today on 04/02/2023, remains in the ICU intubated and mechanically ventilated, patient is presently on assist-control rate of 12 tidal volume of 100 FiO2 35% PEEP of 5, ABG showed a pO2 of 90 pCO2 77 pH of 7.39. Patient remains on propofol at 30 mcg/kg/min, he is also on vital HP at 40 M 6 mL/h, receiving Rocephin, we are holding on anticoagulation therapy because of his recent GI bleed, yesterday the patient was given a very short voiding trial, and he failed immediately, not quite ready for any weaning. As a matter fact considering his presentation and considering his overall pulmonary status, I believe the patient is going to be extremely difficult to wean and extubate, hence I am recommending surgical consultation for tracheostomy and PEG tube placement. Chest x-ray is mostly showing COPD changes, no clear-cut evidence of infiltrate. Nonetheless patient remains empirically on Rocephin. WBC count today is 11.7 hemoglobin is 12.8. Basic metabolic profile is normal bicarb is 41 BUN is 33 creatinine 0.41 Reevaluated today on 04/03/2023, patient remains in, intubated and mechanically ventilated. This morning, patient went into new onset atrial fibrillation with RVR, placed on Cardizem drip as per cardiology, did not recommend anticoag ulation because of his recent GI bleed, patient remains in bated and mechanically ventilated, he is on assist-control rate of 12 tidal volume 400 FiO2 35% and PEEP of 5G showed a pO2 of 89 pCO2 72 pH of 7.40, his sputum was positive for H. influenzae. Patient remains on D5W at 100 cc/h propofol at 35 mcg/kg/min, he is on vital HP at 52 cc/h. Patient finished full course of ceftriaxone treatment. Today will be the last day. For his atrial fibrillation and RVR, patient is being addressed by cardiology. When I saw him this morning, he already converted to sinus rhythm. Chest x-ray continues to show evidence of COPD but no evidence of infiltrate. WBC count is 14.7 hemoglobin 13.2 basic me tabolic profile is normal, renal profile is normal patient remains on propofol, difficult to assess mental status, however I will have the nurses hold his propofol today, and try to address mental status. Apparently off propofol the patient gets extremely agitated, tachypneic, tachycardic, none synchronous with the ventilator, hence could not get to the point where we could address weaning or addressed even evaluation of mental status on this patient Reevaluate today on 04/04/2023, remains intubated and mechanically ventilated on assist-control rate of 12 tidal volume 400 FiO2 30% PEEP of 5 ABG showed a pO2 of 72 pCO2 69 pH of 7.39. Off sedation, the patient gets extremely restless tachypneic tachycardic, agitated, and using his accessory muscles. Opens eyes, wiggles toes, squeezes hands, however not much else could be done. Patient is extremely weak, he is still on Cardizem at 5 mg/h, propofol 35 mg/kg/min IV fluid changed 2.9 normal saline at 70 cc/h receiving vital HP at 53 mL/h. Today I had a chance to talk to his father over the phone, explained to him his son's condition and the severity of his condition and discussed with him the option of tracheostomy PEG tube placement, and eventually transfer to a ventilator facility. Apparently the father seems to be inclined to consider comfort care measures knowing how bad his condition is and the patient would not have wanted to go on tracheostomy or PEG tube placement. However we will give the father time to think and make a final decision regarding tracheostomy, PEG tube placement, or possibly go to comfort care. Chest x-ray continues to show COPD but no evidence of infiltrate WBC count is 17.6 hemoglobin 13.1. Basic metabolic profile is normal renal profile is normal bicarb is 36 Objective - Vital Signs Vital signs: Vital Signs Temp 99.4 F 04/04/23 12:00 Pulse 116 H 04/04/23 14:00 Resp 24 04/04/23 14:00 BP 160/85 04/04/23 14:00 Pulse Ox 93 L 04/04/23 14:00 FiO2 30 04/04/23 12:38 Intake & Output 04/03/23 04/04/23 04/04/23 18:59 06:59 18:59 Intake Total 2718.785 2464.302 1317.125 Output Total 1775 2266 1225 Balance 943.785 198.302 92.125 Weight 58.8 kg Intake: IV 1286 1236 621 A line 36 36 21 Dextrose 5% in Water 1, 1200 1200 300 000 ml @ 100 mls/hr IV . Q10H [facility] Rx#:[id number] Sodium Chloride 0.9% 1, 300 000 ml @ 75 mls/hr IV . [id number] [facility] Rx#:[id number] cefTRIAXone 1 gm In 50 Sodium Chloride 0.9% 50 ml @ 100 mls/hr IVPB Q24HR [facility] Rx#:[id number] Intake, IV Titration 296.785 92.302 51.125 Amount Diltiazem 125 mg In 164.00 Sodium Chloride 0.9% 100 ml @ Per Protocol IV .Q0M [facility]YPS[facility] Rx#:[id number] propofoL 1,000 mg In 78.925 92.302 51.125 Empty Bag 1 bag @ 30 MCG/ KG/MIN 8.328 mls/hr IV . Q12H1M [facility]YPS[facility] Rx#:[id number] propofoL 100 ml @ 0 mls/ 53.86 hr IV .STK-MED ONE Rx#: [id number] Tube Feeding 636 636 365 Other 500 500 280 Output: Urine 1775 2265 1225 Stool 1 Other: Voiding Method Indwelling Catheter Indwelling Catheter Indwelling Catheter # Bowel Movements 1 1 ABP, PAP, CO, CI - Last Documented Arterial Blood Pressure 153/61 - Exam Physical Exam: Revealed a 62-year-old white male in no distress intubated mechanically ventilated sedated on propofol. Head: Atraumatic, normocephalic. HEENT:[Neck is supple.] [No neck masses.] [No thyromegaly.] [No JVD.] Endotracheal tube and orogastric tubes are intact. Chest: [Neck symmetrical chest expansion, diminished breath sound bilaterally no rhonchi no wheezes.] Cardiac Exam: [Normal S1 and S2, no S3 gallop, no murmur.] Abdomen: [Soft, nontender, no megaly, no rebound, no guarding, normal bowel s ounds.] Extremities: [No clubbing, no edema, no cyanosis.] Good distal pulses bilaterally. Neurological Exam: [Sedated, on propofol, off propofol, patient opens eyes, wiggles toes, but generally weak. Seems to be appropriate, follows instructions Psychiatric: Off propofol, patient has flat affect, assess anything else except the patient follows instructions/simple instructions only Skin: No rashes - Labs CBC & Chem 7: 04/04/23 05:19 04/04/23 05:19 Labs: Abnormal Lab Results - Last 24 Hours (Table) 04/03/23 04/04/23 04/04/23 Range/Units 17:13 00:29 04:13 WBC (3.8-10.6) k/uL RBC (4.30-5.90) m/uL MCV (80.0-100.0) fL Plt Count (150-450) k/uL Neutrophils # (1.3-7.7) k/uL Lymphocytes # (1.0-4.8) k/uL ABG pCO2 69 H (35-45) mmHg ABG pO2 72 L (83-108) mmHg ABG HCO3 43 H* (21-25) mmol/L ABG Total CO2 45 H (19-24) mmol/L Chloride (98-107) mmol/L Carbon Dioxide (22-30) mmol/L BUN (9-20) mg/dL Creatinine (0.66-1.25) mg/dL Glucose (74-99) mg/dL POC Glucose (mg/dL) 168 H 176 H (70-110) mg/dL 04/04/23 04/04/23 04/04/23 Range/Units 05:19 05:19 05:19 WBC 17.6 H (3.8-10.6) k/uL RBC 3.92 L (4.30-5.90) m/uL MCV 105.1 H (80.0-100.0) fL Plt Count 143 L (150-450) k/uL Neutrophils # 16.7 H (1.3-7.7) k/uL Lymphocytes # 0.2 L (1.0-4.8) k/uL ABG pCO2 (35-45) mmHg ABG pO2 (83-108) mmHg ABG HCO3 (21-25) mmol/L ABG Total CO2 (19-24) mmol/L Chloride 96 L (98-107) mmol/L Carbon Dioxide 36 H (22-30) mmol/L BUN 30 H (9-20) mg/dL Creatinine 0.50 L (0.66-1.25) mg/dL Glucose 195 H (74-99) mg/dL POC Glucose (mg/dL) 184 H (70-110) mg/dL 04/04/23 Range/Units 11:47 WBC (3.8-10.6) k/uL RBC (4.30-5.90) m/uL MCV (80.0-100.0) fL Plt Count (150-450) k/uL Neutrophils # (1.3-7.7) k/uL Lymphocytes # (1.0-4.8) k/uL ABG pCO2 (35-45) mmHg ABG pO2 (83-108) mmHg ABG HCO3 (21-25) mmol/L ABG Total CO2 (19-24) mmol/L Chloride (98-107) mmol/L Carbon Dioxide (22-30) mmol/L BUN (9-20) mg/dL Creatinine (0.66-1.25) mg/dL Glucose (74-99) mg/dL POC Glucose (mg/dL) 149 H (70-110) mg/dL Assessment and Plan Assessment: Impression: Acute hypoxic/hypercapnic respiratory failure secondary to acute exacerbation of COPD, no evidence of pneumonia Severe COPD Chronic smoker/tobacco dependence syndrome Acute upper GI bleeding secondary to erosive antral gastritis based on EGD patient had Endo Clip applied. Presently on Protonix 40 mg twice a day, still holding Lovenox. Benign essential hypertension Dyslipidemia Chronic anxiety disorder maintained on Zyprexa on outpatient basis is also on Prozac for depression Dyslipidemia Hyperchloremic hypernatremia, resolved New onset atrial fibrillation with RVR, on Cardizem. Recommendation: Continue ventilatory support, Will continue to try weaning trials, off propofol the patient seems to be impossible to wean and extubate as he gets extremely agitated restless, and very shallow breathing with the use of accessory muscles Surgery was consulted for possible PEG tube and tracheostomy tube, family to decide regarding this recommendation No need for more antibiotics Continue GI prophylaxis Continue Cardizem, being addressed by cardiology No anticoagulation therapy at this point because of his previous GI bleed Continue Protonix 40 mg twice a day Continue enteral feeding/nutritional support, patient is receiving vital HP Patient remains critically ill Discussed his condition with his father over the phone, and the father seems to be very inclined to consider comfort care measures. Discussed the different options including tracheostomy PEG tube placement, and he basically said that that his son would have never wanted to wake up and see himself connected to a tube/tracheostomy tube or PEG tube. Critical care time is over 30 minutes Time with Patient: Greater than 30
[2023-04-04 18:15] LABS: Glucose,Whole Blood 162 mg/dL (70-110)
--- NOTE | 2023-04-04 21:30 | PN ---
PROGRESS NOTE SUBJECTIVE: He is on diltiazem for atrial fibrillation with RVR, Solu-Medrol for COPD, Protonix for GERD. He is on broad-spectrum antibiotics for aspiration pneumonia. He remains on a ventilator. He is on FiO2 of 30, PEEP of 5. ABG shows PO2 72, pCO2 , tachypneic, tachycardic, agitated, using accessory muscles, on Cardizem drip for atrial fibrillation, possible trach and PEG is placed as an option. Father seems to be inclined to consider comfort care measures knowing condition is. Father attempted to make a final decision, is kind of young, I would try to trach and PEG. Chest x-ray shows COPD. White count 17.6, hemoglobin 13.1. OBJECTIVE: VITAL SIGNS: Temp 99.4, pulse 116, blood pressure 160/85, O2 93, and PO2 30. CHEST: Scattered wheeze. HEART: S1, S2. HEENT: Head normocephalic, atraumatic. NEUROLOGIC: Cranial nerves intact. PSYCH: Flat affect. A 62-year-old, mechanically intubated, on vent. White count 17.6, hemoglobin is 13.1, BUN is 36, creatinine 0.55, hypoxic respiratory failure, COPD exacerbation, nicotine addiction, upper GI bleed, benign hypertension, dyslipidemia, chronic anxiety with stabilizer for depression, dyslipidemia, hyperchloremic hyponatremia, new-onset atrial fibrillation, trach and PEG most likely is my option. Also I recommended to continue Cardizem for atrial fibrillation. Wait for family's decision, and see Dr. Davenport's notes, prognosis guarded. MMODL / IJN: [id number] /
[2023-04-04 22:50] LABS: Glucose,Whole Blood 152 mg/dL (70-110)
[2023-04-04] MEDS: NOREPINEPHRINE 4 MG in SODIUM CHLORIDE 0.9% 250 ML IV SCH (23:06)
[2023-04-04 23:47] LABS: Glucose,Whole Blood 152 mg/dL (70-110)
[2023-04-05] MEDS: IPRATROPIUM-ALBUTEROL 3 ML NEB INHALATION SCH ×6 (01:31→20:46)
--- NOTE | 2023-04-05 02:30 | P.PN ---
Subjective Progress Note Date: 04/04/23 Principal diagnosis: Reason for follow-up is possible pneumonia This is a telehealth visit Patient is a 62-year-old male with a past medical history significant for hypertension anxiety current everyday smoker patient was brought into the hospital for difficulty breathing and chest tightness patient got intubated admitted to ICU. On today's evaluation there is 04/04/2023, the patient continues to be afebrile patient on the vent FiO2 of 30% no significant purulent secretions through the ET has been tolerating his tube feeds no significant diarrhea has been reported Patient did have white count of 17.6 creatinine 0.50 procalcitonin 0.06 Objective - Vital Signs Vital signs: Vital Signs Temp 99.1 F 04/04/23 20:00 Pulse 99 04/04/23 21:00 Resp 18 04/04/23 21:00 BP 120/65 04/04/23 21:00 Pulse Ox 95 04/04/23 21:00 FiO2 30 04/04/23 20:18 Intake & Output 04/04/23 04/04/23 04/05/23 06:59 18:59 06:59 Intake Total 2464.302 1976.373 390 Output Total 2265 1974 430 Balance 198.302 1.373 -40 Weight 58.8 kg Intake: IV 1236 936 234 A line 36 36 9 Dextrose 5% in Water 1, 1200 300 000 ml @ 100 mls/hr IV . Q10H G[facility]PSY Rx#:[id number] Sodium Chloride 0.9% 1, 600 225 000 ml @ 75 mls/hr IV . [id number] GYPSY Rx#:[id number] Intake, IV Titration 92.302 105.373 Amount propofoL 1,000 mg In 92.302 105.373 Empty Bag 1 bag @ 30 MCG/ KG/MIN 8.328 mls/hr IV . Q12H1M GYPSY Rx#:[id number] Tube Feeding 636 625 156 Other 500 310 Output: Urine 2264 1974 430 Stool 1 Other: Voiding Method Indwelling Catheter Indwelling Catheter Indwelling Catheter # Bowel Movements 1 ABP, PAP, CO, CI - Last Documented Arterial Blood Pressure 122/47 - Exam GENERAL DESCRIPTION: Middle-age male intubated on the vent RESPIRATORY SYSTEM: Unlabored breathing , decreased breath sounds at bases HEART: S1 S2 regular rate and rhythm , ABDOMEN: Soft , no tenderness EXTREMITIES: No edema feet Exam completed with help of ENTRY LEVEL INSTALLATION TECHNICIAN - Labs CBC & Chem 7: 04/04/23 05:19 04/04/23 05:19 Labs: Abnormal Lab Results - Last 24 Hours (Table) 04/04/23 04/04/23 04/04/23 Range/Units 00:29 04:13 05:19 WBC 17.6 H (3.8-10.6) k/uL RBC 3.92 L (4.30-5.90) m/uL MCV 105.1 H (80.0-100.0) fL Plt Count 143 L (150-450) k/uL Neutrophils # 16.7 H (1.3-7.7) k/uL Lymphocytes # 0.2 L (1.0-4.8) k/uL ABG pCO2 69 H (35-45) mmHg ABG pO2 72 L (83-108) mmHg ABG HCO3 43 H* (21-25) mmol/L ABG Total CO2 45 H (19-24) mmol/L Chloride (98-107) mmol/L Carbon Dioxide (22-30) mmol/L BUN (9-20) mg/dL Creatinine (0.66-1.25) mg/dL Glucose (74-99) mg/dL POC Glucose (mg/dL) 176 H (70-110) mg/dL 04/04/23 04/04/23 04/04/23 Range/Units 05:19 05:19 11:47 WBC (3.8-10.6) k/uL RBC (4.30-5.90) m/uL MCV (80.0-100.0) fL Plt Count (150-450) k/uL Neutrophils # (1.3-7.7) k/uL Lymphocytes # (1.0-4.8) k/uL ABG pCO2 (35-45) mmHg ABG pO2 (83-108) mmHg ABG HCO3 (21-25) mmol/L ABG Total CO2 (19-24) mmol/L Chloride 96 L (98-107) mmol/L Carbon Dioxide 36 H (22-30) mmol/L BUN 30 H (9-20) mg/dL Creatinine 0.50 L (0.66-1.25) mg/dL Glucose 195 H (74-99) mg/dL POC Glucose (mg/dL) 184 H 149 H (70-110) mg/dL 04/04/23 Range/Units 18:13 WBC (3.8-10.6) k/uL RBC (4.30-5.90) m/uL MCV (80.0-100.0) fL Plt Count (150-450) k/uL Neutrophils # (1.3-7.7) k/uL Lymphocytes # (1.0-4.8) k/uL ABG pCO2 (35-45) mmHg ABG pO2 (83-108) mmHg ABG HCO3 (21-25) mmol/L ABG Total CO2 (19-24) mmol/L Chloride (98-107) mmol/L Carbon Dioxide (22-30) mmol/L BUN (9-20) mg/dL Creatinine (0.66-1.25) mg/dL Glucose (74-99) mg/dL POC Glucose (mg/dL) 162 H (70-110) mg/dL Assessment and Plan (1) Fever Current Visit: Yes Status: Acute Code(s): R50.9 - FEVER, UNSPECIFIED SNOMED Code(s): 607630899 (2) Leukocytosis Current Visit: Yes Status: Acute Code(s): D72.829 - ELEVATED WHITE BLOOD CELL COUNT, UNSPECIFIED SNOMED Code(s): 162054709 Plan: 1patient presented to hospital with increasing shortness of breath more likely related to underlying COPD exacerbation with tracheobronchitis patient not running any fever white count has been normal both the CT of the chest as well as chest x-ray did not show any acute pulmonary process, however the patient did have a low-grade fever and the sputum culture now growing haemophilus concerning for possible early community-acquired pneumonia versus purulent tracheobronchitis 2--patient is afebrile however repeat did have worsening of his white count which could be more likely related to steroids as patient did have a normal procalcitonin 3-patient has completed a 7-day course of Rocephin, and for now we will monitor the patient closely off antibiotic therapy Dictation was produced using [employer] dictation software. please excuse any grammatical, word or spelling errors. Time with Patient: Less than 30
--- NOTE | 2023-04-05 02:42 | EEG ---
DATE OF SERVICE: 04/04/2023 ELECTROENCEPHALOGRAM REPORT PREAMBLE: This is a 62-year-old male with altered mental status. EEG FINDINGS: This is a 21-channel digital EEG recorded with video component, utilizing 10/20 international system with referential and bipolar montages. Background consists of moderately well-developed, well regulated, predominantly 5 to 6 hertz moderate to low amplitude activity in bihemispheric region. Background does not seem to be reactive to eye opening or closing. Photic driving response was not seen. Different stages of sleep were not seen. No focal or generalized epileptiform activity was seen. IMPRESSION: This is an abnormal EEG due to background slowing of moderate degree. This is suggestive of generalized cerebral dysfunction as can be seen with toxic metabolic encephalopathy or related to diffuse structural brain abnormality. Clinical correlation is recommended. No epileptiform activity was seen. MMODL / IJN: [id number] / MTDD
[2023-04-05] MEDS: DILTIAZEM 125 MG in SODIUM CHLORIDE 0.9% 100 ML IV SCH (03:39)
[2023-04-05 04:50] LABS: HCT 38.1 % (39.0-53.0); Hypochromasia Slight; MCH 32.8 pg (25.0-35.0); MCHC 31.5 g/dL (31.0-37.0); MCV 104.1 fL (80.0-100.0); Macrocytosis Slight; Mean Platelet Volume 9.1; Platelet Count 131 k/uL (150-450); RBC 3.66 m/uL (4.30-5.90); RDW 12.9 % (11.5-15.5); WBC 17.7 k/uL (3.8-10.6)
[2023-04-05 05:06] LABS: African American GFR (CKD) >90 (>60 ml/min/1.73 sqM); Anion Gap -2 mmol/L; Blood Urea Nitrogen 34 mg/dL (9-20); Carbon Dioxide 40 mmol/L (22-30); Chloride 103 mmol/L (98-107); Glucose 169 mg/dL (74-99); Non-African American GFR(CKD) >90 (>60 ml/min/1.73 sqM); Potassium 4.5 mmol/L (3.5-5.1); Sodium 141 mmol/L (137-145)
[2023-04-05 05:18] LABS: ABG Base Excess 15.8 mmol/L; ABG Oxygen Saturation 94.4 % (94-97); ABG PCO2 68 mmHg (35-45); ABG PH 7.39 (7.35-7.45); ABG PO2 72 mmHg (83-108); ABG TCO2 43 mmol/L (19-24); Allen Test Performed? Yes
[2023-04-05 05:48] LABS: Glucose,Whole Blood 158 mg/dL (70-110)
[2023-04-05 06:31] LABS: ABG HCO3 41 mmol/L (21-25)
[2023-04-05] MEDS: INSULIN ASPART (NovoLOG) 100 UNIT/ML VIAL SQ SCH ×3 (06:54→18:25)
[2023-04-05] MEDS: methylPREDNISolone SOD SUCCI 125 MG/2 ML VIAL IV SCH ×3 (06:54→18:45)
--- NOTE | 2023-04-05 07:43 | P.PN ---
Subjective Progress Note Date: 04/05/23 PROGRESS NOTE The patient is a 62-year-old male with known history of severe chronic obstructive lung disease chronic tobacco use who presented on March 26 with symptoms of severe progressive dyspnea, requiring mechanical ventilation. Attempt to wean him have been unsuccessful. Cardiology consultation was requested because of an episode of paroxysmal atrial fibrillation that occurred last night. Patient remains intubated, back in sinus mechanism. He was started on IV Cardizem. He has baseline sinus tachycardia. He is on no vasopressor. His urinary output has been stable. According to the nursing staff patient had a prior history of GI bleeding and underwent endoscopy and had an acute bleeding requiring Endo Clip placement for gastric ulcer of the mid body of the stomach. The procedure was done on March 28. He has been evaluated for possible need to undergo PEG and trach placement although according to the nursing staff the family is not sure if they want to proceed with that. He has a history of hypertension and hyperlipidemia. No other past history is available to me. April 04: The patient remains intubated, in sinus mechanism, hemodynamically stable. Decision regarding PEG tube and trach still pending. There is no hemodynamic compromise. His urinary output is stable. There is no further episodes of atrial fibrillation. He continues to be on IV Cardizem drip. No anticoagulation was started because of recent GI bleeding. Attempt to wean his ventilator in the past were unsuccessful because of agitation and tachypnea. April 05: The patient remains intubated and sedated. In sinus mechanism. Hemodynamically stable. Continues to be on IV Cardizem drip. Decision is pending regarding tracheostomy. Family to decide. Patient has been very weak and unable to be weaned. The patient is not anticoagulated because of recent GI bleeding. Echocardiogram showed a preserved systolic function with no significant valvular abnormalities Medications: IV Cardizem, lisinopril 5 mg daily, insulin, start prednisone, Lipitor 10 mg daily PHYSICAL EXAMINATION: Blood pressure 123/60 heart rate 90, intubated and sedated LUNGS: Clear to auscultation anteriorly HEART: Regular rate and rhythm, S1, S2. No S3. No systolic murmur ABDOMEN: Soft, no organomegaly EXTREMETIES: No edema LAB: WBC 17.7, hemoglobin 12, potassium 4.5, BUN 34, creatinine 2.47 IMPRESSION: 1. Respiratory failure with severe COPD with hypercapnia and hypoxemia and failure to wean 2. Paroxysmal atrial fibrillation, maintaining sinus mechanism 3. Recent GI bleeding 4. History of hypertension PLAN: 1. Continue IV Cardizem for now 2. No anticoagulation for now 3. Await decision regarding PEG tube and tracheostomy 4. Prognosis remains guarded Objective - Vital Signs Vital signs: Vital Signs Temp 99.5 F 04/05/23 04:00 Pulse 99 04/05/23 06:00 Resp 21 04/05/23 06:00 BP 123/66 04/05/23 06:00 Pulse Ox 93 L 04/05/23 06:00 FiO2 30 04/05/23 04:00 Intake & Output 04/04/23 04/05/23 04/05/23 18:59 06:59 18:59 Intake Total 2060.123 1560 Output Total 1974 1330 Balance 85.123 230 Intake: IV 936 936 A line 36 36 Dextrose 5% in Water 1, 300 000 ml @ 100 mls/hr IV . Q10H G[facility]PS[facility] Rx#:[id number] Sodium Chloride 0.9% 1, 600 900 000 ml @ 75 mls/hr IV . [id number] GYPSY Rx#:[id number] Intake, IV Titration 189.123 Amount Diltiazem 125 mg In 83.75 Sodium Chloride 0.9% 100 ml @ Per Protocol IV .Q0M GYPSY Rx#:[id number] propofoL 1,000 mg In 105.373 Empty Bag 1 bag @ 30 MCG/ KG/MIN 8.328 mls/hr IV . Q12H1M GYPSY Rx#:[id number] Tube Feeding 625 624 Other 310 Output: Urine 1974 1330 Other: Voiding Method Indwelling Catheter Indwelling Catheter ABP, PAP, CO, CI - Last Documented Arterial Blood Pressure 111/42 - Labs CBC & Chem 7: 04/05/23 04:30 04/05/23 04:30 Labs: Abnormal Lab Results - Last 24 Hours (Table) 04/04/23 04/04/23 04/04/23 Range/Units 04:13 11:47 18:13 WBC (3.8-10.6) k/uL RBC (4.30-5.90) m/uL Hgb (13.0-17.5) gm/dL Hct (39.0-53.0) % MCV (80.0-100.0) fL Plt Count (150-450) k/uL ABG pCO2 69 H (35-45) mmHg ABG pO2 72 L (83-108) mmHg ABG HCO3 43 H* (21-25) mmol/L ABG Total CO2 45 H (19-24) mmol/L Carbon Dioxide (22-30) mmol/L BUN (9-20) mg/dL Creatinine (0.66-1.25) mg/dL Glucose (74-99) mg/dL POC Glucose (mg/dL) 149 H 162 H (70-110) mg/dL Calcium (8.4-10.2) mg/dL 04/04/23 04/04/23 04/05/23 Range/Units 22:49 23:46 04:30 WBC 17.7 H (3.8-10.6) k/uL RBC 3.66 L (4.30-5.90) m/uL Hgb 12.0 L (13.0-17.5) gm/dL Hct 38.1 L (39.0-53.0) % MCV 104.1 H (80.0-100.0) fL Plt Count 131 L (150-450) k/uL ABG pCO2 (35-45) mmHg ABG pO2 (83-108) mmHg ABG HCO3 (21-25) mmol/L ABG Total CO2 (19-24) mmol/L Carbon Dioxide (22-30) mmol/L BUN (9-20) mg/dL Creatinine (0.66-1.25) mg/dL Glucose (74-99) mg/dL POC Glucose (mg/dL) 152 H 152 H (70-110) mg/dL Calcium (8.4-10.2) mg/dL 04/05/23 04/05/23 04/05/23 Range/Units 04:30 05:15 05:47 WBC (3.8-10.6) k/uL RBC (4.30-5.90) m/uL Hgb (13.0-17.5) gm/dL Hct (39.0-53.0) % MCV (80.0-100.0) fL Plt Count (150-450) k/uL ABG pCO2 68 H (35-45) mmHg ABG pO2 72 L (83-108) mmHg ABG HCO3 41 H* (21-25) mmol/L ABG Total CO2 43 H (19-24) mmol/L Carbon Dioxide 40 H (22-30) mmol/L BUN 34 H (9-20) mg/dL Creatinine 0.47 L (0.66-1.25) mg/dL Glucose 169 H (74-99) mg/dL POC Glucose (mg/dL) 158 H (70-110) mg/dL Calcium 8.0 L (8.4-10.2) mg/dL
[2023-04-05] MEDS: FORMOTEROL FUMARATE 20 MCG/2 ML NEBU INHALATION SCH ×2 (08:03→20:46)
[2023-04-05] MEDS: BUDESONIDE 1 MG/2 ML NEBU INHALATION SCH ×2 (08:03→20:46)
[2023-04-05] MEDS: PANTOPRAZOLE 40 MG/10 ML VIAL IVP SCH ×2 (08:04→20:27)
[2023-04-05] MEDS: ATORVASTATIN 10 MG TAB PO SCH (08:04)
[2023-04-05] MEDS: SENNOSIDES 8.6 MG TAB PO SCH (08:04)
[2023-04-05] MEDS: CHLORHEXIDINE GLUCONATE 15 ML CUP MUCOUS MEM SCH ×2 (08:04→20:27)
[2023-04-05] MEDS: ARTIFICIAL TEARS-HYPROMELLOSE DROPS 15 ML BTL BOTH EYES SCH ×3 (08:04→21:01)
[2023-04-05] MEDS: lisinopriL 5 MG TAB PO SCH (08:04)
--- NOTE | 2023-04-05 08:35 | XR ---
EXAMINATION TYPE: XR chest 1V portable DATE OF EXAM: 04/05/2023 Comparison: 04/04/2023 Clinical History: 62-year-old male ET Tube, lung status Findings: ETT tube satisfactory. NG tube side hole just below the GE junction level. Left IJ CVC tip lower SVC. Heart normal size. Hyperinflation. No consolidation or pleural effusion. Impression: COPD. Otherwise, stable exam; no acute process seen.
[2023-04-05] MEDS: NICOTINE 21MG/24HR PATCH TRANSDERM SCH (09:02)
[2023-04-05 10:53] VITALS: BMI 19.7
[2023-04-05 11:50] LABS: Glucose,Whole Blood 152 mg/dL (70-110)
--- NOTE | 2023-04-05 13:37 | P.PN ---
Subjective Progress Note Date: 04/05/23 CHIEF COMPLAINT: Respiratory failure, COPD exacerbation HISTORY OF PRESENT ILLNESS: Patient remains in the ICU intubated and on mechanical ventilation. Patient is having difficulty weaning from vent. Afe brile. WBC 17.7 HGB 12.2 plt 131 PHYSICAL EXAM: VITAL SIGNS: Reviewed. GENERAL: no acute distress. ABDOMEN: Soft. Nondistended. Nontender. ASSESSMENT: 1. Respiratory failure with Severe COPD requiring mechanical ventilation 2. Severe protein calorie malnutrition PLAN: -Awaiting family's decision regarding possible tracheostomy and PEG tube placement -Potential PEG tube placement on Saturday with Dr. Stapleton Physician Software Quality Tester note has been reviewed by physician. Signing provider agrees with the documented findings, assessment, and plan of care. Objective - Vital Signs Vital signs: Vital Signs Temp 99.3 F 04/05/23 08:00 Pulse 105 H 04/05/23 12:02 Resp 23 04/05/23 11:00 BP 148/74 04/05/23 11:00 Pulse Ox 96 04/05/23 11:00 FiO2 35 04/05/23 11:51 Intake & Output 04/04/23 04/05/23 04/05/23 18:59 06:59 18:59 Intake Total 2060.123 1660 810 Output Total 1974 1330 580 Balance 85.123 330 230 Weight 58.8 kg Intake: IV 936 936 468 A line 36 36 18 Dextrose 5% in Water 1, 300 000 ml @ 100 mls/hr IV . Q10H GYPSY Rx#:[id number] Sodium Chloride 0.9% 1, 600 900 450 000 ml @ 75 mls/hr IV . [id number] GYPSY Rx#:[id number] Intake, IV Titration 189.123 100 Amount Diltiazem 125 mg In 83.75 Sodium Chloride 0.9% 100 ml @ Per Protocol IV .Q0M GYPSY Rx#:[id number] propofoL 1,000 mg In 105.373 100 Empty Bag 1 bag @ 30 MCG/ KG/MIN 8.328 mls/hr IV . Q12H1M GYPSY Rx#:[id number] Tube Feeding 625 624 312 Other 310 30 Output: Urine 1974 1330 580 Other: Voiding Method Indwelling Catheter Indwelling Catheter Indwelling Catheter ABP, PAP, CO, CI - Last Documented Arterial Blood Pressure 134/53 - Labs CBC & Chem 7: 04/05/23 04:30 04/05/23 04:30 Labs: Abnormal Lab Results - Last 24 Hours (Table) 04/04/23 04/04/23 04/04/23 Range/Units 18:13 22:49 23:46 WBC (3.8-10.6) k/uL RBC (4.30-5.90) m/uL Hgb (13.0-17.5) gm/dL Hct (39.0-53.0) % MCV (80.0-100.0) fL Plt Count (150-450) k/uL ABG pCO2 (35-45) mmHg ABG pO2 (83-108) mmHg ABG HCO3 (21-25) mmol/L ABG Total CO2 (19-24) mmol/L Carbon Dioxide (22-30) mmol/L BUN (9-20) mg/dL Creatinine (0.66-1.25) mg/dL Glucose (74-99) mg/dL POC Glucose (mg/dL) 162 H 152 H 152 H (70-110) mg/dL Calcium (8.4-10.2) mg/dL 04/05/23 04/05/23 04/05/23 Range/Units 04:30 04:30 05:15 WBC 17.7 H (3.8-10.6) k/uL RBC 3.66 L (4.30-5.90) m/uL Hgb 12.0 L (13.0-17.5) gm/dL Hct 38.1 L (39.0-53.0) % MCV 104.1 H (80.0-100.0) fL Plt Count 131 L (150-450) k/uL ABG pCO2 68 H (35-45) mmHg ABG pO2 72 L (83-108) mmHg ABG HCO3 41 H* (21-25) mmol/L ABG Total CO2 43 H (19-24) mmol/L Carbon Dioxide 40 H (22-30) mmol/L BUN 34 H (9-20) mg/dL Creatinine 0.47 L (0.66-1.25) mg/dL Glucose 169 H (74-99) mg/dL POC Glucose (mg/dL) (70-110) mg/dL Calcium 8.0 L (8.4-10.2) mg/dL 04/05/23 04/05/23 Range/Units 05:47 11:47 WBC (3.8-10.6) k/uL RBC (4.30-5.90) m/uL Hgb (13.0-17.5) gm/dL Hct (39.0-53.0) % MCV (80.0-100.0) fL Plt Count (150-450) k/uL ABG pCO2 (35-45) mmHg ABG pO2 (83-108) mmHg ABG HCO3 (21-25) mmol/L ABG Total CO2 (19-24) mmol/L Carbon Dioxide (22-30) mmol/L BUN (9-20) mg/dL Creatinine (0.66-1.25) mg/dL Glucose (74-99) mg/dL POC Glucose (mg/dL) 158 H 152 H (70-110) mg/dL Calcium (8.4-10.2) mg/dL
--- NOTE | 2023-04-05 14:38 | P.PN ---
Subjective Progress Note Date: 04/05/23 Principal diagnosis: Acute hypoxic and hypercapnic respiratory failure secondary to acute exacerbation of COPD Patient is a 62-year-old white male with past medical history significant for COPD and chronic ongoing tobacco dependence. The patient came into the emergency department with significant shortness of breath. Apparently, he was actively bronchospastic and he had diminished breath sounds. In the emergency, the patient was given breathing treatments [id number] and subsequently was placed in the 100% nonrebreather facemask. Upon follow-up, the patient was fou nd to be completely unresponsive and he was unable to protect his airway and his breathing was very shallow. At that point, he was intubated and placed on a mechanical ventilator. The initial blood gas was done postintubation was lab error and subsequently follow-up blood gases was done that showed significant respiratory acidosis and oxygen nasal already improved. Patient is currently sedated and intubated on mechanical ventilator, most of this HPI supplemented from ER documentation. We were not able to get a hold of any family at this time, and there are no prior charts to review. Based on a review of his home medications, he may have history COPD, hypertension, and hyperlipidemia. Pos tintubation he ABG was consistent with severe hypercapnic respiratory failure. PO2 greater than 400, pCO2 of 93, and pH of 7.12. Postintubation chest x-ray has endotracheal tube approximately 4 cm above the michael. Orogastric tube courses below the diaphragm. No focal infiltrates or evidence of pneumonia. There is marked hyperinflation with flattening of the diaphragm, consistent with COPD. A follow-up chest CTA done while in the emergency room showed no evidence of pulmonary embolism. There is no acute cardiopulmonary process. Patient is currently in the intensive care unit, intubated to the mechanical ventilator. Propofol is infusing at 45 mcg/kg/m. He is synchronous with mechanical ventilator. Current ventilator settings are assist control, respiratory rate of 12, tidal volume 400, FiO2 of 80%, PEEP of 5. A repeat ABG as a PaO2 of 358, pCO2 of 90, pH of 7.14. I increased the patient's respiratory rate 20 and reduce the FiO2 to 50%. The peak airway pressure is 34 and static airway pressure is 24, patient has some evidence of airway resistance. Lung sounds are tight and continues wheezing. No significant airway secretions. Patient has been started on DuoNeb's every 4 hours. I would add budesonide and formoterol. Patient is also hypotensive, he is already received a total of 2 L normal saline bolus. He is only 52 kg. Patient will be started on low-dose norepinephrine for refractory hypotension if needed. CBC on arrival unremarkable. BMP on arrival, sodium 132, potassium 4.9, chloride 94, serum bicarbonate 33, BUN 16, creatinine 0.62, glucose 123. Lactic acid level II.5. Troponin is less than 0.012. Negative for influenza, RSV, COVID-19. He is afebrile. Patient's status is still volatile, and there are no plans to extubate tonight. They have the chest was also completed in emergency. This was reviewed. No evidence of any pulmonary embolism. There is extensive emphysema bilaterally. No airspace disease. Note that the patient's NG output is bloody. Currently has approximately 300 mL and the canister. In terms of his hemoglobin monitoring, the patient's hemoglobin dropped from 15.2 down to 13.5. IV fluids are in the form of normal saline at rate of 75 mL's an hour. The patient is sedated with propofol running at 50 mcg/kg/m. Most recent blood gas showed improvement and acid-base status. PH is down still at 7.28 also improved compared to yesterday. PCO2 is down to 58 and pO2 is at 179 and this was an FiO2 of 50% and subseque ntly the FiO2 was dropped onto 40%. No pressors. Today's evaluation of 03/28/2023, the patient remains intubated on a mechanical ventilator. He remains sedated on propofol which is running at 70 g plus kilogram per minutes. Despite his adequate sedation, the patient remains actively bronchospastic and wheezy. In fact, he is having elevated peak airway pressure this morning. His current ventilator settings with evidence is control mode rate of 12, tidal volume of 400, FiO2 of 40% with a PEEP of 5. His blood gases show a pH of 7.32 with a pCO2 of 54 and pO2 of 133. Chest x-ray shows ma rked hyperinflation. No airspace disease. No consolidation. On a separate note, the patient was having episodes of GI bleed. NG tube was in place throughout the night. Output from the treatment diminished and the hemoglobin had dropped slightly down to 12.5 this morning. EGD was done earlier today and the patient was found to have a 5 mm ulcer in the body of the stomach and an Endo Clip was applied. The patient will some antral erosive gastritis. Clearance was obtained from the animal tech to feed the patient. As such, we will going to start enteral feeding. We'll going to stop TPN for now. Hemodynamically stable. He is maintaining his own blood pressure without any pressors. The patient remains on IV fluids with normal saline at 125 mL an hour. He remains on bronchodilators. He remains on steroids. He remains on a broad-spectrum antibiotic coverage with Rocephin and Zithromax. White cell count 11.9, he was 12.5 and a platelet is 164. Sodium is at 136, BUN is at 17 with a creatinine of 0.6. LFTs are within normal limits. No other significant events overnight. On 03/29/2023, patient is being seen for a follow-up. Remains sedated on propofol. His calm and comfortable. Propofol is running at 50 microvascular kilogram per minute. The patient remains on the same ventilator settings with a tidal volume of 375, rate of 12, FiO2 of 40% with a PEEP of 5. Peak air pressures at 42. Remains actively bronchospastic and wheezy. Not a candidate for any bleeding at this point in time as the patient COPD still quite active. Chest x-ray shows hyperinflation. Orotracheal tube is in good location. No evidence of any airspace disease of consolidation. Remains on broke a dilated. Remains on steroids. Remains on enteral feeding for nutritional support and the patient is taking vital high-protein at the rate of 30 mL an hour. Hemodynamically stable. No other significant events overnight. Blood gas from today shows a pH of 7.29 with episodes of 48 and pO2 118 and this was an FiO2 of 40%. The white cell cause of 14.3, hemoglobin of 11.8 and a platelet count of 153. BUN is at 20 with a creatinine of 0.6 and a sodium level is at 142 and a potassium level of 4.6. LFTs are normal. The sputum sample was positive for Haemophilus influenza. On 03/30/2023, the patient remains on a mechanical ventilator. Slightly less bronchus spastic compared to yesterday. The peak airway pressure today's ranging between 33 and 35. The patient is on assist control mode at a rate of 12, tidal volume of 375, FiO2 is at 40% with a PEEP of 5. He remains on propofol running at 50 microvascular kilogram per minute. Chest x-ray findings are unchanged. No clear indication for pneumonia. The patient is Haemophilus influenza cultured in the sputum. Blood gas from today shows a pH of 7.28 with episodes of 83 and pO2 of 107 and this was an FiO2 of 40%. The patient continues to receive enteral feeding for nutritional support and he is on vital high-protein at the rate of 46 mL an hour. IV fluids are currently running at 75 mL an hour. The patient's sodium level is at 150, potassium levels at 4.2, chlorides 112 and a bicarb of 39. BUN is 29 with a creatinine of 0.6. The white cell cause of 10.9 with a hemoglobin of 11.4. No other complications or issues for now. Unable to wean this patient yet off the mechanical ventilator as his COPD remains quite active. Hemodynamically stable. He is on no pressors. Tolerating enteral feeding. 03/31/2023, the patient is on a mechanical ventilator. Ventilator settings are control 12, tidal volume of 400, FiO2 40% with a PEEP of 5. The patient's blood gas shows some improvement acid-base status. On today's evaluation, the patient has a pH of 7.34 with episodes of 84 and pO2 of 109. This was an FiO2 of 40%. Chest x-ray findings are unchanged. Peak airway pressures around 34. Air entry is improved bilaterally. However, with any attempts to cut down the sedation, the patient becomes asynchronous and he starts peak pressure in. I do not believe that his ready for any further weaning at this point in time. I may even consider the possibility of tracheostomy at the later stage. He is currently on a propofol at the rate of 50 mcg/kg/m. His vital high-protein at the rate of 46 mL an hour. His sodium level is elevated. I started him on free water supplements through the OG tube. He'll be started on D5 water today in attempt to optimize his sodium level hypernatremia. He has a 35 and a creatinine of 0.5. Potassium is 4.4. The previous cause of 9.8 with a hemoglobin of 12.2. Remains hemodynamically stable. Remains afebrile. Remains on IV Rocephin. Patient was reevaluated today on 04/01/23, remains in the ICU, intubated and mechanically ventilated. He is on assist control rate of 12 tidal volume 400 FiO2 40% and PEEP of 5 and FiO2 was cut down to 35%, ABG 109/81/7.38. Patient is requiring sedation presently on propofol at 50 mcg/kg/m, is also on D5W at 75 mL per hour receiving vitamin Hb at 46 mL per hour, also receiving free water flushes because of his hypernatremia, patient remains on ceftriaxone, Solu- Medrol, NicoDerm, patient had EGD on 03/28 and he was found to have upper GI bleeding, looking at the notes from Dr. Herring, he felt that the patient has such a severe COPD, he will be very difficult to wean, and may have to consider tracheostomy and PEG tube placement on this patient. Nonetheless I will give the patient trials of weaning on a daily basis, and if the patient fails over the next 5 days, may recommend trach and PEG on this patient. His peak airway pressure today is 34, plateau pressure is 22. WBC count is 7.9 hemoglobin is 11.5 sodium is 148 bicarb is 44 ABG as noted earlier. Chest x-ray is showing severe COPD picture/hyperinflation/emphysema picture Reevaluated today on 04/02/2023, remains in the ICU intubated and mechanically ventilated, patient is presently on assist-control rate of 12 tidal volume of 100 FiO2 35% PEEP of 5, ABG showed a pO2 of 90 pCO2 77 pH of 7.39. Patient remains on propofol at 30 mcg/kg/min, he is also on vital HP at 40 M 6 mL/h, receiving Rocephin, we are holding on anticoagulation therapy because of his recent GI bleed, yesterday the patient was given a very short voiding trial, and he failed immediately, not quite ready for any weaning. As a matter fact considering his presentation and considering his overall pulmonary status, I believe the patient is going to be extremely difficult to wean and extubate, hence I am recommending surgical consultation for tracheostomy and PEG tube placement. Chest x-ray is mostly showing COPD changes, no clear-cut evidence of infiltrate. Nonetheless patient remains empirically on Rocephin. WBC count today is 11.7 hemoglobin is 12.8. Basic metabolic profile is normal bicarb is 41 BUN is 33 creatinine 0.41 Reevaluated today on 04/03/2023, patient remains in, intubated and mechanically ventilated. This morning, patient went into new onset atrial fibrillation with RVR, placed on Cardizem drip as per cardiology, did not recommend anticoag ulation because of his recent GI bleed, patient remains in bated and mechanically ventilated, he is on assist-control rate of 12 tidal volume 400 FiO2 35% and PEEP of 5G showed a pO2 of 89 pCO2 72 pH of 7.40, his sputum was positive for H. influenzae. Patient remains on D5W at 100 cc/h propofol at 35 mcg/kg/min, he is on vital HP at 52 cc/h. Patient finished full course of ceftriaxone treatment. Today will be the last day. For his atrial fibrillation and RVR, patient is being addressed by cardiology. When I saw him this morning, he already converted to sinus rhythm. Chest x-ray continues to show evidence of COPD but no evidence of infiltrate. WBC count is 14.7 hemoglobin 13.2 basic me tabolic profile is normal, renal profile is normal patient remains on propofol, difficult to assess mental status, however I will have the nurses hold his propofol today, and try to address mental status. Apparently off propofol the patient gets extremely agitated, tachypneic, tachycardic, none synchronous with the ventilator, hence could not get to the point where we could address weaning or addressed even evaluation of mental status on this patient Reevaluate today on 04/04/2023, remains intubated and mechanically ventilated on assist-control rate of 12 tidal volume 400 FiO2 30% PEEP of 5 ABG showed a pO2 of 72 pCO2 69 pH of 7.39. Off sedation, the patient gets extremely restless tachypneic tachycardic, agitated, and using his accessory muscles. Opens eyes, wiggles toes, squeezes hands, however not much else could be done. Patient is extremely weak, he is still on Cardizem at 5 mg/h, propofol 35 mg/kg/min IV fluid changed 2.9 normal saline at 70 cc/h receiving vital HP at 53 mL/h. Today I had a chance to talk to his father over the phone, explained to him his son's condition and the severity of his condition and discussed with him the option of tracheostomy PEG tube placement, and eventually transfer to a ventilator facility. Apparently the father seems to be inclined to consider comfort care measures knowing how bad his condition is and the patient would not have wanted to go on tracheostomy or PEG tube placement. However we will give the father time to think and make a final decision regarding tracheostomy, PEG tube placement, or possibly go to comfort care. Chest x-ray continues to show COPD but no evidence of infiltrate WBC count is 17.6 hemoglobin 13.1. Basic metabolic profile is normal renal profile is normal bicarb is 36 Was reevaluated today on 04/05/2023, patient remains intubated and mechanically ventilated. He is on assist-control rate of 12 tidal volume 400 FiO2 35% and PEEP of 5 ABG showed a pO2 of 72 pCO2 68 pH of 7.39, hence no changes were made in his present ventilator settings. Chest x-ray continues to show COPD, no evidence of pneumonia or congestive heart failure. Patient is in sinus rhythm, remains on Cardizem at 5 mg/h he is also on propofol at 50 mg/kg/min IV fluid of 75 cc an hour 0.9 normal saline vital HP at 52 cc/h. Attempts yesterday failed to fully assess mental status, patient gets quite restless and agitated, tac hypneic tachycardic every time we hold propofol, and could not fully assess mental status but he seems to be appropriate enough to wiggle his toes and squeezes hands. Will try this again and assessment of mental status but clearly the patient is nowhere ready for any weaning trials. Apparently the patient has extremely severe COPD/emphysema, and doubt that she could even tolerate any form of weaning. Family was approached regarding PEG tube placement and tracheostomy so far undecided. WBC count today is 17.7 hemoglobin is 12 basic metabolic profile is normal renal profile is normal bicarb is 40 Objective - Vital Signs Vital signs: Vital Signs Temp 98.4 F 04/05/23 12:00 Pulse 112 H 04/05/23 14:00 Resp 21 04/05/23 14:00 BP 124/70 04/05/23 14:00 Pulse Ox 96 04/05/23 14:00 FiO2 35 04/05/23 12:00 Intake & Output 04/04/23 04/05/23 04/05/23 18:59 06:59 18:59 Intake Total 2060.123 1660 810 Output Total 1975 1330 580 Balance 85.123 330 230 Weight 58.8 kg Intake: IV 936 936 468 A line 36 36 18 Dextrose 5% in Water 1, 300 000 ml @ 100 mls/hr IV . Q10H [facility] Rx#:[id number] Sodium Chloride 0.9% 1, 600 900 450 000 ml @ 75 mls/hr IV . [id number] [facility] Rx#:[id number] Intake, IV Titration 189.123 100 Amount Diltiazem 125 mg In 83.75 Sodium Chloride 0.9% 100 ml @ Per Protocol IV .Q0M [facility] Rx#:[id number] propofoL 1,000 mg In 105.373 100 Empty Bag 1 bag @ 30 MCG/ KG/MIN 8.328 mls/hr IV . Q12H1M [facility] Rx#:[id number] Tube Feeding 625 624 312 Other 310 30 Output: Urine 1974 1330 580 Other: Voiding Method Indwelling Catheter Indwelling Catheter Indwelling Catheter ABP, PAP, CO, CI - Last Documented Arterial Blood Pressure 139/53 - Exam Physical Exam: Revealed a 62-year-old white male in no distress intubated me chanically ventilated sedated on propofol. Head: Atraumatic, normocephalic. HEENT:[Neck is supple.] [No neck masses.] [No thyromegaly.] [No JVD.] Endotracheal tube and orogastric tubes are intact. Chest: [Neck symmetrical chest expansion, diminished breath sound bilaterally no rhonchi no wheezes.] Cardiac Exam: [Normal S1 and S2, no S3 gallop, no murmur.] Abdomen: [Soft, nontender, no megaly, no rebound, no guarding, normal bowel sounds.] Extremities: [No clubbing, no edema, no cyanosis.] Good distal pulses bilaterally. Neurological Exam: Could not assess, patient is fully sedated. Psychiatric: Could not assess Skin: No rashes - Labs CBC & Chem 7: 04/05/23 04:30 04/05/23 04:30 Labs: Abnormal Lab Results - Last 24 Hours (Table) 04/04/23 04/04/23 04/04/23 Range/Units 18:13 22:49 23:46 WBC (3.8-10.6) k/uL RBC (4.30-5.90) m/uL Hgb (13.0-17.5) gm/dL Hct (39.0-53.0) % MCV (80.0-100.0) fL Plt Count (150-450) k/uL ABG pCO2 (35-45) mmHg ABG pO2 (83-108) mmHg ABG HCO3 (21-25) mmol/L ABG Total CO2 (19-24) mmol/L Carbon Dioxide (22-30) mmol/L BUN (9-20) mg/dL Creatinine (0.66-1.25) mg/dL Glucose (74-99) mg/dL POC Glucose (mg/dL) 162 H 152 H 152 H (70-110) mg/dL Calcium (8.4-10.2) mg/dL 04/05/23 04/05/23 04/05/23 Range/Units 04:30 04:30 05:15 WBC 17.7 H (3.8-10.6) k/uL RBC 3.66 L (4.30-5.90) m/uL Hgb 12.0 L (13.0-17.5) gm/dL Hct 38.1 L (39.0-53.0) % MCV 104.1 H (80.0-100.0) fL Plt Count 131 L (150-450) k/uL ABG pCO2 68 H (35-45) mmHg ABG pO2 72 L (83-108) mmHg ABG HCO3 41 H* (21-25) mmol/L ABG Total CO2 43 H (19-24) mmol/L Carbon Dioxide 40 H (22-30) mmol/L BUN 34 H (9-20) mg/dL Creatinine 0.47 L (0.66-1.25) mg/dL Glucose 169 H (74-99) mg/dL POC Glucose (mg/dL) (70-110) mg/dL Calcium 8.0 L (8.4-10.2) mg/dL 04/05/23 04/05/23 Range/Units 05:47 11:47 WBC (3.8-10.6) k/uL RBC (4.30-5.90) m/uL Hgb (13.0-17.5) gm/dL Hct (39.0-53.0) % MCV (80.0-100.0) fL Plt Count (150-450) k/uL ABG pCO2 (35-45) mmHg ABG pO2 (83-108) mmHg ABG HCO3 (21-25) mmol/L ABG Total CO2 (19-24) mmol/L Carbon Dioxide (22-30) mmol/L BUN (9-20) mg/dL Creatinine (0.66-1.25) mg/dL Glucose (74-99) mg/dL POC Glucose (mg/dL) 158 H 152 H (70-110) mg/dL Calcium (8.4-10.2) mg/dL Assessment and Plan Assessment: Impression: Acute hypoxic/hypercapnic respiratory failure secondary to acute exacerbation of COPD, no evidence of pneumonia Severe COPD Chronic smoker/tobacco dependence syndrome Acute upper GI bleeding secondary to erosive antral gastritis based on EGD patient had Endo Clip applied. Presently on Protonix 40 mg twice a day, still holding Lovenox. Benign essential hypertension Dyslipidemia Chronic anxiety disorder maintained on Zyprexa on outpatient basis is also on Prozac for depression Dyslipidemia Hyperchloremic hypernatremia, resolved New onset atrial fibrillation with RVR, on Cardizem. Recommendation: Continue ventilatory support, Daily sedation holidayS Surgery was consulted for possible PEG tube and tracheostomy tube, family to decide regarding this recommendation No need for more antibiotics Continue GI prophylaxis Continue Cardizem, being addressed by cardiology, consider transitioning to oral instead of IV Cardizem. Continue to hold anticoagulation therapy Continue Protonix 40 mg twice a day Continue enteral feeding/nutritional support, patient is receiving vital HP Patient remains critically ill Discussed his condition with his father over the phone, awaiting to hear from his father regarding either comfort care or possibly trach and PEG placement Critical care time is over 30 minutes Time with Patient: Greater than 30
[2023-04-05 17:46] LABS: Glucose,Whole Blood 144 mg/dL (70-110)
[2023-04-05] MEDS: SODIUM CHLORIDE 0.9% 1,000 ML IV SCH (18:46)
--- NOTE | 2023-04-05 21:47 | P.PN ---
Subjective Progress Note Date: 04/05/23 Principal diagnosis: Reason for follow-up is possible pneumonia This is a telehealth visit Patient is a 62-year-old male with a past medical history significant for hypertension anxiety current everyday smoker patient was brought into the hospital for difficulty breathing and chest tightness patient got intubated admitted to ICU. On today's evaluation there is 04/05/2023, the patient is afebrile , patient on the vent FiO2 slightly up to 35% today however no significant purulent secretions through the ET has been tolerating his tube feeds no significant diarrhea has been reported Patient white count is 17.7, creatinine 0.47 Objective - Vital Signs Vital signs: Vital Signs Temp 99.5 F 04/05/23 04:00 Pulse 94 04/05/23 08:28 Resp 23 04/05/23 07:00 BP 116/70 04/05/23 07:00 Pulse Ox 94 L 04/05/23 07:00 FiO2 30 04/05/23 08:06 Intake & Output 04/04/23 04/05/23 04/05/23 18:59 06:59 18:59 Intake Total 2060.123 1560 130 Output Total 1974 1330 100 Balance 85.123 230 30 Intake: IV 936 936 78 A line 36 36 3 Dextrose 5% in Water 1, 300 000 ml @ 100 mls/hr IV . Q10H GYPSY Rx#:[id number] Sodium Chloride 0.9% 1, 600 900 75 000 ml @ 75 mls/hr IV . [id number] GYPSY Rx#:[id number] Intake, IV Titration 189.123 Amount Diltiazem 125 mg In 83.75 Sodium Chloride 0.9% 100 ml @ Per Protocol IV .Q0M GYPSY Rx#:[id number] propofoL 1,000 mg In 105.373 Empty Bag 1 bag @ 30 MCG/ KG/MIN 8.328 mls/hr IV . Q12H1M GYPSY Rx#:[id number] Tube Feeding 625 624 52 Other 310 Output: Urine 1974 1330 100 Other: Voiding Method Indwelling Catheter Indwelling Catheter ABP, PAP, CO, CI - Last Documented Arterial Blood Pressure 159/57 - Exam GENERAL DESCRIPTION: Middle-age male intubated on the vent RESPIRATORY SYSTEM: Unlabored breathing , decreased breath sounds at bases HEART: S1 S2 regular rate and rhythm , ABDOMEN: Soft , no tenderness EXTREMITIES: No edema feet Exam completed with help of [employer] - Labs CBC & Chem 7: 04/05/23 04:30 04/05/23 04:30 Labs: Abnormal Lab Results - Last 24 Hours (Table) 04/04/23 04/04/23 04/04/23 Range/Units 04:13 11:47 18:13 WBC (3.8-10.6) k/uL RBC (4.30-5.90) m/uL Hgb (13.0-17.5) gm/dL Hct (39.0-53.0) % MCV (80.0-100.0) fL Plt Count (150-450) k/uL ABG pCO2 69 H (35-45) mmHg ABG pO2 72 L (83-108) mmHg ABG HCO3 43 H* (21-25) mmol/L ABG Total CO2 45 H (19-24) mmol/L Carbon Dioxide (22-30) mmol/L BUN (9-20) mg/dL Creatinine (0.66-1.25) mg/dL Glucose (74-99) mg/dL POC Glucose (mg/dL) 149 H 162 H (70-110) mg/dL Calcium (8.4-10.2) mg/dL 04/04/23 04/04/23 04/05/23 Range/Units 22:49 23:46 04:30 WBC 17.7 H (3.8-10.6) k/uL RBC 3.66 L (4.30-5.90) m/uL Hgb 12.0 L (13.0-17.5) gm/dL Hct 38.1 L (39.0-53.0) % MCV 104.1 H (80.0-100.0) fL Plt Count 131 L (150-450) k/uL ABG pCO2 (35-45) mmHg ABG pO2 (83-108) mmHg ABG HCO3 (21-25) mmol/L ABG Total CO2 (19-24) mmol/L Carbon Dioxide (22-30) mmol/L BUN (9-20) mg/dL Creatinine (0.66-1.25) mg/dL Glucose (74-99) mg/dL POC Glucose (mg/dL) 152 H 152 H (70-110) mg/dL Calcium (8.4-10.2) mg/dL 04/05/23 04/05/23 04/05/23 Range/Units 04:30 05:15 05:47 WBC (3.8-10.6) k/uL RBC (4.30-5.90) m/uL Hgb (13.0-17.5) gm/dL Hct (39.0-53.0) % MCV (80.0-100.0) fL Plt Count (150-450) k/uL ABG pCO2 68 H (35-45) mmHg ABG pO2 72 L (83-108) mmHg ABG HCO3 41 H* (21-25) mmol/L ABG Total CO2 43 H (19-24) mmol/L Carbon Dioxide 40 H (22-30) mmol/L BUN 34 H (9-20) mg/dL Creatinine 0.47 L (0.66-1.25) mg/dL Glucose 169 H (74-99) mg/dL POC Glucose (mg/dL) 158 H (70-110) mg/dL Calcium 8.0 L (8.4-10.2) mg/dL Assessment and Plan (1) Fever Current Visit: Yes Status: Acute Code(s): R50.9 - FEVER, UNSPECIFIED SNOMED Code(s): 123196306 (2) Leukocytosis Current Visit: Yes Status: Acute Code(s): D72.829 - ELEVATED WHITE BLOOD CELL COUNT, UNSPECIFIED SNOMED Code(s): 639094869 Plan: 1patient presented to hospital with increasing shortness of breath more likely related to underlying COPD exacerbation with tracheobronchitis patient not running any fever white count has been normal both the CT of the chest as well as chest x-ray did not show any acute pulmonary process, however the patient did have a low-grade fever and the sputum culture now growing haemophilus concerning for possible early community-acquired pneumonia versus purulent tracheobronchitis 2--patient is afebrile however patient did have worsening of his white count which could be more likely related to steroids as patient did have a normal procalcitonin 3-patient has completed a 7-day course of Rocephin, 4-will monitor closely off antibiotic however if any fever or change in his clinical condition to reculture and start appropriate antibiotic at that point Dictation was produced using dragon dictation software. please excuse any grammatical, word or spelling errors. Time with Patient: Less than 30
[2023-04-05 22:54] LABS: Appearance,Urine Clear (Clear); Bilirubin,Urine Negative (Negative); Blood,Urine Negative (Negative); Color,Urine Light Yellow; Glucose,Urine (UA) 2+ (Negative); Ketones,Urine Negative (Negative); Leukocyte Esterase,Urine Negative (Negative); Nitrite,Urine Negative (Negative); PH, Urine 5.5 (5.0-8.0); Protein,Urine Negative (Negative); Specific Gravity,Urine 1.022 (1.001-1.035); Urobilinogen,Urine <2.0 mg/dL (<2.0)
[2023-04-05 23:56] LABS: Glucose,Whole Blood 166 mg/dL (70-110)
[2023-04-06] MEDS: methylPREDNISolone SOD SUCCI 125 MG/2 ML VIAL IV SCH ×4 (00:39→18:20)
[2023-04-06] MEDS: NOREPINEPHRINE 4 MG in SODIUM CHLORIDE 0.9% 250 ML IV SCH (00:39)
[2023-04-06] MEDS: INSULIN ASPART (NovoLOG) 100 UNIT/ML VIAL SQ SCH ×4 (00:39→18:20)
[2023-04-06] MEDS: SODIUM CHLORIDE 0.9% 1,000 ML IV SCH ×2 (00:45→19:43)
[2023-04-06] MEDS: IPRATROPIUM-ALBUTEROL 3 ML NEB INHALATION SCH ×4 (00:49→11:11)
--- NOTE | 2023-04-06 02:19 | PN ---
PROGRESS NOTE SUBJECTIVE: The patient is in ICU. He is still on the ventilator, tidal volume 12, FiO2 35, PEEP of 5, pCO2 is 68. Pulmonary did no change in settings. No CHF, pneumonia, sinus rhythm. We were going to extubate him yesterday. Pulmonary states he is not ready for weaning trials. Family has decided between PEG placement and tracheostomy. White count 77, hemoglobin is 12. OBJECTIVE: GENERAL: He is thin, cachectic, no acute distress. HEART: S1, S2. LUNGS: Vent sounds. EXTREMITIES: No distal pulses, decent. NEUROLOGIC: Fairly good affect. SKIN: No rashes. Labs reviewed. ABGs reviewed. He has severe COPD, hypoxemic respiratory failure secondary to that, nicotine addiction, GI bleed on admission, blood pressure under better control, dyslipidemia, chronic anxiety and Zyprexa, hypokalemic, hyponatremic, new-onset AFib on Cardizem. Surgery did a PEG to trach, hopefully they will do it, daily sedation. Continue vent. No need for oral antibiotics. Continue IV prophylaxis. Wait for code status and whether they wanted a trach or PEG. MMODL / IJN: [id number] /
[2023-04-06 04:46] LABS: HCT 36.1 % (39.0-53.0); HGB 11.5 gm/dL (13.0-17.5); Hypochromasia Slight; MCH 33.3 pg (25.0-35.0); MCHC 31.7 g/dL (31.0-37.0); Macrocytosis Slight; Mean Platelet Volume 9.2; Platelet Count 134 k/uL (150-450); RBC 3.44 m/uL (4.30-5.90); RDW 12.9 % (11.5-15.5); WBC 17.6 k/uL (3.8-10.6)
[2023-04-06] MEDS: DILTIAZEM 125 MG in SODIUM CHLORIDE 0.9% 100 ML IV SCH (04:53)
[2023-04-06 05:00] LABS: African American GFR (CKD) >90 (>60 ml/min/1.73 sqM); Blood Urea Nitrogen 38 mg/dL (9-20); Chloride 108 mmol/L (98-107); Glucose 180 mg/dL (74-99); Non-African American GFR(CKD) >90 (>60 ml/min/1.73 sqM); Potassium 4.2 mmol/L (3.5-5.1); Sodium 146 mmol/L (137-145)
[2023-04-06 05:07] LABS: Anion Gap 1 mmol/L; Carbon Dioxide 37 mmol/L (22-30)
[2023-04-06 05:36] LABS: Glucose,Whole Blood 168 mg/dL (70-110)
[2023-04-06 06:28] LABS: ABG Base Excess 15.3 mmol/L; ABG Oxygen Saturation 97.5 % (94-97); ABG PCO2 67 mmHg (35-45); ABG PH 7.39 (7.35-7.45); ABG PO2 95 mmHg (83-108); ABG TCO2 42 mmol/L (19-24); Allen Test Performed? Yes
[2023-04-06 06:31] LABS: ABG HCO3 40 mmol/L (21-25)
[2023-04-06] MEDS: FORMOTEROL FUMARATE 20 MCG/2 ML NEBU INHALATION SCH (08:02)
[2023-04-06] MEDS: BUDESONIDE 1 MG/2 ML NEBU INHALATION SCH (08:02)
--- NOTE | 2023-04-06 08:52 | XR ---
EXAMINATION TYPE: XR chest 1V portable DATE OF EXAM: 04/06/2023 COMPARISON: 04/05/2023 INDICATION: Intubated TECHNIQUE: Single frontal view of the chest is obtained. FINDINGS: The heart size is normal. The pulmonary vasculature is normal. There is hyperinflation present. No suspicious infiltrates. Endotracheal tube tip above the michael. Nasogastric tube transverses the thorax with tip in the abdom en IMPRESSION: 1. No acute pulmonary process. 2. COPD 3. Lines and catheters discussed above
[2023-04-06 09:03] VITALS: TEMP 99.5
[2023-04-06] MEDS: SENNOSIDES 8.6 MG TAB PO SCH (09:14)
[2023-04-06] MEDS: NICOTINE 21MG/24HR PATCH TRANSDERM SCH (09:14)
[2023-04-06] MEDS: ATORVASTATIN 10 MG TAB PO SCH (09:14)
[2023-04-06] MEDS: METOPROLOL TARTRATE 25 MG TAB PO SCH ×2 (09:14→19:43)
[2023-04-06] MEDS: lisinopriL 5 MG TAB PO SCH (09:14)
[2023-04-06] MEDS: ARTIFICIAL TEARS-HYPROMELLOSE DROPS 15 ML BTL BOTH EYES SCH ×3 (09:15→19:44)
[2023-04-06] MEDS: CHLORHEXIDINE GLUCONATE 15 ML CUP MUCOUS MEM SCH (09:15)
[2023-04-06] MEDS: PANTOPRAZOLE 40 MG/10 ML VIAL IVP SCH ×2 (09:15→19:43)
--- NOTE | 2023-04-06 09:31 | PN ---
PROGRESS NOTE This is a 62-year-old gentleman with history of COPD, paroxysmal atrial fibrillation, and recent GI bleed requiring an Endo Clip. Remains intubated on the vent, stable hemodynamically, and remains in sinus rhythm. He is not on anticoagulation because of recent bleed. I am going to wait until he is extubated. PHYSICAL EXAMINATION: GENERAL: Comfortable at rest. Intubated, sedated, vented, remains in sinus rhythm. CHEST: Reveals good air entry bilaterally. HEART: Reveals first and second heart sounds. Systolic murmur at the apex. ABDOMEN: Soft. EXTREMITIES: Did not reveal any edema. CURRENT MEDICATIONS: Include Lipitor, Zestril, insulin, Lopressor 25 b.i.d., and Levophed. ASSESSMENT: 1. Paroxysmal atrial fibrillation. 2. History of GI bleed. PLAN: Continue current measures. We will consider starting anticoagulation once the patient is extubated and stable. MMODL / IJN: [id number] /
--- NOTE | 2023-04-06 09:59 | P.PN ---
Subjective Progress Note Date: 04/05/23 Patient was seen for a follow-up. Patient continues to be on sedation with propofol 35 mcg/kg/min. Sedation was discontinued. Patient was slightly more awake, but does not make any eye contact, or follows directions. Sometimes briefly he would wiggle his foot possibly to command. However after I had left, the nurse reported that patient is nodding appropriately and moving all extremities. His feet are very weak and has just a flicker of movement, but he does it on command. No seizure-like activity. Objective - Vital Signs Vital signs: Vital Signs Temp 98.4 F 04/05/23 12:00 Pulse 117 H 04/05/23 16:15 Resp 21 04/05/23 14:00 BP 124/70 04/05/23 14:00 Pulse Ox 96 04/05/23 14:00 FiO2 35 04/05/23 16:04 Intake & Output 04/04/23 04/05/23 04/05/23 18:59 06:59 18:59 Intake Total 2060.123 1660 810 Output Total 1974 1330 580 Balance 85.123 330 230 Weight 58.8 kg Intake: IV 936 936 468 A line 36 36 18 Dextrose 5% in Water 1, 300 000 ml @ 100 mls/hr IV . Q10H GYPSY Rx#:[id number] Sodium Chloride 0.9% 1, 600 900 450 000 ml @ 75 mls/hr IV . [id number] GYPSY Rx#:[id number] Intake, IV Titration 189.123 100 Amount Diltiazem 125 mg In 83.75 Sodium Chloride 0.9% 100 ml @ Per Protocol IV .Q0M GYPSY Rx#:[id number] propofoL 1,000 mg In 105.373 100 Empty Bag 1 bag @ 30 MCG/ KG/MIN 8.328 mls/hr IV . Q12H1M GYPSY Rx#:[id number] Tube Feeding 625 624 312 Other 310 30 Output: Urine 1974 1330 580 Other: Voiding Method Indwelling Catheter Indwelling Catheter Indwelling Catheter ABP, PAP, CO, CI - Last Documented Arterial Blood Pressure 139/53 - Exam As above. Patient's pupils are equal, round and reacting. Oculocephalics are present. Reflexes are 1 at the knees. Diminished at the upper limbs. Plantars are flat. Tone is equal. - Labs CBC & Chem 7: 04/06/23 04:13 04/06/23 04:13 Labs: Abnormal Lab Results - Last 24 Hours (Table) 04/04/23 04/04/23 04/04/23 Range/Units 18:13 22:49 23:46 WBC (3.8-10.6) k/uL RBC (4.30-5.90) m/uL Hgb (13.0-17.5) gm/dL Hct (39.0-53.0) % MCV (80.0-100.0) fL Plt Count (150-450) k/uL ABG pCO2 (35-45) mmHg ABG pO2 (83-108) mmHg ABG HCO3 (21-25) mmol/L ABG Total CO2 (19-24) mmol/L Carbon Dioxide (22-30) mmol/L BUN (9-20) mg/dL Creatinine (0.66-1.25) mg/dL Glucose (74-99) mg/dL POC Glucose (mg/dL) 162 H 152 H 152 H (70-110) mg/dL Calcium (8.4-10.2) mg/dL 04/05/23 04/05/23 04/05/23 Range/Units 04:30 04:30 05:15 WBC 17.7 H (3.8-10.6) k/uL RBC 3.66 L (4.30-5.90) m/uL Hgb 12.0 L (13.0-17.5) gm/dL Hct 38.1 L (39.0-53.0) % MCV 104.1 H (80.0-100.0) fL Plt Count 131 L (150-450) k/uL ABG pCO2 68 H (35-45) mmHg ABG pO2 72 L (83-108) mmHg ABG HCO3 41 H* (21-25) mmol/L ABG Total CO2 43 H (19-24) mmol/L Carbon Dioxide 40 H (22-30) mmol/L BUN 34 H (9-20) mg/dL Creatinine 0.47 L (0.66-1.25) mg/dL Glucose 169 H (74-99) mg/dL POC Glucose (mg/dL) (70-110) mg/dL Calcium 8.0 L (8.4-10.2) mg/dL 04/05/23 04/05/23 Range/Units 05:47 11:47 WBC (3.8-10.6) k/uL RBC (4.30-5.90) m/uL Hgb (13.0-17.5) gm/dL Hct (39.0-53.0) % MCV (80.0-100.0) fL Plt Count (150-450) k/uL ABG pCO2 (35-45) mmHg ABG pO2 (83-108) mmHg ABG HCO3 (21-25) mmol/L ABG Total CO2 (19-24) mmol/L Carbon Dioxide (22-30) mmol/L BUN (9-20) mg/dL Creatinine (0.66-1.25) mg/dL Glucose (74-99) mg/dL POC Glucose (mg/dL) 158 H 152 H (70-110) mg/dL Calcium (8.4-10.2) mg/dL Assessment and Plan Assessment: * Altered mental status, likely due to toxic metabolic encephalopathy * Respiratory failure, on mechanical ventilation, with failure to wean. * COPD with exacerbation * Chronic CO2 retainer * Paroxysmal atrial fibrillation, SVT * Recent GI bleed, status post gastric clipping * Hypertension * Learning disability, dyslexia * Tobacco use Plan: * With sedation holiday, patient was nodding appropriately and moving all extremities. His feet are very weak and just a flicker of movement, but does it on command. * We will continue to observe clinically. * EEG was abnormal due to background slowing of moderate degree. This is suggestive of generalized cerebral dysfunction as can be seen with toxic metabolic encephalopathy or related to diffuse structural brain abnormality. Clinical correlation is recommended. No epileptiform activity was seen. * Patient has atrial fibrillation, would defer to IM/cardiology/critical care. Currently on Cardizem. * Per nurse report, with sedation holiday, patient was responding better. We will hold off on CT head for now. * We will follow clinically. Discussed with patient's father in detail.
[2023-04-06] MEDS ORDERED: ATROPINE OPHTH SOLN 1% 5ML BTL SUBLINGUAL PRN (11:30)
[2023-04-06] MEDS ORDERED: MORPHINE SULFATE 4 MG/ML SYRINGE IV PRN (11:30)
[2023-04-06 11:35] VITALS: BP 85/50; PULSE 71; RESP 14
[2023-04-06 11:51] LABS: Glucose,Whole Blood 170 mg/dL (70-110)
[2023-04-06] MEDS ORDERED: SCOPOLAMINE 1 MG/72 HR PATCH TRANSDERM SCH (12:00)
[2023-04-06] MEDS: MORPHINE SULFATE (100 MG/2 ML) 100 MG in SODIUM CHLORIDE 0.9% 100 ML IV SCH ×2 (12:36→16:45)
--- NOTE | 2023-04-06 13:04 | P.PN ---
Subjective Progress Note Date: 04/06/23 Principal diagnosis: Acute hypoxic and hypercapnic respiratory failure secondary to acute exacerbation of COPD Patient is a 62-year-old white male with past medical history significant for COPD and chronic ongoing tobacco dependence. The patient came into the emergency department with significant shortness of breath. Apparently, he was actively bronchospastic and he had diminished breath sounds. In the emergency, the patient was given breathing treatments [id number] and subsequently was placed in the 100% nonrebreather facemask. Upon follow-up, the patient was fou nd to be completely unresponsive and he was unable to protect his airway and his breathing was very shallow. At that point, he was intubated and placed on a mechanical ventilator. The initial blood gas was done postintubation was lab error and subsequently follow-up blood gases was done that showed significant respiratory acidosis and oxygen nasal already improved. Patient is currently sedated and intubated on mechanical ventilator, most of this HPI supplemented from ER documentation. We were not able to get a hold of any family at this time, and there are no prior charts to review. Based on a review of his home medications, he may have history COPD, hypertension, and hyperlipidemia. Pos tintubation he ABG was consistent with severe hypercapnic respiratory failure. PO2 greater than 400, pCO2 of 93, and pH of 7.12. Postintubation chest x-ray has endotracheal tube approximately 4 cm above the michael. Orogastric tube courses below the diaphragm. No focal infiltrates or evidence of pneumonia. There is marked hyperinflation with flattening of the diaphragm, consistent with COPD. A follow-up chest CTA done while in the emergency room showed no evidence of pulmonary embolism. There is no acute cardiopulmonary process. Patient is currently in the intensive care unit, intubated to the mechanical ventilator. Propofol is infusing at 45 mcg/kg/m. He is synchronous with mechanical ventilator. Current ventilator settings are assist control, respiratory rate of 12, tidal volume 400, FiO2 of 80%, PEEP of 5. A repeat ABG as a PaO2 of 358, pCO2 of 90, pH of 7.14. I increased the patient's respiratory rate 20 and reduce the FiO2 to 50%. The peak airway pressure is 34 and static airway pressure is 24, patient has some evidence of airway resistance. Lung sounds are tight and continues wheezing. No significant airway secretions. Patient has been started on DuoNeb's every 4 hours. I would add budesonide and formoterol. Patient is also hypotensive, he is already received a total of 2 L normal saline bolus. He is only 52 kg. Patient will be started on low-dose norepinephrine for refractory hypotension if needed. CBC on arrival unremarkable. BMP on arrival, sodium 132, potassium 4.9, chloride 94, serum bicarbonate 33, BUN 16, creatinine 0.62, glucose 123. Lactic acid level II.5. Troponin is less than 0.012. Negative for influenza, RSV, COVID-19. He is afebrile. Patient's status is still volatile, and there are no plans to extubate tonight. They have the chest was also completed in emergency. This was reviewed. No evidence of any pulmonary embolism. There is extensive emphysema bilaterally. No airspace disease. Note that the patient's NG output is bloody. Currently has approximately 300 mL and the canister. In terms of his hemoglobin monitoring, the patient's hemoglobin dropped from 15.2 down to 13.5. IV fluids are in the form of normal saline at rate of 75 mL's an hour. The patient is sedated with propofol running at 50 mcg/kg/m. Most recent blood gas showed improvement and acid-base status. PH is down still at 7.28 also improved compared to yesterday. PCO2 is down to 58 and pO2 is at 179 and this was an FiO2 of 50% and subseque ntly the FiO2 was dropped onto 40%. No pressors. Today's evaluation of 03/28/2023, the patient remains intubated on a mechanical ventilator. He remains sedated on propofol which is running at 70 g plus kilogram per minutes. Despite his adequate sedation, the patient remains actively bronchospastic and wheezy. In fact, he is having elevated peak airway pressure this morning. His current ventilator settings with evidence is control mode rate of 12, tidal volume of 400, FiO2 of 40% with a PEEP of 5. His blood gases show a pH of 7.32 with a pCO2 of 54 and pO2 of 133. Chest x-ray shows ma rked hyperinflation. No airspace disease. No consolidation. On a separate note, the patient was having episodes of GI bleed. NG tube was in place throughout the night. Output from the treatment diminished and the hemoglobin had dropped slightly down to 12.5 this morning. EGD was done earlier today and the patient was found to have a 5 mm ulcer in the body of the stomach and an Endo Clip was applied. The patient will some antral erosive gastritis. Clearance was obtained from the hydraulic rock drill operator to feed the patient. As such, we will going to start enteral feeding. We'll going to stop TPN for now. Hemodynamically stable. He is maintaining his own blood pressure without any pressors. The patient remains on IV fluids with normal saline at 125 mL an hour. He remains on bronchodilators. He remains on steroids. He remains on a broad-spectrum antibiotic coverage with Rocephin and Zithromax. White cell count 11.9, he was 12.5 and a platelet is 164. Sodium is at 136, BUN is at 17 with a creatinine of 0.6. LFTs are within normal limits. No other significant events overnight. On 03/29/2023, patient is being seen for a follow-up. Remains sedated on propofol. His calm and comfortable. Propofol is running at 50 microvascular kilogram per minute. The patient remains on the same ventilator settings with a tidal volume of 375, rate of 12, FiO2 of 40% with a PEEP of 5. Peak air pressures at 42. Remains actively bronchospastic and wheezy. Not a candidate for any bleeding at this point in time as the patient COPD still quite active. Chest x-ray shows hyperinflation. Orotracheal tube is in good location. No evidence of any airspace disease of consolidation. Remains on broke a dilated. Remains on steroids. Remains on enteral feeding for nutritional support and the patient is taking vital high-protein at the rate of 30 mL an hour. Hemodynamically stable. No other significant events overnight. Blood gas from today shows a pH of 7.29 with episodes of 48 and pO2 118 and this was an FiO2 of 40%. The white cell cause of 14.3, hemoglobin of 11.8 and a platelet count of 153. BUN is at 20 with a creatinine of 0.6 and a sodium level is at 142 and a potassium level of 4.6. LFTs are normal. The sputum sample was positive for Haemophilus influenza. On 03/30/2023, the patient remains on a mechanical ventilator. Slightly less bronchus spastic compared to yesterday. The peak airway pressure today's ranging between 33 and 35. The patient is on assist control mode at a rate of 12, tidal volume of 375, FiO2 is at 40% with a PEEP of 5. He remains on propofol running at 50 microvascular kilogram per minute. Chest x-ray findings are unchanged. No clear indication for pneumonia. The patient is Haemophilus influenza cultured in the sputum. Blood gas from today shows a pH of 7.28 with episodes of 83 and pO2 of 107 and this was an FiO2 of 40%. The patient continues to receive enteral feeding for nutritional support and he is on vital high-protein at the rate of 46 mL an hour. IV fluids are currently running at 75 mL an hour. The patient's sodium level is at 150, potassium levels at 4.2, chlorides 112 and a bicarb of 39. BUN is 29 with a creatinine of 0.6. The white cell cause of 10.9 with a hemoglobin of 11.4. No other complications or issues for now. Unable to wean this patient yet off the mechanical ventilator as his COPD remains quite active. Hemodynamically stable. He is on no pressors. Tolerating enteral feeding. 03/31/2023, the patient is on a mechanical ventilator. Ventilator settings are control 12, tidal volume of 400, FiO2 40% with a PEEP of 5. The patient's blood gas shows some improvement acid-base status. On today's evaluation, the patient has a pH of 7.34 with episodes of 84 and pO2 of 109. This was an FiO2 of 40%. Chest x-ray findings are unchanged. Peak airway pressures around 34. Air entry is improved bilaterally. However, with any attempts to cut down the sedation, the patient becomes asynchronous and he starts peak pressure in. I do not believe that his ready for any further weaning at this point in time. I may even consider the possibility of tracheostomy at the later stage. He is currently on a propofol at the rate of 50 mcg/kg/m. His vital high-protein at the rate of 46 mL an hour. His sodium level is elevated. I started him on free water supplements through the OG tube. He'll be started on D5 water today in attempt to optimize his sodium level hypernatremia. He has a 35 and a creatinine of 0.5. Potassium is 4.4. The previous cause of 9.8 with a hemoglobin of 12.2. Remains hemodynamically stable. Remains afebrile. Remains on IV Rocephin. Patient was reevaluated today on 04/01/23, remains in the ICU, intubated and mechanically ventilated. He is on assist control rate of 12 tidal volume 400 FiO2 40% and PEEP of 5 and FiO2 was cut down to 35%, ABG 109/81/7.38. Patient is requiring sedation presently on propofol at 50 mcg/kg/m, is also on D5W at 75 mL per hour receiving vitamin Hb at 46 mL per hour, also receiving free water flushes because of his hypernatremia, patient remains on ceftriaxone, Solu- Medrol, NicoDerm, patient had EGD on 03/28 and he was found to have upper GI bleeding, looking at the notes from Dr. Herring, he felt that the patient has such a severe COPD, he will be very difficult to wean, and may have to consider tracheostomy and PEG tube placement on this patient. Nonetheless I will give the patient trials of weaning on a daily basis, and if the patient fails over the next 5 days, may recommend trach and PEG on this patient. His peak airway pressure today is 34, plateau pressure is 22. WBC count is 7.9 hemoglobin is 11.5 sodium is 148 bicarb is 44 ABG as noted earlier. Chest x-ray is showing severe COPD picture/hyperinflation/emphysema picture Reevaluated today on 04/02/2023, remains in the ICU intubated and mechanically ventilated, patient is presently on assist-control rate of 12 tidal volume of 100 FiO2 35% PEEP of 5, ABG showed a pO2 of 90 pCO2 77 pH of 7.39. Patient remains on propofol at 30 mcg/kg/min, he is also on vital HP at 40 M 6 mL/h, receiving Rocephin, we are holding on anticoagulation therapy because of his recent GI bleed, yesterday the patient was given a very short voiding trial, and he failed immediately, not quite ready for any weaning. As a matter fact considering his presentation and considering his overall pulmonary status, I believe the patient is going to be extremely difficult to wean and extubate, hence I am recommending surgical consultation for tracheostomy and PEG tube placement. Chest x-ray is mostly showing COPD changes, no clear-cut evidence of infiltrate. Nonetheless patient remains empirically on Rocephin. WBC count today is 11.7 hemoglobin is 12.8. Basic metabolic profile is normal bicarb is 41 BUN is 33 creatinine 0.41 Reevaluated today on 04/03/2023, patient remains in, intubated and mechanically ventilated. This morning, patient went into new onset atrial fibrillation with RVR, placed on Cardizem drip as per cardiology, did not recommend anticoag ulation because of his recent GI bleed, patient remains in bated and mechanically ventilated, he is on assist-control rate of 12 tidal volume 400 FiO2 35% and PEEP of 5G showed a pO2 of 89 pCO2 72 pH of 7.40, his sputum was positive for H. influenzae. Patient remains on D5W at 100 cc/h propofol at 35 mcg/kg/min, he is on vital HP at 52 cc/h. Patient finished full course of ceftriaxone treatment. Today will be the last day. For his atrial fibrillation and RVR, patient is being addressed by cardiology. When I saw him this morning, he already converted to sinus rhythm. Chest x-ray continues to show evidence of COPD but no evidence of infiltrate. WBC count is 14.7 hemoglobin 13.2 basic me tabolic profile is normal, renal profile is normal patient remains on propofol, difficult to assess mental status, however I will have the nurses hold his propofol today, and try to address mental status. Apparently off propofol the patient gets extremely agitated, tachypneic, tachycardic, none synchronous with the ventilator, hence could not get to the point where we could address weaning or addressed even evaluation of mental status on this patient Reevaluate today on 04/04/2023, remains intubated and mechanically ventilated on assist-control rate of 12 tidal volume 400 FiO2 30% PEEP of 5 ABG showed a pO2 of 72 pCO2 69 pH of 7.39. Off sedation, the patient gets extremely restless tachypneic tachycardic, agitated, and using his accessory muscles. Opens eyes, wiggles toes, squeezes hands, however not much else could be done. Patient is extremely weak, he is still on Cardizem at 5 mg/h, propofol 35 mg/kg/min IV fluid changed 2.9 normal saline at 70 cc/h receiving vital HP at 53 mL/h. Today I had a chance to talk to his father over the phone, explained to him his son's condition and the severity of his condition and discussed with him the option of tracheostomy PEG tube placement, and eventually transfer to a ventilator facility. Apparently the father seems to be inclined to consider comfort care measures knowing how bad his condition is and the patient would not have wanted to go on tracheostomy or PEG tube placement. However we will give the father time to think and make a final decision regarding tracheostomy, PEG tube placement, or possibly go to comfort care. Chest x-ray continues to show COPD but no evidence of infiltrate WBC count is 17.6 hemoglobin 13.1. Basic metabolic profile is normal renal profile is normal bicarb is 36 Was reevaluated today on 04/05/2023, patient remains intubated and mechanically ventilated. He is on assist-control rate of 12 tidal volume 400 FiO2 35% and PEEP of 5 ABG showed a pO2 of 72 pCO2 68 pH of 7.39, hence no changes were made in his present ventilator settings. Chest x-ray continues to show COPD, no evidence of pneumonia or congestive heart failure. Patient is in sinus rhythm, remains on Cardizem at 5 mg/h he is also on propofol at 50 mg/kg/min IV fluid of 75 cc an hour 0.9 normal saline vital HP at 52 cc/h. Attempts yesterday failed to fully assess mental status, patient gets quite restless and agitated, tac hypneic tachycardic every time we hold propofol, and could not fully assess mental status but he seems to be appropriate enough to wiggle his toes and squeezes hands. Will try this again and assessment of mental status but clearly the patient is nowhere ready for any weaning trials. Apparently the patient has extremely severe COPD/emphysema, and doubt that she could even tolerate any form of weaning. Family was approached regarding PEG tube placement and tracheostomy so far undecided. WBC count today is 17.7 hemoglobin is 12 basic metabolic profile is normal renal profile is normal bicarb is 40 Patient evaluated today on 04/06/2023, remains intubated and mechanically ventilated. Remains on assist-control rate of 12 tidal volume 400 FiO2 35% PEEP of 5 ABG showed a pO2 of 95 pCO2 67 pH of 7.39, FiO2 was cut down to 30%. Patient is on Cardizem drip however this was changed to Lopressor by cardiology continues to be off anticoagulation because of GI bleeding remains on propofol at 20 mcg/kg/min. Patient again opens eyes with deep painful stimuli, and does not seem to be anywhere near weaning or extubation. Attempts have failed to even assess mental status fully , and the patient ff sedation. Family will have to make a decision regarding CODE STATUS and whether to proceed with tracheostomy and PEG tube or possibly consider comfort care. I felt that his father was more inclined to go with comfort care the last time I talked. Chest x-ray continues to show severe emphysema but no evidence of infiltrate WBC count is 17.6 hemoglobin 11.5 basic metabolic profile is normal renal profile is normal bicarb is 37 Objective - Vital Signs Vital signs: Vital Signs Temp 99.5 F 04/06/23 08:00 Pulse 71 04/06/23 11:00 Resp 14 04/06/23 11:00 BP 85/50 04/06/23 11:00 Pulse Ox 96 04/06/23 11:00 FiO2 30 04/06/23 11:08 Intake & Output 04/05/23 04/06/23 04/06/23 18:59 06:59 18:59 Intake Total 8523.103 4614.657 731.970 Output Total 1355 1265 571 Balance 475.778 431.657 160.970 Weight 61.2 kg 59.7 kg Intake: IV 1014 858 413 A line 39 33 18 Sodium Chloride 0.9% 1, 975 825 395 000 ml @ 75 mls/hr IV . [id number] GYPS[facility] Rx#:[id number] Intake, IV Titration 50.778 211.657 3.970 Amount Diltiazem 125 mg In 125 Sodium Chloride 0.9% 100 ml @ Per Protocol IV .Q0M GYPSY Rx#:[id number] Morphine Sulfate (100 mg/ 0.153 2 ml) 100 mg In Sodium Chloride 0.9% 100 ml @ 1 MG/HR 1.02 mls/hr IV . Q24H [facility]YPS[facility] Rx#:[id number] propofoL 1,000 mg In 50.778 86.657 3.817 Empty Bag 1 bag @ 30 MCG/ KG/MIN 8.328 mls/hr IV . Q12H1M GYPSY Rx#:[id number] Oral 104 Tube Feeding 572 627 285 Other 90 30 Output: Urine 1355 1265 570 Stool 1 Other: Voiding Method Indwelling Catheter Indwelling Catheter Indwelling Catheter ABP, PAP, CO, CI - Last Documented Arterial Blood Pressure 93/40 - Exam Physical Exam: Revealed a 62-year-old white male in no distress intubated mechanically ventilated sedated on propofol. Head: Atraumatic, normocephalic. HEENT:[Neck is supple.] [No neck masses.] [No thyromegaly.] [No JVD.] Endotracheal tube and orogastric tubes are intact. Chest: [Neck symmetrical chest expansion, diminished breath sound bilaterally no rhonchi no wheezes.] Cardiac Exam: [Normal S1 and S2, no S3 gallop, no murmur.] Abdomen: [Soft, nontender, no megaly, no rebound, no guarding, normal bowel sounds.] Extremities: [No clubbing, no edema, no cyanosis.] Good distal pulses bilaterally. Neurological Exam: Could not assess, patient is fully sedated. Psychiatric: Could not assess Skin: No rashes - Labs CBC & Chem 7: 04/06/23 04:13 04/06/23 04:13 Labs: Abnormal Lab Results - Last 24 Hours (Table) 04/05/23 04/05/23 04/05/23 Range/Units 17:43 22:35 23:55 WBC (3.8-10.6) k/uL RBC (4.30-5.90) m/uL Hgb (13.0-17.5) gm/dL Hct (39.0-53.0) % MCV (80.0-100.0) fL Plt Count (150-450) k/uL ABG pCO2 (35-45) mmHg ABG HCO3 (21-25) mmol/L ABG Total CO2 (19-24) mmol/L ABG O2 Saturation (94-97) % Sodium (137-145) mmol/L Chloride (98-107) mmol/L Carbon Dioxide (22-30) mmol/L BUN (9-20) mg/dL Creatinine (0.66-1.25) mg/dL Glucose (74-99) mg/dL POC Glucose (mg/dL) 144 H 166 H (70-110) mg/dL Calcium (8.4-10.2) mg/dL Urine Glucose (UA) 2+ H (Negative) 04/06/23 04/06/23 04/06/23 Range/Units 04:13 04:13 05:34 WBC 17.6 H (3.8-10.6) k/uL RBC 3.44 L (4.30-5.90) m/uL Hgb 11.5 L (13.0-17.5) gm/dL Hct 36.1 L (39.0-53.0) % MCV 105.0 H (80.0-100.0) fL Plt Count 134 L (150-450) k/uL ABG pCO2 (35-45) mmHg ABG HCO3 (21-25) mmol/L ABG Total CO2 (19-24) mmol/L ABG O2 Saturation (94-97) % Sodium 146 H (137-145) mmol/L Chloride 108 H (98-107) mmol/L Carbon Dioxide 37 H (22-30) mmol/L BUN 38 H (9-20) mg/dL Creatinine 0.48 L (0.66-1.25) mg/dL Glucose 180 H (74-99) mg/dL POC Glucose (mg/dL) 168 H (70-110) mg/dL Calcium 8.0 L (8.4-10.2) mg/dL Urine Glucose (UA) (Negative) 04/06/23 04/06/23 Range/Units 06:21 11:50 WBC (3.8-10.6) k/uL RBC (4.30-5.90) m/uL Hgb (13.0-17.5) gm/dL Hct (39.0-53.0) % MCV (80.0-100.0) fL Plt Count (150-450) k/uL ABG pCO2 67 H (35-45) mmHg ABG HCO3 40 H* (21-25) mmol/L ABG Total CO2 42 H (19-24) mmol/L ABG O2 Saturation 97.5 H (94-97) % Sodium (137-145) mmol/L Chloride (98-107) mmol/L Carbon Dioxide (22-30) mmol/L BUN (9-20) mg/dL Creatinine (0.66-1.25) mg/dL Glucose (74-99) mg/dL POC Glucose (mg/dL) 170 H (70-110) mg/dL Calcium (8.4-10.2) mg/dL Urine Glucose (UA) (Negative) Assessment and Plan Assessment: Impression: Acute hypoxic/hypercapnic respiratory failure secondary to acute exacerbation of COPD, no evidence of pneumonia Severe COPD Chronic smoker/tobacco dependence syndrome Acute upper GI bleeding secondary to erosive antral gastritis based on EGD patient had Endo Clip applied. Presently on Protonix 40 mg twice a day, still holding Lovenox. Benign essential hypertension Dyslipidemia Chronic anxiety disorder maintained on Zyprexa on outpatient basis is also on Prozac for depression Dyslipidemia Hyperchloremic hypernatremia, resolved New onset atrial fibrillation with RVR, on Cardizem. Presently the patient is in sinus rhythm, and he was seen by cardiology changed to beta-blockers off Cardizem Recommendation: Continue ventilatory support, Daily sedation holidays Continue GI prophylaxis Beta-blockers to replace Cardizem Continue to hold anticoagulation therapy Continue Protonix 40 mg twice a day Continue enteral feeding/nutritional support, patient is receiving vital HP, up to go Patient remains critically ill Updated family on his condition and decide whether to arrange for PEG tube and tracheostomy next Saturday or to go to comfort care Critical care time is over 30 minutes Time with Patient: Greater than 30
[2023-04-06] MEDS: LORazepam 2 MG/ML INJ IV PRN (13:11)
[2023-04-07] MEDS: methylPREDNISolone SOD SUCCI 125 MG/2 ML VIAL IV SCH (01:59)
[2023-04-07] MEDS: INSULIN ASPART (NovoLOG) 100 UNIT/ML VIAL SQ SCH (01:59)
[2023-04-07] MEDS: NOREPINEPHRINE 4 MG in SODIUM CHLORIDE 0.9% 250 ML IV SCH (01:59)
--- NOTE | 2023-04-07 05:58 | PN ---
PROGRESS NOTE -ybyt-eut white male, remains on the ventilator in the ICU. Edgar sputum culture on him last night. Tried to get some of the sputum specimen. He has COPD. . He does follow all commands per nurse. He is still intubated, mechanically ventilated, PEEP of 5, FiO2 of 35, SaO2 cut down to 30. Cardizem drip. Change to Lopressor per Cardiology. He is off anticoagulation due to GI bleed. painful stimuli. They do not think he is ready to be taken off sedation. Temp 99.5, pulse 70s, respiratory rate 14-12, blood pressure 85/50. White count 17.5, hemoglobin is 11.5, BUN is 38, creatinine is 0.48, sugar is admitted 100. CO2 is 37. Acute hypercapnic respiratory failure, severe COPD, nicotine addiction, GI bleeding, endo clipped, Protonix, holding Lovenox, hypertension, dyslipidemia, anxiety on Zyprexa, dyslipidemia, hypernatremia, hyperchloremia, new onset AFib on Cardizem. Switched him on beta blockers, possibly wean him off the vent as tolerated. Remains critically ill. Edgar sputum culture antibiotics. Prognosis guarded. MMODL / IJN: [id number] /
--- NOTE | 2023-04-07 11:17 | P.PN ---
Subjective Progress Note Date: 04/06/23 Patient was seen for a follow-up. Patient continues to be on sedation with propofol 30 mcg/kg/min. Also on Cardizem. Patient appears to be having labored his breathing, despite being on intubation. No seizure-like activity. Objective - Vital Signs Vital signs: Vital Signs Temp 99.5 F 04/06/23 08:00 Pulse 71 04/06/23 11:00 Resp 14 04/06/23 11:00 BP 85/50 04/06/23 11:00 Pulse Ox 96 04/06/23 11:00 FiO2 30 04/06/23 11:08 Intake & Output 04/05/23 04/06/23 04/06/23 18:59 06:59 18:59 Intake Total 5924.989 0957.657 573.817 Output Total 1355 1265 371 Balance 475.778 431.657 202.817 Weight 61.2 kg 59.7 kg Intake: IV 1014 858 312 A line 39 33 12 Sodium Chloride 0.9% 1, 975 825 300 000 ml @ 75 mls/hr IV . [id number] GYPSY Rx#:[id number] Intake, IV Titration 50.778 211.657 3.817 Amount Diltiazem 125 mg In 125 Sodium Chloride 0.9% 100 ml @ Per Protocol IV .Q0M GYPSY Rx#:[id number] propofoL 1,000 mg In 50.778 86.657 3.817 Empty Bag 1 bag @ 30 MCG/ KG/MIN 8.328 mls/hr IV . Q12H1M GYPSY Rx#:[id number] Oral 104 Tube Feeding 572 627 228 Other 90 30 Output: Urine 1355 1265 370 Stool 1 Other: Voiding Method Indwelling Catheter Indwelling Catheter Indwelling Catheter ABP, PAP, CO, CI - Last Documented Arterial Blood Pressure 93/40 - Exam As above. Patient's pupils are equal, round and reacting. Oculocephalics are present. Reflexes are 1 at the knees. Diminished at the upper limbs. Plantars are flat. Tone is equal. No obvious seizure-like activity. - Labs CBC & Chem 7: 04/06/23 04:13 04/06/23 04:13 Labs: Abnormal Lab Results - Last 24 Hours (Table) 04/05/23 04/05/2304/05/24 Range/Units 17:43 22:35 23:55 WBC (3.8-10.6) k/uL RBC (4.30-5.90) m/uL Hgb (13.0-17.5) gm/dL Hct (39.0-53.0) % MCV (80.0-100.0) fL Plt Count (150-450) k/uL ABG pCO2 (35-45) mmHg ABG HCO3 (21-25) mmol/L ABG Total CO2 (19-24) mmol/L ABG O2 Saturation (94-97) % Sodium (137-145) mmol/L Chloride (98-107) mmol/L Carbon Dioxide (22-30) mmol/L BUN (9-20) mg/dL Creatinine (0.66-1.25) mg/dL Glucose (74-99) mg/dL POC Glucose (mg/dL) 144 H 166 H (70-110) mg/dL Calcium (8.4-10.2) mg/dL Urine Glucose (UA) 2+ H (Negative) 04/06/23 04/06/23 04/06/23 Range/Units 04:13 04:13 05:34 WBC 17.6 H (3.8-10.6) k/uL RBC 3.44 L (4.30-5.90) m/uL Hgb 11.5 L (13.0-17.5) gm/dL Hct 36.1 L (39.0-53.0) % MCV 105.0 H (80.0-100.0) fL Plt Count 134 L (150-450) k/uL ABG pCO2 (35-45) mmHg ABG HCO3 (21-25) mmol/L ABG Total CO2 (19-24) mmol/L ABG O2 Saturation (94-97) % Sodium 146 H (137-145) mmol/L Chloride 108 H (98-107) mmol/L Carbon Dioxide 37 H (22-30) mmol/L BUN 38 H (9-20) mg/dL Creatinine 0.48 L (0.66-1.25) mg/dL Glucose 180 H (74-99) mg/dL POC Glucose (mg/dL) 168 H (70-110) mg/dL Calcium 8.0 L (8.4-10.2) mg/dL Urine Glucose (UA) (Negative) 04/06/23 04/06/23 Range/Units 06:21 11:50 WBC (3.8-10.6) k/uL RBC (4.30-5.90) m/uL Hgb (13.0-17.5) gm/dL Hct (39.0-53.0) % MCV (80.0-100.0) fL Plt Count (150-450) k/uL ABG pCO2 67 H (35-45) mmHg ABG HCO3 40 H* (21-25) mmol/L ABG Total CO2 42 H (19-24) mmol/L ABG O2 Saturation 97.5 H (94-97) % Sodium (137-145) mmol/L Chloride (98-107) mmol/L Carbon Dioxide (22-30) mmol/L BUN (9-20) mg/dL Creatinine (0.66-1.25) mg/dL Glucose (74-99) mg/dL POC Glucose (mg/dL) 170 H (70-110) mg/dL Calcium (8.4-10.2) mg/dL Urine Glucose (UA) (Negative) Assessment and Plan Assessment: * Altered mental status, likely due to toxic metabolic encephalopathy * Respiratory failure, on mechanical ventilation, with failure to wean. * COPD with exacerbation * Chronic CO2 retainer * Paroxysmal atrial fibrillation, SVT * Recent GI bleed, status post gastric clipping * Hypertension * Learning disability, dyslexia * Tobacco use Plan: * Patient continues to be severely encephalopathic. * Check CT head to rule out any embolic stroke from atrial fibrillation. * EEG was abnormal due to background slowing of moderate degree. This is suggestive of generalized cerebral dysfunction as can be seen with toxic metabolic encephalopathy or related to diffuse structural brain abnormality. Clinical correlation is recommended. No epileptiform activity was seen. * Patient has atrial fibrillation, would defer to IM/cardiology/critical care. Currently on Cardizem. * We will follow clinically.
--- NOTE | 2023-04-09 16:58 | CDI ---
Documentation Clarification Form Date: 04/09/2023 04:44:10 PM From: Lillie Murray RN, CCDS Email: [email or web address] Admit Date: 03/26/2023 08:25:00 PM Patient Name: Tate Johnston Visit Number: [id number] Discharge Date: 04/06/2023 09:17:00 PM ATTENTION: The Clinical Documentation Specialists (CDI) and [facility] Coding Staff appreciate your assistance in clarifying documentation. Please respond to the clarification below the line at the bottom and electronically sign. The CDI & [facility] Coding staff will review the response and follow-up if needed. Please note: Queries are made part of the Legal Health Record. If you have any questions, please contact the author of this message via ITS. Dr. Gonzales Herring Your patient had hypotension and was treated with IV Levophed. Based on this information and the findings below, is there an additional diagnosis that is clinically appropriate for this patient? Patient history/risk factors: COPD, smoker. Presented with difficulty breathing. Found to be in acute hypercapnia respiratory failure and intubated in the ED. Clinical Indicators: 03/27 Pulmonary: "Patient is also hypotensive. He has already received a total of 2 L normal saline bolus. Patient will be started on low-dose norepinephrine for refractory hypotension if needed. 03/26 Arterial BP 71/42 03/27 Arterial BP 88/56-102/74-87/46 Treatment: IV Levophed titrated 03/27-03/28; 2L 0.9 NS bolus on 03/26 Is there an additional diagnosis that is clinically appropriate for this patient? [ ] Cardiovascular shock [ ] Hypovolemic shock [ ] No additional diagnosis/Not clinically significant [ ] Unable to determine [ ] Other, please specify MTDD
== END 2023-04-06 21:17 | disposition expired | DRG 207 ==
LOC: EC 15:57 → SUPCPDRO 15:57 → 2SICU 20:25
PROVIDERS: ADMIT Family Medicine; ATTEND Family Medicine
PROC: 5A1955Z Respiratory Ventilation, Greater than 96 Consecutive Hours (ICD-10-PCS; principal; 2023-03-26)
PROC: 0BH18EZ Insertion of Endotracheal Airway into Trachea, Via Natural or Artificial Opening Endoscopic (ICD-10-PCS; 2023-03-26)
PROC: 0D9670Z Drainage of Stomach with Drainage Device, Via Natural or Artificial Opening (ICD-10-PCS; 2023-03-26)
PROC: 03HY32Z Insertion of Monitoring Device into Upper Artery, Percutaneous Approach (ICD-10-PCS; 2023-03-27)
PROC: 4A133B1 Monitoring of Arterial Pressure, Peripheral, Percutaneous Approach (ICD-10-PCS; 2023-03-27)
PROC: 4A133J1 Monitoring of Arterial Pulse, Peripheral, Percutaneous Approach (ICD-10-PCS; 2023-03-27)
PROC: 02HV33Z Insertion of Infusion Device into Superior Vena Cava, Percutaneous Approach (ICD-10-PCS; 2023-03-27)
PROC: 3E033XZ Introduction of Vasopressor into Peripheral Vein, Percutaneous Approach (ICD-10-PCS; 2023-03-27)
PROC: 0W3P8ZZ Control Bleeding in Gastrointestinal Tract, Via Natural or Artificial Opening Endoscopic (ICD-10-PCS; 2023-03-28)
PROC: 3E0G76Z Introduction of Nutritional Substance into Upper GI, Via Natural or Artificial Opening (ICD-10-PCS; 2023-03-29)
DX: J96.02 Acute respiratory failure with hypercapnia (principal); J69.0 Pneumonitis due to inhalation of food and vomit; G92.8 Other toxic encephalopathy; E43 Unspecified severe protein-calorie malnutrition; K29.61 Other gastritis with bleeding; K25.4 Chronic or unspecified gastric ulcer with hemorrhage; E87.0 Hyperosmolality and hypernatremia; D62 Acute posthemorrhagic anemia; I47.10 Supraventricular tachycardia, unspecified; J44.0 Chronic obstructive pulmonary disease with (acute) lower respiratory infection; I48.0 Paroxysmal atrial fibrillation; J96.01 Acute respiratory failure with hypoxia; I95.9 Hypotension, unspecified; E87.8 Other disorders of electrolyte and fluid balance, not elsewhere classified; I10 Essential (primary) hypertension; F32.A Depression, unspecified; Z66 Do not resuscitate; Z51.5 Encounter for palliative care; M10.9 Gout, unspecified; F17.210 Nicotine dependence, cigarettes, uncomplicated; I25.10 Atherosclerotic heart disease of native coronary artery without angina pectoris; F41.9 Anxiety disorder, unspecified; E78.5 Hyperlipidemia, unspecified; B96.3 Hemophilus influenzae [H. influenzae] as the cause of diseases classified elsewhere; T38.0X5A Adverse effect of glucocorticoids and synthetic analogues, initial encounter; R48.0 Dyslexia and alexia; K21.9 Gastro-esophageal reflux disease without esophagitis; D72.828 Other elevated white blood cell count; Z68.20 Body mass index [BMI] 20.0-20.9, adult; Z79.899 Other long term (current) drug therapy; Z11.52 Encounter for screening for COVID-19
CPT/HCPCS: 31500; 36415; 36600; 43255; 70450; 71045; 71046; 71275; 80048; 80053; 80306; 80320; 81003; 82040; 82271; 82330; 82375; 82805; 83036; 83605; 83735; 84100; 84145; 84478; 84484; 85025; 85027; 85379; 85610; 85730; 86140; 86850; 86900; 86901; 87040; 87070; 87205; 87636; 93005; 93306; 94002; 94003; 94640; 95822; 96361; 96374; 96375; 96376; 99291